=== PATIENT | male | born 1955 | race Caucasian/White ===

== ENCOUNTER → 2018-02-13 | Outpatient (CLI) | payer SELFPAY ==
[~2018-02-13] VITALS: Ht 172.7 cm; Wt 83.9 kg
[~2018-02-13] MED LIST: AMLO10TA6 PO; ASPI-630 PO; CEPH500C PO; ERGO500027 PO; FURO40TA4 PO; IBUP1TAB12 PO; IBUP200C9 PO; LISI-334 PO; OXYC-323 PO; POTA20TA82 PO; PROP80CA3 PO; SPIR25TA5 PO; SPIR50TA PO; VERA240C2 PO
[2018-02-13 08:30] VITALS: BP 109/70
[2018-02-13 08:35] LABS: BASO # 0.1 x10^3/uL (0.0-0.2); BASO % 1 % (0-3); EOS # 0.2 x10^3/uL (0.0-0.7); EOS % 2 % (0-3); HEMATOCRIT 39.5 % (39.0-53.0); HEMOGLOBIN 13.8 g/dL (13.0-17.5); LYMPH # 2.1 x10^3/uL (1.0-4.8); LYMPH % 21 % (24-48); MEAN CORPUSCULAR HEMOGLOBIN 37 pg (25-35); MEAN CORPUSCULAR HGB CONC 35 g/dL (31-37); MEAN CORPUSCULAR VOLUME 106 fL (79-100); MONO # 1.6 x10^3/uL (0.0-1.1); MONO % 16 % (0-9); NEUT # 6.4 x10^3uL (1.8-7.7); NEUT % 62 % (31-73); PLATELET COUNT 120 x10^3/uL (140-400); RED BLOOD COUNT 3.74 x10^6/uL (4.30-5.70); RED CELL DISTRIBUTION WIDTH 15.1 % (11.5-14.5); WHITE BLOOD COUNT 10.3 x10^3/uL (4.0-11.0)
[2018-02-13 08:54] LABS: PROTHROMBIN TIME PATIENT 15.1 SEC (11.7-14.0)
--- NOTE | 2018-02-22 08:35 | RAD ---
Limited abdominal ultrasound 02/13/2018 Discussion: Limited 4 quadrant ultrasound evaluation of the abdomen was performed in preparation for possible paracentesis. Only scant ascites is identified without early axis pocket. Paracentesis was therefore not performed. Impression: Only scant non-accessible site is identified.
== END | disposition home or self-care (01) ==
LOC: INTRAD 08:01
PROVIDERS: ATTEND Family Medicine
DX: K70.31 Alcoholic cirrhosis of liver with ascites (principal); K70.11 Alcoholic hepatitis with ascites; B19.20 Unspecified viral hepatitis C without hepatic coma; F41.9 Anxiety disorder, unspecified; J44.9 Chronic obstructive pulmonary disease, unspecified; I10 Essential (primary) hypertension; M19.90 Unspecified osteoarthritis, unspecified site; Z98.890 Other specified postprocedural states; F17.210 Nicotine dependence, cigarettes, uncomplicated; F32.9 Major depressive disorder, single episode, unspecified; F12.90 Cannabis use, unspecified, uncomplicated; E66.3 Overweight; Z68.28 Body mass index [BMI] 28.0-28.9, adult; Z96.651 Presence of right artificial knee joint; Z79.82 Long term (current) use of aspirin; Z79.1 Long term (current) use of non-steroidal anti-inflammatories (NSAID); Z79.899 Other long term (current) drug therapy
CPT/HCPCS: 36415; 76705; 85025; 85610; 85730

== ENCOUNTER 2019-05-27 05:14 | Inpatient (IN) | payer OTHER ==
[~2019-05-27] VITALS: Ht 172.7 cm; Wt 80.7 kg
[2019-05-27] VITALS (18 sets, daily range): BP systolic 77–106; BP diastolic 48–72
[~2019-05-27 05:14] MED LIST changes: -AMLO10TA6 PO; +AMLO10TA8 PO; -OXYC-323 PO; +OXYC1TAB15 PO; +POTA20TA4 PO; -POTA20TA82 PO
[2019-05-27] MEDS ORDERED: IV NORMAL SALINE 1000ML BAG 1,000 ML IV ONE ×2 (05:30→07:15)
[2019-05-27] MEDS ORDERED: ONDANSETRON PF 4 MG/2 ML VIAL. IV ONE (05:30)
[2019-05-27] MEDS: PANTOPRAZOLE SODIUM IV DRIP 80 MG in IV NORMAL SALINE 100ML 100 ML IV SCH ×3 (05:57→22:59)
[2019-05-27] MEDS ORDERED: fentaNYL PF VIAL 100 MCG/2 ML VIAL IV ONE ×3 (06:00→17:10)
--- NOTE | 2019-05-27 06:02 | PHYS DOC ---
Past Medical History Past Medical History: Hypertension, Hepatitis, Other Additional Past Medical Histor: CIRRHOSIS (ROB HOLLIS DO) Past Surgical History: Other Additional Past Surgical Histo: KNEE REPAIR, SHOULDER REPAIR, HERNIA REPAIR (ROB HOLLIS DO) Alcohol Use: Heavy Drug Use: None (ROB HOLLIS DO) Adult General Chief Complaint Chief Complaint: HEMATEMESIS/VOMITING BLOOD HPI HPI Patient is a 63 year old male with past medical history of liver cirrhosis and hepatitis C who presents with approximately 25 episodes of hematemesis over the last 24 hours. He reports profuse blood with occasional clots being vomited. He is complaining of epigastric abdominal pain and is sharp and constant. He has not been able to eat anything since yesterday afternoon. He denies any fever, cough, or shortness of breath. He also denies any chest pain. He states this is the first time this sort of episode has happened to him. He denies any diarrhea or dysuria. He denies any recent medication changes. (ROB HOLLIS DO) Review of Systems Review of Systems Constitutional: Denies fever or chills Eyes: Denies redness or eye pain HENT: Denies nasal congestion or sore throat Respiratory: Denies cough or shortness of breath Cardiovascular: Denies chest pain or palpitations GI: Reports abdominal pain, nausea, and hematemesis; denies melena : Denies dysuria or hematuria Musculoskeletal: Denies back pain or joint pain Integument: Denies rash or skin lesions Neurologic: Denies headache, focal weakness or sensory changes Complete systems were reviewed and found to be within normal limits, except as documented in this note. (ROB HOLLIS DO) Current Medications Current Medications Current Medications Medications (Trade) Dose Ordered Sig/Komal Start Time Stop Time Status Last Admin Dose Admin Fentanyl Citrate (Fentanyl 2ml Vial) 50 mcg 1X ONCE 05/27/19 06:00 05/27/19 06:01 DC 05/27/19 06:00 50 MCG Ondansetron HCl (Zofran) 4 mg 1X ONCE 05/27/19 05:30 05/27/19 05:31 DC 05/27/19 05:57 4 MG Pantoprazole Sodium 80 mg/ Sodium Chloride 100 ml @ 10 mls/hr Q10H 05/27/19 05:45 05/27/19 05:57 10 MLS/HR Sodium Chloride 1,000 ml @ 1,000 mls/hr 1X ONCE 05/27/19 05:30 05/27/19 06:29 DC 05/27/19 05:56 1,000 MLS/HR (BEATRIS CASTILLO MD) Allergies Allergies Allergies Coded Allergies Type Severity Reaction Last Updated Verified No Known Drug Allergies 07/16/15 No (BEATRIS CASTILLO MD) Physical Exam Physical Exam Constitutional: Jaundiced, frail appearing 63yo male HENT: Normocephalic, atraumatic, oropharynx dry Eyes: mild scleral icterus, no discharge Neck: Normal range of motion, no tenderness, supple Cardiovascular: Heart rate normal, regular rhythm Lungs & Thorax: Mild wheezing present diffusely. Abdomen: Soft, distended. TTP in RUQ, RLQ, Epigastrium. No guarding. Skin: Warm, dry, no erythema, no rash. Jaundiced throughout. Extremities: No tenderness, ROM intact, no edema Neurologic: Alert and oriented X 3, normal motor function, normal sensory function, no focal deficits noted Psychologic: Affect normal, judgement normal (ROB HOLLIS DO) Current Patient Data Vital Signs Vital Signs Date Time Temp Pulse Resp B/P (MAP) Pulse Ox O2 Delivery O2 Flow Rate FiO2 05/27/19 06:30 97 24 103/62 (76) 100 Room Air 05/27/19 05:20 97.4 97.4 (BEATRIS CASTILLO MD) Lab Values Laboratory Tests Test 05/27/19 05:50 White Blood Count 19.9 x10^3/uL (4.0-11.0) H Red Blood Count 3.17 x10^6/uL (4.30-5.70) L Hemoglobin 10.9 g/dL (13.0-17.5) L Hematocrit 33.0 % (39.0-53.0) L Mean Corpuscular Volume 104 fL (79-100) H Mean Corpuscular Hemoglobin 34 pg (25-35) Mean Corpuscular Hemoglobin Concent 33 g/dL (31-37) Red Cell Distribution Width 13.7 % (11.5-14.5) Platelet Count 272 x10^3/uL (140-400) Neutrophils (%) (Auto) 83 % (31-73) H Lymphocytes (%) (Auto) 5 % (24-48) L Monocytes (%) (Auto) 11 % (0-9) H Eosinophils (%) (Auto) 0 % (0-3) Basophils (%) (Auto) 0 % (0-3) Neutrophils # (Auto) 16.6 x10^3/uL (1.8-7.7) H Lymphocytes # (Auto) 1.1 x10^3/uL (1.0-4.8) Monocytes # (Auto) 2.2 x10^3/uL (0.0-1.1) H Eosinophils # (Auto) 0.0 x10^3/uL (0.0-0.7) Basophils # (Auto) 0.1 x10^3/uL (0.0-0.2) Platelet Estimate Pending Prothrombin Time 18.2 SEC (11.7-14.0) H Prothrombin Time INR 1.5 (0.8-1.1) H Activated Partial Thromboplast Time 32 SEC (24-38) Sodium Level 127 mmol/L (136-145) L Potassium Level 5.7 mmol/L (3.5-5.1) H Chloride Level 90 mmol/L (98-107) L Carbon Dioxide Level 15 mmol/L (21-32) L Anion Gap 22 (6-14) H Blood Urea Nitrogen 32 mg/dL (8-26) H Creatinine 1.3 mg/dL (0.7-1.3) Estimated GFR (Cockcroft-Gault) 55.8 BUN/Creatinine Ratio 25 (6-20) H Glucose Level 609 mg/dL (70-99) *H Calcium Level 9.3 mg/dL (8.5-10.1) Magnesium Level 2.0 mg/dL (1.8-2.4) Total Bilirubin 4.4 mg/dL (0.2-1.0) H Aspartate Amino Transferase (AST) 64 U/L (15-37) H Alanine Aminotransferase (ALT) 45 U/L (16-63) Alkaline Phosphatase 190 U/L (46-116) H Ammonia 46 mcmol/L (11-34) H Creatine Kinase 76 U/L (39-308) Creatine Kinase MB (Mass) 1.2 ng/mL (0.0-3.6) Creatine Kinase MB Relative Index 1.6 % (0-4) Troponin I Quantitative 0.030 ng/mL (0.000-0.055) Total Protein 7.1 g/dL (6.4-8.2) Albumin 2.4 g/dL (3.4-5.0) L Albumin/Globulin Ratio 0.5 (1.0-1.7) L Lipase 322 U/L (73-393) Ethyl Alcohol Level < 10 mg/dL (0-10) Laboratory Tests 05/27/19 05:50 Laboratory Tests 05/27/19 05:50 (BEATRIS CASTILLO MD) EKG EKG [] (ROB HOLLIS DO) Radiology/Procedures Radiology/Procedures [] (ROB HOLLIS DO) Course & Med Decision Making Course & Med Decision Making Pertinent Labs and Imaging studies reviewed. (See chart for details) Patient is a 63-year-old male with past medical history of cirrhosis and hepatitis C who presents with hematemesis, epigastric abdominal pain, and abdominal distention. Patient was tachypneic and tachycardic upon arrival. He was complaining of significant pain and was given fentanyl 50 mg. CBC, CMP, lipase, troponin, EKG, coags, type and screen, and lactate were all ordered and pending at this time. In addition, due to abdominal pain and past medical history, CT with contrast of the abdomen was ordered and pending. IV fluids, pantoprazole, and zofran, were administered to treat patient's symptoms. Patient not actively vomiting at this moment. Sign out given to Dr. Castillo for further evaluation and final disposition. Discussed current findings and plan with patient and family, who acknowledge understanding and agreement. (ROB HOLLIS DO) Course & Med Decision Making @0715: Patient care transferred to ca at 0600 concentration of upper GI bleeding and cirrhosis and ascites. Patient had stable vital signs without tachycardia. Hemoglobin was 10.9. Patient had blood sugar of 609 without history of diabetes mellitus. CO2 was 15 and ABG was requested. IV fluid and insulin deep and bolus was ordered.Patient requiring admission for further evaluation and treatment. Discussed with Dr. Espana who is in agreement with admission. Discussed findings and plan with patient and family, who acknowledge understanding and agreement. (BEATRIS CASTILLO MD) Dragon Disclaimer Dragon Disclaimer This electronic medical record was generated, in whole or in part, using a voice recognition dictation system. (ROB HOLLIS DO) Departure Departure Impression: Primary Impression: Hematemesis Additional Impressions: GI bleeding Hyperglycemia Hyperkalemia End stage liver disease Cirrhosis of liver with ascites DKA (diabetic ketoacidoses) Disposition: ADMITTED INPATIENT (at 0715) Admitting Physician: SHAMEKA (Dr. Espana accepted admission at 0714) (BEATRIS CASTILLO MD) Condition: GUARDED Referrals: KELIN DOWNEY MD (PCP) Problem Qualifiers Primary Impression: Hematemesis Nausea presence: with nausea Qualified Codes: K92.0 - Hematemesis Additional Impressions: GI bleeding GI bleed type/associated pathology: unspecified gastrointestinal hemorrhage type Qualified Codes: K92.2 - Gastrointestinal hemorrhage, unspecified Cirrhosis of liver with ascites Hepatic cirrhosis type: unspecified hepatic cirrhosis Qualified Codes: K74.60 - Unspecified cirrhosis of liver; R18.8 - Other ascites DKA (diabetic ketoacidoses) Diabetes mellitus type: other specified (including JAN) Diabetes mellitus complication detail: without coma Qualified Codes: E13.10 - Other specified diabetes mellitus with ketoacidosis without coma ROB HOLLIS DO May 27, 2019 06:02 BEATRIS CASTILLO MD May 27, 2019 07:07
[2019-05-27 06:29] LABS: BASO # 0.1 x10^3/uL (0.0-0.2); BASO % 0 % (0-3); EOS % 0 % (0-3); HEMOGLOBIN 10.9 g/dL (13.0-17.5); LYMPH # 1.1 x10^3/uL (1.0-4.8); LYMPH % 5 % (24-48); MEAN CORPUSCULAR HEMOGLOBIN 34 pg (25-35); MEAN CORPUSCULAR HGB CONC 33 g/dL (31-37); MEAN CORPUSCULAR VOLUME 104 fL (79-100); MONO # 2.2 x10^3/uL (0.0-1.1); MONO % 11 % (0-9); NEUT # 16.6 x10^3/uL (1.8-7.7); NEUT % 83 % (31-73); PLATELET COUNT 272 x10^3/uL (140-400); RED BLOOD COUNT 3.17 x10^6/uL (4.30-5.70); RED CELL DISTRIBUTION WIDTH 13.7 % (11.5-14.5); WHITE BLOOD COUNT 19.9 x10^3/uL (4.0-11.0)
[2019-05-27 06:33] LABS: PROTHROMBIN TIME PATIENT 18.2 SEC (11.7-14.0)
[2019-05-27 07:00] LABS: ALBUMIN 2.4 g/dL (3.4-5.0); ALBUMIN/GLOBULIN RATIO 0.5 (1.0-1.7); CALCIUM 9.3 mg/dL (8.5-10.1); CREATININE 1.3 mg/dL (0.7-1.3); GFR 55.8; POTASSIUM 5.7 mmol/L (3.5-5.1); TOTAL BILIRUBIN 4.4 mg/dL (0.2-1.0); TOTAL PROTEIN 7.1 g/dL (6.4-8.2)
[2019-05-27] MEDS ORDERED: IOHEXOL 300 MG/ML 100ML VIAL. IV ONE (07:15)
[2019-05-27] MEDS ORDERED: INSULIN,REGULAR 150 UNIT DRIP 150 ML IV ONE ×2 (07:15)
[2019-05-27] MEDS ORDERED: CONTRAST GIVEN. MC PRN (07:15)
[2019-05-27] MEDS ORDERED: INSULIN REGULAR 100 UNIT/ML 3ML VIAL. IV ONE (07:15)
[2019-05-27] MEDS ORDERED: INSULIN REGULAR VIAL 150 UNIT in 0.9 % SODIUM CHLORIDE 150ML 150 ML IV PRN (07:30)
[2019-05-27] MEDS ORDERED: ONDANSETRON PF 4 MG/2 ML VIAL. IV PRN ×2 (07:30→10:30)
[2019-05-27] MEDS ORDERED: PANTOPRAZOLE SODIUM IV DRIP 80 MG in IV NORMAL SALINE 100ML 100 ML IV SCH (07:30)
[2019-05-27] MEDS ORDERED: POTASSIUM CHLORIDE 10MEQ 100 ML IV PRN ×2 (07:30)
--- NOTE | 2019-05-27 07:35 | EKG ---
[facility] [address] [place] [address] Test Date: 2019-05-27 Test Time: 06:08:04 Pat Name: JESI DE SOUZA Department: Room: Gender: M C D Still Operator: : 1955 Requested By: ROB HOLLIS Order Number: [id number] Reading MD: Measurements Intervals [place] Rate: 97 P: -145 MI: 158 QRS: -23 QRSD: 92 T: 67 QT: 358 QTc: 459 Interpretive Statements SINUS RHYTHM LEFTWARD AXIS T ABNORMALITY IN HIGH LATERAL LEADS ABNORMAL ECG RI6.01 No previous ECG available for comparison
[2019-05-27 07:38] LABS: BASE EXCESS ABG -11 mmol/L (-3-3); HCO3 ABG 13 mmol/L (21-28); PCO2 ABG 26 mmHg (35-46); PO2 ABG 86 mmHg (65-108); SAT O2 ABG 94 % (92-99)
[2019-05-27 07:39] LABS: FIO2 ABG 21
--- NOTE | 2019-05-27 07:56 | PDOC1 ---
History and Physical Date of Admission Date of Admission DATE: 05/27/19 TIME: 07:54 Identification/Chief Complaint Chief Complaint seen in er , admitted to ICU, 63 year old male with past medical history of liver cirrhosis and hepatitis C who presents with approximately 25 episodes of hematemesis over the last 24 hours. He reports profuse blood with occasional clots in emesis complaining of epigastric abdominal pain and is sharp and constant. has not been able to eat since yesterday afternoon.///denies any fever, cough, or shortness of breath. He also denies any chest pain HGB = 10.9 denies hx kidney stones Past Medical History Past Medical History Past Medical History Past Medical History: Hepatitis, Other Additional Past Medical Histor: CIRRHOSIS Past Surgical History: Other Additional Past Surgical Histo: KNEE REPAIR, SHOULDER REPAIR, HERNIA REPAIR Additional Information: 1 PPD Alcohol Use: Heavy Additional Information: PT STATES HE STOPPED DRINKING 1 WEEK AGO Drug Use: None FAMILY HX DEPRESSION Pulmonary: COPD Hepatobiliary: Hep A/B/C, Other (ASCITES) ENT: No pertinent hx Family History Family History: Alcohol Abuse Family History: Parent Social History Smoke: 1 pack per day ALCOHOL: (4 beers daily Drugs: Marijuana Pulmonary: COPD Hepatobiliary: Hep A/B/C, Other Psych: Addictions Musculoskeletal: Osteoarthritis Infectious disease: Other (HEPATITIS C ) Endocrine: Diabetes Family History Family History: Alcohol Abuse, High Cholestrol Family History: Parent Social History Smoke: <1 pack per day ALCOHOL: other Drugs: Marijuana Current Problem List Problem List Problems Medical Problems: (1) Cirrhosis of liver with ascites Status: Acute (2) DKA (diabetic ketoacidoses) Status: Acute (3) End stage liver disease Status: Acute (4) GI bleeding Status: Acute (5) Hematemesis Status: Acute (6) Hyperglycemia Status: Acute (7) Hyperkalemia Status: Acute Current Medications Current Medications Current Medications Ondansetron HCl (Zofran) 4 mg 1X ONCE IV Last administered on 05/27/19at 05:57; Start 05/27/19 at 05:30; Stop 05/27/19 at 05:31; Status DC Sodium Chloride 1,000 ml @ 1,000 mls/hr 1X ONCE IV Last administered on 05/27/19at 05:56; Start 05/27/19 at 05:30; Stop 05/27/19 at 06:29; Status DC Pantoprazole Sodium 80 mg/ Sodium Chloride 100 ml @ 10 mls/hr Q10H IV Last administered on 05/27/19at 05:57; Start 05/27/19 at 05:45 Fentanyl Citrate (Fentanyl 2ml Vial) 50 mcg 1X ONCE IV Last administered on 05/27/19at 06:00; Start 05/27/19 at 06:00; Stop 05/27/19 at 06:01; Status DC Iohexol (Omnipaque 300 Mg/ml) 60 ml 1X ONCE IV Last administered on 05/27/19at 07:27; Start 05/27/19 at 07:15; Stop 05/27/19 at 07:16; Status DC Info (CONTRAST GIVEN -- Rx MONITORING) 1 each PRN DAILY PRN MC SEE COMMENTS; Start 05/27/19 at 07:15; Stop 05/29/19 at 07:14 Insulin Human Regular (HumuLIN R VIAL) 10 unit 1X ONCE IV Last administered on 05/27/19at 07:40; Start 05/27/19 at 07:15; Stop 05/27/19 at 07:16; Status DC Insulin Human Regular 150 ml @ 0 mls/hr 1X ONCE IV ; Start 05/27/19 at 07:15; Stop 05/27/19 at 07:16; Status UNV Insulin Human Regular 150 ml @ 8.1 mls/hr 1X ONCE IV ; Start 05/27/19 at 07:15; Stop 05/27/19 at 07:16; Status DC Sodium Chloride 1,000 ml @ 1,000 mls/hr 1X ONCE IV Last administered on at 07:38; Start 05/27/19 at 07:15; Stop 05/27/19 at 08:14 Ondansetron HCl (Zofran) 4 mg PRN Q8HRS PRN IV NAUSEA/VOMITING; Start 05/27/19 at 07:30; Stop 05/27/19 at 14:00 Pantoprazole Sodium 80 mg/ Sodium Chloride 100 ml @ 10 mls/hr Q10H IV ; Start 05/27/19 at 07:30; Status UNV Insulin Human Regular 150 unit/ Sodium Chloride 151.5 ml @ 0 mls/hr CONT PRN PRN IV SEE I/O RECORD; Start 05/27/19 at 07:30 Potassium Chloride/Water 100 ml @ 100 mls/hr PRN Q1HR PRN IV PER PROTOCOL; Start 05/27/19 at 07:30 Potassium Chloride/Water 100 ml @ 100 mls/hr PRN Q1HR PRN IV PER PROTOCOL; Start 05/27/19 at 07:30 Active Scripts Active Aldactone (Spironolactone) 50 Mg Tablet 1 Tab PO BID Reported Potassium Chloride 20 Meq Tablet.er 20 Meq PO DAILY Advil (Ibuprofen) 200 Mg Capsule 200 Mg PO PRN Q4HRS PRN Advil Pm Caplet (Ibuprofen/Diphenhydramine Cit) 1 Each Tablet 1 Each PO PRN PRN Furosemide 40 Mg Tablet 1 Tab PO DAILY Amlodipine Besylate 10 Mg Tablet 10 Mg PO DAILY Vitamin D2 (Ergocalciferol (Vitamin D2)) 50,000 Unit Capsule 50,000 Unit PO WEEKLY Aspirin 81 Mg Tab.chew 81 Mg PO DAILY Allergies Allergies: Coded Allergies: No Known Drug Allergies (Unverified , 07/16/15) ROS Review of System Review of Systems Review of Systems Constitutional: Denies fever or chills Eyes: Denies redness or eye pain HENT: Denies nasal congestion or sore throat Respiratory: Denies cough or shortness of breath Cardiovascular: Denies chest pain or palpitations GI: Reports abdominal pain, nausea, and hematemesis; denies melena : Denies dysuria or hematuria Musculoskeletal: Denies back pain or joint pain Integument: Denies rash or skin lesions Neurologic: Denies headache, focal weakness or sensory changes 14 PT systems were reviewed and found to be within normal limits, except as documented General: YES: Fatigue PSYCHOLOGICAL ROS: YES: Anxiety ALLERGY AND IMMUNOLOGY: No: Hives, Insect Bite Sensitivity, Itchy/Watery Eyes, Nasal Congestion, Post Nasal Drip, Seasonal Allergies, Other Respiratory: YES: SOB with excertion Gastrointestinal: Yes Nausea, Yes Vomiting, Yes Abdominal Pain Musculoskeletal: Yes Joint Stiffness Physical Exam Physical Exam Physical Exam Physical Exam Constitutional: Jaundiced, frail appearing 63yo male HENT: Normocephalic, atraumatic, oropharynx dry Eyes: mild scleral icterus, no discharge Neck: Normal range of motion, no tenderness, supple Cardiovascular: Heart rate normal, regular rhythm Lungs & Thorax: Mild wheezing present diffusely. Abdomen: Soft, distended. TTP in RUQ, RLQ, Epigastrium. No guarding. Skin: Warm, dry, no erythema, no rash. Jaundiced throughout. Extremities: No tenderness, ROM intact, no edema Neurologic: Alert and oriented X 3, normal motor function, normal sensory function, no focal deficits noted General: Alert, Oriented X3, Cooperative, mild distress HEENT: Atraumatic, EOMI Lungs: Clear to auscultation Breasts: Not examined Abdomen: Soft, No tenderness Rectal Exam: not examined PELVIC: Examination not indicated Extremities: No cyanosis Neuro: Normal speech, Cranial nerves 3-12 NL Vitals Vitals Vital Signs Date Time Temp Pulse Resp B/P (MAP) Pulse Ox O2 Delivery O2 Flow Rate FiO2 05/27/19 07:45 103 17 101/58 (72) 98 Room Air 05/27/19 05:20 97.4 97.4 Labs Labs Laboratory Tests Test 05/27/19 05:50 05/27/19 07:25 White Blood Count 19.9 x10^3/uL (4.0-11.0) Red Blood Count 3.17 x10^6/uL (4.30-5.70) Hemoglobin 10.9 g/dL (13.0-17.5) Hematocrit 33.0 % (39.0-53.0) Mean Corpuscular Volume 104 fL (79-100) Mean Corpuscular Hemoglobin 34 pg (25-35) Mean Corpuscular Hemoglobin Concent 33 g/dL (31-37) Red Cell Distribution Width 13.7 % (11.5-14.5) Platelet Count 272 x10^3/uL (140-400) Neutrophils (%) (Auto) 83 % (31-73) Lymphocytes (%) (Auto) 5 % (24-48) Monocytes (%) (Auto) 11 % (0-9) Eosinophils (%) (Auto) 0 % (0-3) Basophils (%) (Auto) 0 % (0-3) Neutrophils # (Auto) 16.6 x10^3/uL (1.8-7.7) Lymphocytes # (Auto) 1.1 x10^3/uL (1.0-4.8) Monocytes # (Auto) 2.2 x10^3/uL (0.0-1.1) Eosinophils # (Auto) 0.0 x10^3/uL (0.0-0.7) Basophils # (Auto) 0.1 x10^3/uL (0.0-0.2) Prothrombin Time 18.2 SEC (11.7-14.0) Prothromb Time International Ratio 1.5 (0.8-1.1) Activated Partial Thromboplast Time 32 SEC (24-38) Sodium Level 127 mmol/L (136-145) Potassium Level 5.7 mmol/L (3.5-5.1) Chloride Level 90 mmol/L (98-107) Carbon Dioxide Level 15 mmol/L (21-32) Anion Gap 22 (6-14) Blood Urea Nitrogen 32 mg/dL (8-26) Creatinine 1.3 mg/dL (0.7-1.3) Estimated GFR (Cockcroft-Gault) 55.8 BUN/Creatinine Ratio 25 (6-20) Glucose Level 609 mg/dL (70-99) Calcium Level 9.3 mg/dL (8.5-10.1) Magnesium Level 2.0 mg/dL (1.8-2.4) Total Bilirubin 4.4 mg/dL (0.2-1.0) Aspartate Amino Transf (AST/SGOT) 64 U/L (15-37) Alanine Aminotransferase (ALT/SGPT) 45 U/L (16-63) Alkaline Phosphatase 190 U/L (46-116) Ammonia 46 mcmol/L (11-34) Creatine Kinase 76 U/L (39-308) Creatine Kinase MB (Mass) 1.2 ng/mL (0.0-3.6) Creatine Kinase MB Relative Index 1.6 % (0-4) Troponin I Quantitative 0.030 ng/mL (0.000-0.055) Total Protein 7.1 g/dL (6.4-8.2) Albumin 2.4 g/dL (3.4-5.0) Albumin/Globulin Ratio 0.5 (1.0-1.7) Lipase 322 U/L (73-393) Ethyl Alcohol Level < 10 mg/dL (0-10) O2 Saturation 94 % (92-99) Arterial Blood pH 7.32 (7.35-7.45) Arterial Blood pCO2 at Patient Temp 26 mmHg (35-46) Arterial Blood pO2 at Patient Temp 86 mmHg (65-108) Arterial Blood HCO3 13 mmol/L (21-28) Arterial Blood Base Excess -11 mmol/L (-3-3) FiO2 21 Laboratory Tests Test 05/27/19 05:50 05/27/19 07:25 White Blood Count 19.9 x10^3/uL (4.0-11.0) Red Blood Count 3.17 x10^6/uL (4.30-5.70) Hemoglobin 10.9 g/dL (13.0-17.5) Hematocrit 33.0 % (39.0-53.0) Mean Corpuscular Volume 104 fL (79-100) Mean Corpuscular Hemoglobin 34 pg (25-35) Mean Corpuscular Hemoglobin Concent 33 g/dL (31-37) Red Cell Distribution Width 13.7 % (11.5-14.5) Platelet Count 272 x10^3/uL (140-400) Neutrophils (%) (Auto) 83 % (31-73) Lymphocytes (%) (Auto) 5 % (24-48) Monocytes (%) (Auto) 11 % (0-9) Eosinophils (%) (Auto) 0 % (0-3) Basophils (%) (Auto) 0 % (0-3) Neutrophils # (Auto) 16.6 x10^3/uL (1.8-7.7) Lymphocytes # (Auto) 1.1 x10^3/uL (1.0-4.8) Monocytes # (Auto) 2.2 x10^3/uL (0.0-1.1) Eosinophils # (Auto) 0.0 x10^3/uL (0.0-0.7) Basophils # (Auto) 0.1 x10^3/uL (0.0-0.2) Prothrombin Time 18.2 SEC (11.7-14.0) Prothromb Time International Ratio 1.5 (0.8-1.1) Activated Partial Thromboplast Time 32 SEC (24-38) Sodium Level 127 mmol/L (136-145) Potassium Level 5.7 mmol/L (3.5-5.1) Chloride Level 90 mmol/L (98-107) Carbon Dioxide Level 15 mmol/L (21-32) Anion Gap 22 (6-14) Blood Urea Nitrogen 32 mg/dL (8-26) Creatinine 1.3 mg/dL (0.7-1.3) Estimated GFR (Cockcroft-Gault) 55.8 BUN/Creatinine Ratio 25 (6-20) Glucose Level 609 mg/dL (70-99) Calcium Level 9.3 mg/dL (8.5-10.1) Magnesium Level 2.0 mg/dL (1.8-2.4) Total Bilirubin 4.4 mg/dL (0.2-1.0) Aspartate Amino Transf (AST/SGOT) 64 U/L (15-37) Alanine Aminotransferase (ALT/SGPT) 45 U/L (16-63) Alkaline Phosphatase 190 U/L (46-116) Ammonia 46 mcmol/L (11-34) Creatine Kinase 76 U/L (39-308) Creatine Kinase MB (Mass) 1.2 ng/mL (0.0-3.6) Creatine Kinase MB Relative Index 1.6 % (0-4) Troponin I Quantitative 0.030 ng/mL (0.000-0.055) Total Protein 7.1 g/dL (6.4-8.2) Albumin 2.4 g/dL (3.4-5.0) Albumin/Globulin Ratio 0.5 (1.0-1.7) Lipase 322 U/L (73-393) Ethyl Alcohol Level < 10 mg/dL (0-10) O2 Saturation 94 % (92-99) Arterial Blood pH 7.32 (7.35-7.45) Arterial Blood pCO2 at Patient Temp 26 mmHg (35-46) Arterial Blood pO2 at Patient Temp 86 mmHg (65-108) Arterial Blood HCO3 13 mmol/L (21-28) Arterial Blood Base Excess -11 mmol/L (-3-3) FiO2 [address] study of the abdomen and pelvis with contrast Clinical indications: Abdominal pain. Low back pain. Symptoms for 2 days. TECHNIQUE: After IV infusion of 60 cc Omnipaque 300, helical CT scanning of the abdomen and pelvis was performed. No GI contrast was administered. This may decrease the sensitivity to detect GI tract pathology. PQRS compliance Statement One or more of the following individualized dose reduction techniques were utilized for this study: 1. Automated exposure control 2. Adjustment of the mA and/or kV according to patient size 3. Use of iterative reconstruction technique COMPARISON: July 15, 2015 FINDINGS: The liver contour is corrugated. This may be seen with cirrhosis. No focal hepatic mass is seen. The spleen and is not enlarged. The pancreas is homogeneous in appearance without focal enlargement. The gallbladder is distended measuring 11 cm in length. No extra hepatic biliary ductal dilatation is seen. There is diffuse wall thickening of the colon most prominently involving the ascending colon and hepatic flexure and transverse colon. This is consistent with colitis. The appendix is normal. Terminal ileum is unremarkable. There is moderate distention of the stomach. There is wall thickening of small bowel. No obstructive bowel pattern is evident. There is a small amount of free fluid around the liver. No free air is evident. There is edema within the root of the mesentery but also involving the pericolonic fat of the ascending colon and hepatic flexure. 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 Multiple varices are seen within the gastrohepatic ligament. There is a small amount of fluid present within the umbilical hernia. There is an anterior midline abdominal wall hernia just superior to the umbilicus which is diffusely edematous. Urinary bladder wall is smooth. No focal aneurysmal dilatation of the abdominal aorta is seen. No enlarged abdominal or pelvic lymphadenopathy is evident. Nonobstructing stones of the right kidney are seen. No hydronephrosis is seen on either side. There is a left-sided hydroureter however. This is due to a distal left ureteral stone measuring 7 mm in size. It is located 2.5 cm proximal to the UVJ. No renal mass is seen. Calcified granuloma of the posterior right lung base is seen. Old healed right rib cage fractures are evident. No lytic process is seen. IMPRESSION: Mild left-sided hydroureter due to a distal left ureteral stone measuring 7 mm in size. Wall thickening of the colon and small bowel and moderate distention of the stomach. Findings may be seen with gastroenterocolitis. This most prominently involves the ascending colon and hepatic flexure and transverse colon. Pericolonic soft tissue edema is seen here and also involving the root of the mesentery. The pancreas appears normal but given the edema within the root of the mesentery, correlation with pancreatic enzymes is recommended. Gallbladder is distended. Cirrhosis and varices. Small amount of ascites. Spleen is normal in size. Small umbilical hernia which now contains ascites. Just superior to the umbilicus is an anterior abdominal wall midline hernia which is completely edematous. It measures 2.4 cm in greatest dimension. 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 This is concerning for colitis Hyperglycemia Hyperkalemia End stage liver disease with transaminitis Cirrhosis of liver with ascites DKA (diabetic ketoacidoses) SEVERE PROTEIN-CALORIC MALNUTRITION HX COPD, TOBACCO ABUSE DISORDER KRYSTA HX HEP C failed rx at [facility] reported Mild left-sided hydroureter due to a distal left ureteral stone measuring 7 mm in size.distal left ureteral stone measuring located 2.5 cm proximal to the UVJ LEUKOCYTOSIS ELEVATED NH4 NONCOMPLIANCE ANEMIA WITH ACUTE BLOOD LOSS ANEMIA thc abuse ADMITTED ICU BED npo GI CONSULT SERIAL H/H NEPHROLOGY CONSULT VIT K IV FLUID SUPPORT D/W DR BRAGG IN ICU, MAY NEED UROLOGY, WILL HYDRATE WITH IV FLUIDS and observe ID CONSULT ALCOHOL WITHDRAWAL PROTOCOL DKA PROTOCOL SCD'S LACTULOSE 20cc bid RECORDS [facility] PLEASE abd sono am nh4 no nsaids protonix drip 43 MIN CC TIME DAMIEN LYNCH MD May 27, 2019 07:56
[2019-05-27 08:00] LABS: BILIRUBIN,URINE NEGATIVE (NEG); CLARITY,URINE CLEAR; COLOR,URINE YELLOW; NITRITE,URINE NEGATIVE (NEG); PH,URINE 5.5; PROTEIN,URINE NEGATIVE (NEG-TRACE)
[2019-05-27 08:08] LABS: BACTERIA,URINE 0 /HPF (0-FEW); RBC,URINE 0 /HPF (0-2)
[2019-05-27 08:10] LABS: SQUAMOUS EPITHELIAL CELL,UR FEW /LPF
[2019-05-27] MEDS ORDERED: PHYTONADIONE 10 MG/ML AMPUL. SQ ONE (08:15)
--- NOTE | 2019-05-27 08:30 | NUR ---
Rec'd from ER per cart. Pt A&O,GUADALUPE, skin narcisa and abd distended, soft, tebder epigastric and on Rt LQ. Scabs on Rt knee fro Hx recent fall. at bedside. Denuies N/v at thias time. Protonix gtt infusing. Will start Insulin gtt. IV patent Rt AC. Will start 2nd IV. Pt states hx almost daily ETOH Beer. Will monitor for withdrawal. Consults called for Renal and GI. MANAGER [facility] GI at bedside. NPO for prob EGD today. Pt and agreeable.
--- NOTE | 2019-05-27 08:31 | RAD ---
CT study of the abdomen and pelvis with contrast Clinical indications: Abdominal pain. Low back pain. Symptoms for 2 days. TECHNIQUE: After IV infusion of 60 cc Omnipaque 300, helical CT scanning of the abdomen and pelvis was performed. No GI contrast was administered. This may decrease the sensitivity to detect GI tract pathology. PQRS compliance Statement One or more of the following individualized dose reduction techniques were utilized for this study: 1. Automated exposure control 2. Adjustment of the mA and/or kV according to patient size 3. Use of iterative reconstruction technique COMPARISON: July 15, 2015 FINDINGS: The liver contour is corrugated. This may be seen with cirrhosis. No focal hepatic mass is seen. The spleen and is not enlarged. The pancreas is homogeneous in appearance without focal enlargement. The gallbladder is distended measuring 11 cm in length. No extra hepatic biliary ductal dilatation is seen. There is diffuse wall thickening of the colon most prominently involving the ascending colon and hepatic flexure and transverse colon. This is consistent with colitis. The appendix is normal. Terminal ileum is unremarkable. There is moderate distention of the stomach. There is wall thickening of small bowel. No obstructive bowel pattern is evident. There is a small amount of free fluid around the liver. No free air is evident. There is edema within the root of the mesentery but also involving the pericolonic fat of the ascending colon and hepatic flexure. 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 Multiple varices are seen within the gastrohepatic ligament. There is a small amount of fluid present within the umbilical hernia. There is an anterior midline abdominal wall hernia just superior to the umbilicus which is diffusely edematous. Urinary bladder wall is smooth. No focal aneurysmal dilatation of the abdominal aorta is seen. No enlarged abdominal or pelvic lymphadenopathy is evident. Nonobstructing stones of the right kidney are seen. No hydronephrosis is seen on either side. There is a left-sided hydroureter however. This is due to a distal left ureteral stone measuring 7 mm in size. It is located 2.5 cm proximal to the UVJ. No renal mass is seen. Calcified granuloma of the posterior right lung base is seen. Old healed right rib cage fractures are evident. No lytic process is seen. IMPRESSION: Mild left-sided hydroureter due to a distal left ureteral stone measuring 7 mm in size. Wall thickening of the colon and small bowel and moderate distention of the stomach. Findings may be seen with gastroenterocolitis. This most prominently involves the ascending colon and hepatic flexure and transverse colon. Pericolonic soft tissue edema is seen here and also involving the root of the mesentery. The pancreas appears normal but given the edema within the root of the mesentery, correlation with pancreatic enzymes is recommended. Gallbladder is distended. Cirrhosis and varices. Small amount of ascites. Spleen is normal in size. Small umbilical hernia which now contains ascites. Just superior to the umbilicus is an anterior abdominal wall midline hernia which is completely edematous. It measures 2.4 cm in greatest dimension. Electronically signed by: Marbin Mcqueen MD (05/27/2019 8:28 AM) [facility]
[2019-05-27 08:32] LABS: % BANDS 16 % (0-9); % LYMPHS 6 % (24-48); % METAS 2 % (0-0); % MONOS 7 % (0-10); % SEGS 69 % (35-66)
--- NOTE | 2019-05-27 09:11 | PDOC2 ---
GI CONSULT Reason For Consult: UGI bleed, h/o cirrhosis and Hep C HPI: HPI: 63 y/o male who reports "a couple days" of vomiting red blood. Denies precipitating events. Last occurred yesterday. Sometimes feels tired and dizzy. Stools sometimes look dark. Abdomen might have hurt yesterday. Takes ASA, also meds for blood pressure but not sure what those are. Uses ibuprofen PRN. We saw him in 02/2018 for ascites - underwent paracentesis at that time and was on spironolactone and furosemide. H/o liver disease attributed to alcohol (still drinking two beers daily, last drink 3 days ago) and Hep C. AFP WNL in 2018, and US in 2018 w/ hepatomegaly, hepatic steatosis, and cirrhosis. Denies reflux/heartburn, dysphagia, diarrhea, constipation, hematochezia, weight loss, bloating, early satiety, abd distention, and LE swelling. No previous EGD or colonoscopy. No GB, pancreas, or PUD history Labs and CT as below. Says he didn't know he was diabetic. PMH: PMH: HTN, COPD, liver disease w/ Hep C (failed treatment at ), h/o ascites, nephrol ithiasis right knee replacement, left rotator cuff repair, incarcerated ventral hernia repair w/ mesh, sinus surgery, paracentesis FH: Family History: No pertinent hx ("I don't know") Social History: Smoke: 1 pack per day (h/o heavy use - nos reports two beers daily) ALCOHOL: other Drugs: Marijuana ("been awhile") ROS: GEN: +fatigue HEENT: Denies blurred vision, sore throat CV: Denies chest pain RESP: Denies shortness of air, cough GI: Per HPI : Denies hematuria, dysuria ENDO: Denies weight changes NEURO: +dizziness MSK: Denies weakness, joint pain/swelling SKIN: Denies jaundice, pruritus Vitals: Vitals: Vital Signs Date Time Temp Pulse Resp B/P (MAP) Pulse Ox O2 Delivery O2 Flow Rate FiO2 05/27/19 07:45 103 17 101/58 (72) 98 Room Air 05/27/19 05:20 97.4 97.4 Labs: Labs: Laboratory Tests Test 05/27/19 05:50 05/27/19 07:25 05/27/19 07:30 White Blood Count 19.9 x10^3/uL (4.0-11.0) Red Blood Count 3.17 x10^6/uL (4.30-5.70) Hemoglobin 10.9 g/dL (13.0-17.5) Hematocrit 33.0 % (39.0-53.0) Mean Corpuscular Volume 104 fL (79-100) Mean Corpuscular Hemoglobin 34 pg (25-35) Mean Corpuscular Hemoglobin Concent 33 g/dL (31-37) Red Cell Distribution Width 13.7 % (11.5-14.5) Platelet Count 272 x10^3/uL (140-400) Neutrophils (%) (Auto) 83 % (31-73) Lymphocytes (%) (Auto) 5 % (24-48) Monocytes (%) (Auto) 11 % (0-9) Eosinophils (%) (Auto) 0 % (0-3) Basophils (%) (Auto) 0 % (0-3) Neutrophils # (Auto) 16.6 x10^3/uL (1.8-7.7) Lymphocytes # (Auto) 1.1 x10^3/uL (1.0-4.8) Monocytes # (Auto) 2.2 x10^3/uL (0.0-1.1) Eosinophils # (Auto) 0.0 x10^3/uL (0.0-0.7) Basophils # (Auto) 0.1 x10^3/uL (0.0-0.2) Prothrombin Time 18.2 SEC (11.7-14.0) Prothromb Time International Ratio 1.5 (0.8-1.1) Activated Partial Thromboplast Time 32 SEC (24-38) Sodium Level 127 mmol/L (136-145) Potassium Level 5.7 mmol/L (3.5-5.1) Chloride Level 90 mmol/L (98-107) Carbon Dioxide Level 15 mmol/L (21-32) Anion Gap 22 (6-14) Blood Urea Nitrogen 32 mg/dL (8-26) Creatinine 1.3 mg/dL (0.7-1.3) Estimated GFR (Cockcroft-Gault) 55.8 BUN/Creatinine Ratio 25 (6-20) Glucose Level 609 mg/dL (70-99) Calcium Level 9.3 mg/dL (8.5-10.1) Phosphorus Level 4.9 mg/dL (2.6-4.7) Magnesium Level 2.0 mg/dL (1.8-2.4) Total Bilirubin 4.4 mg/dL (0.2-1.0) Aspartate Amino Transf (AST/SGOT) 64 U/L (15-37) Alanine Aminotransferase (ALT/SGPT) 45 U/L (16-63) Alkaline Phosphatase 190 U/L (46-116) Ammonia 46 mcmol/L (11-34) Creatine Kinase 76 U/L (39-308) Creatine Kinase MB (Mass) 1.2 ng/mL (0.0-3.6) Creatine Kinase MB Relative Index 1.6 % (0-4) Troponin I Quantitative 0.030 ng/mL (0.000-0.055) Total Protein 7.1 g/dL (6.4-8.2) Albumin 2.4 g/dL (3.4-5.0) Albumin/Globulin Ratio 0.5 (1.0-1.7) Lipase 322 U/L (73-393) Ethyl Alcohol Level < 10 mg/dL (0-10) Acetone Level Neg (NEG) O2 Saturation 94 % (92-99) Arterial Blood pH 7.32 (7.35-7.45) Arterial Blood pCO2 at Patient Temp 26 mmHg (35-46) Arterial Blood pO2 at Patient Temp 86 mmHg (65-108) Arterial Blood HCO3 13 mmol/L (21-28) Arterial Blood Base Excess -11 mmol/L (-3-3) FiO2 21 Urine Collection Type Unknown Urine Color Yellow Urine Clarity Clear Urine pH 5.5 Urine Specific [place] >=1.030 Urine Protein Negative mg/dL (NEG-TRACE) Urine Glucose (UA) >=1000 mg/dL (NEG) Urine Ketones (Stick) Trace mg/dL (NEG) Urine Blood Negative (NEG) Urine Nitrite Negative (NEG) Urine Bilirubin Negative (NEG) Urine Urobilinogen Dipstick 1.0 mg/dL (0.2 mg/dL) Urine Leukocyte Esterase Negative (NEG) Urine RBC 0 /HPF (0-2) Urine WBC 1-4 /HPF (0-4) Urine Squamous Epithelial Cells Few /LPF Urine Bacteria 0 /HPF (0-FEW) Allergies: Coded Allergies: No Known Drug Allergies (Unverified , 07/16/15) Medications: Current Medications Medications (Trade) Dose Ordered Sig/Komal Route PRN Reason Start Time Stop Time Status Last Admin Dose Admin Ondansetron HCl (Zofran) 4 mg 1X ONCE IV 05/27/19 05:30 05/27/19 05:31 DC 05/27/19 05:57 Sodium Chloride 1,000 ml @ 1,000 mls/hr 1X ONCE IV 05/27/19 05:30 05/27/19 06:29 DC 05/27/19 05:56 Pantoprazole Sodium 80 mg/ Sodium Chloride 100 ml @ 10 mls/hr Q10H IV 05/27/19 05:45 05/27/19 05:57 Fentanyl Citrate (Fentanyl 2ml Vial) 50 mcg 1X ONCE IV 05/27/19 06:00 05/27/19 06:01 DC 05/27/19 06:00 Iohexol (Omnipaque 300 Mg/ml) 60 ml 1X ONCE IV 05/27/19 07:15 05/27/19 07:16 DC 05/27/19 07:27 Insulin Human Regular (HumuLIN R VIAL) 10 unit 1X ONCE IV 05/27/19 07:15 05/27/19 07:16 DC 05/27/19 07:40 Sodium Chloride 1,000 ml @ 1,000 mls/hr 1X ONCE IV 05/27/19 07:15 05/27/19 08:14 DC 05/27/19 07:38 Imaging: Imaging: CT A/P FINDINGS: The liver contour is corrugated. This may be seen with cirrhosis. No focal hepatic mass is seen. The spleen and is not enlarged. The pancreas is homogeneous in appearance without focal enlargement. The gallbladder is distended measuring 11 cm in length. No extra hepatic biliary ductal dilatation is seen. There is diffuse wall thickening of the colon most prominently involving the ascending colon and hepatic flexure and transverse colon. This is consistent with colitis. The appendix is normal. Terminal ileum is unremarkable. There is moderate distention of the stomach. There is wall thickening of small bowel. No obstructive bowel pattern is evident. There is a small amount of free fluid around the liver. No free air is evident. There is edema within the root of the mesentery but also involving the pericolonic fat of the ascending colon and hepatic flexure. 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 Multiple varices are seen within the gastrohepatic ligament. There is a small amount of fluid present within the umbilical hernia. There is an anterior midline abdominal wall hernia just superior to the umbilicus which is diffusely edematous. Urinary bladder wall is smooth. No focal aneurysmal dilatation of the abdominal aorta is seen. No enlarged abdominal or pelvic lymphadenopathy is evident. Nonobstructing stones of the right kidney are seen. No hydronephrosis is seen on either side. There is a left-sided hydroureter however. This is due to a distal left ureteral stone measuring 7 mm in size. It is located 2.5 cm proximal to the UVJ. No renal mass is seen. Calcified granuloma of the posterior right lung base is seen. Old healed right rib cage fractures are evident. No lytic process is seen. IMPRESSION: Mild left-sided hydroureter due to a distal left ureteral stone measuring 7 mm in size. Wall thickening of the colon and small bowel and moderate distention of the stomach. Findings may be seen with gastroenterocolitis. This most prominently involves the ascending colon and hepatic flexure and transverse colon. Pericolonic soft tissue edema is seen here and also involving the root of the mesentery. The pancreas appears normal but given the edema within the root of the mesentery, correlation with pancreatic enzymes is recommended. Gallbladder is distended. Cirrhosis and varices. Small amount of ascites. Spleen is normal in size. Small umbilical hernia which now contains ascites. Just superior to the umbilicus is an anterior abdominal wall midline hernia which is completely edematous. It measures 2.4 cm in greatest dimension. PE: GEN: NAD, nurse present HEENT: Atraumatic, PERRL LUNGS: room air HEART: borderline tachycardic ABD: NABS, soft, perhaps some mild distention, non-tender EXTREMITY: No edema SKIN:telangiectasia cheeks NEURO/PSYCH: A & O 3 A/P: A/P: Hematemesis Macrocytic anemia, coagulopathy, abnormal LFTs, mild hyperammonemia Leukocytosis, hyperglycemia/new DM, hyponatremia - per primary H/o liver disease - Hep C (failed treatment @ [facility]), alcohol H/o ascites and paracentesis - small amount of ascites on imaging this time Abnormal CT - cirrhosis and varices, left hydroureter and ureteral stone, wall thickening of colon and small bowel w. moderately distended stomach, distended GB, umbilical and abd wall hernia CRC screen - none -- D/w Dr. Covarrubias - tentatively plan for EGD this evening - glucose needs to be lower for this. NPO. Agree w/ PPI. Has been typed/screened. Unclear significance of colon/SB findings on CT - denies diarrhea, currently denies pain. DANNA PRIETO May 27, 2019 09:11
[2019-05-27 09:20] LABS: ANISOCYTOSIS SLIGHT; BURR CELLS OCC; PLT ESTIMATE ADEQUATE (ADEQUATE)
--- NOTE | 2019-05-27 10:07 | PDOC2 ---
CONSULT Date of Consult Date of Consult DATE: 05/27/19 TIME: 09:57 Reason for Consult Reason for Consult: KRYSTA Identification/Chief Complaint Chief Complaint None currently Source Source: Chart review, Patient History of Present Illness Reason for Visit: Patient is a 63-year-old CM with past medical history of cirrhosis and hepati tis C who presents with hematemesis ("Vomited only blood") , epigastric abdominal pain, and abdominal distention. Patient was tachypneic and tachycardic upon arrival to the ER. He was complaining of significant pain and was given fentanyl 50 mg Pt reports he was not aware that he has a Dx of Cirrhosis. He had paracentesis in 2018 in 2018 at [facility] and he does remember that. He states he doesn't follow with GI and has PCP- last visit < 1 year He takes Ibuprofen 2/day prn - mosly qod . Denies any OTC supplements. He states he is only on BP meds. Never Dx with DM. Denies LE edema. No Urinary complaints . Still drinking 2-3 beers daily and Occ Marijuana PMHx- HTN, ?COPD, Hep C, OA, right knee replacement, left rotator cuff repair, incarcerated ventral hernia repair w/ mesh, sinus surgery CT with contrast of the abdomen with contrast done at presentation Past Medical History Pulmonary: COPD Hepatobiliary: Hep A/B/C, Other Family History Family History Family History: Alcohol Abuse, High Cholestrol Family History: Alcohol Abuse Social History Social History Smoke: <1 pack per day ALCOHOL: Beer Drugs: Marijuana occ Social History: Parent ALCOHOL: other Drugs: Marijuana Current Problem List Problem List Problems Medical Problems: (1) Cirrhosis of liver with ascites Status: Acute (2) DKA (diabetic ketoacidoses) Status: Acute (3) End stage liver disease Status: Acute (4) GI bleeding Status: Acute (5) Hematemesis Status: Acute (6) Hyperglycemia Status: Acute (7) Hyperkalemia Status: Acute Current Medications Current Medications Current Medications Ondansetron HCl (Zofran) 4 mg 1X ONCE IV Last administered on 05/27/19at 05:57; Start 05/27/19 at 05:30; Stop 05/27/19 at 05:31; Status DC Sodium Chloride 1,000 ml @ 1,000 mls/hr 1X ONCE IV Last administered on 05/27/19at 05:56; Start 05/27/19 at 05:30; Stop 05/27/19 at 06:29; Status DC Pantoprazole Sodium 80 mg/ Sodium Chloride 100 ml @ 10 mls/hr Q10H IV Last administered on 05/27/19at 05:57; Start 05/27/19 at 05:45 Fentanyl Citrate (Fentanyl 2ml Vial) 50 mcg 1X ONCE IV Last administered on 05/27/19at 06:00; Start 05/27/19 at 06:00; Stop 05/27/19 at 06:01; Status DC Iohexol (Omnipaque 300 Mg/ml) 60 ml 1X ONCE IV Last administered on 05/27/19at 07:27; Start 05/27/19 at 07:15; Stop 05/27/19 at 07:16; Status DC Info (CONTRAST GIVEN -- Rx MONITORING) 1 each PRN DAILY PRN MC SEE COMMENTS; Start 05/27/19 at 07:15; Stop 05/29/19 at 07:14 Insulin Human Regular (HumuLIN R VIAL) 10 unit 1X ONCE IV Last administered on 05/27/19at 07:40; Start 05/27/19 at 07:15; Stop 05/27/19 at 07:16; Status DC Insulin Human Regular 150 ml @ 0 mls/hr 1X ONCE IV ; Start 05/27/19 at 07:15; Stop 05/27/19 at 07:16; Status UNV Insulin Human Regular 150 ml @ 8.1 mls/hr 1X ONCE IV ; Start 05/27/19 at 07:15; Stop 05/27/19 at 07:16; Status DC Sodium Chloride 1,000 ml @ 1,000 mls/hr 1X ONCE IV Last administered on 05/27/19at 07:38; Start 05/27/19 at 07:15; Stop 05/27/19 at 08:14; Status DC Ondansetron HCl (Zofran) 4 mg PRN Q8HRS PRN IV NAUSEA/VOMITING; Start 05/27/19 at 07:30; Stop 05/27/19 at 14:00 Pantoprazole Sodium 80 mg/ Sodium Chloride 100 ml @ 10 mls/hr Q10H IV ; Start 05/27/19 at 07:30; Status UNV Insulin Human Regular 150 unit/ Sodium Chloride 151.5 ml @ 0 mls/hr CONT PRN PRN IV SEE I/O RECORD Last administered on 05/27/19at 09:15; Start 05/27/19 at 07:30 Potassium Chloride/Water 100 ml @ 100 mls/hr PRN Q1HR PRN IV PER PROTOCOL; Start 05/27/19 at 07:30 Potassium Chloride/Water 100 ml @ 100 mls/hr PRN Q1HR PRN IV PER PROTOCOL; Start 05/27/19 at 07:30 Phytonadione (Vitamin K Ampule) 10 mg 1X ONCE SQ Last administered on 05/27/19 at 09:24; Start 05/27/19 at 08:15; Stop 05/27/19 at 08:16; Status DC Active Scripts Active Aldactone (Spironolactone) 50 Mg Tablet 1 Tab PO BID Reported Potassium Chloride 20 Meq Tablet.er 20 Meq PO DAILY Advil (Ibuprofen) 200 Mg Capsule 200 Mg PO PRN Q4HRS PRN Advil Pm Caplet (Ibuprofen/Diphenhydramine Cit) 1 Each Tablet 1 Each PO PRN PRN Furosemide 40 Mg Tablet 1 Tab PO DAILY Amlodipine Besylate 10 Mg Tablet 10 Mg PO DAILY Vitamin D2 (Ergocalciferol (Vitamin D2)) 50,000 Unit Capsule 50,000 Unit PO WEEKLY Aspirin 81 Mg Tab.chew 81 Mg PO DAILY Allergies Allergies: Coded Allergies: No Known Drug Allergies (Unverified , 07/16/15) ROS Review of System Per HPI Physical Exam Physical Exam General: NAD HEEN- OM dry Neck supple Lungs: Clear to auscultation CV RRR Abdomen: Soft, No tenderness Extremities: No cyanosis, No edema Neuro: grossly normal, AxOx 3 - No agee, No CVA or SP tenderness Skin No rash Vital Signs Vital Signs Date Time Temp Pulse Resp B/P (MAP) Pulse Ox O2 Delivery O2 Flow Rate FiO2 05/27/19 09:45 106 16 96/62 (73) 98 Room Air 05/27/19 08:15 98.7 98.7 Assessment & Plan KRYSTA- Hypotensive, appears to be pre-renal , Monitor for Hepato-renal UA- No micr hematuria, No Overt proteinuria Supportive care, IVF , Avoid Nephrotoxins . strict I/O , Daily BMP Cirrhosis- CT reported Cirrhosis and varices. Small amount of ascites Per GI Hematemesis - EGD today per GI Metabolic acidosis- This am, 2/2 Hyperglycemia, Monitor HypoNa - Corrected for Glucose Normal HyperGlycemia/? New Dx o DM- per primary HyperKalemia - Mild Ureteral stone- Mild left-sided hydroureter due to a distal left ureteral stone measuring 7 mm in size reported on CT Consult Urology - defer management to Primary , [place] Discussed with Pt and RN Labs Labs Laboratory Tests Test 05/27/19 05:50 05/27/19 07:25 05/27/19 07:30 05/27/19 09:02 White Blood Count 19.9 x10^3/uL (4.0-11.0) Red Blood Count 3.17 x10^6/uL (4.30-5.70) Hemoglobin 10.9 g/dL (13.0-17.5) Hematocrit 33.0 % (39.0-53.0) Mean Corpuscular Volume 104 fL (79-100) Mean Corpuscular Hemoglobin 34 pg (25-35) Mean Corpuscular Hemoglobin Concent 33 g/dL (31-37) Red Cell Distribution Width 13.7 % (11.5-14.5) Platelet Count 272 x10^3/uL (140-400) Neutrophils (%) (Auto) 83 % (31-73) Lymphocytes (%) (Auto) 5 % (24-48) Monocytes (%) (Auto) 11 % (0-9) Eosinophils (%) (Auto) 0 % (0-3) Basophils (%) (Auto) 0 % (0-3) Neutrophils # (Auto) 16.6 x10^3/uL (1.8-7.7) Lymphocytes # (Auto) 1.1 x10^3/uL (1.0-4.8) Monocytes # (Auto) 2.2 x10^3/uL (0.0-1.1) Eosinophils # (Auto) 0.0 x10^3/uL (0.0-0.7) Basophils # (Auto) 0.1 x10^3/uL (0.0-0.2) Segmented Neutrophils % 69 % (35-66) Band Neutrophils % 16 % (0-9) Lymphocytes % 6 % (24-48) Monocytes % 7 % (0-10) Metamyelocytes % 2 % (0-0) Platelet Estimate Adequate (ADEQUATE) Anisocytosis Slight June Cells Occ Prothrombin Time 18.2 SEC (11.7-14.0) Prothromb Time International Ratio 1.5 (0.8-1.1) Activated Partial Thromboplast Time 32 SEC (24-38) Sodium Level 127 mmol/L (136-145) Potassium Level 5.7 mmol/L (3.5-5.1) Chloride Level 90 mmol/L (98-107) Carbon Dioxide Level 15 mmol/L (21-32) Anion Gap 22 (6-14) Blood Urea Nitrogen 32 mg/dL (8-26) Creatinine 1.3 mg/dL (0.7-1.3) Estimated GFR (Cockcroft-Gault) 55.8 BUN/Creatinine Ratio 25 (6-20) Glucose Level 609 mg/dL (70-99) Calcium Level 9.3 mg/dL (8.5-10.1) Phosphorus Level 4.9 mg/dL (2.6-4.7) Magnesium Level 2.0 mg/dL (1.8-2.4) Total Bilirubin 4.4 mg/dL (0.2-1.0) Aspartate Amino Transf (AST/SGOT) 64 U/L (15-37) Alanine Aminotransferase (ALT/SGPT) 45 U/L (16-63) Alkaline Phosphatase 190 U/L (46-116) Ammonia 46 mcmol/L (11-34) Creatine Kinase 76 U/L (39-308) Creatine Kinase MB (Mass) 1.2 ng/mL (0.0-3.6) Creatine Kinase MB Relative Index 1.6 % (0-4) Troponin I Quantitative 0.030 ng/mL (0.000-0.055) Total Protein 7.1 g/dL (6.4-8.2) Albumin 2.4 g/dL (3.4-5.0) Albumin/Globulin Ratio 0.5 (1.0-1.7) Lipase 322 U/L (73-393) Ethyl Alcohol Level < 10 mg/dL (0-10) Acetone Level Neg (NEG) O2 Saturation 94 % (92-99) Arterial Blood pH 7.32 (7.35-7.45) Arterial Blood pCO2 at Patient Temp 26 mmHg (35-46) Arterial Blood pO2 at Patient Temp 86 mmHg (65-108) Arterial Blood HCO3 13 mmol/L (21-28) Arterial Blood Base Excess -11 mmol/L (-3-3) FiO2 21 Urine Collection Type Unknown Urine Color Yellow Urine Clarity Clear Urine pH 5.5 Urine Specific [place] >=1.030 Urine Protein Negative mg/dL (NEG-TRACE) Urine Glucose (UA) >=1000 mg/dL (NEG) Urine Ketones (Stick) Trace mg/dL (NEG) Urine Blood Negative (NEG) Urine Nitrite Negative (NEG) Urine Bilirubin Negative (NEG) Urine Urobilinogen Dipstick 1.0 mg/dL (0.2 mg/dL) Urine Leukocyte Esterase Negative (NEG) Urine RBC 0 /HPF (0-2) Urine WBC 1-4 /HPF (0-4) Urine Squamous Epithelial Cells Few /LPF Urine Bacteria 0 /HPF (0-FEW) Glucose (Fingerstick) 438 mg/dL (70-99) Laboratory Tests Test 05/27/19 05:50 05/27/19 07:25 05/27/19 07:30 05/27/19 09:02 White Blood Count 19.9 x10^3/uL (4.0-11.0) Red Blood Count 3.17 x10^6/uL (4.30-5.70) Hemoglobin 10.9 g/dL (13.0-17.5) Hematocrit 33.0 % (39.0-53.0) Mean Corpuscular Volume 104 fL (79-100) Mean Corpuscular Hemoglobin 34 pg (25-35) Mean Corpuscular Hemoglobin Concent 33 g/dL (31-37) Red Cell Distribution Width 13.7 % (11.5-14.5) Platelet Count 272 x10^3/uL (140-400) Neutrophils (%) (Auto) 83 % (31-73) Lymphocytes (%) (Auto) 5 % (24-48) Monocytes (%) (Auto) 11 % (0-9) Eosinophils (%) (Auto) 0 % (0-3) Basophils (%) (Auto) 0 % (0-3) Neutrophils # (Auto) 16.6 x10^3/uL (1.8-7.7) Lymphocytes # (Auto) 1.1 x10^3/uL (1.0-4.8) Monocytes # (Auto) 2.2 x10^3/uL (0.0-1.1) Eosinophils # (Auto) 0.0 x10^3/uL (0.0-0.7) Basophils # (Auto) 0.1 x10^3/uL (0.0-0.2) Segmented Neutrophils % 69 % (35-66) Band Neutrophils % 16 % (0-9) Lymphocytes % 6 % (24-48) Monocytes % 7 % (0-10) Metamyelocytes % 2 % (0-0) Platelet Estimate Adequate (ADEQUATE) Anisocytosis Slight June Cells Occ Prothrombin Time 18.2 SEC (11.7-14.0) Prothromb Time International Ratio 1.5 (0.8-1.1) Activated Partial Thromboplast Time 32 SEC (24-38) Sodium Level 127 mmol/L (136-145) Potassium Level 5.7 mmol/L (3.5-5.1) Chloride Level 90 mmol/L (98-107) Carbon Dioxide Level 15 mmol/L (21-32) Anion Gap 22 (6-14) Blood Urea Nitrogen 32 mg/dL (8-26) Creatinine 1.3 mg/dL (0.7-1.3) Estimated GFR (Cockcroft-Gault) 55.8 BUN/Creatinine Ratio 25 (6-20) Glucose Level 609 mg/dL (70-99) Calcium Level 9.3 mg/dL (8.5-10.1) Phosphorus Level 4.9 mg/dL (2.6-4.7) Magnesium Level 2.0 mg/dL (1.8-2.4) Total Bilirubin 4.4 mg/dL (0.2-1.0) Aspartate Amino Transf (AST/SGOT) 64 U/L (15-37) Alanine Aminotransferase (ALT/SGPT) 45 U/L (16-63) Alkaline Phosphatase 190 U/L (46-116) Ammonia 46 mcmol/L (11-34) Creatine Kinase 76 U/L (39-308) Creatine Kinase MB (Mass) 1.2 ng/mL (0.0-3.6) Creatine Kinase MB Relative Index 1.6 % (0-4) Troponin I Quantitative 0.030 ng/mL (0.000-0.055) Total Protein 7.1 g/dL (6.4-8.2) Albumin 2.4 g/dL (3.4-5.0) Albumin/Globulin Ratio 0.5 (1.0-1.7) Lipase 322 U/L (73-393) Ethyl Alcohol Level < 10 mg/dL (0-10) Acetone Level Neg (NEG) O2 Saturation 94 % (92-99) Arterial Blood pH 7.32 (7.35-7.45) Arterial Blood pCO2 at Patient Temp 26 mmHg (35-46) Arterial Blood pO2 at Patient Temp 86 mmHg (65-108) Arterial Blood HCO3 13 mmol/L (21-28) Arterial Blood Base Excess -11 mmol/L (-3-3) FiO2 21 Urine Collection Type Unknown Urine Color Yellow Urine Clarity Clear Urine pH 5.5 Urine Specific [place] >=1.030 Urine Protein Negative mg/dL (NEG-TRACE) Urine Glucose (UA) >=1000 mg/dL (NEG) Urine Ketones (Stick) Trace mg/dL (NEG) Urine Blood Negative (NEG) Urine Nitrite Negative (NEG) Urine Bilirubin Negative (NEG) Urine Urobilinogen Dipstick 1.0 mg/dL (0.2 mg/dL) Urine Leukocyte Esterase Negative (NEG) Urine RBC 0 /HPF (0-2) Urine WBC 1-4 /HPF (0-4) Urine Squamous Epithelial Cells Few /LPF Urine Bacteria 0 /HPF (0-FEW) Glucose (Fingerstick) 438 mg/dL (70-99) Review All relevant outside records, renal labs, imaging studies, telemetry/EKG's were reviewed. Images Images CT scan with Contrast Mild left-sided hydroureter due to a distal left ureteral stone measuring 7 mm in size. Wall thickening of the colon and small bowel and moderate distention of the stomach. Findings may be seen with gastroenterocolitis. This most prominently involves the ascending colon and hepatic flexure and transverse colon. Pericolonic soft tissue edema is seen here and also involving the root of the mesentery. The pancreas appears normal but given the edema within the root of the mesentery, correlation with pancreatic enzymes is recommended. Gallbladder is distended. Cirrhosis and varices. Small amount of ascites. Spleen is normal in size. Small umbilical hernia which now contains ascites. Just superior to the umbilicus is an anterior abdominal wall midline hernia which is completely edematous. It measures 2.4 cm in greatest dimension. BART BRAGG MD May 27, 2019 10:07
--- NOTE | 2019-05-27 10:27 | NUR ---
SS following for discharge planning. SS reviewed pt chart. Pt is from home with spouse and is currently on room air. Pt has a history of ETOH. SS will contact PAT team when medically stable for assessment. Pt's RN stated not ready today. SS will continue to follow for discharge planning.
[2019-05-27] MEDS ORDERED: PROCHLORPERAZINE 10 MG/2 ML VIAL. IV PRN (10:30)
[2019-05-27] MEDS: IV NORMAL SALINE 1000ML BAG 1,000 ML IV SCH (10:30)
[2019-05-27] MEDS ORDERED: BISACODYL 10 MG SUPP.RECT. PR PRN (10:30)
[2019-05-27] MEDS ORDERED: 0.9 % SODIUM CHLORIDE 10 ML DISP.SYRIN. IV PRN (10:30)
[2019-05-27] MEDS: MULTIVIT INFUSN,ADULT 4,VIT K 10 ML, THIAMINE INJ 100 MG, FOLIC ACID INJ 1 MG in IV NOR... IV SCH (11:22)
[2019-05-27] MEDS ORDERED: IV RINGERS,LACTATED 1000ML 1,000 ML IV SCH (11:24)
[2019-05-27 11:47] LABS: BASO % 0 % (0-3); EOS % 0 % (0-3); HEMATOCRIT 29.1 % (39.0-53.0); HEMOGLOBIN 9.8 g/dL (13.0-17.5); LYMPH # 1.6 x10^3/uL (1.0-4.8); LYMPH % 8 % (24-48); MEAN CORPUSCULAR HEMOGLOBIN 34 pg (25-35); MEAN CORPUSCULAR HGB CONC 34 g/dL (31-37); MEAN CORPUSCULAR VOLUME 103 fL (79-100); MONO # 2.2 x10^3/uL (0.0-1.1); MONO % 11 % (0-9); NEUT # 15.9 x10^3/uL (1.8-7.7); NEUT % 81 % (31-73); PLATELET COUNT 201 x10^3/uL (140-400); RED BLOOD COUNT 2.84 x10^6/uL (4.30-5.70); RED CELL DISTRIBUTION WIDTH 13.5 % (11.5-14.5); WHITE BLOOD COUNT 19.7 x10^3/uL (4.0-11.0)
[2019-05-27] MEDS: PIPERACILLIN/TAZOBACTAM 3.375 GM in IV NORMAL SALINE 50ML 50 ML IV SCH ×2 (12:17→19:02)
--- NOTE | 2019-05-27 12:36 | RAD ---
Abdominal ultrasound 05/27/2019 INDICATION: The liver disease. Hydronephrosis. COMPARISON STUDY: CT of the abdomen and pelvis, earlier same day Discussion: Ultrasound evaluation of the abdomen was performed. Static images are submitted to PACS. Pancreas is nonvisualized. The aorta and IVC are nonvisualized. The liver measures 16.5 cm longitudinally. No focal hepatic lesions are identified. The common bile duct is nondilated distally measuring 0.5 cm. The gallbladder is poorly visualized, the appearance would suggest a wall echo shadow sign. Mild thickening of the gallbladder wall appears to be present. No focal hepatic lesions are seen. No definitive intrahepatic biliary dilatation is seen. Kidney measures approximately 1.4 cm in length. Spleen is normal in size measuring 10.7 cm in length. Left kidney measures 12.1 cm in length. Portal venous flows poorly visualized. IMPRESSION: 1. Probable wall echo shadow sign. Apparent associated gallbladder gallbladder wall thickening. Correlate with clinical evidence of acute cholecystitis. 2. The portal vein is poorly visualized, that appears be patent on CT performed earlier this morning. Electronically signed by: Wes Morton MD (05/27/2019 12:33 PM) [id number]
--- NOTE | 2019-05-27 12:37 | RAD ---
Single view of the chest. 05/27/2019 11:41 AM Indication: Sepsis Comparison: None Findings: There is no focal consolidation. There is no pleural effusion or pneumothorax. The cardiomediastinal silhouette and pulmonary vasculature are within normal limits. Severe degenerative changes of the shoulders noted. No acute osseous abnormalities are seen. Impression: No evidence of acute cardiopulmonary process. Electronically signed by: Wes Morton MD (05/27/2019 12:34 PM) [id number]
[2019-05-27] MEDS: fentaNYL PF VIAL 100 MCG/2 ML VIAL IV PRN (12:46)
--- NOTE | 2019-05-27 13:35 | PDOC ---
Infectious Disease Note Vital Sign Vital Signs Vital Signs Date Time Temp Pulse Resp B/P (MAP) Pulse Ox O2 Delivery O2 Flow Rate FiO2 05/27/19 12:46 16 Room Air 05/27/19 10:30 104 96/63 (74) 98 05/27/19 08:15 98.7 98.7 Labs Lab Laboratory Tests Test 05/27/19 05:50 05/27/19 07:25 05/27/19 07:30 05/27/19 09:02 White Blood Count 19.9 x10^3/uL (4.0-11.0) Red Blood Count 3.17 x10^6/uL (4.30-5.70) Hemoglobin 10.9 g/dL (13.0-17.5) Hematocrit 33.0 % (39.0-53.0) Mean Corpuscular Volume 104 fL (79-100) Mean Corpuscular Hemoglobin 34 pg (25-35) Mean Corpuscular Hemoglobin Concent 33 g/dL (31-37) Red Cell Distribution Width 13.7 % (11.5-14.5) Platelet Count 272 x10^3/uL (140-400) Neutrophils (%) (Auto) 83 % (31-73) Lymphocytes (%) (Auto) 5 % (24-48) Monocytes (%) (Auto) 11 % (0-9) Eosinophils (%) (Auto) 0 % (0-3) Basophils (%) (Auto) 0 % (0-3) Neutrophils # (Auto) 16.6 x10^3/uL (1.8-7.7) Lymphocytes # (Auto) 1.1 x10^3/uL (1.0-4.8) Monocytes # (Auto) 2.2 x10^3/uL (0.0-1.1) Eosinophils # (Auto) 0.0 x10^3/uL (0.0-0.7) Basophils # (Auto) 0.1 x10^3/uL (0.0-0.2) Segmented Neutrophils % 69 % (35-66) Band Neutrophils % 16 % (0-9) Lymphocytes % 6 % (24-48) Monocytes % 7 % (0-10) Metamyelocytes % 2 % (0-0) Platelet Estimate Adequate (ADEQUATE) Anisocytosis Slight June Cells Occ Prothrombin Time 18.2 SEC (11.7-14.0) Prothromb Time International Ratio 1.5 (0.8-1.1) Activated Partial Thromboplast Time 32 SEC (24-38) Sodium Level 127 mmol/L (136-145) Potassium Level 5.7 mmol/L (3.5-5.1) Chloride Level 90 mmol/L (98-107) Carbon Dioxide Level 15 mmol/L (21-32) Anion Gap 22 (6-14) Blood Urea Nitrogen 32 mg/dL (8-26) Creatinine 1.3 mg/dL (0.7-1.3) Estimated GFR (Cockcroft-Gault) 55.8 BUN/Creatinine Ratio 25 (6-20) Glucose Level 609 mg/dL (70-99) Calcium Level 9.3 mg/dL (8.5-10.1) Phosphorus Level 4.9 mg/dL (2.6-4.7) Magnesium Level 2.0 mg/dL (1.8-2.4) Total Bilirubin 4.4 mg/dL (0.2-1.0) Aspartate Amino Transf (AST/SGOT) 64 U/L (15-37) Alanine Aminotransferase (ALT/SGPT) 45 U/L (16-63) Alkaline Phosphatase 190 U/L (46-116) Ammonia 46 mcmol/L (11-34) Creatine Kinase 76 U/L (39-308) Creatine Kinase MB (Mass) 1.2 ng/mL (0.0-3.6) Creatine Kinase MB Relative Index 1.6 % (0-4) Troponin I Quantitative 0.030 ng/mL (0.000-0.055) Total Protein 7.1 g/dL (6.4-8.2) Albumin 2.4 g/dL (3.4-5.0) Albumin/Globulin Ratio 0.5 (1.0-1.7) Lipase 322 U/L (73-393) Ethyl Alcohol Level < 10 mg/dL (0-10) Acetone Level Neg (NEG) O2 Saturation 94 % (92-99) Arterial Blood pH 7.32 (7.35-7.45) Arterial Blood pCO2 at Patient Temp 26 mmHg (35-46) Arterial Blood pO2 at Patient Temp 86 mmHg (65-108) Arterial Blood HCO3 13 mmol/L (21-28) Arterial Blood Base Excess -11 mmol/L (-3-3) FiO2 21 Urine Collection Type Unknown Urine Color Yellow Urine Clarity Clear Urine pH 5.5 Urine Specific Willet >=1.030 Urine Protein Negative mg/dL (NEG-TRACE) Urine Glucose (UA) >=1000 mg/dL (NEG) Urine Ketones (Stick) Trace mg/dL (NEG) Urine Blood Negative (NEG) Urine Nitrite Negative (NEG) Urine Bilirubin Negative (NEG) Urine Urobilinogen Dipstick 1.0 mg/dL (0.2 mg/dL) Urine Leukocyte Esterase Negative (NEG) Urine RBC 0 /HPF (0-2) Urine WBC 1-4 /HPF (0-4) Urine Squamous Epithelial Cells Few /LPF Urine Bacteria 0 /HPF (0-FEW) Glucose (Fingerstick) 438 mg/dL (70-99) Test 05/27/19 10:08 05/27/19 11:16 05/27/19 11:25 05/27/19 12:20 Glucose (Fingerstick) 455 mg/dL (70-99) 392 mg/dL (70-99) 402 mg/dL (70-99) White Blood Count 19.7 x10^3/uL (4.0-11.0) Red Blood Count 2.84 x10^6/uL (4.30-5.70) Hemoglobin 9.8 g/dL (13.0-17.5) Hematocrit 29.1 % (39.0-53.0) Mean Corpuscular Volume 103 fL (79-100) Mean Corpuscular Hemoglobin 34 pg (25-35) Mean Corpuscular Hemoglobin Concent 34 g/dL (31-37) Red Cell Distribution Width 13.5 % (11.5-14.5) Platelet Count 201 x10^3/uL (140-400) Neutrophils (%) (Auto) 81 % (31-73) Lymphocytes (%) (Auto) 8 % (24-48) Monocytes (%) (Auto) 11 % (0-9) Eosinophils (%) (Auto) 0 % (0-3) Basophils (%) (Auto) 0 % (0-3) Neutrophils # (Auto) 15.9 x10^3/uL (1.8-7.7) Lymphocytes # (Auto) 1.6 x10^3/uL (1.0-4.8) Monocytes # (Auto) 2.2 x10^3/uL (0.0-1.1) Eosinophils # (Auto) 0.0 x10^3/uL (0.0-0.7) Basophils # (Auto) 0.0 x10^3/uL (0.0-0.2) Lactic Acid Level 6.8 mmol/L (0.4-2.0) Troponin I Quantitative 0.051 ng/mL (0.000-0.055) Procalcitonin 0.74 ng/mL (0.00-0.10) Objective Assessment Lactic acidosis Leukocytosis GI bleed Colitis, likely ischemic ETOH dependence Cirrhosis Plan Plan of Care hydration aspiration precautions Rocephine supportive care MADELIN ST MD May 27, 2019 13:35
[2019-05-27] MEDS ORDERED: SPIR100T4 PO (13:39)
[2019-05-27 14:55] LABS: BASO # 0.1 x10^3/uL (0.0-0.2); BASO % 0 % (0-3); EOS % 0 % (0-3); HEMOGLOBIN 9.7 g/dL (13.0-17.5); LYMPH # 2.6 x10^3/uL (1.0-4.8); LYMPH % 11 % (24-48); MEAN CORPUSCULAR HEMOGLOBIN 34 pg (25-35); MEAN CORPUSCULAR HGB CONC 34 g/dL (31-37); MEAN CORPUSCULAR VOLUME 102 fL (79-100); MONO # 3.2 x10^3/uL (0.0-1.1); MONO % 14 % (0-9); NEUT # 16.8 x10^3/uL (1.8-7.7); NEUT % 74 % (31-73); PLATELET COUNT 209 x10^3/uL (140-400); RED BLOOD COUNT 2.84 x10^6/uL (4.30-5.70); RED CELL DISTRIBUTION WIDTH 13.5 % (11.5-14.5); WHITE BLOOD COUNT 22.8 x10^3/uL (4.0-11.0)
[2019-05-27] MEDS ORDERED: MIDAZOLAM HCL/PF 5 MG/5 ML VIAL. ONE (16:59)
[2019-05-27] MEDS ORDERED: fentaNYL PF VIAL 100 MCG/2 ML VIAL ONE (17:00)
[2019-05-27] MEDS ORDERED: diphenhydrAMINE 50 MG/ML VIAL ONE (17:00)
[2019-05-27] MEDS ORDERED: diphenhydrAMINE 50 MG/ML VIAL IV ONE (17:01)
[2019-05-27] MEDS ORDERED: MIDAZOLAM HCL/PF 5 MG/5 ML VIAL. IV ONE ×3 (17:04→17:14)
--- NOTE | 2019-05-27 17:28 | PDOC4 ---
Operative Note Operative Note EGD with band ligation Pre-op dx Varices/Hematemesis post-op dx varices grade 3 with red wheal sign s/p band ligation x 5 portal hypertensive gastropathy Plan serial cbcs advance diet in am if hg stable repeat band ligatoin in 2 weeks- if unable to control bleeding with banding, then TIPS would be pursued with interventional radiology IRISH VILLALOBOS MD May 27, 2019 17:28
[2019-05-27 18:18] LABS: BASO # 0.2 x10^3/uL (0.0-0.2); BASO % 1 % (0-3); EOS % 0 % (0-3); HEMATOCRIT 26.6 % (39.0-53.0); LYMPH # 3.4 x10^3/uL (1.0-4.8); LYMPH % 15 % (24-48); MEAN CORPUSCULAR HEMOGLOBIN 34 pg (25-35); MEAN CORPUSCULAR HGB CONC 34 g/dL (31-37); MEAN CORPUSCULAR VOLUME 101 fL (79-100); MONO # 3.3 x10^3/uL (0.0-1.1); MONO % 14 % (0-9); NEUT # 16.4 x10^3/uL (1.8-7.7); NEUT % 70 % (31-73); PLATELET COUNT 211 x10^3/uL (140-400); RED BLOOD COUNT 2.63 x10^6/uL (4.30-5.70); RED CELL DISTRIBUTION WIDTH 13.5 % (11.5-14.5); WHITE BLOOD COUNT 23.4 x10^3/uL (4.0-11.0)
[2019-05-27 18:28] LABS: CALCIUM 8.6 mg/dL (8.5-10.1); CREATININE 0.8 mg/dL (0.7-1.3); GFR 97.6; POTASSIUM 4.4 mmol/L (3.5-5.1)
[2019-05-27] MEDS: LACTULOSE 20 GM/30 ML SOLUTION. PO SCH (19:01)
[2019-05-27] MEDS ORDERED: IV DEXTROSE 5% 250 ML BAG. IV PRN (19:15)
[2019-05-27] MEDS ORDERED: DEXTROSE 50% 25 GM / 50ML DISP.SYRIN. IV PRN (19:15)
[2019-05-27] MEDS ORDERED: INSULIN LISPRO 300 UNITS/3 ML VIAL. SQ SCH (19:30)
[2019-05-27] MEDS ORDERED: INSULIN GLARGINE SYRINGE. SQ SCH (21:00)
--- NOTE | 2019-05-27 22:53 | CONS ---
DATE OF CONSULTATION: 05/27/2019 REQUESTING PHYSICIAN: Flakito Espana MD REASON FOR CONSULTATION: Leukocytosis. HISTORY OF PRESENT ILLNESS: This is a 63-year-old gentleman who has hepatitis C and cirrhosis of liver, who presented with multiple bloody emesis. The patient is complaining of some abdominal pain. The patient was noted to have a lactic acidosis, leukocytosis, blood sugar of 609, volume depletion, total bilirubin 4.4, ischemic bowel, left-sided hydroureter and the stone. The patient has been seen by GI and EGD has been planned this later afternoon. The patient currently denies any headache, visual symptoms or any other complaints. PAST MEDICAL HISTORY: Positive for cirrhosis of liver, hepatitis C, hypertension, has had knee replacement done, shoulder replacement done and hernia repair done in the past. The patient does have a history of ascites, nephrolithiasis, knee replacement done. SOCIAL HISTORY: Positive for smoking, uses marijuana and drinks a couple of beers daily. ALLERGIES: No known drug allergies. CURRENT MEDICATIONS: The patient is on Zosyn. REVIEW OF SYSTEMS: As per HPI, all other systems reviewed are negative. PHYSICAL EXAMINATION: GENERAL: Alert, oriented gentleman, not in distress. VITAL SIGNS: Stable, afebrile. HEENT: NAD. NECK: Supple, no JVP, no lymphadenopathy. LUNGS: Clear. HEART: S1, S2 regular. ABDOMEN: Soft, mild diffuse tenderness, no rebound or guarding. EXTREMITIES: No edema, cyanosis. SKIN: Unremarkable. NEUROLOGIC: The patient is neurologically alert, awake and appropriate. No focal neurologic deficit. LABORATORY DATA: White count is 19.7, hemoglobin 9.8, platelets are normal. BUN and creatinine is 32 and 1.3, which has improved after hydration. Blood sugar has improved. Lactic acid 6.8. Urinalysis unremarkable. Cultures are pending. Chest x-ray is unremarkable. Abdominal CT showed colitis. IMPRESSION: 1. Lactic acidosis. 2. Gastrointestinal bleed. 3. Colitis, likely ischemic colitis. 4. Leukocytosis, most likely to be reactive. 5. Cirrhosis of liver with hepatitis C. RECOMMENDATIONS: Continue hydration, aspiration precaution, Zosyn, supportive care and we will continue to follow. Thank you very much, Dr. Espana, for giving me the opportunity to participate in this patient's care. MADELIN ST MD DR: JAYLEN/rosenda JOB#: [id number] / [id number]
[2019-05-28] VITALS (16 sets, daily range): BP systolic 84–118; BP diastolic 47–71
[2019-05-28] MEDS: PIPERACILLIN/TAZOBACTAM 3.375 GM in IV NORMAL SALINE 50ML 50 ML IV SCH ×4 (00:29→17:12)
[2019-05-28] MEDS: INSULIN LISPRO 300 UNITS/3 ML VIAL. SQ SCH ×4 (00:30→17:58)
[2019-05-28 04:29] LABS: BASO # 0.1 x10^3/uL (0.0-0.2); BASO % 1 % (0-3); EOS # 0.1 x10^3/uL (0.0-0.7); EOS % 1 % (0-3); HEMATOCRIT 24.6 % (39.0-53.0); HEMOGLOBIN 8.2 g/dL (13.0-17.5); LYMPH # 3.6 x10^3/uL (1.0-4.8); LYMPH % 16 % (24-48); MEAN CORPUSCULAR HEMOGLOBIN 34 pg (25-35); MEAN CORPUSCULAR HGB CONC 34 g/dL (31-37); MEAN CORPUSCULAR VOLUME 102 fL (79-100); MONO # 2.6 x10^3/uL (0.0-1.1); MONO % 12 % (0-9); NEUT # 16.6 x10^3/uL (1.8-7.7); NEUT % 72 % (31-73); PLATELET COUNT 189 x10^3/uL (140-400); RED BLOOD COUNT 2.41 x10^6/uL (4.30-5.70); RED CELL DISTRIBUTION WIDTH 13.4 % (11.5-14.5)
[2019-05-28 04:52] LABS: ALBUMIN/GLOBULIN RATIO 0.5 (1.0-1.7); CALCIUM 8.3 mg/dL (8.5-10.1); CREATININE 0.9 mg/dL (0.7-1.3); GFR 85.2; POTASSIUM 4.7 mmol/L (3.5-5.1); TOTAL BILIRUBIN 2.7 mg/dL (0.2-1.0); TOTAL PROTEIN 5.9 g/dL (6.4-8.2)
[2019-05-28] MEDS: IV NORMAL SALINE 1000ML BAG 1,000 ML IV SCH ×3 (05:12→17:12)
[2019-05-28] MEDS ORDERED: INSULIN LISPRO 300 UNITS/3 ML VIAL. SQ SCH (08:00)
--- NOTE | 2019-05-28 08:00 | PDOC ---
Infectious Disease Note Subjective Subjective awake, says feeling better ROS ROS no n/v/d/sob Vital Sign Vital Signs Vital Signs Date Time Temp Pulse Resp B/P (MAP) Pulse Ox O2 Delivery O2 Flow Rate FiO2 05/28/19 06:00 92 16 86/56 (66) 93 Room Air 05/28/19 04:00 98.4 98.4 05/27/19 17:30 2 Physical Exam PHYSICAL EXAM GENERAL: Alert, oriented gentleman, not in distress. VITAL SIGNS: Stable, afebrile. HEENT: NAD. NECK: Supple, no JVP, no lymphadenopathy. LUNGS: Clear. HEART: S1, S2 regular. ABDOMEN: Soft, mild diffuse tenderness, no rebound or guarding. EXTREMITIES: No edema, cyanosis. SKIN: Unremarkable. NEUROLOGIC: The patient is neurologically alert, awake and appropriate. No focal neurologic deficit. Labs Lab Laboratory Tests Test 05/27/19 09:02 05/27/19 10:08 05/27/19 11:16 05/27/19 11:25 Glucose (Fingerstick) 438 mg/dL (70-99) 455 mg/dL (70-99) 392 mg/dL (70-99) White Blood Count 19.7 x10^3/uL (4.0-11.0) Red Blood Count 2.84 x10^6/uL (4.30-5.70) Hemoglobin 9.8 g/dL (13.0-17.5) Hematocrit 29.1 % (39.0-53.0) Mean Corpuscular Volume 103 fL (79-100) Mean Corpuscular Hemoglobin 34 pg (25-35) Mean Corpuscular Hemoglobin Concent 34 g/dL (31-37) Red Cell Distribution Width 13.5 % (11.5-14.5) Platelet Count 201 x10^3/uL (140-400) Neutrophils (%) (Auto) 81 % (31-73) Lymphocytes (%) (Auto) 8 % (24-48) Monocytes (%) (Auto) 11 % (0-9) Eosinophils (%) (Auto) 0 % (0-3) Basophils (%) (Auto) 0 % (0-3) Neutrophils # (Auto) 15.9 x10^3/uL (1.8-7.7) Lymphocytes # (Auto) 1.6 x10^3/uL (1.0-4.8) Monocytes # (Auto) 2.2 x10^3/uL (0.0-1.1) Eosinophils # (Auto) 0.0 x10^3/uL (0.0-0.7) Basophils # (Auto) 0.0 x10^3/uL (0.0-0.2) Lactic Acid Level 6.8 mmol/L (0.4-2.0) Troponin I Quantitative 0.051 ng/mL (0.000-0.055) Procalcitonin 0.74 ng/mL (0.00-0.10) Test 05/27/19 12:20 05/27/19 13:41 05/27/19 14:45 05/27/19 14:50 Glucose (Fingerstick) 402 mg/dL (70-99) 302 mg/dL (70-99) 257 mg/dL (70-99) White Blood Count 22.8 x10^3/uL (4.0-11.0) Red Blood Count 2.84 x10^6/uL (4.30-5.70) Hemoglobin 9.7 g/dL (13.0-17.5) Hematocrit 29.0 % (39.0-53.0) Mean Corpuscular Volume 102 fL (79-100) Mean Corpuscular Hemoglobin 34 pg (25-35) Mean Corpuscular Hemoglobin Concent 34 g/dL (31-37) Red Cell Distribution Width 13.5 % (11.5-14.5) Platelet Count 209 x10^3/uL (140-400) Neutrophils (%) (Auto) 74 % (31-73) Lymphocytes (%) (Auto) 11 % (24-48) Monocytes (%) (Auto) 14 % (0-9) Eosinophils (%) (Auto) 0 % (0-3) Basophils (%) (Auto) 0 % (0-3) Neutrophils # (Auto) 16.8 x10^3/uL (1.8-7.7) Lymphocytes # (Auto) 2.6 x10^3/uL (1.0-4.8) Monocytes # (Auto) 3.2 x10^3/uL (0.0-1.1) Eosinophils # (Auto) 0.0 x10^3/uL (0.0-0.7) Basophils # (Auto) 0.1 x10^3/uL (0.0-0.2) Lactic Acid Level 3.7 mmol/L (0.4-2.0) Test 05/27/19 15:53 05/27/19 16:57 05/27/19 17:54 05/27/19 18:05 Glucose (Fingerstick) 182 mg/dL (70-99) 153 mg/dL (70-99) 121 mg/dL (70-99) White Blood Count 23.4 x10^3/uL (4.0-11.0) Red Blood Count 2.63 x10^6/uL (4.30-5.70) Hemoglobin 9.0 g/dL (13.0-17.5) Hematocrit 26.6 % (39.0-53.0) Mean Corpuscular Volume 101 fL (79-100) Mean Corpuscular Hemoglobin 34 pg (25-35) Mean Corpuscular Hemoglobin Concent 34 g/dL (31-37) Red Cell Distribution Width 13.5 % (11.5-14.5) Platelet Count 211 x10^3/uL (140-400) Neutrophils (%) (Auto) 70 % (31-73) Lymphocytes (%) (Auto) 15 % (24-48) Monocytes (%) (Auto) 14 % (0-9) Eosinophils (%) (Auto) 0 % (0-3) Basophils (%) (Auto) 1 % (0-3) Neutrophils # (Auto) 16.4 x10^3/uL (1.8-7.7) Lymphocytes # (Auto) 3.4 x10^3/uL (1.0-4.8) Monocytes # (Auto) 3.3 x10^3/uL (0.0-1.1) Eosinophils # (Auto) 0.0 x10^3/uL (0.0-0.7) Basophils # (Auto) 0.2 x10^3/uL (0.0-0.2) Sodium Level 136 mmol/L (136-145) Potassium Level 4.4 mmol/L (3.5-5.1) Chloride Level 103 mmol/L (98-107) Carbon Dioxide Level 27 mmol/L (21-32) Anion Gap 6 (6-14) Blood Urea Nitrogen 34 mg/dL (8-26) Creatinine 0.8 mg/dL (0.7-1.3) Estimated GFR (Cockcroft-Gault) 97.6 Glucose Level 133 mg/dL (70-99) Calcium Level 8.6 mg/dL (8.5-10.1) Test 05/27/19 19:03 05/27/19 20:11 05/28/19 00:26 05/28/19 03:35 Glucose (Fingerstick) 107 mg/dL (70-99) 138 mg/dL (70-99) 217 mg/dL (70-99) White Blood Count 23.0 x10^3/uL (4.0-11.0) Red Blood Count 2.41 x10^6/uL (4.30-5.70) Hemoglobin 8.2 g/dL (13.0-17.5) Hematocrit 24.6 % (39.0-53.0) Mean Corpuscular Volume 102 fL (79-100) Mean Corpuscular Hemoglobin 34 pg (25-35) Mean Corpuscular Hemoglobin Concent 34 g/dL (31-37) Red Cell Distribution Width 13.4 % (11.5-14.5) Platelet Count 189 x10^3/uL (140-400) Neutrophils (%) (Auto) 72 % (31-73) Lymphocytes (%) (Auto) 16 % (24-48) Monocytes (%) (Auto) 12 % (0-9) Eosinophils (%) (Auto) 1 % (0-3) Basophils (%) (Auto) 1 % (0-3) Neutrophils # (Auto) 16.6 x10^3/uL (1.8-7.7) Lymphocytes # (Auto) 3.6 x10^3/uL (1.0-4.8) Monocytes # (Auto) 2.6 x10^3/uL (0.0-1.1) Eosinophils # (Auto) 0.1 x10^3/uL (0.0-0.7) Basophils # (Auto) 0.1 x10^3/uL (0.0-0.2) Sodium Level 129 mmol/L (136-145) Potassium Level 4.7 mmol/L (3.5-5.1) Chloride Level 98 mmol/L (98-107) Carbon Dioxide Level 24 mmol/L (21-32) Anion Gap 7 (6-14) Blood Urea Nitrogen 33 mg/dL (8-26) Creatinine 0.9 mg/dL (0.7-1.3) Estimated GFR (Cockcroft-Gault) 85.2 BUN/Creatinine Ratio 37 (6-20) Glucose Level 229 mg/dL (70-99) Calcium Level 8.3 mg/dL (8.5-10.1) Total Bilirubin 2.7 mg/dL (0.2-1.0) Aspartate Amino Transf (AST/SGOT) 160 U/L (15-37) Alanine Aminotransferase (ALT/SGPT) 77 U/L (16-63) Alkaline Phosphatase 138 U/L (46-116) Ammonia 37 mcmol/L (11-34) Total Protein 5.9 g/dL (6.4-8.2) Albumin 2.0 g/dL (3.4-5.0) Albumin/Globulin Ratio 0.5 (1.0-1.7) Test 05/28/19 05:37 Glucose (Fingerstick) 239 mg/dL (70-99) Objective Assessment 1. Lactic acidosis. 2. Gastrointestinal bleed. , Esophageal varices 3. Colitis, likely ischemic colitis. 4. Leukocytosis, most likely to be reactive. 5. Cirrhosis of liver with hepatitis C. Plan Plan of Care hydration aspiration precautions zosyn supportive care MADELIN ST MD May 28, 2019 08:00
[2019-05-28] MEDS: MULTIVIT INFUSN,ADULT 4,VIT K 10 ML, THIAMINE INJ 100 MG, FOLIC ACID INJ 1 MG in IV NOR... IV SCH (08:15)
[2019-05-28] MEDS: LACTULOSE 20 GM/30 ML SOLUTION. PO SCH (08:16)
[2019-05-28] MEDS ORDERED: THIAMINE INJ 100 MG in IV DEXTROSE 5% 50 ML IV SCH (09:00)
[2019-05-28] MEDS ORDERED: FLU VAX QS 2019-20 (36MOS+)/PF 0.5 ML SYRINGE. VAX IM ONE (09:00)
--- NOTE | 2019-05-28 09:44 | NUR ---
SW following. Adama from PAT team coming to see pt today. RN notified. Addendum: 05/28/19 at 1310 by FREDIS SHAFFER SW Adama met with pt, pt declined services for ETOH abuse. Pt being started on Prozac for depression and advised to follow up with Lilian Roger. No further SW needs at this time.
--- NOTE | 2019-05-28 09:46 | PDOC ---
SUBJECTIVE ROS States feeling better s/p EGD OBJECTIVE Vital Signs Vital Signs Date Time Temp Pulse Resp B/P (MAP) Pulse Ox O2 Delivery O2 Flow Rate FiO2 05/28/19 06:00 92 16 86/56 (66) 93 Room Air 05/28/19 04:00 98.4 98.4 05/27/19 17:30 2 I & 0 Intake and Output 05/28/19 07:00 Intake Total 3259.5 ml Output Total 1725 ml Balance 1534.5 ml Intake IV Total 3259.5 ml Output Urine Total 1725 ml # Voids 2 PHYSICAL EXAM Physical Exam General: NAD HEEN- OM dry Neck supple Lungs: Clear to auscultation CV RRR Abdomen: Soft, No tenderness Extremities: No cyanosis, No edema Neuro: grossly normal, AxOx 3 - No agee, No CVA or SP tenderness Skin No rash DIAGNOSIS/ASSESSMENT Assessment & Plan KRYSTA- Hypotensive pre-renal UA- No micr hematuria, No Overt proteinuria Renal function improved Supportive care , Avoid Nephrotoxins . strict I/O Cirrhosis- CT reported Cirrhosis and varices. Small amount of ascites Per GI HypoNa -mildly low suspect 2/2 cirrhosis Hematemesis - varices grade 3 ,portal hypertensive gastropathy s/p band ligation x 5 on 05/27 Metabolic acidosis- resolved HyperGlycemia/? New Dx o DM- per primary HyperKalemia - resolved Ureteral stone- Mild left-sided hydroureter due to a distal left ureteral stone measuring 7 mm in size reported on CT Renal function improved COMMENT/RELEVANT DATA Meds Current Medications Medications (Trade) Dose Ordered Sig/Komal Start Time Stop Time Status Last Admin Dose Admin Bisacodyl (Dulcolax Supp) 10 mg PRN DAILY PRN 05/27/19 10:30 Dextrose (Dextrose 50%-Water Syringe) 12.5 gm PRN Q15MIN PRN 05/27/19 19:15 Dextrose (Iv Dextrose 5%) 250 ml PRN Q15MIN PRN 05/27/19 19:15 Diphenhydramine HCl (Benadryl) 50 mg STK-MED ONCE 05/27/19 17:01 05/27/19 17:13 DC 05/27/19 17:01 25 MG Ergocalciferol (Vitamin D2) 50,000 unit WEEKLY 06/03/19 09:00 Fentanyl Citrate (Fentanyl 2ml Vial) 100 mcg STK-MED ONCE 05/27/19 17:10 05/27/19 17:13 DC 05/27/19 17:10 25 MCG Influenza Virus Vaccine Quadrival (Afluria Quad 2019-20 (3yr Up) Syringe) 0.5 ml ONCE ONCE 05/28/19 09:00 05/28/19 09:01 DC Info (CONTRAST GIVEN -- Rx MONITORING) 1 each PRN DAILY PRN 05/27/19 07:15 05/29/19 07:14 Insulin Glargine (Lantus Syringe) 20 unit QHS 05/28/19 21:00 Insulin Human Lispro (HumaLOG) 0-9 UNITS Q6HRS 05/28/19 00:00 05/28/19 05:38 3 UNITS Insulin Human Regular 150 ml @ 8.1 mls/hr 1X ONCE 05/27/19 07:15 05/28/19 03:33 DC Insulin Human Regular (HumuLIN R VIAL) 10 unit 1X ONCE 05/27/19 07:15 05/27/19 21:00 DC 05/27/19 07:40 10 UNIT Insulin Human Regular 150 unit/ Sodium Chloride 151.5 ml @ 0 mls/hr CONT PRN PRN 05/27/19 07:30 05/27/19 19:04 DC 05/27/19 09:15 7.6 MLS/HR Iohexol (Omnipaque 300 Mg/ml) 60 ml 1X ONCE 05/27/19 07:15 05/27/19 07:16 DC 05/27/19 07:27 60 ML Lactulose (Lactulose) 20 gm DAILY08 05/27/19 10:45 05/28/19 08:16 20 GM Lorazepam (Ativan Inj) 0.5 mg PRN Q6HRS PRN 05/27/19 10:30 05/27/19 12:26 0.5 MG Midazolam HCl (Versed) 5 mg STK-MED ONCE 05/27/19 17:14 05/27/19 17:15 DC 05/27/19 17:14 1 MG Multivitamins 10 ml/Thiamine HCl 100 mg/Folic Acid 1 mg/Sodium Chloride 1,011.2 ml @ 100 mls/ hr DAILY 05/27/19 11:00 05/28/19 08:15 100 MLS/HR Nicotine (Nicoderm Cq 14mg) 1 patch PRN DAILY PRN 05/28/19 09:00 Ondansetron HCl (Zofran) 4 mg PRN Q6HRS PRN 05/27/19 10:30 Pantoprazole Sodium (Protonix) 40 mg DAILYAC 05/29/19 07:30 Pantoprazole Sodium 80 mg/ Sodium Chloride 100 ml @ 10 mls/hr Q10H 05/27/19 07:30 UNV Phytonadione (Vitamin K Ampule) 10 mg 1X ONCE 05/27/19 08:15 05/27/19 08:16 DC 05/27/19 09:24 10 MG Piperacillin Sod/ Tazobactam Sod 3.375 gm/Sodium Chloride 50 ml @ 100 mls/hr Q6HRS 05/27/19 12:00 05/28/19 05:40 100 MLS/HR Potassium Chloride/Water 100 ml @ 100 mls/hr PRN Q1HR PRN 05/27/19 07:30 Prochlorperazine Edisylate (Compazine) 5 mg PRN Q6HRS PRN 05/27/19 10:30 Ringer's Solution 1,000 ml @ 50 mls/hr Q20H 05/27/19 11:24 05/27/19 23:23 DC 05/27/19 16:35 50 MLS/HR Sodium Chloride 1,000 ml @ 100 mls/hr Q10H 05/27/19 10:30 05/28/19 05:12 100 MLS/HR Sodium Chloride (Normal Saline Flush) 3 ml QSHIFT PRN 05/27/19 10:30 Thiamine HCl 100 mg/Dextrose 51 ml @ 102 mls/hr DAILY 05/28/19 09:00 UNV Lab Laboratory Tests Test 05/27/19 10:08 05/27/19 11:16 05/27/19 11:25 05/27/19 12:20 Glucose (Fingerstick) 455 mg/dL (70-99) 392 mg/dL (70-99) 402 mg/dL (70-99) White Blood Count 19.7 x10^3/uL (4.0-11.0) Red Blood Count 2.84 x10^6/uL (4.30-5.70) Hemoglobin 9.8 g/dL (13.0-17.5) Hematocrit 29.1 % (39.0-53.0) Mean Corpuscular Volume 103 fL (79-100) Mean Corpuscular Hemoglobin 34 pg (25-35) Mean Corpuscular Hemoglobin Concent 34 g/dL (31-37) Red Cell Distribution Width 13.5 % (11.5-14.5) Platelet Count 201 x10^3/uL (140-400) Neutrophils (%) (Auto) 81 % (31-73) Lymphocytes (%) (Auto) 8 % (24-48) Monocytes (%) (Auto) 11 % (0-9) Eosinophils (%) (Auto) 0 % (0-3) Basophils (%) (Auto) 0 % (0-3) Neutrophils # (Auto) 15.9 x10^3/uL (1.8-7.7) Lymphocytes # (Auto) 1.6 x10^3/uL (1.0-4.8) Monocytes # (Auto) 2.2 x10^3/uL (0.0-1.1) Eosinophils # (Auto) 0.0 x10^3/uL (0.0-0.7) Basophils # (Auto) 0.0 x10^3/uL (0.0-0.2) Lactic Acid Level 6.8 mmol/L (0.4-2.0) Troponin I Quantitative 0.051 ng/mL (0.000-0.055) Procalcitonin 0.74 ng/mL (0.00-0.10) Test 05/27/19 13:41 05/27/19 14:45 05/27/19 14:50 05/27/19 15:53 Glucose (Fingerstick) 302 mg/dL (70-99) 257 mg/dL (70-99) 182 mg/dL (70-99) White Blood Count 22.8 x10^3/uL (4.0-11.0) Red Blood Count 2.84 x10^6/uL (4.30-5.70) Hemoglobin 9.7 g/dL (13.0-17.5) Hematocrit 29.0 % (39.0-53.0) Mean Corpuscular Volume 102 fL (79-100) Mean Corpuscular Hemoglobin 34 pg (25-35) Mean Corpuscular Hemoglobin Concent 34 g/dL (31-37) Red Cell Distribution Width 13.5 % (11.5-14.5) Platelet Count 209 x10^3/uL (140-400) Neutrophils (%) (Auto) 74 % (31-73) Lymphocytes (%) (Auto) 11 % (24-48) Monocytes (%) (Auto) 14 % (0-9) Eosinophils (%) (Auto) 0 % (0-3) Basophils (%) (Auto) 0 % (0-3) Neutrophils # (Auto) 16.8 x10^3/uL (1.8-7.7) Lymphocytes # (Auto) 2.6 x10^3/uL (1.0-4.8) Monocytes # (Auto) 3.2 x10^3/uL (0.0-1.1) Eosinophils # (Auto) 0.0 x10^3/uL (0.0-0.7) Basophils # (Auto) 0.1 x10^3/uL (0.0-0.2) Lactic Acid Level 3.7 mmol/L (0.4-2.0) Test 05/27/19 16:57 05/27/19 17:54 05/27/19 18:05 05/27/19 19:03 Glucose (Fingerstick) 153 mg/dL (70-99) 121 mg/dL (70-99) 107 mg/dL (70-99) White Blood Count 23.4 x10^3/uL (4.0-11.0) Red Blood Count 2.63 x10^6/uL (4.30-5.70) Hemoglobin 9.0 g/dL (13.0-17.5) Hematocrit 26.6 % (39.0-53.0) Mean Corpuscular Volume 101 fL (79-100) Mean Corpuscular Hemoglobin 34 pg (25-35) Mean Corpuscular Hemoglobin Concent 34 g/dL (31-37) Red Cell Distribution Width 13.5 % (11.5-14.5) Platelet Count 211 x10^3/uL (140-400) Neutrophils (%) (Auto) 70 % (31-73) Lymphocytes (%) (Auto) 15 % (24-48) Monocytes (%) (Auto) 14 % (0-9) Eosinophils (%) (Auto) 0 % (0-3) Basophils (%) (Auto) 1 % (0-3) Neutrophils # (Auto) 16.4 x10^3/uL (1.8-7.7) Lymphocytes # (Auto) 3.4 x10^3/uL (1.0-4.8) Monocytes # (Auto) 3.3 x10^3/uL (0.0-1.1) Eosinophils # (Auto) 0.0 x10^3/uL (0.0-0.7) Basophils # (Auto) 0.2 x10^3/uL (0.0-0.2) Sodium Level 136 mmol/L (136-145) Potassium Level 4.4 mmol/L (3.5-5.1) Chloride Level 103 mmol/L (98-107) Carbon Dioxide Level 27 mmol/L (21-32) Anion Gap 6 (6-14) Blood Urea Nitrogen 34 mg/dL (8-26) Creatinine 0.8 mg/dL (0.7-1.3) Estimated GFR (Cockcroft-Gault) 97.6 Glucose Level 133 mg/dL (70-99) Calcium Level 8.6 mg/dL (8.5-10.1) Test 05/27/19 20:11 05/28/19 00:26 05/28/19 03:35 05/28/19 05:37 Glucose (Fingerstick) 138 mg/dL (70-99) 217 mg/dL (70-99) 239 mg/dL (70-99) White Blood Count 23.0 x10^3/uL (4.0-11.0) Red Blood Count 2.41 x10^6/uL (4.30-5.70) Hemoglobin 8.2 g/dL (13.0-17.5) Hematocrit 24.6 % (39.0-53.0) Mean Corpuscular Volume 102 fL (79-100) Mean Corpuscular Hemoglobin 34 pg (25-35) Mean Corpuscular Hemoglobin Concent 34 g/dL (31-37) Red Cell Distribution Width 13.4 % (11.5-14.5) Platelet Count 189 x10^3/uL (140-400) Neutrophils (%) (Auto) 72 % (31-73) Lymphocytes (%) (Auto) 16 % (24-48) Monocytes (%) (Auto) 12 % (0-9) Eosinophils (%) (Auto) 1 % (0-3) Basophils (%) (Auto) 1 % (0-3) Neutrophils # (Auto) 16.6 x10^3/uL (1.8-7.7) Lymphocytes # (Auto) 3.6 x10^3/uL (1.0-4.8) Monocytes # (Auto) 2.6 x10^3/uL (0.0-1.1) Eosinophils # (Auto) 0.1 x10^3/uL (0.0-0.7) Basophils # (Auto) 0.1 x10^3/uL (0.0-0.2) Sodium Level 129 mmol/L (136-145) Potassium Level 4.7 mmol/L (3.5-5.1) Chloride Level 98 mmol/L (98-107) Carbon Dioxide Level 24 mmol/L (21-32) Anion Gap 7 (6-14) Blood Urea Nitrogen 33 mg/dL (8-26) Creatinine 0.9 mg/dL (0.7-1.3) Estimated GFR (Cockcroft-Gault) 85.2 BUN/Creatinine Ratio 37 (6-20) Glucose Level 229 mg/dL (70-99) Calcium Level 8.3 mg/dL (8.5-10.1) Total Bilirubin 2.7 mg/dL (0.2-1.0) Aspartate Amino Transf (AST/SGOT) 160 U/L (15-37) Alanine Aminotransferase (ALT/SGPT) 77 U/L (16-63) Alkaline Phosphatase 138 U/L (46-116) Ammonia 37 mcmol/L (11-34) Total Protein 5.9 g/dL (6.4-8.2) Albumin 2.0 g/dL (3.4-5.0) Albumin/Globulin Ratio 0.5 (1.0-1.7) Test 05/28/19 08:22 Glucose (Fingerstick) 163 mg/dL (70-99) Results All relevant outside records, renal labs, imaging studies, telemetry/EKG's were reviewed. BART BRAGG MD May 28, 2019 09:46
--- NOTE | 2019-05-28 09:46 | PDOC ---
Subjective: Subjective: Feels fine, denies bleeding, tolerating clears w/o vomiting, hasn't stooled, denies abd pain. Objective: Objective: D/w nurse - tolerating liquids. Vital Signs: Vital Signs Date Time Temp Pulse Resp B/P (MAP) Pulse Ox O2 Delivery O2 Flow Rate FiO2 05/28/19 06:00 92 16 86/56 (66) 93 Room Air 05/28/19 04:00 98.4 98.4 05/27/19 17:30 2 Labs: Laboratory Tests Test 05/27/19 10:08 05/27/19 11:16 05/27/19 11:25 05/27/19 12:20 Glucose (Fingerstick) 455 mg/dL 392 mg/dL 402 mg/dL White Blood Count 19.7 x10^3/uL Red Blood Count 2.84 x10^6/uL Hemoglobin 9.8 g/dL Hematocrit 29.1 % Mean Corpuscular Volume 103 fL Mean Corpuscular Hemoglobin 34 pg Mean Corpuscular Hemoglobin Concent 34 g/dL Red Cell Distribution Width 13.5 % Platelet Count 201 x10^3/uL Neutrophils (%) (Auto) 81 % Lymphocytes (%) (Auto) 8 % Monocytes (%) (Auto) 11 % Eosinophils (%) (Auto) 0 % Basophils (%) (Auto) 0 % Neutrophils # (Auto) 15.9 x10^3/uL Lymphocytes # (Auto) 1.6 x10^3/uL Monocytes # (Auto) 2.2 x10^3/uL Eosinophils # (Auto) 0.0 x10^3/uL Basophils # (Auto) 0.0 x10^3/uL Lactic Acid Level 6.8 mmol/L Troponin I Quantitative 0.051 ng/mL Procalcitonin 0.74 ng/mL Test 05/27/19 13:41 05/27/19 14:45 05/27/19 14:50 05/27/19 15:53 Glucose (Fingerstick) 302 mg/dL 257 mg/dL 182 mg/dL White Blood Count 22.8 x10^3/uL Red Blood Count 2.84 x10^6/uL Hemoglobin 9.7 g/dL Hematocrit 29.0 % Mean Corpuscular Volume 102 fL Mean Corpuscular Hemoglobin 34 pg Mean Corpuscular Hemoglobin Concent 34 g/dL Red Cell Distribution Width 13.5 % Platelet Count 209 x10^3/uL Neutrophils (%) (Auto) 74 % Lymphocytes (%) (Auto) 11 % Monocytes (%) (Auto) 14 % Eosinophils (%) (Auto) 0 % Basophils (%) (Auto) 0 % Neutrophils # (Auto) 16.8 x10^3/uL Lymphocytes # (Auto) 2.6 x10^3/uL Monocytes # (Auto) 3.2 x10^3/uL Eosinophils # (Auto) 0.0 x10^3/uL Basophils # (Auto) 0.1 x10^3/uL Lactic Acid Level 3.7 mmol/L Test 05/27/19 16:57 05/27/19 17:54 05/27/19 18:05 05/27/19 19:03 Glucose (Fingerstick) 153 mg/dL 121 mg/dL 107 mg/dL White Blood Count 23.4 x10^3/uL Red Blood Count 2.63 x10^6/uL Hemoglobin 9.0 g/dL Hematocrit 26.6 % Mean Corpuscular Volume 101 fL Mean Corpuscular Hemoglobin 34 pg Mean Corpuscular Hemoglobin Concent 34 g/dL Red Cell Distribution Width 13.5 % Platelet Count 211 x10^3/uL Neutrophils (%) (Auto) 70 % Lymphocytes (%) (Auto) 15 % Monocytes (%) (Auto) 14 % Eosinophils (%) (Auto) 0 % Basophils (%) (Auto) 1 % Neutrophils # (Auto) 16.4 x10^3/uL Lymphocytes # (Auto) 3.4 x10^3/uL Monocytes # (Auto) 3.3 x10^3/uL Eosinophils # (Auto) 0.0 x10^3/uL Basophils # (Auto) 0.2 x10^3/uL Sodium Level 136 mmol/L Potassium Level 4.4 mmol/L Chloride Level 103 mmol/L Carbon Dioxide Level 27 mmol/L Anion Gap 6 Blood Urea Nitrogen 34 mg/dL Creatinine 0.8 mg/dL Estimated GFR (Cockcroft-Gault) 97.6 Glucose Level 133 mg/dL Calcium Level 8.6 mg/dL Test 05/27/19 20:11 05/28/19 00:26 05/28/19 03:35 05/28/19 05:37 Glucose (Fingerstick) 138 mg/dL 217 mg/dL 239 mg/dL White Blood Count 23.0 x10^3/uL Red Blood Count 2.41 x10^6/uL Hemoglobin 8.2 g/dL Hematocrit 24.6 % Mean Corpuscular Volume 102 fL Mean Corpuscular Hemoglobin 34 pg Mean Corpuscular Hemoglobin Concent 34 g/dL Red Cell Distribution Width 13.4 % Platelet Count 189 x10^3/uL Neutrophils (%) (Auto) 72 % Lymphocytes (%) (Auto) 16 % Monocytes (%) (Auto) 12 % Eosinophils (%) (Auto) 1 % Basophils (%) (Auto) 1 % Neutrophils # (Auto) 16.6 x10^3/uL Lymphocytes # (Auto) 3.6 x10^3/uL Monocytes # (Auto) 2.6 x10^3/uL Eosinophils # (Auto) 0.1 x10^3/uL Basophils # (Auto) 0.1 x10^3/uL Sodium Level 129 mmol/L Potassium Level 4.7 mmol/L Chloride Level 98 mmol/L Carbon Dioxide Level 24 mmol/L Anion Gap 7 Blood Urea Nitrogen 33 mg/dL Creatinine 0.9 mg/dL Estimated GFR (Cockcroft-Gault) 85.2 BUN/Creatinine Ratio 37 Glucose Level 229 mg/dL Calcium Level 8.3 mg/dL Total Bilirubin 2.7 mg/dL Aspartate Amino Transf (AST/SGOT) 160 U/L Alanine Aminotransferase (ALT/SGPT) 77 U/L Alkaline Phosphatase 138 U/L Ammonia 37 mcmol/L Total Protein 5.9 g/dL Albumin 2.0 g/dL Albumin/Globulin Ratio 0.5 Test 05/28/19 08:22 Glucose (Fingerstick) 163 mg/dL BLOOD CULTURE Preliminary NO GROWTH AFTER 1 DAY Imaging: Abd US 05/27 IMPRESSION: 1. Probable wall echo shadow sign. Apparent associated gallbladder gallbladder wall thickening. Correlate with clinical evidence of acute cholecystitis. 2. The portal vein is poorly visualized, that appears be patent on CT performed earlier this morning. CXR 05/27 Impression: No evidence of acute cardiopulmonary process. EGD 05/27 varices grade 3 with red wheal sign s/p band ligation x 5 portal hypertensive gastropathy Plan serial cbcs advance diet in am if hg stable repeat band ligatoin in 2 weeks- if unable to control bleeding with banding, then TIPS would be pursued with interventional radiology PE: GEN: NAD LUNGS: CTAB HEART: RRR ABD: S/ND/NT NEURO/PSYCH: A & O 3 A/P: Hematemesis - no recurrence Cirrhosis w/ esophageal varices s/p banding, portal hypertensive gastropathy - Hep C, alcohol Leukocytosis, macrocytic anemia, elevated LFTs, new DM, mild hyperammonemia H/o ascites, paracentesis Left hydroureter and ureteral stone - per primary -- Reviewed w/ Dr. Covarrubias - okay to ADAT and transfer out of ICU. Change to PO PPI. Okay to continue lactulose. Repeat banding in ~2 weeks. DANNA PRIETO May 28, 2019 09:46
[2019-05-28] MEDS: NICOTINE 14MG PATCH. TD PRN (11:03)
[2019-05-28] MEDS: fentaNYL PF VIAL 100 MCG/2 ML VIAL IV PRN (11:03)
[2019-05-28] MEDS: FLUoxetine HCL 20 MG CAPSULE PO SCH (13:11)
[2019-05-28 13:46] LABS: BASO # 0.1 x10^3/uL (0.0-0.2); BASO % 1 % (0-3); EOS # 0.2 x10^3/uL (0.0-0.7); EOS % 1 % (0-3); HEMATOCRIT 26.8 % (39.0-53.0); LYMPH # 3.2 x10^3/uL (1.0-4.8); LYMPH % 16 % (24-48); MEAN CORPUSCULAR HEMOGLOBIN 35 pg (25-35); MEAN CORPUSCULAR HGB CONC 34 g/dL (31-37); MEAN CORPUSCULAR VOLUME 103 fL (79-100); MONO # 1.7 x10^3/uL (0.0-1.1); MONO % 9 % (0-9); NEUT # 14.7 x10^3/uL (1.8-7.7); NEUT % 73 % (31-73); PLATELET COUNT 200 x10^3/uL (140-400); RED BLOOD COUNT 2.61 x10^6/uL (4.30-5.70); RED CELL DISTRIBUTION WIDTH 13.5 % (11.5-14.5)
--- NOTE | 2019-05-28 13:56 | PDOC ---
[employer] PROGRESS NOTE Chief Complaint Chief Complaint Impression: Hematemesis, UGI BLEED ACUTE paraesophageal varices on ct seen HX SEVERE ALCOHOL ABUSE GI bleeding diffuse wall thickening of the colon most prominently involving the ascending colon and hepatic flexure and transverse colon. This is concerning for colitis Hyperglycemia Hyperkalemia End stage liver disease with transaminitis Cirrhosis of liver with ascites DKA (diabetic ketoacidoses) SEVERE PROTEIN-CALORIC MALNUTRITION HX COPD, TOBACCO ABUSE DISORDER KRYSTA HX HEP C failed rx at [facility] reported Mild left-sided hydroureter due to a distal left ureteral stone measuring 7 mm in size.distal left ureteral stone measuring located 2.5 cm proximal to the UVJ LEUKOCYTOSIS ELEVATED NH4 NONCOMPLIANCE ANEMIA WITH ACUTE BLOOD LOSS ANEMIA thc abuse History of Present Illness History of Present Illness Patient seen and examined in ICU Chart reviewed Discussed with RN Vitals/I&O Vitals/I&O: Vital Signs Date Time Temp Pulse Resp B/P (MAP) Pulse Ox O2 Delivery O2 Flow Rate FiO2 05/28/19 12:00 98.5 87 16 103/64 (77) 94 Room Air 98.5 05/28/19 11:33 2.0 I & O 05/27/19 05/27/19 05/28/19 15:00 23:00 07:00 Intake Total 2027.5 ml 1232 ml Output Total 1125 ml 250 ml 350 ml Balance -1125 ml 1777.5 ml 882 ml Physical Exam Physical Exam: GENERAL: Alert, oriented gentleman, not in distress. VITAL SIGNS: Stable, afebrile. HEENT: NAD. NECK: Supple, no JVP, no lymphadenopathy. LUNGS: Clear. HEART: S1, S2 regular. ABDOMEN: Soft, mild diffuse tenderness, no rebound or guarding. EXTREMITIES: No edema, cyanosis. SKIN: Unremarkable. NEUROLOGIC: The patient is neurologically alert, awake and appropriate. No focal neurologic deficit. General: Alert, Oriented X3, Cooperative, mild distress Abdomen: Soft, No tenderness Extremities: No cyanosis Labs Labs: Laboratory Tests Test 05/27/19 14:45 05/27/19 14:50 05/27/19 15:53 05/27/19 16:57 White Blood Count 22.8 x10^3/uL (4.0-11.0) Red Blood Count 2.84 x10^6/uL (4.30-5.70) Hemoglobin 9.7 g/dL (13.0-17.5) Hematocrit 29.0 % (39.0-53.0) Mean Corpuscular Volume 102 fL (79-100) Mean Corpuscular Hemoglobin 34 pg (25-35) Mean Corpuscular Hemoglobin Concent 34 g/dL (31-37) Red Cell Distribution Width 13.5 % (11.5-14.5) Platelet Count 209 x10^3/uL (140-400) Neutrophils (%) (Auto) 74 % (31-73) Lymphocytes (%) (Auto) 11 % (24-48) Monocytes (%) (Auto) 14 % (0-9) Eosinophils (%) (Auto) 0 % (0-3) Basophils (%) (Auto) 0 % (0-3) Neutrophils # (Auto) 16.8 x10^3/uL (1.8-7.7) Lymphocytes # (Auto) 2.6 x10^3/uL (1.0-4.8) Monocytes # (Auto) 3.2 x10^3/uL (0.0-1.1) Eosinophils # (Auto) 0.0 x10^3/uL (0.0-0.7) Basophils # (Auto) 0.1 x10^3/uL (0.0-0.2) Lactic Acid Level 3.7 mmol/L (0.4-2.0) Glucose (Fingerstick) 257 mg/dL (70-99) 182 mg/dL (70-99) 153 mg/dL (70-99) Test 05/27/19 17:54 05/27/19 18:05 05/27/19 19:03 05/27/19 20:11 Glucose (Fingerstick) 121 mg/dL (70-99) 107 mg/dL (70-99) 138 mg/dL (70-99) White Blood Count 23.4 x10^3/uL (4.0-11.0) Red Blood Count 2.63 x10^6/uL (4.30-5.70) Hemoglobin 9.0 g/dL (13.0-17.5) Hematocrit 26.6 % (39.0-53.0) Mean Corpuscular Volume 101 fL (79-100) Mean Corpuscular Hemoglobin 34 pg (25-35) Mean Corpuscular Hemoglobin Concent 34 g/dL (31-37) Red Cell Distribution Width 13.5 % (11.5-14.5) Platelet Count 211 x10^3/uL (140-400) Neutrophils (%) (Auto) 70 % (31-73) Lymphocytes (%) (Auto) 15 % (24-48) Monocytes (%) (Auto) 14 % (0-9) Eosinophils (%) (Auto) 0 % (0-3) Basophils (%) (Auto) 1 % (0-3) Neutrophils # (Auto) 16.4 x10^3/uL (1.8-7.7) Lymphocytes # (Auto) 3.4 x10^3/uL (1.0-4.8) Monocytes # (Auto) 3.3 x10^3/uL (0.0-1.1) Eosinophils # (Auto) 0.0 x10^3/uL (0.0-0.7) Basophils # (Auto) 0.2 x10^3/uL (0.0-0.2) Sodium Level 136 mmol/L (136-145) Potassium Level 4.4 mmol/L (3.5-5.1) Chloride Level 103 mmol/L (98-107) Carbon Dioxide Level 27 mmol/L (21-32) Anion Gap 6 (6-14) Blood Urea Nitrogen 34 mg/dL (8-26) Creatinine 0.8 mg/dL (0.7-1.3) Estimated GFR (Cockcroft-Gault) 97.6 Glucose Level 133 mg/dL (70-99) Calcium Level 8.6 mg/dL (8.5-10.1) Test 05/28/19 00:26 05/28/19 03:35 05/28/19 05:37 05/28/19 08:22 Glucose (Fingerstick) 217 mg/dL (70-99) 239 mg/dL (70-99) 163 mg/dL (70-99) White Blood Count 23.0 x10^3/uL (4.0-11.0) Red Blood Count 2.41 x10^6/uL (4.30-5.70) Hemoglobin 8.2 g/dL (13.0-17.5) Hematocrit 24.6 % (39.0-53.0) Mean Corpuscular Volume 102 fL (79-100) Mean Corpuscular Hemoglobin 34 pg (25-35) Mean Corpuscular Hemoglobin Concent 34 g/dL (31-37) Red Cell Distribution Width 13.4 % (11.5-14.5) Platelet Count 189 x10^3/uL (140-400) Neutrophils (%) (Auto) 72 % (31-73) Lymphocytes (%) (Auto) 16 % (24-48) Monocytes (%) (Auto) 12 % (0-9) Eosinophils (%) (Auto) 1 % (0-3) Basophils (%) (Auto) 1 % (0-3) Neutrophils # (Auto) 16.6 x10^3/uL (1.8-7.7) Lymphocytes # (Auto) 3.6 x10^3/uL (1.0-4.8) Monocytes # (Auto) 2.6 x10^3/uL (0.0-1.1) Eosinophils # (Auto) 0.1 x10^3/uL (0.0-0.7) Basophils # (Auto) 0.1 x10^3/uL (0.0-0.2) Sodium Level 129 mmol/L (136-145) Potassium Level 4.7 mmol/L (3.5-5.1) Chloride Level 98 mmol/L (98-107) Carbon Dioxide Level 24 mmol/L (21-32) Anion Gap 7 (6-14) Blood Urea Nitrogen 33 mg/dL (8-26) Creatinine 0.9 mg/dL (0.7-1.3) Estimated GFR (Cockcroft-Gault) 85.2 BUN/Creatinine Ratio 37 (6-20) Glucose Level 229 mg/dL (70-99) Calcium Level 8.3 mg/dL (8.5-10.1) Iron Level 68 ug/dL (65-175) Total Iron Binding Capacity 229 ug/dL (250-450) Iron Saturation 30 % (15-34) Total Bilirubin 2.7 mg/dL (0.2-1.0) Aspartate Amino Transf (AST/SGOT) 160 U/L (15-37) Alanine Aminotransferase (ALT/SGPT) 77 U/L (16-63) Alkaline Phosphatase 138 U/L (46-116) Ammonia 37 mcmol/L (11-34) Total Protein 5.9 g/dL (6.4-8.2) Albumin 2.0 g/dL (3.4-5.0) Albumin/Globulin Ratio 0.5 (1.0-1.7) Vitamin B12 Level 1877 pg/mL (247-911) Test 05/28/19 12:26 05/28/19 13:43 Glucose (Fingerstick) 265 mg/dL (70-99) White Blood Count 20.0 x10^3/uL (4.0-11.0) Red Blood Count 2.61 x10^6/uL (4.30-5.70) Hemoglobin 9.0 g/dL (13.0-17.5) Hematocrit 26.8 % (39.0-53.0) Mean Corpuscular Volume 103 fL (79-100) Mean Corpuscular Hemoglobin 35 pg (25-35) Mean Corpuscular Hemoglobin Concent 34 g/dL (31-37) Red Cell Distribution Width 13.5 % (11.5-14.5) Platelet Count 200 x10^3/uL (140-400) Neutrophils (%) (Auto) 73 % (31-73) Lymphocytes (%) (Auto) 16 % (24-48) Monocytes (%) (Auto) 9 % (0-9) Eosinophils (%) (Auto) 1 % (0-3) Basophils (%) (Auto) 1 % (0-3) Neutrophils # (Auto) 14.7 x10^3/uL (1.8-7.7) Lymphocytes # (Auto) 3.2 x10^3/uL (1.0-4.8) Monocytes # (Auto) 1.7 x10^3/uL (0.0-1.1) Eosinophils # (Auto) 0.2 x10^3/uL (0.0-0.7) Basophils # (Auto) 0.1 x10^3/uL (0.0-0.2) Review of Systems Review of Systems: Complains of weakness Complains of shortness of breath Assessment and Plan Assessmemt and Plan Problems Medical Problems: (1) Cirrhosis of liver with ascites Status: Acute (2) DKA (diabetic ketoacidoses) Status: Acute (3) End stage liver disease Status: Acute (4) GI bleeding Status: Acute (5) Hematemesis Status: Acute (6) Hyperglycemia Status: Acute (7) Hyperkalemia Status: Acute Impression: Hematemesis, UGI BLEED ACUTE paraesophageal varices on ct seen HX SEVERE ALCOHOL ABUSE GI bleeding diffuse wall thickening of the colon most prominently involving the ascending colon and hepatic flexure and transverse colon. This is concerning for coli tis Hyperglycemia Hyperkalemia End stage liver disease with transaminitis Cirrhosis of liver with ascites DKA (diabetic ketoacidoses) SEVERE PROTEIN-CALORIC MALNUTRITION HX COPD, TOBACCO ABUSE DISORDER KRYSTA HX HEP C failed rx at [facility] reported Mild left-sided hydroureter due to a distal left ureteral stone measuring 7 mm in size.distal left ureteral stone measuring located 2.5 cm proximal to the UVJ LEUKOCYTOSIS ELEVATED NH4 NONCOMPLIANCE ANEMIA WITH ACUTE BLOOD LOSS ANEMIA thc abuse ADMITTED ICU BED npo GI CONSULT SERIAL H/H NEPHROLOGY CONSULT VIT K IV FLUID SUPPORT WILL HYDRATE WITH IV FLUIDS and observe ID CONSULT ALCOHOL WITHDRAWAL PROTOCOL DKA PROTOCOL SCD'S LACTULOSE 20cc bid RECORDS [facility] PLEASE abd sono am nh4 no nsaids protonix drip Total time 32 minutes Comment Review of Relevant I have reviewed the following items gordon (where applicable) has been applied. Medications: Current Medications Medications (Trade) Dose Ordered Sig/Komal Route PRN Reason Start Time Stop Time Status Last Admin Dose Admin Influenza Virus Vaccine Quadrival (Afluria Quad 2019-20 (3yr Up) Syringe) 0.5 ml ONCE ONCE VAX IM 05/28/19 09:00 05/28/19 09:01 CO 05/28/19 13:20 Diphenhydramine HCl (Benadryl) 50 mg STK-MED ONCE IV 05/27/19 17:01 05/27/19 17:13 CO 05/27/19 17:01 Midazolam HCl (Versed) 5 mg STK-MED ONCE IV 05/27/19 17:04 05/27/19 17:13 DC 05/27/19 17:04 Fentanyl Citrate (Fentanyl 2ml Vial) 100 mcg STK-MED ONCE IV 05/27/19 17:06 05/27/19 17:13 CO 05/27/19 17:06 Midazolam HCl (Versed) 5 mg STK-MED ONCE IV 05/27/19 17:08 05/27/19 17:13 CO 05/27/19 17:08 Fentanyl Citrate (Fentanyl 2ml Vial) 100 mcg STK-MED ONCE IV 05/27/19 17:10 05/27/19 17:13 DC 05/27/19 17:10 Midazolam HCl (Versed) 5 mg STK-MED ONCE IV 05/27/19 17:14 05/27/19 17:15 DC 05/27/19 17:14 Insulin Human Lispro (HumaLOG) 0-9 UNITS Q6HRS SQ 05/28/19 00:00 05/28/19 12:33 Nicotine (Nicoderm Cq 14mg) 1 patch PRN DAILY PRN TD SMOKING CESSATION 05/28/19 09:00 05/28/19 11:03 Fluoxetine HCl (PROzac) 20 mg DAILY PO 05/28/19 13:00 05/28/19 13:11 ALISTAIR TSANG III DO May 28, 2019 13:56
[2019-05-28] MEDS: INSULIN GLARGINE SYRINGE. SQ SCH (21:07)
[2019-05-28 22:05] LABS: BASO # 0.1 x10^3/uL (0.0-0.2); BASO % 1 % (0-3); EOS # 0.2 x10^3/uL (0.0-0.7); EOS % 1 % (0-3); HEMATOCRIT 24.5 % (39.0-53.0); HEMOGLOBIN 8.4 g/dL (13.0-17.5); LYMPH # 2.9 x10^3/uL (1.0-4.8); LYMPH % 16 % (24-48); MEAN CORPUSCULAR HEMOGLOBIN 35 pg (25-35); MEAN CORPUSCULAR HGB CONC 34 g/dL (31-37); MEAN CORPUSCULAR VOLUME 102 fL (79-100); MONO # 2.1 x10^3/uL (0.0-1.1); MONO % 12 % (0-9); NEUT # 12.9 x10^3/uL (1.8-7.7); NEUT % 71 % (31-73); PLATELET COUNT 189 x10^3/uL (140-400); RED BLOOD COUNT 2.41 x10^6/uL (4.30-5.70); RED CELL DISTRIBUTION WIDTH 13.6 % (11.5-14.5); WHITE BLOOD COUNT 18.2 x10^3/uL (4.0-11.0)
[2019-05-29] MEDS: PIPERACILLIN/TAZOBACTAM 3.375 GM in IV NORMAL SALINE 50ML 50 ML IV SCH ×2 (00:15→05:16)
[2019-05-29] MEDS: INSULIN LISPRO 300 UNITS/3 ML VIAL. SQ SCH ×4 (00:36→17:56)
[2019-05-29] MEDS: fentaNYL PF VIAL 100 MCG/2 ML VIAL IV PRN ×6 (00:42→19:59)
[2019-05-29 03:00] VITALS: BP 92/49
[2019-05-29 04:19] LABS: BASO # 0.1 x10^3/uL (0.0-0.2); BASO % 0 % (0-3); EOS # 0.2 x10^3/uL (0.0-0.7); EOS % 1 % (0-3); HEMATOCRIT 23.3 % (39.0-53.0); HEMOGLOBIN 8.1 g/dL (13.0-17.5); LYMPH # 2.7 x10^3/uL (1.0-4.8); LYMPH % 16 % (24-48); MEAN CORPUSCULAR HEMOGLOBIN 35 pg (25-35); MEAN CORPUSCULAR HGB CONC 35 g/dL (31-37); MEAN CORPUSCULAR VOLUME 100 fL (79-100); MONO % 13 % (0-9); NEUT # 11.4 x10^3/uL (1.8-7.7); NEUT % 70 % (31-73); PLATELET COUNT 174 x10^3/uL (140-400); RED BLOOD COUNT 2.32 x10^6/uL (4.30-5.70); RED CELL DISTRIBUTION WIDTH 13.4 % (11.5-14.5); WHITE BLOOD COUNT 16.3 x10^3/uL (4.0-11.0)
[2019-05-29] MEDS: IV NORMAL SALINE 1000ML BAG 1,000 ML IV SCH (05:17)
[2019-05-29 07:00] VITALS: BP 95/55
[2019-05-29] MEDS ORDERED: PANT40TA77 PO (08:06)
[2019-05-29] MEDS ORDERED: FLUO20CA19 PO (08:06)
[2019-05-29] MEDS ORDERED: INSU100V8 SQ (08:06)
[2019-05-29] MEDS: LACTULOSE 20 GM/30 ML SOLUTION. PO SCH (08:22)
[2019-05-29] MEDS: FLUoxetine HCL 20 MG CAPSULE PO SCH (08:22)
[2019-05-29] MEDS: PANTOPRAZOLE 40 MG TABLET.DR. PO SCH (08:22)
--- NOTE | 2019-05-29 09:52 | PDOC ---
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 This is concerning for col itis Hyperglycemia Hyperkalemia End stage liver disease with transaminitis Cirrhosis of liver with ascites DKA (diabetic ketoacidoses) SEVERE PROTEIN-CALORIC MALNUTRITION HX COPD, TOBACCO ABUSE DISORDER KRYSTA HX HEP C failed rx at [facility] reported Mild left-sided hydroureter due to a distal left ureteral stone measuring 7 mm in size.distal left ureteral stone measuring located 2.5 cm proximal to the UVJ LEUKOCYTOSIS ELEVATED NH4 NONCOMPLIANCE ANEMIA WITH ACUTE BLOOD LOSS ANEMIA thc abuse History of Present Illness History of Present Illness transferred out of ICU Alcoholic HEp C hx s./p EGD with banding, t/o out of ICU care I was about to dc today, I COUNSELLED HEAVY pt re ETOH and the dc instructions to ff up 2 weeks GI for OP RE BANDING - HE understands BUT PT recs SNU - Sw aware PLAn: HOkld dc till SW finds SNU Full code PPI PO Dc iVF Ambulate with PT Re banding 2 weeks OP by GI Etoh cessation Vitals Vitals Vital Signs Date Time Temp Pulse Resp B/P (MAP) Pulse Ox O2 Delivery O2 Flow Rate FiO2 05/29/19 09:04 16 94 Room Air 2.0 05/29/19 07:00 97.5 95 95/55 (68) 97.5 Physical Exam Physical Exam GENERAL: Alert, oriented gentleman, not in distress. VITAL SIGNS: Stable, afebrile. HEENT: NAD. NECK: Supple, no JVP, no lymphadenopathy. LUNGS: Clear. HEART: S1, S2 regular. ABDOMEN: Soft, mild diffuse tenderness, no rebound or guarding. EXTREMITIES: No edema, cyanosis. SKIN: Unremarkable. NEUROLOGIC: The patient is neurologically alert, awake and appropriate. No focal neurologic deficit. General: Alert, Oriented X3, Cooperative, mild distress Heart: Regular rate, Normal S1 Lungs: Clear Abdomen: Normal bowel sounds, Soft, No tenderness Extremities: No cyanosis Skin: No rashes, No breakdown Labs LABS Laboratory Tests Test 05/28/19 12:26 05/28/19 13:43 05/28/19 17:11 05/28/19 20:59 Glucose (Fingerstick) 265 mg/dL (70-99) 278 mg/dL (70-99) 218 mg/dL (70-99) White Blood Count 20.0 x10^3/uL (4.0-11.0) Red Blood Count 2.61 x10^6/uL (4.30-5.70) Hemoglobin 9.0 g/dL (13.0-17.5) Hematocrit 26.8 % (39.0-53.0) Mean Corpuscular Volume 103 fL (79-100) Mean Corpuscular Hemoglobin 35 pg (25-35) Mean Corpuscular Hemoglobin Concent 34 g/dL (31-37) Red Cell Distribution Width 13.5 % (11.5-14.5) Platelet Count 200 x10^3/uL (140-400) Neutrophils (%) (Auto) 73 % (31-73) Lymphocytes (%) (Auto) 16 % (24-48) Monocytes (%) (Auto) 9 % (0-9) Eosinophils (%) (Auto) 1 % (0-3) Basophils (%) (Auto) 1 % (0-3) Neutrophils # (Auto) 14.7 x10^3/uL (1.8-7.7) Lymphocytes # (Auto) 3.2 x10^3/uL (1.0-4.8) Monocytes # (Auto) 1.7 x10^3/uL (0.0-1.1) Eosinophils # (Auto) 0.2 x10^3/uL (0.0-0.7) Basophils # (Auto) 0.1 x10^3/uL (0.0-0.2) Test 05/28/19 21:50 05/29/19 00:21 05/29/19 03:25 05/29/19 05:41 White Blood Count 18.2 x10^3/uL (4.0-11.0) 16.3 x10^3/uL (4.0-11.0) Red Blood Count 2.41 x10^6/uL (4.30-5.70) 2.32 x10^6/uL (4.30-5.70) Hemoglobin 8.4 g/dL (13.0-17.5) 8.1 g/dL (13.0-17.5) Hematocrit 24.5 % (39.0-53.0) 23.3 % (39.0-53.0) Mean Corpuscular Volume 102 fL (79-100) 100 fL (79-100) Mean Corpuscular Hemoglobin 35 pg (25-35) 35 pg (25-35) Mean Corpuscular Hemoglobin Concent 34 g/dL (31-37) 35 g/dL (31-37) Red Cell Distribution Width 13.6 % (11.5-14.5) 13.4 % (11.5-14.5) Platelet Count 189 x10^3/uL (140-400) 174 x10^3/uL (140-400) Neutrophils (%) (Auto) 71 % (31-73) 70 % (31-73) Lymphocytes (%) (Auto) 16 % (24-48) 16 % (24-48) Monocytes (%) (Auto) 12 % (0-9) 13 % (0-9) Eosinophils (%) (Auto) 1 % (0-3) 1 % (0-3) Basophils (%) (Auto) 1 % (0-3) 0 % (0-3) Neutrophils # (Auto) 12.9 x10^3/uL (1.8-7.7) 11.4 x10^3/uL (1.8-7.7) Lymphocytes # (Auto) 2.9 x10^3/uL (1.0-4.8) 2.7 x10^3/uL (1.0-4.8) Monocytes # (Auto) 2.1 x10^3/uL (0.0-1.1) 2.0 x10^3/uL (0.0-1.1) Eosinophils # (Auto) 0.2 x10^3/uL (0.0-0.7) 0.2 x10^3/uL (0.0-0.7) Basophils # (Auto) 0.1 x10^3/uL (0.0-0.2) 0.1 x10^3/uL (0.0-0.2) Glucose (Fingerstick) 210 mg/dL (70-99) 135 mg/dL (70-99) Review of Systems Review of Systems weak, no more hematemesis, all else is neg Assessment and Plan Assessmemt and Plan Problems Medical Problems: (1) Cirrhosis of liver with ascites Status: Acute (2) DKA (diabetic ketoacidoses) Status: Acute (3) End stage liver disease Status: Acute (4) GI bleeding Status: Acute (5) Hematemesis Status: Acute (6) Hyperglycemia Status: Acute (7) Hyperkalemia Status: Acute Comment Review of Relevant I have reviewed the following items gordon (where applicable) has been applied. Labs Laboratory Tests Test 05/27/19 10:08 05/27/19 11:16 05/27/19 11:25 05/27/19 12:20 Glucose (Fingerstick) 455 mg/dL (70-99) 392 mg/dL (70-99) 402 mg/dL (70-99) White Blood Count 19.7 x10^3/uL (4.0-11.0) Red Blood Count 2.84 x10^6/uL (4.30-5.70) Hemoglobin 9.8 g/dL (13.0-17.5) Hematocrit 29.1 % (39.0-53.0) Mean Corpuscular Volume 103 fL (79-100) Mean Corpuscular Hemoglobin 34 pg (25-35) Mean Corpuscular Hemoglobin Concent 34 g/dL (31-37) Red Cell Distribution Width 13.5 % (11.5-14.5) Platelet Count 201 x10^3/uL (140-400) Neutrophils (%) (Auto) 81 % (31-73) Lymphocytes (%) (Auto) 8 % (24-48) Monocytes (%) (Auto) 11 % (0-9) Eosinophils (%) (Auto) 0 % (0-3) Basophils (%) (Auto) 0 % (0-3) Neutrophils # (Auto) 15.9 x10^3/uL (1.8-7.7) Lymphocytes # (Auto) 1.6 x10^3/uL (1.0-4.8) Monocytes # (Auto) 2.2 x10^3/uL (0.0-1.1) Eosinophils # (Auto) 0.0 x10^3/uL (0.0-0.7) Basophils # (Auto) 0.0 x10^3/uL (0.0-0.2) Lactic Acid Level 6.8 mmol/L (0.4-2.0) Troponin I Quantitative 0.051 ng/mL (0.000-0.055) Procalcitonin 0.74 ng/mL (0.00-0.10) Test 05/27/19 13:41 05/27/19 14:45 05/27/19 14:50 05/27/19 15:53 Glucose (Fingerstick) 302 mg/dL (70-99) 257 mg/dL (70-99) 182 mg/dL (70-99) White Blood Count 22.8 x10^3/uL (4.0-11.0) Red Blood Count 2.84 x10^6/uL (4.30-5.70) Hemoglobin 9.7 g/dL (13.0-17.5) Hematocrit 29.0 % (39.0-53.0) Mean Corpuscular Volume 102 fL (79-100) Mean Corpuscular Hemoglobin 34 pg (25-35) Mean Corpuscular Hemoglobin Concent 34 g/dL (31-37) Red Cell Distribution Width 13.5 % (11.5-14.5) Platelet Count 209 x10^3/uL (140-400) Neutrophils (%) (Auto) 74 % (31-73) Lymphocytes (%) (Auto) 11 % (24-48) Monocytes (%) (Auto) 14 % (0-9) Eosinophils (%) (Auto) 0 % (0-3) Basophils (%) (Auto) 0 % (0-3) Neutrophils # (Auto) 16.8 x10^3/uL (1.8-7.7) Lymphocytes # (Auto) 2.6 x10^3/uL (1.0-4.8) Monocytes # (Auto) 3.2 x10^3/uL (0.0-1.1) Eosinophils # (Auto) 0.0 x10^3/uL (0.0-0.7) Basophils # (Auto) 0.1 x10^3/uL (0.0-0.2) Lactic Acid Level 3.7 mmol/L (0.4-2.0) Test 05/27/19 16:57 05/27/19 17:54 05/27/19 18:05 05/27/19 19:03 Glucose (Fingerstick) 153 mg/dL (70-99) 121 mg/dL (70-99) 107 mg/dL (70-99) White Blood Count 23.4 x10^3/uL (4.0-11.0) Red Blood Count 2.63 x10^6/uL (4.30-5.70) Hemoglobin 9.0 g/dL (13.0-17.5) Hematocrit 26.6 % (39.0-53.0) Mean Corpuscular Volume 101 fL (79-100) Mean Corpuscular Hemoglobin 34 pg (25-35) Mean Corpuscular Hemoglobin Concent 34 g/dL (31-37) Red Cell Distribution Width 13.5 % (11.5-14.5) Platelet Count 211 x10^3/uL (140-400) Neutrophils (%) (Auto) 70 % (31-73) Lymphocytes (%) (Auto) 15 % (24-48) Monocytes (%) (Auto) 14 % (0-9) Eosinophils (%) (Auto) 0 % (0-3) Basophils (%) (Auto) 1 % (0-3) Neutrophils # (Auto) 16.4 x10^3/uL (1.8-7.7) Lymphocytes # (Auto) 3.4 x10^3/uL (1.0-4.8) Monocytes # (Auto) 3.3 x10^3/uL (0.0-1.1) Eosinophils # (Auto) 0.0 x10^3/uL (0.0-0.7) Basophils # (Auto) 0.2 x10^3/uL (0.0-0.2) Sodium Level 136 mmol/L (136-145) Potassium Level 4.4 mmol/L (3.5-5.1) Chloride Level 103 mmol/L (98-107) Carbon Dioxide Level 27 mmol/L (21-32) Anion Gap 6 (6-14) Blood Urea Nitrogen 34 mg/dL (8-26) Creatinine 0.8 mg/dL (0.7-1.3) Estimated GFR (Cockcroft-Gault) 97.6 Glucose Level 133 mg/dL (70-99) Calcium Level 8.6 mg/dL (8.5-10.1) Test 05/27/19 20:11 05/28/19 00:26 05/28/19 03:35 05/28/19 05:37 Glucose (Fingerstick) 138 mg/dL (70-99) 217 mg/dL (70-99) 239 mg/dL (70-99) White Blood Count 23.0 x10^3/uL (4.0-11.0) Red Blood Count 2.41 x10^6/uL (4.30-5.70) Hemoglobin 8.2 g/dL (13.0-17.5) Hematocrit 24.6 % (39.0-53.0) Mean Corpuscular Volume 102 fL (79-100) Mean Corpuscular Hemoglobin 34 pg (25-35) Mean Corpuscular Hemoglobin Concent 34 g/dL (31-37) Red Cell Distribution Width 13.4 % (11.5-14.5) Platelet Count 189 x10^3/uL (140-400) Neutrophils (%) (Auto) 72 % (31-73) Lymphocytes (%) (Auto) 16 % (24-48) Monocytes (%) (Auto) 12 % (0-9) Eosinophils (%) (Auto) 1 % (0-3) Basophils (%) (Auto) 1 % (0-3) Neutrophils # (Auto) 16.6 x10^3/uL (1.8-7.7) Lymphocytes # (Auto) 3.6 x10^3/uL (1.0-4.8) Monocytes # (Auto) 2.6 x10^3/uL (0.0-1.1) Eosinophils # (Auto) 0.1 x10^3/uL (0.0-0.7) Basophils # (Auto) 0.1 x10^3/uL (0.0-0.2) Sodium Level 129 mmol/L (136-145) Potassium Level 4.7 mmol/L (3.5-5.1) Chloride Level 98 mmol/L (98-107) Carbon Dioxide Level 24 mmol/L (21-32) Anion Gap 7 (6-14) Blood Urea Nitrogen 33 mg/dL (8-26) Creatinine 0.9 mg/dL (0.7-1.3) Estimated GFR (Cockcroft-Gault) 85.2 BUN/Creatinine Ratio 37 (6-20) Glucose Level 229 mg/dL (70-99) Calcium Level 8.3 mg/dL (8.5-10.1) Iron Level 68 ug/dL (65-175) Total Iron Binding Capacity 229 ug/dL (250-450) Iron Saturation 30 % (15-34) Total Bilirubin 2.7 mg/dL (0.2-1.0) Aspartate Amino Transf (AST/SGOT) 160 U/L (15-37) Alanine Aminotransferase (ALT/SGPT) 77 U/L (16-63) Alkaline Phosphatase 138 U/L (46-116) Ammonia 37 mcmol/L (11-34) Total Protein 5.9 g/dL (6.4-8.2) Albumin 2.0 g/dL (3.4-5.0) Albumin/Globulin Ratio 0.5 (1.0-1.7) Vitamin B12 Level 1877 pg/mL (247-911) Test 05/28/19 08:22 05/28/19 12:26 05/28/19 13:43 05/28/19 17:11 Glucose (Fingerstick) 163 mg/dL (70-99) 265 mg/dL (70-99) 278 mg/dL (70-99) White Blood Count 20.0 x10^3/uL (4.0-11.0) Red Blood Count 2.61 x10^6/uL (4.30-5.70) Hemoglobin 9.0 g/dL (13.0-17.5) Hematocrit 26.8 % (39.0-53.0) Mean Corpuscular Volume 103 fL (79-100) Mean Corpuscular Hemoglobin 35 pg (25-35) Mean Corpuscular Hemoglobin Concent 34 g/dL (31-37) Red Cell Distribution Width 13.5 % (11.5-14.5) Platelet Count 200 x10^3/uL (140-400) Neutrophils (%) (Auto) 73 % (31-73) Lymphocytes (%) (Auto) 16 % (24-48) Monocytes (%) (Auto) 9 % (0-9) Eosinophils (%) (Auto) 1 % (0-3) Basophils (%) (Auto) 1 % (0-3) Neutrophils # (Auto) 14.7 x10^3/uL (1.8-7.7) Lymphocytes # (Auto) 3.2 x10^3/uL (1.0-4.8) Monocytes # (Auto) 1.7 x10^3/uL (0.0-1.1) Eosinophils # (Auto) 0.2 x10^3/uL (0.0-0.7) Basophils # (Auto) 0.1 x10^3/uL (0.0-0.2) Test 05/28/19 20:59 05/28/19 21:50 05/29/19 00:21 05/29/19 03:25 Glucose (Fingerstick) 218 mg/dL (70-99) 210 mg/dL (70-99) White Blood Count 18.2 x10^3/uL (4.0-11.0) 16.3 x10^3/uL (4.0-11.0) Red Blood Count 2.41 x10^6/uL (4.30-5.70) 2.32 x10^6/uL (4.30-5.70) Hemoglobin 8.4 g/dL (13.0-17.5) 8.1 g/dL (13.0-17.5) Hematocrit 24.5 % (39.0-53.0) 23.3 % (39.0-53.0) Mean Corpuscular Volume 102 fL (79-100) 100 fL (79-100) Mean Corpuscular Hemoglobin 35 pg (25-35) 35 pg (25-35) Mean Corpuscular Hemoglobin Concent 34 g/dL (31-37) 35 g/dL (31-37) Red Cell Distribution Width 13.6 % (11.5-14.5) 13.4 % (11.5-14.5) Platelet Count 189 x10^3/uL (140-400) 174 x10^3/uL (140-400) Neutrophils (%) (Auto) 71 % (31-73) 70 % (31-73) Lymphocytes (%) (Auto) 16 % (24-48) 16 % (24-48) Monocytes (%) (Auto) 12 % (0-9) 13 % (0-9) Eosinophils (%) (Auto) 1 % (0-3) 1 % (0-3) Basophils (%) (Auto) 1 % (0-3) 0 % (0-3) Neutrophils # (Auto) 12.9 x10^3/uL (1.8-7.7) 11.4 x10^3/uL (1.8-7.7) Lymphocytes # (Auto) 2.9 x10^3/uL (1.0-4.8) 2.7 x10^3/uL (1.0-4.8) Monocytes # (Auto) 2.1 x10^3/uL (0.0-1.1) 2.0 x10^3/uL (0.0-1.1) Eosinophils # (Auto) 0.2 x10^3/uL (0.0-0.7) 0.2 x10^3/uL (0.0-0.7) Basophils # (Auto) 0.1 x10^3/uL (0.0-0.2) 0.1 x10^3/uL (0.0-0.2) Test 05/29/19 05:41 Glucose (Fingerstick) 135 mg/dL (70-99) Laboratory Tests Test 05/28/19 12:26 05/28/19 13:43 05/28/19 17:11 05/28/19 20:59 Glucose (Fingerstick) 265 mg/dL (70-99) 278 mg/dL (70-99) 218 mg/dL (70-99) White Blood Count 20.0 x10^3/uL (4.0-11.0) Red Blood Count 2.61 x10^6/uL (4.30-5.70) Hemoglobin 9.0 g/dL (13.0-17.5) Hematocrit 26.8 % (39.0-53.0) Mean Corpuscular Volume 103 fL (79-100) Mean Corpuscular Hemoglobin 35 pg (25-35) Mean Corpuscular Hemoglobin Concent 34 g/dL (31-37) Red Cell Distribution Width 13.5 % (11.5-14.5) Platelet Count 200 x10^3/uL (140-400) Neutrophils (%) (Auto) 73 % (31-73) Lymphocytes (%) (Auto) 16 % (24-48) Monocytes (%) (Auto) 9 % (0-9) Eosinophils (%) (Auto) 1 % (0-3) Basophils (%) (Auto) 1 % (0-3) Neutrophils # (Auto) 14.7 x10^3/uL (1.8-7.7) Lymphocytes # (Auto) 3.2 x10^3/uL (1.0-4.8) Monocytes # (Auto) 1.7 x10^3/uL (0.0-1.1) Eosinophils # (Auto) 0.2 x10^3/uL (0.0-0.7) Basophils # (Auto) 0.1 x10^3/uL (0.0-0.2) Test 05/28/19 21:50 05/29/19 00:21 05/29/19 03:25 05/29/19 05:41 White Blood Count 18.2 x10^3/uL (4.0-11.0) 16.3 x10^3/uL (4.0-11.0) Red Blood Count 2.41 x10^6/uL (4.30-5.70) 2.32 x10^6/uL (4.30-5.70) Hemoglobin 8.4 g/dL (13.0-17.5) 8.1 g/dL (13.0-17.5) Hematocrit 24.5 % (39.0-53.0) 23.3 % (39.0-53.0) Mean Corpuscular Volume 102 fL (79-100) 100 fL (79-100) Mean Corpuscular Hemoglobin 35 pg (25-35) 35 pg (25-35) Mean Corpuscular Hemoglobin Concent 34 g/dL (31-37) 35 g/dL (31-37) Red Cell Distribution Width 13.6 % (11.5-14.5) 13.4 % (11.5-14.5) Platelet Count 189 x10^3/uL (140-400) 174 x10^3/uL (140-400) Neutrophils (%) (Auto) 71 % (31-73) 70 % (31-73) Lymphocytes (%) (Auto) 16 % (24-48) 16 % (24-48) Monocytes (%) (Auto) 12 % (0-9) 13 % (0-9) Eosinophils (%) (Auto) 1 % (0-3) 1 % (0-3) Basophils (%) (Auto) 1 % (0-3) 0 % (0-3) Neutrophils # (Auto) 12.9 x10^3/uL (1.8-7.7) 11.4 x10^3/uL (1.8-7.7) Lymphocytes # (Auto) 2.9 x10^3/uL (1.0-4.8) 2.7 x10^3/uL (1.0-4.8) Monocytes # (Auto) 2.1 x10^3/uL (0.0-1.1) 2.0 x10^3/uL (0.0-1.1) Eosinophils # (Auto) 0.2 x10^3/uL (0.0-0.7) 0.2 x10^3/uL (0.0-0.7) Basophils # (Auto) 0.1 x10^3/uL (0.0-0.2) 0.1 x10^3/uL (0.0-0.2) Glucose (Fingerstick) 210 mg/dL (70-99) 135 mg/dL (70-99) Microbiology 05/27/19 Blood Culture - Preliminary, Resulted NO GROWTH AFTER 1 DAY Medications Current Medications Ondansetron HCl (Zofran) 4 mg 1X ONCE IV Last administered on 05/27/19at 05:57; Start 05/27/19 at 05:30; Stop 05/27/19 at 05:31; Status DC Sodium Chloride 1,000 ml @ 1,000 mls/hr 1X ONCE IV Last administered on 05/27/19at 05:56; Start 05/27/19 at 05:30; Stop 05/27/19 at 06:29; Status DC Pantoprazole Sodium 80 mg/ Sodium Chloride 100 ml @ 10 mls/hr Q10H IV Last administered on 05/27/19at 22:59; Start 05/27/19 at 05:45; Stop 05/28/19 at 09:19; Status DC Fentanyl Citrate (Fentanyl 2ml Vial) 50 mcg 1X ONCE IV Last administered on 05/27/19at 06:00; Start 05/27/19 at 06:00; Stop 05/27/19 at 06:01; Status DC Iohexol (Omnipaque 300 Mg/ml) 60 ml 1X ONCE IV Last administered on 05/27/19at 07:27; Start 05/27/19 at 07:15; Stop 05/27/19 at 07:16; Status DC Info (CONTRAST GIVEN -- Rx MONITORING) 1 each PRN DAILY PRN MC SEE COMMENTS; Start 05/27/19 at 07:15; Stop 05/29/19 at 07:14; Status DC Insulin Human Regular (HumuLIN R VIAL) 10 unit 1X ONCE IV Last administered on 05/27/19at 07:40; Start 05/27/19 at 07:15; Stop 05/27/19 at 21:00; Status DC Insulin Human Regular 150 ml @ 0 mls/hr 1X ONCE IV ; Start 05/27/19 at 07:15; Stop 05/27/19 at 07:16; Status UNV Insulin Human Regular 150 ml @ 8.1 mls/hr 1X ONCE IV ; Start 05/27/19 at 07:15; Stop 05/28/19 at 03:33; Status DC Sodium Chloride 1,000 ml @ 1,000 mls/hr 1X ONCE IV Last administered on 05/27/19at 07:38; Start 05/27/19 at 07:15; Stop 05/27/19 at 08:14; Status DC Ondansetron HCl (Zofran) 4 mg PRN Q8HRS PRN IV NAUSEA/VOMITING; Start 05/27/19 at 07:30; Stop 05/27/19 at 10:34; Status DC Pantoprazole Sodium 80 mg/ Sodium Chloride 100 ml @ 10 mls/hr Q10H IV ; Start 05/27/19 at 07:30; Status UNV Insulin Human Regular 150 unit/ Sodium Chloride 151.5 ml @ 0 mls/hr CONT PRN PRN IV SEE I/O RECORD Last administered on 05/27/19at 09:15; Start 05/27/19 at 07:30; Stop 05/27/19 at 19:04; Status DC Potassium Chloride/Water 100 ml @ 100 mls/hr PRN Q1HR PRN IV PER PROTOCOL; Start 05/27/19 at 07:30; Stop 05/29/19 at 08:05; Status DC Potassium Chloride/Water 100 ml @ 100 mls/hr PRN Q1HR PRN IV PER PROTOCOL; Start 05/27/19 at 07:30; Stop 05/29/19 at 08:05; Status DC Phytonadione (Vitamin K Ampule) 10 mg 1X ONCE SQ Last administered on 05/27/19at 09:24; Start 05/27/19 at 08:15; Stop 05/27/19 at 08:16; Status DC Lorazepam (Ativan Inj) 0.5 mg PRN Q6HRS PRN IV ANXIETY / AGITATION Last administered on 05/28/19at 21:54; Start 05/27/19 at 10:30 Ondansetron HCl (Zofran) 4 mg PRN Q6HRS PRN IV NAUSEA/VOMITING, 1ST CHOICE Last administered on 05/28/19at 15:18; Start 05/27/19 at 10:30 Prochlorperazine Edisylate (Compazine) 5 mg PRN Q6HRS PRN IV NAUSEA/VOMITING, 2ND CHOICE; Start 05/27/19 at 10:30 Sodium Chloride (Normal Saline Flush) 3 ml QSHIFT PRN IV AFTER MEDS AND BLOOD DRAWS; Start 05/27/19 at 10:30 Fentanyl Citrate (Fentanyl 2ml Vial) 25 mcg PRN Q1HR PRN IV SEVERE PAIN 7-10 Last administered on 05/29/19at 08:34; Start 05/27/19 at 10:30 Bisacodyl (Dulcolax Supp) 10 mg PRN DAILY PRN NV CONSTIPATION; Start 05/27/19 at 10:30 Sodium Chloride 1,000 ml @ 100 mls/hr Q10H IV Last administered on 05/29/19at 05:17; Start 05/27/19 at 10:30; Stop 05/29/19 at 08:05; Status DC Multivitamins 10 ml/Thiamine HCl 100 mg/Folic Acid 1 mg/Sodium Chloride 1,011.2 ml @ 100 mls/ hr DAILY IV Last administered on 05/28/19at 08:15; Start 05/27/19 at 11:00; Stop 05/29/19 at 08:05; Status DC Ergocalciferol (Vitamin D2) 50,000 unit WEEKLY PO ; Start 06/03/19 at 09:00 Thiamine HCl 100 mg/Dextrose 51 ml @ 102 mls/hr DAILY IV ; Start 05/28/19 at 09:00; Status UNV Lactulose (Lactulose) 20 gm DAILY08 PO Last administered on 05/29/19at 08:22; Start 05/27/19 at 10:45 Ringer's Solution 1,000 ml @ 50 mls/hr Q20H IV Last administered on 05/27/19at 16:35; Start 05/27/19 at 11:24; Stop 05/27/19 at 23:23; Status DC Piperacillin Sod/ Tazobactam Sod 3.375 gm/Sodium Chloride 50 ml @ 100 mls/hr Q6HRS IV Last administered on 05/29/19at 05:16; Start 05/27/19 at 12:00; Stop 05/29/19 at 08:05; Status DC Influenza Virus Vaccine Quadrival (Afluria Quad 2019-20 (3yr Up) Syringe) 0.5 ml ONCE ONCE VAX IM Last administered on 05/28/19at 13:20; Start 05/28/19 at 09:00; Stop 05/28/19 at 09:01; Status DC Midazolam HCl (Versed) 5 mg STK-MED ONCE .ROUTE ; Start 05/27/19 at 16:59; Stop 05/27/19 at 16:59; Status DC Fentanyl Citrate (Fentanyl 2ml Vial) 100 mcg STK-MED ONCE .ROUTE ; Start 05/27/19 at 17:00; Stop 05/27/19 at 17:00; Status DC Diphenhydramine HCl (Benadryl) 50 mg STK-MED ONCE .ROUTE ; Start 05/27/19 at 17:00; Stop 05/27/19 at 17:00; Status DC Diphenhydramine HCl (Benadryl) 50 mg STK-MED ONCE IV Last administered on 05/27/19at 17:01; Start 05/27/19 at 17:01; Stop 05/27/19 at 17:13; Status DC Midazolam HCl (Versed) 5 mg STK-MED ONCE IV Last administered on 05/27/19at 1 7:04; Start 05/27/19 at 17:04; Stop 05/27/19 at 17:13; Status DC Fentanyl Citrate (Fentanyl 2ml Vial) 100 mcg STK-MED ONCE IV Last administered on 05/27/19at 17:06; Start 05/27/19 at 17:06; Stop 05/27/19 at 17:13; Status DC Midazolam HCl (Versed) 5 mg STK-MED ONCE IV Last administered on 05/27/19at 17:08; Start 05/27/19 at 17:08; Stop 05/27/19 at 17:13; Status DC Fentanyl Citrate (Fentanyl 2ml Vial) 100 mcg STK-MED ONCE IV Last administered on 05/27/19at 17:10; Start 05/27/19 at 17:10; Stop 05/27/19 at 17:13; Status DC Midazolam HCl (Versed) 5 mg STK-MED ONCE IV Last administered on 05/27/19at 17:14; Start 05/27/19 at 17:14; Stop 05/27/19 at 17:15; Status DC Insulin Glargine (Lantus Syringe) 20 unit QHS SQ ; Start 05/27/19 at 21:00; Stop 05/27/19 at 21:00; Status DC Insulin Human Lispro (HumaLOG) 10 units TIDWMEALS SQ ; Start 05/27/19 at 19:30; Stop 05/27/19 at 21:37; Status DC Insulin Human Lispro (HumaLOG) 0-9 UNITS TIDWMEALS SQ ; Start 05/28/19 at 08:00; Stop 05/27/19 at 21:00; Status DC Dextrose (Dextrose 50%-Water Syringe) 12.5 gm PRN Q15MIN PRN IV SEE COMMENTS; Start 05/27/19 at 19:15 Dextrose (Iv Dextrose 5%) 250 ml PRN Q15MIN PRN IV SEE COMMENTS; Start 05/27/19 at 19:15 Insulin Glargine (Lantus Syringe) 20 unit QHS SQ Last administered on 05/28/19at 21:07; Start 05/28/19 at 21:00 Insulin Human Lispro (HumaLOG) 0-9 UNITS Q6HRS SQ Last administered on 05/29/19at 00:36; Start 05/28/19 at 00:00 Nicotine (Nicoderm Cq 14mg) 1 patch PRN DAILY PRN TD SMOKING CESSATION Last a dministered on 05/28/19at 11:03; Start 05/28/19 at 09:00 Pantoprazole Sodium (Protonix) 40 mg DAILYAC PO Last administered on 05/29/19at 08:22; Start 05/29/19 at 07:30 Fluoxetine HCl (PROzac) 20 mg DAILY PO Last administered on 05/29/19at 08:22; Start 05/28/19 at 13:00 Active Scripts Active Lantus (Insulin Glargine,Hum.rec.anlog) 100 Unit/1 Ml Vial 20 Unit SQ QHS 30 Days Pantoprazole Sodium (Pantoprazole Sodium) 40 Mg Tablet.dr 40 Mg PO DAILYAC 30 Days Fluoxetine Hcl 20 Mg Capsule 20 Mg PO DAILY Reported Amlodipine Besylate 10 Mg Tablet 5 Mg PO DAILY Vitals/I & O Vital Sign - Last 24 Hours 05/28/19 05/28/19 05/28/19 05/28/19 10:00 11:00 11:03 11:33 Pulse 92 81 Resp 16 16 B/P (MAP) 100/58 (72) 95/69 (78) Pulse Ox 93 93 93 94 O2 Delivery Room Air Room Air Room Air Room Air O2 Flow Rate 2.0 2.0 05/28/19 05/28/19 05/28/19 05/28/19 12:00 16:00 19:00 20:00 Temp 98.5 97.8 98.4 98.5 97.8 98.4 Pulse 87 90 97 Resp 16 16 16 B/P (MAP) 103/64 (77) 111/67 (82) 100/47 (64) Pulse Ox 94 95 94 O2 Delivery Room Air Room Air Room Air Room Air 05/28/19 05/29/19 05/29/19 05/29/19 23:00 00:42 01:12 03:00 Temp 98.4 98.0 98.4 98.0 Pulse 92 92 Resp 17 18 18 17 B/P (MAP) 118/61 (80) 92/49 (63) Pulse Ox 93 93 93 93 O2 Delivery Room Air Room Air Room Air Room Air O2 Flow Rate 2.0 05/29/19 05/29/19 05/29/19 05/29/19 05:16 05:46 07:00 08:34 Temp 97.5 97.5 Pulse 95 Resp 18 18 18 18 B/P (MAP) 95/55 (68) Pulse Ox 93 93 94 94 O2 Delivery Room Air Room Air Room Air Room Air O2 Flow Rate 2.0 2.0 05/29/19 09:04 Resp 16 Pulse Ox 94 O2 Delivery Room Air O2 Flow Rate 2.0 Intake and Output 05/28/19 05/28/19 05/29/19 15:00 23:00 07:00 Intake Total 240 ml 0 ml 600 ml Balance 240 ml 0 ml 600 ml PATTI PUCKETT MD May 29, 2019 09:52
--- NOTE | 2019-05-29 10:22 | PDOC ---
SUBJECTIVE ROS stable OBJECTIVE Vital Signs Vital Signs Date Time Temp Pulse Resp B/P (MAP) Pulse Ox O2 Delivery O2 Flow Rate FiO2 05/29/19 09:04 16 94 Room Air 2.0 05/29/19 07:00 97.5 95 95/55 (68) 97.5 I & 0 Intake and Output 05/29/19 07:00 Intake Total 840 ml Balance 840 ml Intake Oral 840 ml # Voids 3 # Bowel Movements 2 PHYSICAL EXAM Physical Exam General: NAD HEEN- OM dry Neck supple Lungs: Clear to auscultation CV RRR Abdomen: Soft, No tenderness Extremities: No cyanosis, No edema Neuro: grossly normal, AxOx 3 - No agee, No CVA or SP tenderness Skin No rash DIAGNOSIS/ASSESSMENT Assessment & Plan KRYSTA- Hypotensive pre-renal UA- No micr hematuria, No Overt proteinuria Renal function improved , No labs this am Supportive care , Avoid Nephrotoxins . strict I/O Cirrhosis- CT reported Cirrhosis and varices. Small amount of ascites Per GI HypoNa -mildly low - 05/28 suspect 2/2 cirrhosis Hematemesis - varices grade 3 ,portal hypertensive gastropathy s/p band ligation x 5 on 05/27 Metabolic acidosis- resolved HyperGlycemia/? New Dx o DM- per primary HyperKalemia - resolved Ureteral stone- Mild left-sided hydroureter due to a distal left ureteral stone measuring 7 mm in size reported on CT Renal function improved Will sign off COMMENT/RELEVANT DATA Meds Current Medications Medications (Trade) Dose Ordered Sig/Komal Start Time Stop Time Status Last Admin Dose Admin Bisacodyl (Dulcolax Supp) 10 mg PRN DAILY PRN 05/27/19 10:30 Dextrose (Dextrose 50%-Water Syringe) 12.5 gm PRN Q15MIN PRN 05/27/19 19:15 Dextrose (Iv Dextrose 5%) 250 ml PRN Q15MIN PRN 05/27/19 19:15 Diphenhydramine HCl (Benadryl) 50 mg STK-MED ONCE 05/27/19 17:01 05/27/19 17:13 DC 05/27/19 17:01 25 MG Ergocalciferol (Vitamin D2) 50,000 unit WEEKLY 06/03/19 09:00 Fentanyl Citrate (Fentanyl 2ml Vial) 100 mcg STK-MED ONCE 05/27/19 17:10 05/27/19 17:13 DC 05/27/19 17:10 25 MCG Fluoxetine HCl (PROzac) 20 mg DAILY 05/28/19 13:00 05/29/19 08:22 20 MG Influenza Virus Vaccine Quadrival (Afluria Quad 2019-20 (3yr Up) Syringe) 0.5 ml ONCE ONCE 05/28/19 09:00 05/28/19 09:01 DC 05/28/19 13:20 0.5 ML Info (CONTRAST GIVEN -- Rx MONITORING) 1 each PRN DAILY PRN 05/27/19 07:15 05/29/19 07:14 DC Insulin Glargine (Lantus Syringe) 20 unit QHS 05/28/19 21:00 05/28/19 21:07 20 UNIT Insulin Human Lispro (HumaLOG) 0-9 UNITS Q6HRS 05/28/19 00:00 05/29/19 00:36 3 UNITS Insulin Human Regular 150 ml @ 8.1 mls/hr 1X ONCE 05/27/19 07:15 05/28/19 03:33 DC Insulin Human Regular (HumuLIN R VIAL) 10 unit 1X ONCE 05/27/19 07:15 05/27/19 21:00 DC 05/27/19 07:40 10 UNIT Insulin Human Regular 150 unit/ Sodium Chloride 151.5 ml @ 0 mls/hr CONT PRN PRN 05/27/19 07:30 05/27/19 19:04 DC 05/27/19 09:15 7.6 MLS/HR Iohexol (Omnipaque 300 Mg/ml) 60 ml 1X ONCE 05/27/19 07:15 05/27/19 07:16 DC 05/27/19 07:27 60 ML Lactulose (Lactulose) 20 gm DAILY08 05/27/19 10:45 05/29/19 08:22 20 GM Lorazepam (Ativan Inj) 0.5 mg PRN Q6HRS PRN 05/27/19 10:30 05/28/19 21:54 0.5 MG Midazolam HCl (Versed) 5 mg STK-MED ONCE 05/27/19 17:14 05/27/19 17:15 DC 05/27/19 17:14 1 MG Multivitamins 10 ml/Thiamine HCl 100 mg/Folic Acid 1 mg/Sodium Chloride 1,011.2 ml @ 100 mls/ hr DAILY 05/27/19 11:00 05/29/19 08:05 DC 05/28/19 08:15 100 MLS/HR Nicotine (Nicoderm Cq 14mg) 1 patch PRN DAILY PRN 05/28/19 09:00 05/28/19 11:03 1 PATCH Ondansetron HCl (Zofran) 4 mg PRN Q6HRS PRN 05/27/19 10:30 05/28/19 15:18 4 MG Pantoprazole Sodium (Protonix) 40 mg DAILYAC 05/29/19 07:30 05/29/19 08:22 40 MG Pantoprazole Sodium 80 mg/ Sodium Chloride 100 ml @ 10 mls/hr Q10H 05/27/19 07:30 UNV Phytonadione (Vitamin K Ampule) 10 mg 1X ONCE 05/27/19 08:15 05/27/19 08:16 DC 05/27/19 09:24 10 MG Piperacillin Sod/ Tazobactam Sod 3.375 gm/Sodium Chloride 50 ml @ 100 mls/hr Q6HRS 05/27/19 12:00 05/29/19 08:05 DC 05/29/19 05:16 100 MLS/HR Potassium Chloride/Water 100 ml @ 100 mls/hr PRN Q1HR PRN 05/27/19 07:30 05/29/19 08:05 DC Prochlorperazine Edisylate (Compazine) 5 mg PRN Q6HRS PRN 05/27/19 10:30 Ringer's Solution 1,000 ml @ 50 mls/hr Q20H 05/27/19 11:24 05/27/19 23:23 DC 05/27/19 16:35 50 MLS/HR Sodium Chloride 1,000 ml @ 100 mls/hr Q10H 05/27/19 10:30 05/29/19 08:05 DC 05/29/19 05:17 100 MLS/HR Sodium Chloride (Normal Saline Flush) 3 ml QSHIFT PRN 05/27/19 10:30 Thiamine HCl 100 mg/Dextrose 51 ml @ 102 mls/hr DAILY 05/28/19 09:00 UNV Lab Laboratory Tests Test 05/28/19 12:26 05/28/19 13:43 05/28/19 17:11 05/28/19 20:59 Glucose (Fingerstick) 265 mg/dL (70-99) 278 mg/dL (70-99) 218 mg/dL (70-99) White Blood Count 20.0 x10^3/uL (4.0-11.0) Red Blood Count 2.61 x10^6/uL (4.30-5.70) Hemoglobin 9.0 g/dL (13.0-17.5) Hematocrit 26.8 % (39.0-53.0) Mean Corpuscular Volume 103 fL (79-100) Mean Corpuscular Hemoglobin 35 pg (25-35) Mean Corpuscular Hemoglobin Concent 34 g/dL (31-37) Red Cell Distribution Width 13.5 % (11.5-14.5) Platelet Count 200 x10^3/uL (140-400) Neutrophils (%) (Auto) 73 % (31-73) Lymphocytes (%) (Auto) 16 % (24-48) Monocytes (%) (Auto) 9 % (0-9) Eosinophils (%) (Auto) 1 % (0-3) Basophils (%) (Auto) 1 % (0-3) Neutrophils # (Auto) 14.7 x10^3/uL (1.8-7.7) Lymphocytes # (Auto) 3.2 x10^3/uL (1.0-4.8) Monocytes # (Auto) 1.7 x10^3/uL (0.0-1.1) Eosinophils # (Auto) 0.2 x10^3/uL (0.0-0.7) Basophils # (Auto) 0.1 x10^3/uL (0.0-0.2) Test 05/28/19 21:50 05/29/19 00:21 05/29/19 03:25 05/29/19 05:41 White Blood Count 18.2 x10^3/uL (4.0-11.0) 16.3 x10^3/uL (4.0-11.0) Red Blood Count 2.41 x10^6/uL (4.30-5.70) 2.32 x10^6/uL (4.30-5.70) Hemoglobin 8.4 g/dL (13.0-17.5) 8.1 g/dL (13.0-17.5) Hematocrit 24.5 % (39.0-53.0) 23.3 % (39.0-53.0) Mean Corpuscular Volume 102 fL (79-100) 100 fL (79-100) Mean Corpuscular Hemoglobin 35 pg (25-35) 35 pg (25-35) Mean Corpuscular Hemoglobin Concent 34 g/dL (31-37) 35 g/dL (31-37) Red Cell Distribution Width 13.6 % (11.5-14.5) 13.4 % (11.5-14.5) Platelet Count 189 x10^3/uL (140-400) 174 x10^3/uL (140-400) Neutrophils (%) (Auto) 71 % (31-73) 70 % (31-73) Lymphocytes (%) (Auto) 16 % (24-48) 16 % (24-48) Monocytes (%) (Auto) 12 % (0-9) 13 % (0-9) Eosinophils (%) (Auto) 1 % (0-3) 1 % (0-3) Basophils (%) (Auto) 1 % (0-3) 0 % (0-3) Neutrophils # (Auto) 12.9 x10^3/uL (1.8-7.7) 11.4 x10^3/uL (1.8-7.7) Lymphocytes # (Auto) 2.9 x10^3/uL (1.0-4.8) 2.7 x10^3/uL (1.0-4.8) Monocytes # (Auto) 2.1 x10^3/uL (0.0-1.1) 2.0 x10^3/uL (0.0-1.1) Eosinophils # (Auto) 0.2 x10^3/uL (0.0-0.7) 0.2 x10^3/uL (0.0-0.7) Basophils # (Auto) 0.1 x10^3/uL (0.0-0.2) 0.1 x10^3/uL (0.0-0.2) Glucose (Fingerstick) 210 mg/dL (70-99) 135 mg/dL (70-99) Results All relevant outside records, renal labs, imaging studies, telemetry/EKG's were reviewed. BART BRAGG MD May 29, 2019 10:22
--- NOTE | 2019-05-29 10:33 | PDOC ---
Infectious Disease Note Subjective Subjective awake, says feeling better ROS ROS no n/v/d/ Vital Sign Vital Signs Vital Signs Date Time Temp Pulse Resp B/P (MAP) Pulse Ox O2 Delivery O2 Flow Rate FiO2 05/29/19 09:04 16 94 Room Air 2.0 05/29/19 07:00 97.5 95 95/55 (68) 97.5 Physical Exam PHYSICAL EXAM GENERAL: Alert, oriented gentleman, not in distress. VITAL SIGNS: Stable, afebrile. HEENT: NAD. NECK: Supple, no JVP, no lymphadenopathy. LUNGS: Clear. HEART: S1, S2 regular. ABDOMEN: Soft, mild diffuse tenderness, no rebound or guarding. EXTREMITIES: No edema, cyanosis. SKIN: Unremarkable. NEUROLOGIC: The patient is neurologically alert, awake and appropriate. No focal neurologic deficit. Labs Lab Laboratory Tests Test 05/28/19 12:26 05/28/19 13:43 05/28/19 17:11 05/28/19 20:59 Glucose (Fingerstick) 265 mg/dL (70-99) 278 mg/dL (70-99) 218 mg/dL (70-99) White Blood Count 20.0 x10^3/uL (4.0-11.0) Red Blood Count 2.61 x10^6/uL (4.30-5.70) Hemoglobin 9.0 g/dL (13.0-17.5) Hematocrit 26.8 % (39.0-53.0) Mean Corpuscular Volume 103 fL (79-100) Mean Corpuscular Hemoglobin 35 pg (25-35) Mean Corpuscular Hemoglobin Concent 34 g/dL (31-37) Red Cell Distribution Width 13.5 % (11.5-14.5) Platelet Count 200 x10^3/uL (140-400) Neutrophils (%) (Auto) 73 % (31-73) Lymphocytes (%) (Auto) 16 % (24-48) Monocytes (%) (Auto) 9 % (0-9) Eosinophils (%) (Auto) 1 % (0-3) Basophils (%) (Auto) 1 % (0-3) Neutrophils # (Auto) 14.7 x10^3/uL (1.8-7.7) Lymphocytes # (Auto) 3.2 x10^3/uL (1.0-4.8) Monocytes # (Auto) 1.7 x10^3/uL (0.0-1.1) Eosinophils # (Auto) 0.2 x10^3/uL (0.0-0.7) Basophils # (Auto) 0.1 x10^3/uL (0.0-0.2) Test 05/28/19 21:50 05/29/19 00:21 05/29/19 03:25 05/29/19 05:41 White Blood Count 18.2 x10^3/uL (4.0-11.0) 16.3 x10^3/uL (4.0-11.0) Red Blood Count 2.41 x10^6/uL (4.30-5.70) 2.32 x10^6/uL (4.30-5.70) Hemoglobin 8.4 g/dL (13.0-17.5) 8.1 g/dL (13.0-17.5) Hematocrit 24.5 % (39.0-53.0) 23.3 % (39.0-53.0) Mean Corpuscular Volume 102 fL (79-100) 100 fL (79-100) Mean Corpuscular Hemoglobin 35 pg (25-35) 35 pg (25-35) Mean Corpuscular Hemoglobin Concent 34 g/dL (31-37) 35 g/dL (31-37) Red Cell Distribution Width 13.6 % (11.5-14.5) 13.4 % (11.5-14.5) Platelet Count 189 x10^3/uL (140-400) 174 x10^3/uL (140-400) Neutrophils (%) (Auto) 71 % (31-73) 70 % (31-73) Lymphocytes (%) (Auto) 16 % (24-48) 16 % (24-48) Monocytes (%) (Auto) 12 % (0-9) 13 % (0-9) Eosinophils (%) (Auto) 1 % (0-3) 1 % (0-3) Basophils (%) (Auto) 1 % (0-3) 0 % (0-3) Neutrophils # (Auto) 12.9 x10^3/uL (1.8-7.7) 11.4 x10^3/uL (1.8-7.7) Lymphocytes # (Auto) 2.9 x10^3/uL (1.0-4.8) 2.7 x10^3/uL (1.0-4.8) Monocytes # (Auto) 2.1 x10^3/uL (0.0-1.1) 2.0 x10^3/uL (0.0-1.1) Eosinophils # (Auto) 0.2 x10^3/uL (0.0-0.7) 0.2 x10^3/uL (0.0-0.7) Basophils # (Auto) 0.1 x10^3/uL (0.0-0.2) 0.1 x10^3/uL (0.0-0.2) Glucose (Fingerstick) 210 mg/dL (70-99) 135 mg/dL (70-99) Micro Microbiology 05/27/19 Blood Culture - Preliminary, Resulted NO GROWTH AFTER 1 DAY Objective Assessment 1. Lactic acidosis. 2. Gastrointestinal bleed. , Esophageal varices 3. Colitis, likely ischemic colitis. 4. Leukocytosis, most likely to be reactive. 5. Cirrhosis of liver with hepatitis C. Plan Plan of Care hydration aspiration precautions d/c zosyn supportive care MADELIN ST MD May 29, 2019 10:33
[2019-05-29 11:11] VITALS: BP 92/61
--- NOTE | 2019-05-29 12:18 | PDOC ---
Subjective: Subjective: Thinks he spilled his urinal. Eating ok. Abdomen is sore but not sure if more distended. No bleeding/vomiting. Objective: Objective: D/w nurse - discharge held per therapy recs. 2 stools charted. Vital Signs: Vital Signs Date Time Temp Pulse Resp B/P (MAP) Pulse Ox O2 Delivery O2 Flow Rate FiO2 05/29/19 11:11 97.7 98 18 92/61 (71) 98 Room Air 97.7 05/29/19 09:04 2.0 Labs: Laboratory Tests Test 05/28/19 12:26 05/28/19 13:43 05/28/19 17:11 05/28/19 20:59 Glucose (Fingerstick) 265 mg/dL 278 mg/dL 218 mg/dL White Blood Count 20.0 x10^3/uL Red Blood Count 2.61 x10^6/uL Hemoglobin 9.0 g/dL Hematocrit 26.8 % Mean Corpuscular Volume 103 fL Mean Corpuscular Hemoglobin 35 pg Mean Corpuscular Hemoglobin Concent 34 g/dL Red Cell Distribution Width 13.5 % Platelet Count 200 x10^3/uL Neutrophils (%) (Auto) 73 % Lymphocytes (%) (Auto) 16 % Monocytes (%) (Auto) 9 % Eosinophils (%) (Auto) 1 % Basophils (%) (Auto) 1 % Neutrophils # (Auto) 14.7 x10^3/uL Lymphocytes # (Auto) 3.2 x10^3/uL Monocytes # (Auto) 1.7 x10^3/uL Eosinophils # (Auto) 0.2 x10^3/uL Basophils # (Auto) 0.1 x10^3/uL Test 05/28/19 21:50 05/29/19 00:21 05/29/19 03:25 05/29/19 05:41 White Blood Count 18.2 x10^3/uL 16.3 x10^3/uL Red Blood Count 2.41 x10^6/uL 2.32 x10^6/uL Hemoglobin 8.4 g/dL 8.1 g/dL Hematocrit 24.5 % 23.3 % Mean Corpuscular Volume 102 fL 100 fL Mean Corpuscular Hemoglobin 35 pg 35 pg Mean Corpuscular Hemoglobin Concent 34 g/dL 35 g/dL Red Cell Distribution Width 13.6 % 13.4 % Platelet Count 189 x10^3/uL 174 x10^3/uL Neutrophils (%) (Auto) 71 % 70 % Lymphocytes (%) (Auto) 16 % 16 % Monocytes (%) (Auto) 12 % 13 % Eosinophils (%) (Auto) 1 % 1 % Basophils (%) (Auto) 1 % 0 % Neutrophils # (Auto) 12.9 x10^3/uL 11.4 x10^3/uL Lymphocytes # (Auto) 2.9 x10^3/uL 2.7 x10^3/uL Monocytes # (Auto) 2.1 x10^3/uL 2.0 x10^3/uL Eosinophils # (Auto) 0.2 x10^3/uL 0.2 x10^3/uL Basophils # (Auto) 0.1 x10^3/uL 0.1 x10^3/uL Glucose (Fingerstick) 210 mg/dL 135 mg/dL Test 05/29/19 10:38 Glucose (Fingerstick) 236 mg/dL BLOOD CULTURE Preliminary NO GROWTH AFTER 2 DAYS PE: GEN: NAD, resting LUNGS: room air HEART: RRR ABD: distended NEURO/PSYCH: A & O 3, drowsy A/P: Hematemesis - no recurrence Anemia - stable Cirrhosis w/ esophageal varices s/p banding - Hep C, alcohol -- ?more distended today - also c/o abd soreness - will recheck US re: ascites, consider paracentesis if increased amount. Repeat banding in ~2 weeks. DANNA PRIETO May 29, 2019 12:18
[2019-05-29 14:13] LABS: BASO % 0 % (0-3); EOS # 0.1 x10^3/uL (0.0-0.7); EOS % 1 % (0-3); HEMOGLOBIN 8.1 g/dL (13.0-17.5); LYMPH # 1.4 x10^3/uL (1.0-4.8); LYMPH % 11 % (24-48); MEAN CORPUSCULAR HEMOGLOBIN 35 pg (25-35); MEAN CORPUSCULAR HGB CONC 34 g/dL (31-37); MEAN CORPUSCULAR VOLUME 102 fL (79-100); MONO # 1.6 x10^3/uL (0.0-1.1); MONO % 13 % (0-9); NEUT # 9.5 x10^3/uL (1.8-7.7); NEUT % 75 % (31-73); PLATELET COUNT 173 x10^3/uL (140-400); RED BLOOD COUNT 2.35 x10^6/uL (4.30-5.70); RED CELL DISTRIBUTION WIDTH 14.1 % (11.5-14.5); WHITE BLOOD COUNT 12.7 x10^3/uL (4.0-11.0)
[2019-05-29 15:21] VITALS: BP 87/57
--- NOTE | 2019-05-29 15:54 | NUR ---
SW following. Discussed with RN. PT/OT recommending Acute rehab. SW met with pt, pt agreeable, and would like [facility]. Pt would like to be present when [facility] comes to see him. SW faxed referral, awaiting acceptance decision and insurance auth. RN notified.
--- NOTE | 2019-05-29 16:56 | RAD ---
EXAM: Abdomen sonogram. HISTORY: Ascites assessment. TECHNIQUE: Sonographic imaging of the abdomen was performed. COMPARISON: 05/27/2019. FINDINGS: There is a moderate amount of abdominal ascites. The largest ascites pocket is seen within the right lower quadrant measuring 12.9 cm in depth. The abdominal visceral and vascular structures not formally assessed. IMPRESSION: Moderate abdominal ascites. Electronically signed by: Sammie Ferraro MD (05/29/2019 4:54 PM) [id number]
[2019-05-29 19:00] VITALS: BP 89/61
[2019-05-29] MEDS: INSULIN GLARGINE SYRINGE. SQ SCH (21:22)
[2019-05-29 22:23] LABS: BASO # 0.1 x10^3/uL (0.0-0.2); BASO % 0 % (0-3); EOS # 0.1 x10^3/uL (0.0-0.7); EOS % 1 % (0-3); HEMATOCRIT 25.6 % (39.0-53.0); HEMOGLOBIN 8.6 g/dL (13.0-17.5); LYMPH # 1.7 x10^3/uL (1.0-4.8); LYMPH % 13 % (24-48); MEAN CORPUSCULAR HEMOGLOBIN 34 pg (25-35); MEAN CORPUSCULAR HGB CONC 33 g/dL (31-37); MEAN CORPUSCULAR VOLUME 103 fL (79-100); MONO # 1.9 x10^3/uL (0.0-1.1); MONO % 14 % (0-9); NEUT # 9.4 x10^3/uL (1.8-7.7); NEUT % 71 % (31-73); PLATELET COUNT 195 x10^3/uL (140-400); RED BLOOD COUNT 2.49 x10^6/uL (4.30-5.70); RED CELL DISTRIBUTION WIDTH 13.8 % (11.5-14.5); WHITE BLOOD COUNT 13.2 x10^3/uL (4.0-11.0)
[2019-05-29 22:54] LABS: % BANDS 1 % (0-9); % LYMPHS 9 % (24-48); % MONOS 8 % (0-10); % SEGS 82 % (35-66); ANISOCYTOSIS SLIGHT; PLT ESTIMATE ADEQUATE (ADEQUATE); POLYCHROMASIA SLIGHT; TOXIC GRANULATION SLIGHT
[2019-05-29 23:00] VITALS: BP 98/63
[2019-05-30] VITALS (9 sets, daily range): BP systolic 86–109; BP diastolic 52–74
[2019-05-30] MEDS: fentaNYL PF VIAL 100 MCG/2 ML VIAL IV PRN ×9 (00:13→22:39)
[2019-05-30] MEDS: INSULIN LISPRO 300 UNITS/3 ML VIAL. SQ SCH ×6 (05:43→21:24)
[2019-05-30] MEDS: LACTULOSE 20 GM/30 ML SOLUTION. PO SCH (08:12)
[2019-05-30] MEDS: PANTOPRAZOLE 40 MG TABLET.DR. PO SCH (08:12)
[2019-05-30] MEDS: FLUoxetine HCL 20 MG CAPSULE PO SCH (08:13)
--- NOTE | 2019-05-30 09:47 | PDOC ---
Subjective: Subjective: Abdomen is more sore. Objective: Objective: 2 stools yesterday. Vital Signs: Vital Signs Date Time Temp Pulse Resp B/P (MAP) Pulse Ox O2 Delivery O2 Flow Rate FiO2 05/30/19 09:41 Room Air 05/30/19 07:00 97.9 88 18 92/59 (70) 94 97.9 05/29/19 19:00 98.0 Labs: Laboratory Tests Test 05/29/19 10:38 05/29/19 14:03 05/29/19 16:48 05/29/19 20:51 Glucose (Fingerstick) 236 mg/dL 237 mg/dL 241 mg/dL White Blood Count 12.7 x10^3/uL Red Blood Count 2.35 x10^6/uL Hemoglobin 8.1 g/dL Hematocrit 24.0 % Mean Corpuscular Volume 102 fL Mean Corpuscular Hemoglobin 35 pg Mean Corpuscular Hemoglobin Concent 34 g/dL Red Cell Distribution Width 14.1 % Platelet Count 173 x10^3/uL Neutrophils (%) (Auto) 75 % Lymphocytes (%) (Auto) 11 % Monocytes (%) (Auto) 13 % Eosinophils (%) (Auto) 1 % Basophils (%) (Auto) 0 % Neutrophils # (Auto) 9.5 x10^3/uL Lymphocytes # (Auto) 1.4 x10^3/uL Monocytes # (Auto) 1.6 x10^3/uL Eosinophils # (Auto) 0.1 x10^3/uL Basophils # (Auto) 0.0 x10^3/uL Test 05/29/19 22:10 05/30/19 07:49 White Blood Count 13.2 x10^3/uL Red Blood Count 2.49 x10^6/uL Hemoglobin 8.6 g/dL Hematocrit 25.6 % Mean Corpuscular Volume 103 fL Mean Corpuscular Hemoglobin 34 pg Mean Corpuscular Hemoglobin Concent 33 g/dL Red Cell Distribution Width 13.8 % Platelet Count 195 x10^3/uL Neutrophils (%) (Auto) 71 % Lymphocytes (%) (Auto) 13 % Monocytes (%) (Auto) 14 % Eosinophils (%) (Auto) 1 % Basophils (%) (Auto) 0 % Neutrophils # (Auto) 9.4 x10^3/uL Lymphocytes # (Auto) 1.7 x10^3/uL Monocytes # (Auto) 1.9 x10^3/uL Eosinophils # (Auto) 0.1 x10^3/uL Basophils # (Auto) 0.1 x10^3/uL Segmented Neutrophils % 82 % Band Neutrophils % 1 % Lymphocytes % 9 % Monocytes % 8 % Toxic Granulation Slight Platelet Estimate Adequate Polychromasia Slight Anisocytosis Slight Macrocytosis Slight Glucose (Fingerstick) 268 mg/dL BLOOD CULTURE Preliminary NO GROWTH AFTER 3 DAYS Imaging: Abd US IMPRESSION: Moderate abdominal ascites. PE: GEN: NAD LUNGS: CTAB HEART: RRR ABD: distended, tighter, uncomfortable NEURO/PSYCH: A & O 3 A/P: Hematemesis - no recurrence Anemia - stable Cirrhosis w/ esophageal varices s/p banding and ascites - Hep C, alcohol Leukocytosis -- Moderate ascites on ultrasound w/ increased abd discomfort. Will ask for paracentesis. EGD ~2 weeks. Recheck labs. DANNA PRIETO May 30, 2019 09:47
[2019-05-30 10:45] LABS: HEMATOCRIT 24.8 % (39.0-53.0); HEMOGLOBIN 8.2 g/dL (13.0-17.5); RED BLOOD COUNT 2.4 x10^6/uL (4.30-5.70); RED CELL DISTRIBUTION WIDTH 13.8 % (11.5-14.5); WHITE BLOOD COUNT 12.1 x10^3/uL (4.0-11.0)
--- NOTE | 2019-05-30 10:47 | PDOC ---
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 This is concerning for col itis Hyperglycemia Hyperkalemia End stage liver disease with transaminitis Cirrhosis of liver with ascites DKA (diabetic ketoacidoses) SEVERE PROTEIN-CALORIC MALNUTRITION HX COPD, TOBACCO ABUSE DISORDER KRYSTA HX HEP C failed rx at [facility] reported Mild left-sided hydroureter due to a distal left ureteral stone measuring 7 mm in size.distal left ureteral stone measuring located 2.5 cm proximal to the UVJ LEUKOCYTOSIS ELEVATED NH4 NONCOMPLIANCE ANEMIA WITH ACUTE BLOOD LOSS ANEMIA thc abuse Moderate abdominal ascites. us 05/29 37 min pt exam, chart review, > 50% of time spent with exam, chart review, pt care coordination History of Present Illness History of Present Illness Alcoholic HEp C hx s./p EGD with banding, I was about to dc today, I COUNSELLED HEAVY pt re ETOH and the dc instructions to ff up 2 weeks GI for OP RE BANDING - HE understands BUT PT recs SNU - Sw aware PLAn: HOkld dc till SW finds SNU Full code PPI PO Dc iVF Ambulate with PT Re banding 2 weeks OP by GI Etoh cessation paracentesis. Vitals Vitals Vital Signs Date Time Temp Pulse Resp B/P (MAP) Pulse Ox O2 Delivery O2 Flow Rate FiO2 05/30/19 10:35 Room Air 05/30/19 07:00 97.9 88 18 92/59 (70) 94 97.9 05/29/19 19:00 98.0 Physical Exam Physical Exam GENERAL: Alert, oriented gentleman, not in distress. VITAL SIGNS: Stable, afebrile. HEENT: NAD. NECK: Supple, no JVP, no lymphadenopathy. LUNGS: Clear. HEART: S1, S2 regular. ABDOMEN: Soft, mild diffuse tenderness, no rebound or guarding. EXTREMITIES: No edema, cyanosis. SKIN: Unremarkable. NEUROLOGIC: The patient is neurologically alert, awake and appropriate. No focal neurologic deficit. General: Alert, Oriented X3, Cooperative, mild distress Heart: Regular rate, Normal S1 Lungs: Clear Abdomen: Normal bowel sounds, Soft, No tenderness Extremities: No cyanosis Skin: No rashes, No breakdown Labs LABS EXAM: Abdomen sonogram. HISTORY: Ascites assessment. TECHNIQUE: Sonographic imaging of the abdomen was performed. COMPARISON: 05/27/2019. FINDINGS: There is a moderate amount of abdominal ascites. The largest ascites pocket is seen within the right lower quadrant measuring 12.9 cm in depth. The abdominal visceral and vascular structures not formally assessed. IMPRESSION: Moderate abdominal ascites. Electronically signed by: Sammie Ferraro MD (05/29/2019 4:54 PM) [place] [id number] DICTATED and SIGNED BY: SAMMIE FERRARO MD DATE: 05/29/191653 Laboratory Tests Test 05/29/19 14:03 05/29/19 16:48 05/29/19 20:51 05/29/19 22:10 White Blood Count 12.7 x10^3/uL (4.0-11.0) 13.2 x10^3/uL (4.0-11.0) Red Blood Count 2.35 x10^6/uL (4.30-5.70) 2.49 x10^6/uL (4.30-5.70) Hemoglobin 8.1 g/dL (13.0-17.5) 8.6 g/dL (13.0-17.5) Hematocrit 24.0 % (39.0-53.0) 25.6 % (39.0-53.0) Mean Corpuscular Volume 102 fL (79-100) 103 fL (79-100) Mean Corpuscular Hemoglobin 35 pg (25-35) 34 pg (25-35) Mean Corpuscular Hemoglobin Concent 34 g/dL (31-37) 33 g/dL (31-37) Red Cell Distribution Width 14.1 % (11.5-14.5) 13.8 % (11.5-14.5) Platelet Count 173 x10^3/uL (140-400) 195 x10^3/uL (140-400) Neutrophils (%) (Auto) 75 % (31-73) 71 % (31-73) Lymphocytes (%) (Auto) 11 % (24-48) 13 % (24-48) Monocytes (%) (Auto) 13 % (0-9) 14 % (0-9) Eosinophils (%) (Auto) 1 % (0-3) 1 % (0-3) Basophils (%) (Auto) 0 % (0-3) 0 % (0-3) Neutrophils # (Auto) 9.5 x10^3/uL (1.8-7.7) 9.4 x10^3/uL (1.8-7.7) Lymphocytes # (Auto) 1.4 x10^3/uL (1.0-4.8) 1.7 x10^3/uL (1.0-4.8) Monocytes # (Auto) 1.6 x10^3/uL (0.0-1.1) 1.9 x10^3/uL (0.0-1.1) Eosinophils # (Auto) 0.1 x10^3/uL (0.0-0.7) 0.1 x10^3/uL (0.0-0.7) Basophils # (Auto) 0.0 x10^3/uL (0.0-0.2) 0.1 x10^3/uL (0.0-0.2) Glucose (Fingerstick) 237 mg/dL (70-99) 241 mg/dL (70-99) Segmented Neutrophils % 82 % (35-66) Band Neutrophils % 1 % (0-9) Lymphocytes % 9 % (24-48) Monocytes % 8 % (0-10) Toxic Granulation Slight Platelet Estimate Adequate (ADEQUATE) Polychromasia Slight Anisocytosis Slight Macrocytosis Slight Test 05/30/19 07:49 Glucose (Fingerstick) 268 mg/dL (70-99) Assessment and Plan Assessmemt and Plan Problems Medical Problems: (1) Cirrhosis of liver with ascites Status: Acute (2) DKA (diabetic ketoacidoses) Status: Acute (3) End stage liver disease Status: Acute (4) GI bleeding Status: Acute (5) Hematemesis Status: Acute (6) Hyperglycemia Status: Acute (7) Hyperkalemia Status: Acute Comment Review of Relevant I have reviewed the following items gordon (where applicable) has been applied. Labs Laboratory Tests Test 05/28/19 12:26 05/28/19 13:43 05/28/19 17:11 05/28/19 20:59 Glucose (Fingerstick) 265 mg/dL (70-99) 278 mg/dL (70-99) 218 mg/dL (70-99) White Blood Count 20.0 x10^3/uL (4.0-11.0) Red Blood Count 2.61 x10^6/uL (4.30-5.70) Hemoglobin 9.0 g/dL (13.0-17.5) Hematocrit 26.8 % (39.0-53.0) Mean Corpuscular Volume 103 fL (79-100) Mean Corpuscular Hemoglobin 35 pg (25-35) Mean Corpuscular Hemoglobin Concent 34 g/dL (31-37) Red Cell Distribution Width 13.5 % (11.5-14.5) Platelet Count 200 x10^3/uL (140-400) Neutrophils (%) (Auto) 73 % (31-73) Lymphocytes (%) (Auto) 16 % (24-48) Monocytes (%) (Auto) 9 % (0-9) Eosinophils (%) (Auto) 1 % (0-3) Basophils (%) (Auto) 1 % (0-3) Neutrophils # (Auto) 14.7 x10^3/uL (1.8-7.7) Lymphocytes # (Auto) 3.2 x10^3/uL (1.0-4.8) Monocytes # (Auto) 1.7 x10^3/uL (0.0-1.1) Eosinophils # (Auto) 0.2 x10^3/uL (0.0-0.7) Basophils # (Auto) 0.1 x10^3/uL (0.0-0.2) Test 05/28/19 21:50 05/29/19 00:21 05/29/19 03:25 05/29/19 05:41 White Blood Count 18.2 x10^3/uL (4.0-11.0) 16.3 x10^3/uL (4.0-11.0) Red Blood Count 2.41 x10^6/uL (4.30-5.70) 2.32 x10^6/uL (4.30-5.70) Hemoglobin 8.4 g/dL (13.0-17.5) 8.1 g/dL (13.0-17.5) Hematocrit 24.5 % (39.0-53.0) 23.3 % (39.0-53.0) Mean Corpuscular Volume 102 fL (79-100) 100 fL (79-100) Mean Corpuscular Hemoglobin 35 pg (25-35) 35 pg (25-35) Mean Corpuscular Hemoglobin Concent 34 g/dL (31-37) 35 g/dL (31-37) Red Cell Distribution Width 13.6 % (11.5-14.5) 13.4 % (11.5-14.5) Platelet Count 189 x10^3/uL (140-400) 174 x10^3/uL (140-400) Neutrophils (%) (Auto) 71 % (31-73) 70 % (31-73) Lymphocytes (%) (Auto) 16 % (24-48) 16 % (24-48) Monocytes (%) (Auto) 12 % (0-9) 13 % (0-9) Eosinophils (%) (Auto) 1 % (0-3) 1 % (0-3) Basophils (%) (Auto) 1 % (0-3) 0 % (0-3) Neutrophils # (Auto) 12.9 x10^3/uL (1.8-7.7) 11.4 x10^3/uL (1.8-7.7) Lymphocytes # (Auto) 2.9 x10^3/uL (1.0-4.8) 2.7 x10^3/uL (1.0-4.8) Monocytes # (Auto) 2.1 x10^3/uL (0.0-1.1) 2.0 x10^3/uL (0.0-1.1) Eosinophils # (Auto) 0.2 x10^3/uL (0.0-0.7) 0.2 x10^3/uL (0.0-0.7) Basophils # (Auto) 0.1 x10^3/uL (0.0-0.2) 0.1 x10^3/uL (0.0-0.2) Glucose (Fingerstick) 210 mg/dL (70-99) 135 mg/dL (70-99) Test 05/29/19 10:38 05/29/19 14:03 05/29/19 16:48 05/29/19 20:51 Glucose (Fingerstick) 236 mg/dL (70-99) 237 mg/dL (70-99) 241 mg/dL (70-99) White Blood Count 12.7 x10^3/uL (4.0-11.0) Red Blood Count 2.35 x10^6/uL (4.30-5.70) Hemoglobin 8.1 g/dL (13.0-17.5) Hematocrit 24.0 % (39.0-53.0) Mean Corpuscular Volume 102 fL (79-100) Mean Corpuscular Hemoglobin 35 pg (25-35) Mean Corpuscular Hemoglobin Concent 34 g/dL (31-37) Red Cell Distribution Width 14.1 % (11.5-14.5) Platelet Count 173 x10^3/uL (140-400) Neutrophils (%) (Auto) 75 % (31-73) Lymphocytes (%) (Auto) 11 % (24-48) Monocytes (%) (Auto) 13 % (0-9) Eosinophils (%) (Auto) 1 % (0-3) Basophils (%) (Auto) 0 % (0-3) Neutrophils # (Auto) 9.5 x10^3/uL (1.8-7.7) Lymphocytes # (Auto) 1.4 x10^3/uL (1.0-4.8) Monocytes # (Auto) 1.6 x10^3/uL (0.0-1.1) Eosinophils # (Auto) 0.1 x10^3/uL (0.0-0.7) Basophils # (Auto) 0.0 x10^3/uL (0.0-0.2) Test 05/29/19 22:10 05/30/19 07:49 White Blood Count 13.2 x10^3/uL (4.0-11.0) Red Blood Count 2.49 x10^6/uL (4.30-5.70) Hemoglobin 8.6 g/dL (13.0-17.5) Hematocrit 25.6 % (39.0-53.0) Mean Corpuscular Volume 103 fL (79-100) Mean Corpuscular Hemoglobin 34 pg (25-35) Mean Corpuscular Hemoglobin Concent 33 g/dL (31-37) Red Cell Distribution Width 13.8 % (11.5-14.5) Platelet Count 195 x10^3/uL (140-400) Neutrophils (%) (Auto) 71 % (31-73) Lymphocytes (%) (Auto) 13 % (24-48) Monocytes (%) (Auto) 14 % (0-9) Eosinophils (%) (Auto) 1 % (0-3) Basophils (%) (Auto) 0 % (0-3) Neutrophils # (Auto) 9.4 x10^3/uL (1.8-7.7) Lymphocytes # (Auto) 1.7 x10^3/uL (1.0-4.8) Monocytes # (Auto) 1.9 x10^3/uL (0.0-1.1) Eosinophils # (Auto) 0.1 x10^3/uL (0.0-0.7) Basophils # (Auto) 0.1 x10^3/uL (0.0-0.2) Segmented Neutrophils % 82 % (35-66) Band Neutrophils % 1 % (0-9) Lymphocytes % 9 % (24-48) Monocytes % 8 % (0-10) Toxic Granulation Slight Platelet Estimate Adequate (ADEQUATE) Polychromasia Slight Anisocytosis Slight Macrocytosis Slight Glucose (Fingerstick) 268 mg/dL (70-99) Laboratory Tests Test 05/29/19 14:03 05/29/19 16:48 05/29/19 20:51 05/29/19 22:10 White Blood Count 12.7 x10^3/uL (4.0-11.0) 13.2 x10^3/uL (4.0-11.0) Red Blood Count 2.35 x10^6/uL (4.30-5.70) 2.49 x10^6/uL (4.30-5.70) Hemoglobin 8.1 g/dL (13.0-17.5) 8.6 g/dL (13.0-17.5) Hematocrit 24.0 % (39.0-53.0) 25.6 % (39.0-53.0) Mean Corpuscular Volume 102 fL (79-100) 103 fL (79-100) Mean Corpuscular Hemoglobin 35 pg (25-35) 34 pg (25-35) Mean Corpuscular Hemoglobin Concent 34 g/dL (31-37) 33 g/dL (31-37) Red Cell Distribution Width 14.1 % (11.5-14.5) 13.8 % (11.5-14.5) Platelet Count 173 x10^3/uL (140-400) 195 x10^3/uL (140-400) Neutrophils (%) (Auto) 75 % (31-73) 71 % (31-73) Lymphocytes (%) (Auto) 11 % (24-48) 13 % (24-48) Monocytes (%) (Auto) 13 % (0-9) 14 % (0-9) Eosinophils (%) (Auto) 1 % (0-3) 1 % (0-3) Basophils (%) (Auto) 0 % (0-3) 0 % (0-3) Neutrophils # (Auto) 9.5 x10^3/uL (1.8-7.7) 9.4 x10^3/uL (1.8-7.7) Lymphocytes # (Auto) 1.4 x10^3/uL (1.0-4.8) 1.7 x10^3/uL (1.0-4.8) Monocytes # (Auto) 1.6 x10^3/uL (0.0-1.1) 1.9 x10^3/uL (0.0-1.1) Eosinophils # (Auto) 0.1 x10^3/uL (0.0-0.7) 0.1 x10^3/uL (0.0-0.7) Basophils # (Auto) 0.0 x10^3/uL (0.0-0.2) 0.1 x10^3/uL (0.0-0.2) Glucose (Fingerstick) 237 mg/dL (70-99) 241 mg/dL (70-99) Segmented Neutrophils % 82 % (35-66) Band Neutrophils % 1 % (0-9) Lymphocytes % 9 % (24-48) Monocytes % 8 % (0-10) Toxic Granulation Slight Platelet Estimate Adequate (ADEQUATE) Polychromasia Slight Anisocytosis Slight Macrocytosis Slight Test 05/30/19 07:49 Glucose (Fingerstick) 268 mg/dL (70-99) Microbiology 05/27/19 Blood Culture - Preliminary, Resulted NO GROWTH AFTER 2 DAYS Medications Current Medications Ondansetron HCl (Zofran) 4 mg 1X ONCE IV Last administered on 05/27/19at 05:57; Start 05/27/19 at 05:30; Stop 05/27/19 at 05:31; Status DC Sodium Chloride 1,000 ml @ 1,000 mls/hr 1X ONCE IV Last administered on 05/27/19at 05:56; Start 05/27/19 at 05:30; Stop 05/27/19 at 06:29; Status DC Pantoprazole Sodium 80 mg/ Sodium Chloride 100 ml @ 10 mls/hr Q10H IV Last administered on 05/27/19at 22:59; Start 05/27/19 at 05:45; Stop 05/28/19 at 09:19; Status DC Fentanyl Citrate (Fentanyl 2ml Vial) 50 mcg 1X ONCE IV Last administered on 05/27/19at 06:00; Start 05/27/19 at 06:00; Stop 05/27/19 at 06:01; Status DC Iohexol (Omnipaque 300 Mg/ml) 60 ml 1X ONCE IV Last administered on 05/27/19at 07:27; Start 05/27/19 at 07:15; Stop 05/27/19 at 07:16; Status DC Info (CONTRAST GIVEN -- Rx MONITORING) 1 each PRN DAILY PRN MC SEE COMMENTS; Start 05/27/19 at 07:15; Stop 05/29/19 at 07:14; Status DC Insulin Human Regular (HumuLIN R VIAL) 10 unit 1X ONCE IV Last administered on 05/27/19at 07:40; Start 05/27/19 at 07:15; Stop 05/27/19 at 21:00; Status DC Insulin Human Regular 150 ml @ 0 mls/hr 1X ONCE IV ; Start 05/27/19 at 07:15; Stop 05/27/19 at 07:16; Status UNV Insulin Human Regular 150 ml @ 8.1 mls/hr 1X ONCE IV ; Start 05/27/19 at 07:15; Stop 05/28/19 at 03:33; Status DC Sodium Chloride 1,000 ml @ 1,000 mls/hr 1X ONCE IV Last administered on 05/27/19at 07:38; Start 05/27/19 at 07:15; Stop 05/27/19 at 08:14; Status DC Ondansetron HCl (Zofran) 4 mg PRN Q8HRS PRN IV NAUSEA/VOMITING; Start 05/27/19 at 07:30; Stop 05/27/19 at 10:34; Status DC Pantoprazole Sodium 80 mg/ Sodium Chloride 100 ml @ 10 mls/hr Q10H IV ; Start 05/27/19 at 07:30; Status UNV Insulin Human Regular 150 unit/ Sodium Chloride 151.5 ml @ 0 mls/hr CONT PRN PRN IV SEE I/O RECORD Last administered on 05/27/19at 09:15; Start 05/27/19 at 07:30; Stop 05/27/19 at 19:04; Status DC Potassium Chloride/Water 100 ml @ 100 mls/hr PRN Q1HR PRN IV PER PROTOCOL; Start 05/27/19 at 07:30; Stop 05/29/19 at 08:05; Status DC Potassium Chloride/Water 100 ml @ 100 mls/hr PRN Q1HR PRN IV PER PROTOCOL; Start 05/27/19 at 07:30; Stop 05/29/19 at 08:05; Status DC Phytonadione (Vitamin K Ampule) 10 mg 1X ONCE SQ Last administered on 05/27/19at 09:24; Start 05/27/19 at 08:15; Stop 05/27/19 at 08:16; Status DC Lorazepam (Ativan Inj) 0.5 mg PRN Q6HRS PRN IV ANXIETY / AGITATION Last administered on 05/28/19at 21:54; Start 05/27/19 at 10:30 Ondansetron HCl (Zofran) 4 mg PRN Q6HRS PRN IV NAUSEA/VOMITING, 1ST CHOICE Last administered on 05/28/19at 15:18; Start 05/27/19 at 10:30 Prochlorperazine Edisylate (Compazine) 5 mg PRN Q6HRS PRN IV NAUSEA/VOMITING, 2ND CHOICE; Start 05/27/19 at 10:30 Sodium Chloride (Normal Saline Flush) 3 ml QSHIFT PRN IV AFTER MEDS AND BLOOD DRAWS; Start 05/27/19 at 10:30 Fentanyl Citrate (Fentanyl 2ml Vial) 25 mcg PRN Q1HR PRN IV SEVERE PAIN 7-10 Last administered on 05/30/19at 10:35; Start 05/27/19 at 10:30 Bisacodyl (Dulcolax Supp) 10 mg PRN DAILY PRN SC CONSTIPATION; Start 05/27/19 at 10:30 Sodium Chloride 1,000 ml @ 100 mls/hr Q10H IV Last administered on 05/29/19at 05:17; Start 05/27/19 at 10:30; Stop 05/29/19 at 08:05; Status DC Multivitamins 10 ml/Thiamine HCl 100 mg/Folic Acid 1 mg/Sodium Chloride 1,011.2 ml @ 100 mls/ hr DAILY IV Last administered on 05/28/19at 08:15; Start 05/27/19 at 11:00; Stop 05/29/19 at 08:05; Status DC Ergocalciferol (Vitamin D2) 50,000 unit WEEKLY PO ; Start 06/03/19 at 09:00 Thiamine HCl 100 mg/Dextrose 51 ml @ 102 mls/hr DAILY IV ; Start 05/28/19 at 09:00; Status UNV Lactulose (Lactulose) 20 gm DAILY08 PO Last administered on 05/30/19at 08:12; Start 05/27/19 at 10:45 Ringer's Solution 1,000 ml @ 50 mls/hr Q20H IV Last administered on 05/27/19at 16:35; Start 05/27/19 at 11:24; Stop 05/27/19 at 23:23; Status DC Piperacillin Sod/ Tazobactam Sod 3.375 gm/Sodium Chloride 50 ml @ 100 mls/hr Q6HRS IV Last administered on 05/29/19at 05:16; Start 05/27/19 at 12:00; Stop 05/29/19 at 08:05; Status DC Influenza Virus Vaccine Quadrival (Afluria Quad 2019-20 (3yr Up) Syringe) 0.5 ml ONCE ONCE VAX IM Last administered on 05/28/19at 13:20; Start 05/28/19 at 09:00; Stop 05/28/19 at 09:01; Status DC Midazolam HCl (Versed) 5 mg STK-MED ONCE .ROUTE ; Start 05/27/19 at 16:59; Stop 05/27/19 at 16:59; Status DC Fentanyl Citrate (Fentanyl 2ml Vial) 100 mcg STK-MED ONCE .ROUTE ; Start 05/27/19 at 17:00; Stop 05/27/19 at 17:00; Status DC Diphenhydramine HCl (Benadryl) 50 mg STK-MED ONCE .ROUTE ; Start 05/27/19 at 17:00; Stop 05/27/19 at 17:00; Status DC Diphenhydramine HCl (Benadryl) 50 mg STK-MED ONCE IV Last administered on 05/27/19at 17:01; Start 05/27/19 at 17:01; Stop 05/27/19 at 17:13; Status DC Midazolam HCl (Versed) 5 mg STK-MED ONCE IV Last administered on 05/27/19at 17:04; Start 05/27/19 at 17:04; Stop 05/27/19 at 17:13; Status DC Fentanyl Citrate (Fentanyl 2ml Vial) 100 mcg STK-MED ONCE IV Last administered on 05/27/19at 17:06; Start 05/27/19 at 17:06; Stop 05/27/19 at 17:13; Status DC Midazolam HCl (Versed) 5 mg STK-MED ONCE IV Last administered on 05/27/19at 17:08; Start 05/27/19 at 17:08; Stop 05/27/19 at 17:13; Status DC Fentanyl Citrate (Fentanyl 2ml Vial) 100 mcg STK-MED ONCE IV Last administered on 05/27/19at 17:10; Start 05/27/19 at 17:10; Stop 05/27/19 at 17:13; Status DC Midazolam HCl (Versed) 5 mg STK-MED ONCE IV Last administered on 05/27/19at 17:14; Start 05/27/19 at 17:14; Stop 05/27/19 at 17:15; Status DC Insulin Glargine (Lantus Syringe) 20 unit QHS SQ ; Start 05/27/19 at 21:00; Stop 05/27/19 at 21:00; Status DC Insulin Human Lispro (HumaLOG) 10 units TIDWMEALS SQ ; Start 05/27/19 at 19:30; Stop 05/27/19 at 21:37; Status DC Insulin Human Lispro (HumaLOG) 0-9 UNITS TIDWMEALS SQ ; Start 05/28/19 at 08:00; Stop 05/27/19 at 21:00; Status DC Dextrose (Dextrose 50%-Water Syringe) 12.5 gm PRN Q15MIN PRN IV SEE COMMENTS; Start 05/27/19 at 19:15 Dextrose (Iv Dextrose 5%) 250 ml PRN Q15MIN PRN IV SEE COMMENTS; Start 05/27/19 at 19:15 Insulin Glargine (Lantus Syringe) 20 unit QHS SQ Last administered on 05/29/19at 21:22; Start 05/28/19 at 21:00 Insulin Human Lispro (HumaLOG) 0-9 UNITS Q6HRS SQ Last administered on 05/30/19at 08:23; Start 05/28/19 at 00:00 Nicotine (Nicoderm Cq 14mg) 1 patch PRN DAILY PRN TD SMOKING CESSATION Last administered on 05/28/19at 11:03; Start 05/28/19 at 09:00 Pantoprazole Sodium (Protonix) 40 mg DAILYAC PO Last administered on 05/30/19at 08:12; Start 05/29/19 at 07:30 Fluoxetine HCl (PROzac) 20 mg DAILY PO Last administered on 05/30/19at 08:13; Start 05/28/19 at 13:00 Active Scripts Active Lantus (Insulin Glargine,Hum.rec.anlog) 100 Unit/1 Ml Vial 20 Unit SQ QHS 30 Days Pantoprazole Sodium (Pantoprazole Sodium) 40 Mg Tablet.dr 40 Mg PO DAILYAC 30 Days Fluoxetine Hcl 20 Mg Capsule 20 Mg PO DAILY Reported Amlodipine Besylate 10 Mg Tablet 5 Mg PO DAILY Vitals/I & O Vital Sign - Last 24 Hours 05/29/19 05/29/19 05/29/19 05/29/19 11:11 12:49 13:19 15:21 Temp 97.7 97.7 97.7 97.7 Pulse 98 65 Resp 18 18 16 18 B/P (MAP) 92/61 (71) 87/57 (67) Pulse Ox 98 98 98 96 O2 Delivery Room Air Room Air Room Air Room Air 05/29/19 05/29/19 05/29/19 05/29/19 16:43 17:13 19:00 19:59 Temp 97.8 97.8 Pulse 94 Resp 16 22 B/P (MAP) 89/61 (70) Pulse Ox 96 96 O2 Delivery Room Air Room Air Room Air Room Air O2 Flow Rate 8.0 98.0 05/29/19 05/29/19 05/29/19 05/30/19 20:00 20:34 23:00 00:13 Temp 97.9 97.9 Pulse 90 Resp 20 B/P (MAP) 98/63 (75) Pulse Ox 96 O2 Delivery Room Air Room Air Room Air Room Air 05/30/19 05/30/19 05/30/19 05/30/19 00:43 03:00 06:02 06:35 Temp 97.6 97.6 Pulse 92 Resp 20 B/P (MAP) 99/64 (76) Pulse Ox 96 O2 Delivery Room Air Room Air Room Air Room Air 05/30/19 05/30/19 05/30/19 05/30/19 07:00 08:13 08:30 09:41 Temp 97.9 97.9 Pulse 88 Resp 18 B/P (MAP) 92/59 (70) Pulse Ox 94 O2 Delivery Room Air Room Air Room Air Room Air 05/30/19 10:35 O2 Delivery Room Air Intake and Output 05/29/19 05/29/19 05/30/19 15:00 23:00 07:00 Intake Total 600 ml 300 ml 100 ml Output Total 700 ml 450 ml 250 ml Balance -100 ml -150 ml -150 ml DAMIEN LYNCH MD May 30, 2019 10:47
[2019-05-30 10:48] LABS: ALBUMIN 1.9 g/dL (3.4-5.0); ALBUMIN/GLOBULIN RATIO 0.5 (1.0-1.7); CALCIUM 7.9 mg/dL (8.5-10.1); CREATININE 0.8 mg/dL (0.7-1.3); GFR 97.6; TOTAL BILIRUBIN 1.9 mg/dL (0.2-1.0)
[2019-05-30 11:32] LABS: PROTHROMBIN TIME PATIENT 15.8 SEC (11.7-14.0)
[2019-05-30 15:31] LABS: BF SOURCE ASCITES
[2019-05-30 15:32] LABS: BF CLARITY HAZY; BF COLOR STRAW; BF MON % 13 %; BF OTHER % 20 %; BF PMN % 67 %; BF RBC COUNT 36 /cmm (Not Established); BF WBC COUNT 152 /cmm (Not Established)
--- NOTE | 2019-05-30 15:41 | NUR ---
SW following. Discussed with RN, pt accepted at [facility], pending insurance auth. RN notified. SW will continue to follow.
[2019-05-30] MEDS: INSULIN GLARGINE SYRINGE. SQ SCH (21:25)
[2019-05-31] MEDS: fentaNYL PF VIAL 100 MCG/2 ML VIAL IV PRN (01:03)
[2019-05-31 03:00] VITALS: BP 83/57
[2019-05-31 04:57] LABS: BASO # 0.1 x10^3/uL (0.0-0.2); BASO % 0 % (0-3); EOS # 0.2 x10^3/uL (0.0-0.7); EOS % 2 % (0-3); HEMATOCRIT 24.5 % (39.0-53.0); HEMOGLOBIN 8.2 g/dL (13.0-17.5); LYMPH # 2.3 x10^3/uL (1.0-4.8); LYMPH % 18 % (24-48); MEAN CORPUSCULAR HEMOGLOBIN 34 pg (25-35); MEAN CORPUSCULAR HGB CONC 34 g/dL (31-37); MEAN CORPUSCULAR VOLUME 102 fL (79-100); MONO % 15 % (0-9); NEUT # 8.5 x10^3/uL (1.8-7.7); NEUT % 65 % (31-73); PLATELET COUNT 167 x10^3/uL (140-400); RED CELL DISTRIBUTION WIDTH 14.3 % (11.5-14.5); WHITE BLOOD COUNT 13.1 x10^3/uL (4.0-11.0)
[2019-05-31 05:10] LABS: CALCIUM 8.1 mg/dL (8.5-10.1); CREATININE 0.7 mg/dL (0.7-1.3); GFR 113.9; POTASSIUM 4.1 mmol/L (3.5-5.1)
[2019-05-31 07:00] VITALS: BP 92/56
--- NOTE | 2019-05-31 09:23 | PDOC ---
Subjective: Subjective: Feels better today. Tolerating diet. Wants something for back pain. Objective: Objective: No GI concerns per nurse. Still has Fentanyl ordered every hour (though not taking that frequently). Vital Signs: Vital Signs Date Time Temp Pulse Resp B/P (MAP) Pulse Ox O2 Delivery O2 Flow Rate FiO2 05/31/19 07:00 98.0 79 16 92/56 (68) 95 Room Air 98.0 05/30/19 20:18 98.0 Labs: Laboratory Tests Test 05/30/19 10:15 05/30/19 11:22 05/30/19 12:50 05/30/19 17:08 White Blood Count 12.1 x10^3/uL Red Blood Count 2.40 x10^6/uL Hemoglobin 8.2 g/dL Hematocrit 24.8 % Mean Corpuscular Volume 103 fL Mean Corpuscular Hemoglobin 34 pg Mean Corpuscular Hemoglobin Concent 33 g/dL Red Cell Distribution Width 13.8 % Platelet Count 182 x10^3/uL Prothrombin Time 15.8 SEC Prothromb Time International Ratio 1.3 Sodium Level 131 mmol/L Potassium Level 4.0 mmol/L Chloride Level 98 mmol/L Carbon Dioxide Level 24 mmol/L Anion Gap 9 Blood Urea Nitrogen 20 mg/dL Creatinine 0.8 mg/dL Estimated GFR (Cockcroft-Gault) 97.6 BUN/Creatinine Ratio 25 Glucose Level 198 mg/dL Calcium Level 7.9 mg/dL Total Bilirubin 1.9 mg/dL Aspartate Amino Transf (AST/SGOT) 82 U/L Alanine Aminotransferase (ALT/SGPT) 68 U/L Alkaline Phosphatase 143 U/L Total Protein 6.0 g/dL Albumin 1.9 g/dL Albumin/Globulin Ratio 0.5 Glucose (Fingerstick) 167 mg/dL 160 mg/dL Body Fluid Source Ascites Body Fluid Color Straw Body Fluid Clarity Hazy Body Fluid Nucleated Cells 152 /cmm Body Fluid Mononuclear WBCs (%) 13 % Body Fluid Polymorphonuclear Cells 67 % Body Fluid Total RBCs Counted 36 /cmm Body Fluid Other Cells (%) 20 % Test 05/30/19 21:17 05/31/19 04:09 05/31/19 08:05 Glucose (Fingerstick) 247 mg/dL 157 mg/dL White Blood Count 13.1 x10^3/uL Red Blood Count 2.40 x10^6/uL Hemoglobin 8.2 g/dL Hematocrit 24.5 % Mean Corpuscular Volume 102 fL Mean Corpuscular Hemoglobin 34 pg Mean Corpuscular Hemoglobin Concent 34 g/dL Red Cell Distribution Width 14.3 % Platelet Count 167 x10^3/uL Neutrophils (%) (Auto) 65 % Lymphocytes (%) (Auto) 18 % Monocytes (%) (Auto) 15 % Eosinophils (%) (Auto) 2 % Basophils (%) (Auto) 0 % Neutrophils # (Auto) 8.5 x10^3/uL Lymphocytes # (Auto) 2.3 x10^3/uL Monocytes # (Auto) 2.0 x10^3/uL Eosinophils # (Auto) 0.2 x10^3/uL Basophils # (Auto) 0.1 x10^3/uL Sodium Level 129 mmol/L Potassium Level 4.1 mmol/L Chloride Level 98 mmol/L Carbon Dioxide Level 24 mmol/L Anion Gap 7 Blood Urea Nitrogen 19 mg/dL Creatinine 0.7 mg/dL Estimated GFR (Cockcroft-Gault) 113.9 Glucose Level 153 mg/dL Calcium Level 8.1 mg/dL BLOOD CULTURE Preliminary NO GROWTH AFTER 4 DAYS Imaging: Paracentesis 05/30 pending PE: GEN: NAD - up in chair eating breakfast ABD: less tight/distended EXTREM: 1+ pitting edema NEURO/PSYCH: A & O 3 A/P: Hematemesis - no recurrence Anemia (stable), hyponatremia Cirrhosis w/ esophageal varices s/p banding and ascites s/p paracentesis - Hep C, alcohol -- ?diuretics - he does not recall, but past encounter indicates has taken in the past TESSY-DANNA MUSA May 31, 2019 09:23
--- NOTE | 2019-05-31 09:35 | RAD ---
Ultrasound-guided paracentesis 05/31/2019 7:32 AM Procedure: The risks and benefits of the procedure were discussed the patient. Informed consent was obtained. A timeout procedure was performed. Sonographic evaluation of the abdomen was performed demonstrating ascites . The right lower quadrant was prepped and draped using maximum sterile barrier technique. 1% lidocaine without epinephrine was administered for local anesthesia. Real-time ultrasonographic guidance was used in passing a 5 Japanese Yueh catheter into the fluid collection. 2.2 L of serous ascites was removed. The catheter was removed and pressure held to achieve hemostasis. A sterile dressing was applied. Impression: Successful ultrasound-guided paracentesis
[2019-05-31] MEDS ORDERED: traMADol 50 MG TABLET PO PRN (09:45)
[2019-05-31] MEDS: LACTULOSE 20 GM/30 ML SOLUTION. PO SCH (09:47)
[2019-05-31] MEDS: FLUoxetine HCL 20 MG CAPSULE PO SCH (09:47)
[2019-05-31] MEDS: PANTOPRAZOLE 40 MG TABLET.DR. PO SCH (09:47)
[2019-05-31] MEDS: INSULIN LISPRO 300 UNITS/3 ML VIAL. SQ SCH ×2 (09:50→12:34)
--- NOTE | 2019-05-31 10:29 | PDOC ---
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 This is concerning for col itis Hyperglycemia Hyperkalemia End stage liver disease with transaminitis Cirrhosis of liver with ascites DKA (diabetic ketoacidoses) SEVERE PROTEIN-CALORIC MALNUTRITION HX COPD, TOBACCO ABUSE DISORDER KRYSTA HX HEP C failed rx at [facility] reported Mild left-sided hydroureter due to a distal left ureteral stone measuring 7 mm in size.distal left ureteral stone measuring located 2.5 cm proximal to the UVJ LEUKOCYTOSIS ELEVATED NH4 NONCOMPLIANCE ANEMIA WITH ACUTE BLOOD LOSS ANEMIA thc abuse Moderate abdominal ascites. us 05/29 Repeat band ligation as o/p in 2 weeks for varices recommended. MARH PENDING 37 min pt exam, chart review, > 50% of time spent with exam, chart review, pt care coordination History of Present Illness History of Present Illness Alcoholic HEp C hx s./p EGD with banding, I was about to dc today, I COUNSELLED HEAVY pt re ETOH and the dc instructions to ff up 2 weeks GI for OP RE BANDING - HE understands BUT PT recs SNU - Sw aware PLAn: HOkld dc till SW finds SNU Full code PPI PO Dc iVF Ambulate with PT Re banding 2 weeks OP by GI Etoh cessation paracentesis. Vitals Vitals Vital Signs Date Time Temp Pulse Resp B/P (MAP) Pulse Ox O2 Delivery O2 Flow Rate FiO2 05/31/19 07:00 98.0 79 16 92/56 (68) 95 Room Air 98.0 05/30/19 20:18 98.0 Physical Exam Physical Exam GENERAL: Alert, oriented gentleman, not in distress. VITAL SIGNS: Stable, afebrile. HEENT: NAD. NECK: Supple, no JVP, no lymphadenopathy. LUNGS: Clear. HEART: S1, S2 regular. ABDOMEN: Soft, mild diffuse tenderness, no rebound or guarding. EXTREMITIES: No edema, cyanosis. SKIN: Unremarkable. NEUROLOGIC: The patient is neurologically alert, awake and appropriate. No focal neurologic deficit. General: Alert, Oriented X3, Cooperative, mild distress Heart: Regular rate, Normal S1 Lungs: Clear Abdomen: Normal bowel sounds, Soft, No tenderness Extremities: No cyanosis Skin: No rashes, No breakdown Labs LABS Laboratory Tests Test 12/19/19 11:22 05/30/19 12:50 05/30/19 17:08 05/30/19 21:17 Glucose (Fingerstick) 167 mg/dL (70-99) 160 mg/dL (70-99) 247 mg/dL (70-99) Body Fluid Source Ascites Body Fluid Color Straw Body Fluid Clarity Hazy Body Fluid Nucleated Cells 152 /cmm (Not Established) Body Fluid Mononuclear WBCs (%) 13 % Body Fluid Polymorphonuclear Cells 67 % Body Fluid Total RBCs Counted 36 /cmm (Not Established) Body Fluid Other Cells (%) 20 % Test 05/31/19 04:09 05/31/19 08:05 White Blood Count 13.1 x10^3/uL (4.0-11.0) Red Blood Count 2.40 x10^6/uL (4.30-5.70) Hemoglobin 8.2 g/dL (13.0-17.5) Hematocrit 24.5 % (39.0-53.0) Mean Corpuscular Volume 102 fL (79-100) Mean Corpuscular Hemoglobin 34 pg (25-35) Mean Corpuscular Hemoglobin Concent 34 g/dL (31-37) Red Cell Distribution Width 14.3 % (11.5-14.5) Platelet Count 167 x10^3/uL (140-400) Neutrophils (%) (Auto) 65 % (31-73) Lymphocytes (%) (Auto) 18 % (24-48) Monocytes (%) (Auto) 15 % (0-9) Eosinophils (%) (Auto) 2 % (0-3) Basophils (%) (Auto) 0 % (0-3) Neutrophils # (Auto) 8.5 x10^3/uL (1.8-7.7) Lymphocytes # (Auto) 2.3 x10^3/uL (1.0-4.8) Monocytes # (Auto) 2.0 x10^3/uL (0.0-1.1) Eosinophils # (Auto) 0.2 x10^3/uL (0.0-0.7) Basophils # (Auto) 0.1 x10^3/uL (0.0-0.2) Sodium Level 129 mmol/L (136-145) Potassium Level 4.1 mmol/L (3.5-5.1) Chloride Level 98 mmol/L (98-107) Carbon Dioxide Level 24 mmol/L (21-32) Anion Gap 7 (6-14) Blood Urea Nitrogen 19 mg/dL (8-26) Creatinine 0.7 mg/dL (0.7-1.3) Estimated GFR (Cockcroft-Gault) 113.9 Glucose Level 153 mg/dL (70-99) Calcium Level 8.1 mg/dL (8.5-10.1) Glucose (Fingerstick) 157 mg/dL (70-99) Assessment and Plan Assessmemt and Plan Problems Medical Problems: (1) Cirrhosis of liver with ascites Status: Acute (2) DKA (diabetic ketoacidoses) Status: Acute (3) End stage liver disease Status: Acute (4) GI bleeding Status: Acute (5) Hematemesis Status: Acute (6) Hyperglycemia Status: Acute (7) Hyperkalemia Status: Acute Comment Review of Relevant I have reviewed the following items gordon (where applicable) has been applied. Labs Laboratory Tests Test 05/29/19 10:38 05/29/19 14:03 05/29/19 16:48 05/29/19 20:51 Glucose (Fingerstick) 236 mg/dL (70-99) 237 mg/dL (70-99) 241 mg/dL (70-99) White Blood Count 12.7 x10^3/uL (4.0-11.0) Red Blood Count 2.35 x10^6/uL (4.30-5.70) Hemoglobin 8.1 g/dL (13.0-17.5) Hematocrit 24.0 % (39.0-53.0) Mean Corpuscular Volume 102 fL (79-100) Mean Corpuscular Hemoglobin 35 pg (25-35) Mean Corpuscular Hemoglobin Concent 34 g/dL (31-37) Red Cell Distribution Width 14.1 % (11.5-14.5) Platelet Count 173 x10^3/uL (140-400) Neutrophils (%) (Auto) 75 % (31-73) Lymphocytes (%) (Auto) 11 % (24-48) Monocytes (%) (Auto) 13 % (0-9) Eosinophils (%) (Auto) 1 % (0-3) Basophils (%) (Auto) 0 % (0-3) Neutrophils # (Auto) 9.5 x10^3/uL (1.8-7.7) Lymphocytes # (Auto) 1.4 x10^3/uL (1.0-4.8) Monocytes # (Auto) 1.6 x10^3/uL (0.0-1.1) Eosinophils # (Auto) 0.1 x10^3/uL (0.0-0.7) Basophils # (Auto) 0.0 x10^3/uL (0.0-0.2) Test 05/29/19 22:10 05/30/19 07:49 05/30/19 10:15 05/30/19 11:22 White Blood Count 13.2 x10^3/uL (4.0-11.0) 12.1 x10^3/uL (4.0-11.0) Red Blood Count 2.49 x10^6/uL (4.30-5.70) 2.40 x10^6/uL (4.30-5.70) Hemoglobin 8.6 g/dL (13.0-17.5) 8.2 g/dL (13.0-17.5) Hematocrit 25.6 % (39.0-53.0) 24.8 % (39.0-53.0) Mean Corpuscular Volume 103 fL (79-100) 103 fL (79-100) Mean Corpuscular Hemoglobin 34 pg (25-35) 34 pg (25-35) Mean Corpuscular Hemoglobin Concent 33 g/dL (31-37) 33 g/dL (31-37) Red Cell Distribution Width 13.8 % (11.5-14.5) 13.8 % (11.5-14.5) Platelet Count 195 x10^3/uL (140-400) 182 x10^3/uL (140-400) Neutrophils (%) (Auto) 71 % (31-73) Lymphocytes (%) (Auto) 13 % (24-48) Monocytes (%) (Auto) 14 % (0-9) Eosinophils (%) (Auto) 1 % (0-3) Basophils (%) (Auto) 0 % (0-3) Neutrophils # (Auto) 9.4 x10^3/uL (1.8-7.7) Lymphocytes # (Auto) 1.7 x10^3/uL (1.0-4.8) Monocytes # (Auto) 1.9 x10^3/uL (0.0-1.1) Eosinophils # (Auto) 0.1 x10^3/uL (0.0-0.7) Basophils # (Auto) 0.1 x10^3/uL (0.0-0.2) Segmented Neutrophils % 82 % (35-66) Band Neutrophils % 1 % (0-9) Lymphocytes % 9 % (24-48) Monocytes % 8 % (0-10) Toxic Granulation Slight Platelet Estimate Adequate (ADEQUATE) Polychromasia Slight Anisocytosis Slight Macrocytosis Slight Glucose (Fingerstick) 268 mg/dL (70-99) 167 mg/dL (70-99) Prothrombin Time 15.8 SEC (11.7-14.0) Prothromb Time International Ratio 1.3 (0.8-1.1) Sodium Level 131 mmol/L (136-145) Potassium Level 4.0 mmol/L (3.5-5.1) Chloride Level 98 mmol/L (98-107) Carbon Dioxide Level 24 mmol/L (21-32) Anion Gap 9 (6-14) Blood Urea Nitrogen 20 mg/dL (8-26) Creatinine 0.8 mg/dL (0.7-1.3) Estimated GFR (Cockcroft-Gault) 97.6 BUN/Creatinine Ratio 25 (6-20) Glucose Level 198 mg/dL (70-99) Calcium Level 7.9 mg/dL (8.5-10.1) Total Bilirubin 1.9 mg/dL (0.2-1.0) Aspartate Amino Transf (AST/SGOT) 82 U/L (15-37) Alanine Aminotransferase (ALT/SGPT) 68 U/L (16-63) Alkaline Phosphatase 143 U/L (46-116) Total Protein 6.0 g/dL (6.4-8.2) Albumin 1.9 g/dL (3.4-5.0) Albumin/Globulin Ratio 0.5 (1.0-1.7) Test 05/30/19 12:50 05/30/19 17:08 05/30/19 21:17 12/20/19 04:09 Body Fluid Source Ascites Body Fluid Color Straw Body Fluid Clarity Hazy Body Fluid Nucleated Cells 152 /cmm (Not Established) Body Fluid Mononuclear WBCs (%) 13 % Body Fluid Polymorphonuclear Cells 67 % Body Fluid Total RBCs Counted 36 /cmm (Not Established) Body Fluid Other Cells (%) 20 % Glucose (Fingerstick) 160 mg/dL (70-99) 247 mg/dL (70-99) White Blood Count 13.1 x10^3/uL (4.0-11.0) Red Blood Count 2.40 x10^6/uL (4.30-5.70) Hemoglobin 8.2 g/dL (13.0-17.5) Hematocrit 24.5 % (39.0-53.0) Mean Corpuscular Volume 102 fL (79-100) Mean Corpuscular Hemoglobin 34 pg (25-35) Mean Corpuscular Hemoglobin Concent 34 g/dL (31-37) Red Cell Distribution Width 14.3 % (11.5-14.5) Platelet Count 167 x10^3/uL (140-400) Neutrophils (%) (Auto) 65 % (31-73) Lymphocytes (%) (Auto) 18 % (24-48) Monocytes (%) (Auto) 15 % (0-9) Eosinophils (%) (Auto) 2 % (0-3) Basophils (%) (Auto) 0 % (0-3) Neutrophils # (Auto) 8.5 x10^3/uL (1.8-7.7) Lymphocytes # (Auto) 2.3 x10^3/uL (1.0-4.8) Monocytes # (Auto) 2.0 x10^3/uL (0.0-1.1) Eosinophils # (Auto) 0.2 x10^3/uL (0.0-0.7) Basophils # (Auto) 0.1 x10^3/uL (0.0-0.2) Sodium Level 129 mmol/L (136-145) Potassium Level 4.1 mmol/L (3.5-5.1) Chloride Level 98 mmol/L (98-107) Carbon Dioxide Level 24 mmol/L (21-32) Anion Gap 7 (6-14) Blood Urea Nitrogen 19 mg/dL (8-26) Creatinine 0.7 mg/dL (0.7-1.3) Estimated GFR (Cockcroft-Gault) 113.9 Glucose Level 153 mg/dL (70-99) Calcium Level 8.1 mg/dL (8.5-10.1) Test 05/31/19 08:05 Glucose (Fingerstick) 157 mg/dL (70-99) Laboratory Tests Test 05/30/19 11:22 05/30/19 12:50 05/30/19 17:08 05/30/19 21:17 Glucose (Fingerstick) 167 mg/dL (70-99) 160 mg/dL (70-99) 247 mg/dL (70-99) Body Fluid Source Ascites Body Fluid Color Straw Body Fluid Clarity Hazy Body Fluid Nucleated Cells 152 /cmm (Not Established) Body Fluid Mononuclear WBCs (%) 13 % Body Fluid Polymorphonuclear Cells 67 % Body Fluid Total RBCs Counted 36 /cmm (Not Established) Body Fluid Other Cells (%) 20 % Test 05/31/19 04:09 05/31/19 08:05 White Blood Count 13.1 x10^3/uL (4.0-11.0) Red Blood Count 2.40 x10^6/uL (4.30-5.70) Hemoglobin 8.2 g/dL (13.0-17.5) Hematocrit 24.5 % (39.0-53.0) Mean Corpuscular Volume 102 fL (79-100) Mean Corpuscular Hemoglobin 34 pg (25-35) Mean Corpuscular Hemoglobin Concent 34 g/dL (31-37) Red Cell Distribution Width 14.3 % (11.5-14.5) Platelet Count 167 x10^3/uL (140-400) Neutrophils (%) (Auto) 65 % (31-73) Lymphocytes (%) (Auto) 18 % (24-48) Monocytes (%) (Auto) 15 % (0-9) Eosinophils (%) (Auto) 2 % (0-3) Basophils (%) (Auto) 0 % (0-3) Neutrophils # (Auto) 8.5 x10^3/uL (1.8-7.7) Lymphocytes # (Auto) 2.3 x10^3/uL (1.0-4.8) Monocytes # (Auto) 2.0 x10^3/uL (0.0-1.1) Eosinophils # (Auto) 0.2 x10^3/uL (0.0-0.7) Basophils # (Auto) 0.1 x10^3/uL (0.0-0.2) Sodium Level 129 mmol/L (136-145) Potassium Level 4.1 mmol/L (3.5-5.1) Chloride Level 98 mmol/L (98-107) Carbon Dioxide Level 24 mmol/L (21-32) Anion Gap 7 (6-14) Blood Urea Nitrogen 19 mg/dL (8-26) Creatinine 0.7 mg/dL (0.7-1.3) Estimated GFR (Cockcroft-Gault) 113.9 Glucose Level 153 mg/dL (70-99) Calcium Level 8.1 mg/dL (8.5-10.1) Glucose (Fingerstick) 157 mg/dL (70-99) Microbiology 05/27/19 Blood Culture - Preliminary, Resulted NO GROWTH AFTER 3 DAYS Medications Current Medications Ondansetron HCl (Zofran) 4 mg 1X ONCE IV Last administered on 05/27/19at 05:57; Start 05/27/19 at 05:30; Stop 05/27/19 at 05:31; Status DC Sodium Chloride 1,000 ml @ 1,000 mls/hr 1X ONCE IV Last administered on 05/27/19at 05:56; Start 05/27/19 at 05:30; Stop 05/27/19 at 06:29; Status DC Pantoprazole Sodium 80 mg/ Sodium Chloride 100 ml @ 10 mls/hr Q10H IV Last administered on 05/27/19at 22:59; Start 05/27/19 at 05:45; Stop 05/28/19 at 09:19; Status DC Fentanyl Citrate (Fentanyl 2ml Vial) 50 mcg 1X ONCE IV Last administered on 05/27/19at 06:00; Start 05/27/19 at 06:00; Stop 05/27/19 at 06:01; Status DC Iohexol (Omnipaque 300 Mg/ml) 60 ml 1X ONCE IV Last administered on 05/27/19at 07:27; Start 05/27/19 at 07:15; Stop 05/27/19 at 07:16; Status DC Info (CONTRAST GIVEN -- Rx MONITORING) 1 each PRN DAILY PRN MC SEE COMMENTS; Start 05/27/19 at 07:15; Stop 05/29/19 at 07:14; Status DC Insulin Human Regular (HumuLIN R VIAL) 10 unit 1X ONCE IV Last administered on 05/27/19at 07:40; Start 05/27/19 at 07:15; Stop 05/27/19 at 21:00; Status DC Insulin Human Regular 150 ml @ 0 mls/hr 1X ONCE IV ; Start 05/27/19 at 07:15; Stop 05/27/19 at 07:16; Status UNV Insulin Human Regular 150 ml @ 8.1 mls/hr 1X ONCE IV ; Start 05/27/19 at 07:15; Stop 05/28/19 at 03:33; Status DC Sodium Chloride 1,000 ml @ 1,000 mls/hr 1X ONCE IV Last administered on 05/27/19at 07:38; Start 05/27/19 at 07:15; Stop 05/27/19 at 08:14; Status DC Ondansetron HCl (Zofran) 4 mg PRN Q8HRS PRN IV NAUSEA/VOMITING; Start 05/27/19 at 07:30; Stop 05/27/19 at 10:34; Status DC Pantoprazole Sodium 80 mg/ Sodium Chloride 100 ml @ 10 mls/hr Q10H IV ; Start 05/27/19 at 07:30; Status UNV Insulin Human Regular 150 unit/ Sodium Chloride 151.5 ml @ 0 mls/hr CONT PRN PRN IV SEE I/O RECORD Last administered on 05/27/19at 09:15; Start 05/27/19 at 07:30; Stop 05/27/19 at 19:04; Status DC Potassium Chloride/Water 100 ml @ 100 mls/hr PRN Q1HR PRN IV PER PROTOCOL; Start 05/27/19 at 07:30; Stop 05/29/19 at 08:05; Status DC Potassium Chloride/Water 100 ml @ 100 mls/hr PRN Q1HR PRN IV PER PROTOCOL; Start 05/27/19 at 07:30; Stop 05/29/19 at 08:05; Status DC Phytonadione (Vitamin K Ampule) 10 mg 1X ONCE SQ Last administered on 05/27/19at 09:24; Start 05/27/19 at 08:15; Stop 05/27/19 at 08:16; Status DC Lorazepam (Ativan Inj) 0.5 mg PRN Q6HRS PRN IV ANXIETY / AGITATION Last administered on 05/28/19at 21:54; Start 05/27/19 at 10:30 Ondansetron HCl (Zofran) 4 mg PRN Q6HRS PRN IV NAUSEA/VOMITING, 1ST CHOICE Last administered on 05/28/19at 15:18; Start 05/27/19 at 10:30 Prochlorperazine Edisylate (Compazine) 5 mg PRN Q6HRS PRN IV NAUSEA/VOMITING, 2ND CHOICE; Start 05/27/19 at 10:30 Sodium Chloride (Normal Saline Flush) 3 ml QSHIFT PRN IV AFTER MEDS AND BLOOD DRAWS; Start 05/27/19 at 10:30 Fentanyl Citrate (Fentanyl 2ml Vial) 25 mcg PRN Q1HR PRN IV SEVERE PAIN 7-10 Last administered on 05/31/19at 01:03; Start 05/27/19 at 10:30 Bisacodyl (Dulcolax Supp) 10 mg PRN DAILY PRN [place] CONSTIPATION; Start 05/27/19 at 10:30 Sodium Chloride 1,000 ml @ 100 mls/hr Q10H IV Last administered on 05/29/19at 05:17; Start 05/27/19 at 10:30; Stop 05/29/19 at 08:05; Status DC Multivitamins 10 ml/Thiamine HCl 100 mg/Folic Acid 1 mg/Sodium Chloride 1,011.2 ml @ 100 mls/ hr DAILY IV Last administered on 05/28/19at 08:15; Start 05/27/19 at 11:00; Stop 05/29/19 at 08:05; Status DC Ergocalciferol (Vitamin D2) 50,000 unit WEEKLY PO ; Start 06/03/19 at 09:00 Thiamine HCl 100 mg/Dextrose 51 ml @ 102 mls/hr DAILY IV ; Start 05/28/19 at 09:00; Status UNV Lactulose (Lactulose) 20 gm DAILY08 PO Last administered on 05/31/19at 09:47; Start 05/27/19 at 10:45 Ringer's Solution 1,000 ml @ 50 mls/hr Q20H IV Last administered on 05/27/19at 16:35; Start 05/27/19 at 11:24; Stop 05/27/19 at 23:23; Status DC Piperacillin Sod/ Tazobactam Sod 3.375 gm/Sodium Chloride 50 ml @ 100 mls/hr Q6HRS IV Last administered on 05/29/19at 05:16; Start 05/27/19 at 12:00; Stop 05/29/19 at 08:05; Status DC Influenza Virus Vaccine Quadrival (Afluria Quad 2019-20 (3yr Up) Syringe) 0.5 ml ONCE ONCE VAX IM Last administered on 05/28/19at 13:20; Start 05/28/19 at 09:00; Stop 05/28/19 at 09:01; Status DC Midazolam HCl (Versed) 5 mg STK-MED ONCE .ROUTE ; Start 05/27/19 at 16:59; Stop 05/27/19 at 16:59; Status DC Fentanyl Citrate (Fentanyl 2ml Vial) 100 mcg STK-MED ONCE .ROUTE ; Start 05/27/19 at 17:00; Stop 05/27/19 at 17:00; Status DC Diphenhydramine HCl (Benadryl) 50 mg STK-MED ONCE .ROUTE ; Start 05/27/19 at 17:00; Stop 05/27/19 at 17:00; Status DC Diphenhydramine HCl (Benadryl) 50 mg STK-MED ONCE IV Last administered on 05/27/19at 17:01; Start 05/27/19 at 17:01; Stop 05/27/19 at 17:13; Status DC Midazolam HCl (Versed) 5 mg STK-MED ONCE IV Last administered on 05/27/19at 17:04; Start 05/27/19 at 17:04; Stop 05/27/19 at 17:13; Status DC Fentanyl Citrate (Fentanyl 2ml Vial) 100 mcg STK-MED ONCE IV Last administered on 05/27/19at 17:06; Start 05/27/19 at 17:06; Stop 05/27/19 at 17:13; Status DC Midazolam HCl (Versed) 5 mg STK-MED ONCE IV Last administered on 05/27/19at 17:08; Start 05/27/19 at 17:08; Stop 05/27/19 at 17:13; Status DC Fentanyl Citrate (Fentanyl 2ml Vial) 100 mcg STK-MED ONCE IV Last administered on 05/27/19at 17:10; Start 05/27/19 at 17:10; Stop 05/27/19 at 17:13; Status DC Midazolam HCl (Versed) 5 mg STK-MED ONCE IV Last administered on 05/27/19at 17:14; Start 05/27/19 at 17:14; Stop 05/27/19 at 17:15; Status DC Insulin Glargine (Lantus Syringe) 20 unit QHS SQ ; Start 05/27/19 at 21:00; Stop 05/27/19 at 21:00; Status DC Insulin Human Lispro (HumaLOG) 10 units TIDWMEALS SQ ; Start 05/27/19 at 19:30; Stop 05/27/19 at 21:37; Status DC Insulin Human Lispro (HumaLOG) 0-9 UNITS TIDWMEALS SQ ; Start 05/28/19 at 08:00; Stop 05/27/19 at 21:00; Status DC Dextrose (Dextrose 50%-Water Syringe) 12.5 gm PRN Q15MIN PRN IV SEE COMMENTS; Start 05/27/19 at 19:15 Dextrose (Iv Dextrose 5%) 250 ml PRN Q15MIN PRN IV SEE COMMENTS; Start 05/27/19 at 19:15 Insulin Glargine (Lantus Syringe) 20 unit QHS SQ Last administered on 05/30/19at 21:25; Start 05/28/19 at 21:00 Insulin Human Lispro (HumaLOG) 0-9 UNITS Q6HRS SQ Last administered on 05/30/19at 12:14; Start 05/28/19 at 00:00; Stop 05/30/19 at 16:52; Status DC Nicotine (Nicoderm Cq 14mg) 1 patch PRN DAILY PRN TD SMOKING CESSATION Last administered on 05/28/19at 11:03; Start 05/28/19 at 09:00 Pantoprazole Sodium (Protonix) 40 mg DAILYAC PO Last administered on 05/31/19at 09:47; Start 05/29/19 at 07:30 Fluoxetine HCl (PROzac) 20 mg DAILY PO Last administered on 05/31/19at 09:47; Start 05/28/19 at 13:00 Insulin Human Lispro (HumaLOG) 0-9 UNITS QIDACHS SQ Last administered on 05/31/19at 09:50; Start 05/30/19 at 17:00 Tramadol HCl (Ultram) 50 mg PRN Q6HRS PRN PO PAIN Last administered on 05/31/19at 09:48; Start 05/31/19 at 09:45 Active Scripts Active Lantus (Insulin Glargine,Hum.rec.anlog) 100 Unit/1 Ml Vial 20 Unit SQ QHS 30 Days Pantoprazole Sodium (Pantoprazole Sodium) 40 Mg Tablet.dr 40 Mg PO DAILYAC 30 Days Fluoxetine Hcl 20 Mg Capsule 20 Mg PO DAILY Reported Amlodipine Besylate 10 Mg Tablet 5 Mg PO DAILY Vitals/I & O Vital Sign - Last 24 Hours 05/30/19 05/30/19 05/30/19 05/30/19 10:35 11:00 11:28 12:11 Temp 98.0 98.0 Pulse 73 Resp 16 B/P (MAP) 88/52 (64) Pulse Ox 90 O2 Delivery Room Air Room Air Room Air Room Air 05/30/19 05/30/19 05/30/19 05/30/19 12:46 12:56 13:09 13:23 Pulse 106 81 83 Resp 15 15 15 B/P (MAP) 109/74 (86) 108/67 (81) 105/66 (79) Pulse Ox 94 93 97 O2 Delivery Room Air Room Air Room Air Room Air 05/30/19 05/30/19 05/30/19 05/30/19 15:00 15:24 15:55 17:16 Temp 98.0 98.0 Pulse 90 Resp 16 B/P (MAP) 100/64 (76) Pulse Ox 91 O2 Delivery Room Air Room Air Room Air Room Air 05/30/19 05/30/19 05/30/19 05/30/19 17:57 19:00 20:00 20:18 Temp 98.1 98.1 Pulse 88 Resp 18 16 B/P (MAP) 90/53 (65) Pulse Ox 96 91 O2 Delivery Room Air Room Air Room Air Room Air O2 Flow Rate 98.0 05/30/19 05/30/19 05/30/19 05/30/19 21:25 22:39 23:00 23:10 Temp 98.6 98.6 Pulse 92 Resp 16 16 18 16 B/P (MAP) 86/59 (68) Pulse Ox 91 91 96 O2 Delivery Room Air Room Air Room Air Room Air 05/31/19 05/31/19 05/31/19 05/31/19 01:03 01:49 03:00 07:00 Temp 97.9 98.0 97.9 98.0 Pulse 80 79 Resp 16 16 18 16 B/P (MAP) 83/57 (66) 92/56 (68) Pulse Ox 96 94 95 O2 Delivery Room Air Room Air Room Air Room Air Intake and Output 05/30/19 05/30/19 05/31/19 15:00 23:00 07:00 Intake Total 250 ml 550 ml Output Total 2200 ml 100 ml 600 ml Balance -2200 ml 150 ml -50 ml DAMIEN LYNCH MD May 31, 2019 10:29
[2019-05-31 11:00] VITALS: BP 90/54
--- NOTE | 2019-05-31 11:27 | NUR ---
[facility] following. Discussed with RN. Pt accepted at [facility], pending insurance auth. [facility]ONST[facility] will continue to follow. Addendum: 05/31/19 at 1448 by FREDIS PRYOR Insurance has given auth for pt to transfer to [facility] for acute rehab. RN notified. Awaiting discharge paperwork. [facility] wants to collect pt around 1800. Terry PRYOR to fax discharge paperwork.
[2019-05-31 15:00] VITALS: BP 95/63
--- NOTE | 2019-05-31 15:03 | PDOC3 ---
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 This is concerning for colitis Hyperglycemia Hyperkalemia End stage liver disease with transaminitis Cirrhosis of liver with ascites DKA (diabetic ketoacidoses) SEVERE PROTEIN-CALORIC MALNUTRITION HX COPD, TOBACCO ABUSE DISORDER KRYSTA HX HEP C failed rx at [facility] reported Mild left-sided hydroureter due to a distal left ureteral stone measuring 7 mm in size.distal left ureteral stone measuring located 2.5 cm proximal to the UVJ LEUKOCYTOSIS ELEVATED NH4 NONCOMPLIANCE ANEMIA WITH ACUTE BLOOD LOSS ANEMIA thc abuse Moderate abdominal ascites. us 05/29 Repeat band ligation as o/p in 2 weeks for varices recommended. 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 Vitals Vitals Vital Signs Date Time Temp Pulse Resp B/P (MAP) Pulse Ox O2 Delivery O2 Flow Rate FiO2 05/31/19 07:00 98.0 79 16 92/56 (68) 95 Room Air 98.0 05/30/19 20:18 98.0 Physical Exam Physical Exam GENERAL: Alert, oriented gentleman, not in distress. VITAL SIGNS: Stable, afebrile. HEENT: NAD. NECK: Supple, no JVP, no lymphadenopathy. LUNGS: Clear. HEART: S1, S2 regular. ABDOMEN: Soft, mild diffuse tenderness, no rebound or guarding. EXTREMITIES: No edema, cyanosis. SKIN: Unremarkable. NEUROLOGIC: The patient is neurologically alert, awake and appropriate. No focal neurologic deficit. General: Alert, Oriented X3, Cooperative, mild distress Heart: Regular rate, Normal S1 Lungs: Clear Abdomen: Normal bowel sounds, Soft, No tenderness Extremities: No cyanosis FINAL DIAGNOSIS Problems Medical Problems: (1) Cirrhosis of liver with ascites Status: Acute (2) DKA (diabetic ketoacidoses) Status: Acute (3) End stage liver disease Status: Acute (4) GI bleeding Status: Acute (5) Hematemesis Status: Acute (6) Hyperglycemia Status: Acute (7) Hyperkalemia Status: Acute Brief Hospital Course Mr. Ruiz is a 63 old [sex] who presented with [ GI BLEED, WEAKNESS, ] CONDITION AT DISCHARGE: Improved Discharge Medications Current Medications Ondansetron HCl (Zofran) 4 mg 1X ONCE IV Last administered on 05/27/19at 05:57; Start 05/27/19 at 05:30; Stop 05/27/19 at 05:31; Status DC Sodium Chloride 1,000 ml @ 1,000 mls/hr 1X ONCE IV Last administered on at 05:56; Start 05/27/19 at 05:30; Stop 05/27/19 at 06:29; Status DC Pantoprazole Sodium 80 mg/ Sodium Chloride 100 ml @ 10 mls/hr Q10H IV Last administered on 05/27/19at 22:59; Start 05/27/19 at 05:45; Stop 05/28/19 at 09:19; Status DC Fentanyl Citrate (Fentanyl 2ml Vial) 50 mcg 1X ONCE IV Last administered on 05/27/19at 06:00; Start 05/27/19 at 06:00; Stop 05/27/19 at 06:01; Status DC Iohexol (Omnipaque 300 Mg/ml) 60 ml 1X ONCE IV Last administered on 05/27/19at 07:27; Start 05/27/19 at 07:15; Stop 05/27/19 at 07:16; Status DC Info (CONTRAST GIVEN -- Rx MONITORING) 1 each PRN DAILY PRN MC SEE COMMENTS; Start 05/27/19 at 07:15; Stop 05/29/19 at 07:14; Status DC Insulin Human Regular (HumuLIN R VIAL) 10 unit 1X ONCE IV Last administered on 05/27/19at 07:40; Start 05/27/19 at 07:15; Stop 05/27/19 at 21:00; Status DC Insulin Human Regular 150 ml @ 0 mls/hr 1X ONCE IV ; Start 05/27/19 at 07:15; Stop 05/27/19 at 07:16; Status UNV Insulin Human Regular 150 ml @ 8.1 mls/hr 1X ONCE IV ; Start 05/27/19 at 07:15; Stop 05/28/19 at 03:33; Status DC Sodium Chloride 1,000 ml @ 1,000 mls/hr 1X ONCE IV Last administered on 05/27/19at 07:38; Start 05/27/19 at 07:15; Stop 05/27/19 at 08:14; Status DC Ondansetron HCl (Zofran) 4 mg PRN Q8HRS PRN IV NAUSEA/VOMITING; Start 05/27/19 at 07:30; Stop 05/27/19 at 10:34; Status DC Pantoprazole Sodium 80 mg/ Sodium Chloride 100 ml @ 10 mls/hr Q10H IV ; Start 05/27/19 at 07:30; Status UNV Insulin Human Regular 150 unit/ Sodium Chloride 151.5 ml @ 0 mls/hr CONT PRN PRN IV SEE I/O RECORD Last administered on 05/27/19at 09:15; Start 05/27/19 at 07:30; Stop 05/27/19 at 19:04; Status DC Potassium Chloride/Water 100 ml @ 100 mls/hr PRN Q1HR PRN IV PER PROTOCOL; Start 05/27/19 at 07:30; Stop 05/29/19 at 08:05; Status DC Potassium Chloride/Water 100 ml @ 100 mls/hr PRN Q1HR PRN IV PER PROTOCOL; Start 05/27/19 at 07:30; Stop 05/29/19 at 08:05; Status DC Phytonadione (Vitamin K Ampule) 10 mg 1X ONCE SQ Last administered on 05/27/19 at 09:24; Start 05/27/19 at 08:15; Stop 05/27/19 at 08:16; Status DC Lorazepam (Ativan Inj) 0.5 mg PRN Q6HRS PRN IV ANXIETY / AGITATION Last administered on 05/28/19at 21:54; Start 05/27/19 at 10:30 Ondansetron HCl (Zofran) 4 mg PRN Q6HRS PRN IV NAUSEA/VOMITING, 1ST CHOICE Last administered on 05/28/19at 15:18; Start 05/27/19 at 10:30 Prochlorperazine Edisylate (Compazine) 5 mg PRN Q6HRS PRN IV NAUSEA/VOMITING, 2ND CHOICE; Start 05/27/19 at 10:30 Sodium Chloride (Normal Saline Flush) 3 ml QSHIFT PRN IV AFTER MEDS AND BLOOD DRAWS; Start 05/27/19 at 10:30 Fentanyl Citrate (Fentanyl 2ml Vial) 25 mcg PRN Q1HR PRN IV SEVERE PAIN 7-10 Last administered on 05/31/19at 01:03; Start 05/27/19 at 10:30 Bisacodyl (Dulcolax Supp) 10 mg PRN DAILY PRN NM CONSTIPATION; Start 05/27/19 at 10:30 Sodium Chloride 1,000 ml @ 100 mls/hr Q10H IV Last administered on 05/29/19at 05:17; Start 05/27/19 at 10:30; Stop 05/29/19 at 08:05; Status DC Multivitamins 10 ml/Thiamine HCl 100 mg/Folic Acid 1 mg/Sodium Chloride 1,011.2 ml @ 100 mls/ hr DAILY IV Last administered on 05/28/19at 08:15; Start 05/27/19 at 11:00; Stop 05/29/19 at 08:05; Status DC Ergocalciferol (Vitamin D2) 50,000 unit WEEKLY PO ; Start 06/03/19 at 09:00 Thiamine HCl 100 mg/Dextrose 51 ml @ 102 mls/hr DAILY IV ; Start 05/28/19 at 09:00; Status UNV Lactulose (Lactulose) 20 gm DAILY08 PO Last administered on 05/31/19at 09:47; Start 05/27/19 at 10:45 Ringer's Solution 1,000 ml @ 50 mls/hr Q20H IV Last administered on 05/27/19at 16:35; Start 05/27/19 at 11:24; Stop 05/27/19 at 23:23; Status DC Piperacillin Sod/ Tazobactam Sod 3.375 gm/Sodium Chloride 50 ml @ 100 mls/hr Q6HRS IV Last administered on 05/29/19at 05:16; Start 05/27/19 at 12:00; Stop 05/29/19 at 08:05; Status DC Influenza Virus Vaccine Quadrival (Afluria Quad 2019-20 (3yr Up) Syringe) 0.5 ml ONCE ONCE VAX IM Last administered on 05/28/19at 13:20; Start 05/28/19 at 09:00; Stop 05/28/19 at 09:01; Status DC Midazolam HCl (Versed) 5 mg STK-MED ONCE .ROUTE ; Start 05/27/19 at 16:59; Stop 05/27/19 at 16:59; Status DC Fentanyl Citrate (Fentanyl 2ml Vial) 100 mcg STK-MED ONCE .ROUTE ; Start 05/27/19 at 17:00; Stop 05/27/19 at 17:00; Status DC Diphenhydramine HCl (Benadryl) 50 mg STK-MED ONCE .ROUTE ; Start 05/27/19 at 17:00; Stop 05/27/19 at 17:00; Status DC Diphenhydramine HCl (Benadryl) 50 mg STK-MED ONCE IV Last administered on 05/27/19at 17:01; Start 05/27/19 at 17:01; Stop 05/27/19 at 17:13; Status DC Midazolam HCl (Versed) 5 mg STK-MED ONCE IV Last administered on 05/27/19at 17:04; Start 05/27/19 at 17:04; Stop 05/27/19 at 17:13; Status DC Fentanyl Citrate (Fentanyl 2ml Vial) 100 mcg STK-MED ONCE IV Last administered on 05/27/19at 17:06; Start 05/27/19 at 17:06; Stop 05/27/19 at 17:13; Status DC Midazolam HCl (Versed) 5 mg STK-MED ONCE IV Last administered on 05/27/19at 17:08; Start 05/27/19 at 17:08; Stop 05/27/19 at 17:13; Status DC Fentanyl Citrate (Fentanyl 2ml Vial) 100 mcg STK-MED ONCE IV Last administered on 05/27/19at 17:10; Start 05/27/19 at 17:10; Stop 05/27/19 at 17:13; Status DC Midazolam HCl (Versed) 5 mg STK-MED ONCE IV Last administered on 05/27/19at 17:14; Start 05/27/19 at 17:14; Stop 05/27/19 at 17:15; Status DC Insulin Glargine (Lantus Syringe) 20 unit QHS SQ ; Start 05/27/19 at 21:00; Stop 05/27/19 at 21:00; Status DC Insulin Human Lispro (HumaLOG) 10 units TIDWMEALS SQ ; Start 05/27/19 at 19:30; Stop 05/27/19 at 21:37; Status DC Insulin Human Lispro (HumaLOG) 0-9 UNITS TIDWMEALS SQ ; Start 05/28/19 at 08:00; Stop 05/27/19 at 21:00; Status DC Dextrose (Dextrose 50%-Water Syringe) 12.5 gm PRN Q15MIN PRN IV SEE COMMENTS; Start 05/27/19 at 19:15 Dextrose (Iv Dextrose 5%) 250 ml PRN Q15MIN PRN IV SEE COMMENTS; Start 05/27/19 at 19:15 Insulin Glargine (Lantus Syringe) 20 unit QHS SQ Last administered on 05/30/19at 21:25; Start 05/28/19 at 21:00 Insulin Human Lispro (HumaLOG) 0-9 UNITS Q6HRS SQ Last administered on 05/30/19at 12:14; Start 05/28/19 at 00:00; Stop 05/30/19 at 16:52; Status DC Nicotine (Nicoderm Cq 14mg) 1 patch PRN DAILY PRN TD SMOKING CESSATION Last administered on 05/28/19at 11:03; Start 05/28/19 at 09:00 Pantoprazole Sodium (Protonix) 40 mg DAILYAC PO Last administered on 05/31/19at 09:47; Start 05/29/19 at 07:30 Fluoxetine HCl (PROzac) 20 mg DAILY PO Last administered on 05/31/19at 09:47; Start 05/28/19 at 13:00 Insulin Human Lispro (HumaLOG) 0-9 UNITS QIDACHS SQ Last administered on 05/31/19at 12:34; Start 05/30/19 at 17:00 Tramadol HCl (Ultram) 50 mg PRN Q6HRS PRN PO PAIN Last administered on 05/31/19at 09:48; Start 05/31/19 at 09:45 Active Scripts Active Lantus (Insulin Glargine,Hum.rec.anlog) 100 Unit/1 Ml Vial 20 Unit SQ QHS 30 Days Pantoprazole Sodium (Pantoprazole Sodium) 40 Mg Tablet.dr 40 Mg PO DAILYAC 30 Days Fluoxetine Hcl 20 Mg Capsule 20 Mg PO DAILY Reported Amlodipine Besylate 10 Mg Tablet 5 Mg PO DAILY Vital Signs Vital Signs Date Time Temp Pulse Resp B/P (MAP) Pulse Ox O2 Delivery O2 Flow Rate FiO2 05/31/19 11:00 97.9 78 16 90/54 (66) 95 Room Air 97.9 05/31/19 08:00 98.0 Labs Laboratory Tests Test 05/29/19 16:48 05/29/19 20:51 05/29/19 22:10 05/30/19 07:49 Glucose (Fingerstick) 237 mg/dL (70-99) 241 mg/dL (70-99) 268 mg/dL (70-99) White Blood Count 13.2 x10^3/uL (4.0-11.0) Red Blood Count 2.49 x10^6/uL (4.30-5.70) Hemoglobin 8.6 g/dL (13.0-17.5) Hematocrit 25.6 % (39.0-53.0) Mean Corpuscular Volume 103 fL (79-100) Mean Corpuscular Hemoglobin 34 pg (25-35) Mean Corpuscular Hemoglobin Concent 33 g/dL (31-37) Red Cell Distribution Width 13.8 % (11.5-14.5) Platelet Count 195 x10^3/uL (140-400) Neutrophils (%) (Auto) 71 % (31-73) Lymphocytes (%) (Auto) 13 % (24-48) Monocytes (%) (Auto) 14 % (0-9) Eosinophils (%) (Auto) 1 % (0-3) Basophils (%) (Auto) 0 % (0-3) Neutrophils # (Auto) 9.4 x10^3/uL (1.8-7.7) Lymphocytes # (Auto) 1.7 x10^3/uL (1.0-4.8) Monocytes # (Auto) 1.9 x10^3/uL (0.0-1.1) Eosinophils # (Auto) 0.1 x10^3/uL (0.0-0.7) Basophils # (Auto) 0.1 x10^3/uL (0.0-0.2) Segmented Neutrophils % 82 % (35-66) Band Neutrophils % 1 % (0-9) Lymphocytes % 9 % (24-48) Monocytes % 8 % (0-10) Toxic Granulation Slight Platelet Estimate Adequate (ADEQUATE) Polychromasia Slight Anisocytosis Slight Macrocytosis Slight Test 05/30/19 10:15 05/30/19 11:22 05/30/19 12:50 05/30/19 17:08 White Blood Count 12.1 x10^3/uL (4.0-11.0) Red Blood Count 2.40 x10^6/uL (4.30-5.70) Hemoglobin 8.2 g/dL (13.0-17.5) Hematocrit 24.8 % (39.0-53.0) Mean Corpuscular Volume 103 fL (79-100) Mean Corpuscular Hemoglobin 34 pg (25-35) Mean Corpuscular Hemoglobin Concent 33 g/dL (31-37) Red Cell Distribution Width 13.8 % (11.5-14.5) Platelet Count 182 x10^3/uL (140-400) Prothrombin Time 15.8 SEC (11.7-14.0) Prothromb Time International Ratio 1.3 (0.8-1.1) Sodium Level 131 mmol/L (136-145) Potassium Level 4.0 mmol/L (3.5-5.1) Chloride Level 98 mmol/L (98-107) Carbon Dioxide Level 24 mmol/L (21-32) Anion Gap 9 (6-14) Blood Urea Nitrogen 20 mg/dL (8-26) Creatinine 0.8 mg/dL (0.7-1.3) Estimated GFR (Cockcroft-Gault) 97.6 BUN/Creatinine Ratio 25 (6-20) Glucose Level 198 mg/dL (70-99) Calcium Level 7.9 mg/dL (8.5-10.1) Total Bilirubin 1.9 mg/dL (0.2-1.0) Aspartate Amino Transf (AST/SGOT) 82 U/L (15-37) Alanine Aminotransferase (ALT/SGPT) 68 U/L (16-63) Alkaline Phosphatase 143 U/L (46-116) Total Protein 6.0 g/dL (6.4-8.2) Albumin 1.9 g/dL (3.4-5.0) Albumin/Globulin Ratio 0.5 (1.0-1.7) Glucose (Fingerstick) 167 mg/dL (70-99) 160 mg/dL (70-99) Body Fluid Source Ascites Body Fluid Color Straw Body Fluid Clarity Hazy Body Fluid Nucleated Cells 152 /cmm (Not Established) Body Fluid Mononuclear WBCs (%) 13 % Body Fluid Polymorphonuclear Cells 67 % Body Fluid Total RBCs Counted 36 /cmm (Not Established) Body Fluid Other Cells (%) 20 % Test 05/30/19 21:17 05/31/19 04:09 05/31/19 08:05 05/31/19 11:09 Glucose (Fingerstick) 247 mg/dL (70-99) 157 mg/dL (70-99) 278 mg/dL (70-99) White Blood Count 13.1 x10^3/uL (4.0-11.0) Red Blood Count 2.40 x10^6/uL (4.30-5.70) Hemoglobin 8.2 g/dL (13.0-17.5) Hematocrit 24.5 % (39.0-53.0) Mean Corpuscular Volume 102 fL (79-100) Mean Corpuscular Hemoglobin 34 pg (25-35) Mean Corpuscular Hemoglobin Concent 34 g/dL (31-37) Red Cell Distribution Width 14.3 % (11.5-14.5) Platelet Count 167 x10^3/uL (140-400) Neutrophils (%) (Auto) 65 % (31-73) Lymphocytes (%) (Auto) 18 % (24-48) Monocytes (%) (Auto) 15 % (0-9) Eosinophils (%) (Auto) 2 % (0-3) Basophils (%) (Auto) 0 % (0-3) Neutrophils # (Auto) 8.5 x10^3/uL (1.8-7.7) Lymphocytes # (Auto) 2.3 x10^3/uL (1.0-4.8) Monocytes # (Auto) 2.0 x10^3/uL (0.0-1.1) Eosinophils # (Auto) 0.2 x10^3/uL (0.0-0.7) Basophils # (Auto) 0.1 x10^3/uL (0.0-0.2) Sodium Level 129 mmol/L (136-145) Potassium Level 4.1 mmol/L (3.5-5.1) Chloride Level 98 mmol/L (98-107) Carbon Dioxide Level 24 mmol/L (21-32) Anion Gap 7 (6-14) Blood Urea Nitrogen 19 mg/dL (8-26) Creatinine 0.7 mg/dL (0.7-1.3) Estimated GFR (Cockcroft-Gault) 113.9 Glucose Level 153 mg/dL (70-99) Calcium Level 8.1 mg/dL (8.5-10.1) Laboratory Tests Test 05/30/19 17:08 05/30/19 21:17 05/31/19 04:09 05/31/19 08:05 Glucose (Fingerstick) 160 mg/dL (70-99) 247 mg/dL (70-99) 157 mg/dL (70-99) White Blood Count 13.1 x10^3/uL (4.0-11.0) Red Blood Count 2.40 x10^6/uL (4.30-5.70) Hemoglobin 8.2 g/dL (13.0-17.5) Hematocrit 24.5 % (39.0-53.0) Mean Corpuscular Volume 102 fL (79-100) Mean Corpuscular Hemoglobin 34 pg (25-35) Mean Corpuscular Hemoglobin Concent 34 g/dL (31-37) Red Cell Distribution Width 14.3 % (11.5-14.5) Platelet Count 167 x10^3/uL (140-400) Neutrophils (%) (Auto) 65 % (31-73) Lymphocytes (%) (Auto) 18 % (24-48) Monocytes (%) (Auto) 15 % (0-9) Eosinophils (%) (Auto) 2 % (0-3) Basophils (%) (Auto) 0 % (0-3) Neutrophils # (Auto) 8.5 x10^3/uL (1.8-7.7) Lymphocytes # (Auto) 2.3 x10^3/uL (1.0-4.8) Monocytes # (Auto) 2.0 x10^3/uL (0.0-1.1) Eosinophils # (Auto) 0.2 x10^3/uL (0.0-0.7) Basophils # (Auto) 0.1 x10^3/uL (0.0-0.2) Sodium Level 129 mmol/L (136-145) Potassium Level 4.1 mmol/L (3.5-5.1) Chloride Level 98 mmol/L (98-107) Carbon Dioxide Level 24 mmol/L (21-32) Anion Gap 7 (6-14) Blood Urea Nitrogen 19 mg/dL (8-26) Creatinine 0.7 mg/dL (0.7-1.3) Estimated GFR (Cockcroft-Gault) 113.9 Glucose Level 153 mg/dL (70-99) Calcium Level 8.1 mg/dL (8.5-10.1) Test 05/31/19 11:09 Glucose (Fingerstick) 278 mg/dL (70-99) Allergies Allergies Coded Allergies Type Severity Reaction Last Updated Verified No Known Drug Allergies 05/27/19 No Disposition/Orders: Other (d/c to [facility]) DAMIEN LYNCH MD May 31, 2019 15:03
[2019-05-31] MEDS ORDERED: ERGO500027 PO (15:10)
[2019-05-31] MEDS ORDERED: LACT20SO PO (15:10)
[2019-05-31] MEDS ORDERED: INSU100I11 SQ (15:10)
[2019-05-31] MEDS ORDERED: TRAM50TA PO (15:10)
--- NOTE | 2019-05-31 15:11 | SNU/HH DC ---
DISCHARGE ORDERS DISCHARGE INFORMATION: FINAL DIAGNOSIS Problems Medical Problems: (1) Cirrhosis of liver with ascites Status: Acute (2) DKA (diabetic ketoacidoses) Status: Acute (3) End stage liver disease Status: Acute (4) GI bleeding Status: Acute (5) Hematemesis Status: Acute (6) Hyperglycemia Status: Acute (7) Hyperkalemia Status: Acute CONDITION ON DISCHARGE: Stable CODE STATUS: Code Status: Full LONG TERM: SNF STAY <30 DAYS: No HOSPICE: HOSPICE: No HOSPICE EVAL & TREAT: No LTAC: ADMIT TO LTAC: No POST DISCHARGE ORDERS: ACTIVITY ORDERS: Avoid exertion, Progressive ambulation DIET AFTER DISCHARGE: Low Sodium 2 gm CHECKS AFTER DISCHARGE: CHECKS AFTER DISCHARGE: Check blood press - daily TREATMENT/EQUIPMENT ORDERS: Physical Therapy For: Evalulation/Treatment Occupational Therapy For: Evaluation/Treatment Speech Language Pathology For: Evaluation/Treatment DISCHARGE MEDICATIONS: Home Meds Active Scripts Ergocalciferol (Vitamin D2) (Vitamin D2) 1,250 Mcg Capsule, 77535 UNIT PO WEEKLY for SUPPLEMENT for 30 Days, #4 CAP Prov:DAMIEN LYNCH MD 05/31/19 Insulin Lispro (HUMALOG) 100 Unit/1 Ml Insuln.pen, 0 UNITS SQ QIDACHS for GLUCOSE for 14 Days, #1 EACH Prov:DAMIEN LYNCH MD 05/31/19 Lactulose (LACTULOSE) 20 Gm/30 Ml Solution, 20 GM PO DAILY08 for AMMONIA for 30 Days, #900 MISC Prov:DAMIEN LYNCH MD 05/31/19 Tramadol Hcl (TRAMADOL HCL) 50 Mg Tablet, 50 MG PO PRN Q6HRS PRN for PAIN for 28 Days, #30 TAB Prov:DAMIEN LYNCH MD 05/31/19 Insulin Glargine,Hum.rec.anlog (LANTUS) 100 Unit/1 Ml Vial, 20 UNIT SQ QHS for dm for 30 Days, EACH Prov:PATTI PUCKETT MD 05/29/19 Pantoprazole Sodium (PANTOPRAZOLE SODIUM ) 40 Mg Tablet.dr, 40 MG PO DAILYAC for gi bleed for 30 Days, #30 TAB.SR Prov:PATTI PUCKETT MD 05/29/19 Fluoxetine Hcl (FLUOXETINE HCL) 20 Mg Capsule, 20 MG PO DAILY for depression, #30 CAP Prov:PATTI PUCKETT MD 05/29/19 Reported Medications Amlodipine Besylate (AMLODIPINE BESYLATE) 10 Mg Tablet, 5 MG PO DAILY for HTN, TAB 07/15/15 Discontinued Reported Medications Spironolactone (SPIRONOLACTONE) 100 Mg Tablet, 100 MG PO BID for rx, TAB 05/27/19 Potassium Chloride (POTASSIUM CHLORIDE ) 20 Meq Tablet.er, 20 MEQ PO DAILY, TAB.SR 02/13/18 Ibuprofen (ADVIL) 200 Mg Capsule, 200 MG PO PRN Q4HRS PRN for MILD PAIN / TEMP, CAP 11/29/17 Ibuprofen/Diphenhydramine Cit (ADVIL PM CAPLET) 1 Each Tablet, 1 EACH PO PRN PRN for INSOMNIA, TAB 11/29/17 Furosemide (FUROSEMIDE) 40 Mg Tablet, 1 TAB PO DAILY, #30 TAB 5 Refills 11/29/17 Aspirin (ASPIRIN) 81 Mg Tab.chew, 81 MG PO DAILY, TAB.CHEW 07/15/15 DAMIEN LYNCH MD May 31, 2019 15:11
--- NOTE | 2019-05-31 15:30 | NUR ---
[facility] phoned and faxed orders to [facility], Placed on chart.
[2019-05-31] MEDS: NICOTINE 14MG PATCH. TD PRN (16:50)
--- NOTE | 2019-05-31 17:51 | NUR ---
have made 2 attempts to call report to [facility]. no answer. left voicemail will the NS at the facility. recording did not indicate his/her name. number is [phone]
--- NOTE | 2019-05-31 18:26 | NUR ---
[facility] returned call. report given to [facility]. facility here to pick patient up.
[2019-06-03] MEDS ORDERED: ERGOCALCIFEROL (VITAMIN D2) 50,000 UNIT CAPSULE. PO SCH (09:00)
== END 2019-05-31 18:00 | DRG 432 ==
LOC: ER 05:14 → 1 WEST ICU 07:00 → 5 SOUTH 05-28 15:43
PROVIDERS: ADMIT Family Medicine; ATTEND Family Medicine
PROC: 06L38CZ Occlusion of Esophageal Vein with Extraluminal Device, Via Natural or Artificial Opening Endoscopic (ICD-10-PCS; principal; 2019-05-27 17:00)
PROC: 0W9G3ZZ Drainage of Peritoneal Cavity, Percutaneous Approach (ICD-10-PCS; 2019-05-31)
DX: K70.31 Alcoholic cirrhosis of liver with ascites (principal); E43 Unspecified severe protein-calorie malnutrition; E11.10 Type 2 diabetes mellitus with ketoacidosis without coma; I85.11 Secondary esophageal varices with bleeding; N17.9 Acute kidney failure, unspecified; D62 Acute posthemorrhagic anemia; E87.1 Hypo-osmolality and hyponatremia; K76.6 Portal hypertension; K81.0 Acute cholecystitis; K92.0 Hematemesis; D53.9 Nutritional anemia, unspecified; E87.5 Hyperkalemia; F10.20 Alcohol dependence, uncomplicated; F12.10 Cannabis abuse, uncomplicated; F17.210 Nicotine dependence, cigarettes, uncomplicated; I10 Essential (primary) hypertension; J44.9 Chronic obstructive pulmonary disease, unspecified; F32.9 Major depressive disorder, single episode, unspecified; K42.9 Umbilical hernia without obstruction or gangrene; K72.90 Hepatic failure, unspecified without coma; M17.11 Unilateral primary osteoarthritis, right knee; Z79.82 Long term (current) use of aspirin; Z87.442 Personal history of urinary calculi; Z91.19 Patient's noncompliance with other medical treatment and regimen; Z96.619 Presence of unspecified artificial shoulder joint; Z96.653 Presence of artificial knee joint, bilateral; K52.9 Noninfective gastroenteritis and colitis, unspecified
CPT/HCPCS: 36415; 36600; 43244; 49083; 71045; 74177; 76700; 76705; 80048; 80053; 81001; 82010; 82140; 82150; 82553; 82607; 82805; 82945; 82962; 83540; 83550; 83605; 83615; 83690; 83735; 84100; 84145; 84157; 84484; 85007; 85025; 85027; 85610; 85730; 86850; 86900; 86901; 87040; 87071; 87075; 89050; 90471; 90686; 93005; 96361; 96374; 96375; 99153; 99406; C9113; G0480; J1200; J1815; J2060; J2250; J2405; J2543; J3010; J3430; J7030; J7120; Q9967; 97116; 97530; 97535; 99285-25; G0378

== ENCOUNTER → 2019-08-30 | Day surgery (SDC) | payer OTHER ==
[~2019-08-30] MED LIST changes: +AMOX1TAB11 PO; +BISA10SU55 RC; +DICL100G18 TP; +DOCU283E RC; +ERGO800010 PO; +FLUO20CA20 PO; +FURO20TA3 PO; +GLIM1TAB7 PO; +INSU100I11 SQ; +INSU100V8 SQ; +IPRA3AMP29 NEB; +IV RINGERS,LACTATED 1000ML 1,000 ML IV SCH; +LACT20SO PO; +LEVO75TA5 PO; +LIDO700A21 TP; +LIDOCAINE 2% PF 5 ML VIAL. ONE; +MAG1TAB.11 PO; +MAGN24003 PO; +METF500T16 PO; +NICO1PAT21 TD; +PANT40TA77 PO; +PROPOFOL 20 ML IV ONE; +SENN1TAB62 PO; +SPIR100T4 PO; +SPIR50TA4 PO; +TRAM50TA PO; +ZOLP5TAB PO; +sodium chloride tab PO
[2019-08-30 09:20] VITALS: BP 128/84
--- NOTE | 2019-08-31 01:17 | CONS ---
DATE OF CONSULTATION: 08/30/2019 REASON FOR CONSULTATION: History of cirrhosis, esophageal varices, and recheck. HISTORY OF PRESENT ILLNESS: A 64-year-old male with past medical history significant for hep C, COPD, hypertension, knee replacement, rotator cuff repair, incarcerated ventral hernia with mesh repair, seen for interval upper endoscopy with possible band ligation. He has had previous banding with control of bleeding, has been doing well since, and is here today. PAST MEDICAL HISTORY: Hypothyroidism, hypertension, and diabetes. ALLERGIES: None. MEDICATIONS: See MAR. FAMILY HISTORY: Noncontributory. SOCIAL HISTORY: Social drinker and smoker. REVIEW OF SYSTEMS: Per records. PHYSICAL EXAMINATION: GENERAL: Reveals a thin and disabled male. VITAL SIGNS: Temperature is 97.1, pulse 94, and respirations 18. LUNGS: Clear. CARDIOVASCULAR: Reveals an S1 and S2 without S3, S4 or appreciable murmur. ABDOMEN: Soft abdomen with normoactive bowel sounds with hepatomegaly. EXTREMITIES: Reveals no cyanosis, clubbing or edema. IMPRESSION AND PLAN: History of cirrhosis with alcohol and hepatitis C with known varices. Interval band ligation will be recommended. Risks and benefits have been discussed with the patient including risk of perforation and is willing to proceed. IRISH VILLALOBOS MD DR: STEFAN/rosenda JOB#: [id number] / [id number]
== END ==
LOC: ENDOS 07:28
PROVIDERS: ATTEND Internal Medicine Gastroenterology
DX: I85.01 Esophageal varices with bleeding (principal); K92.2 Gastrointestinal hemorrhage, unspecified; J44.9 Chronic obstructive pulmonary disease, unspecified; I10 Essential (primary) hypertension; E03.9 Hypothyroidism, unspecified; E11.9 Type 2 diabetes mellitus without complications; F17.210 Nicotine dependence, cigarettes, uncomplicated; Z72.89 Other problems related to lifestyle; Z86.19 Personal history of other infectious and parasitic diseases; Z79.84 Long term (current) use of oral hypoglycemic drugs
CPT/HCPCS: 43244; J2704; J3490

== ENCOUNTER 2019-10-11 17:05 | Inpatient (IN) | payer OTHER ==
[~2019-10-11] VITALS: Ht 165.1 cm; Wt 74.7 kg
[~2019-10-11 17:05] MED LIST changes: -DICL100G18 TP; +DICL100G54 TP; -IV RINGERS,LACTATED 1000ML 1,000 ML IV SCH; -LIDOCAINE 2% PF 5 ML VIAL. ONE; -PROPOFOL 20 ML IV ONE
[2019-10-11] MEDS ORDERED: MULTIVIT INFUSN,ADULT 4,VIT K 10 ML, THIAMINE INJ 100 MG, FOLIC ACID INJ 1 MG in IV NOR... IV ONE (17:30)
[2019-10-11 17:34] LABS: BASO # 0.1 x10^3/uL (0.0-0.2); BASO % 1 % (0-3); EOS # 0.1 x10^3/uL (0.0-0.7); EOS % 1 % (0-3); HEMATOCRIT 41.1 % (39.0-53.0); HEMOGLOBIN 13.8 g/dL (13.0-17.5); LYMPH # 1.9 x10^3/uL (1.0-4.8); LYMPH % 22 % (24-48); MEAN CORPUSCULAR HEMOGLOBIN 31 pg (25-35); MEAN CORPUSCULAR HGB CONC 34 g/dL (31-37); MEAN CORPUSCULAR VOLUME 93 fL (79-100); MONO # 1.2 x10^3/uL (0.0-1.1); MONO % 14 % (0-9); NEUT # 5.5 x10^3/uL (1.8-7.7); NEUT % 63 % (31-73); PLATELET COUNT 199 x10^3/uL (140-400); RED BLOOD COUNT 4.43 x10^6/uL (4.30-5.70); RED CELL DISTRIBUTION WIDTH 20.9 % (11.5-14.5); WHITE BLOOD COUNT 8.8 x10^3/uL (4.0-11.0)
[2019-10-11 17:42] LABS: PROTHROMBIN TIME PATIENT 13.9 SEC (11.7-14.0)
--- NOTE | 2019-10-11 17:51 | PHYS DOC ---
Past Medical History Past Medical History: COPD, Diabetes-Type II, GI Bleed, Hypertension, Hepatitis, Other Additional Past Medical Histor: CIRRHOSIS (CHARISSA JARAMILLO DO) Past Surgical History: Other Additional Past Surgical Histo: KNEE REPAIR, SHOULDER REPAIR, HERNIA REPAIR; paracentesis (CHARISSA JARAMILLO DO) Smoking Status: Former Smoker Alcohol Use: Heavy Drug Use: None (CHARISSA JARAMILLO DO) General Adult EDM: Chief Complaint: WEAKNESS/GENERALIZED HPI: HPI: Patient is a 64-year-old male with multiple medical problems including diabetes, COPD and cirrhosis. Patient states that he quit drinking heavily about 6 months ago. Today he presents stating that he is profoundly weak. He denies any pain. He denies fever chills sweats nausea vomiting. He denies any melena or hematemesis. He does not think he has been around anybody sick. [] (CHARISSA JARAMILLO DO) Review of Systems: Review of Systems: Constitutional: Denies fever or chills. [] Eyes: Denies change in visual acuity. [] HENT: Denies nasal congestion or sore throat. [] Respiratory: Denies cough or shortness of breath. [] Cardiovascular: Denies chest pain or edema. [] GI: Denies abdominal pain, nausea, vomiting, bloody stools or diarrhea. [] : Denies dysuria. [] Musculoskeletal: Denies back pain or joint pain. [] Integument: Denies rash. [] Neurologic: Denies headache, focal weakness or sensory changes. [] Endocrine: Denies polyuria or polydipsia. [] Lymphatic: Denies swollen glands. [] Psychiatric: Depression. [] (CHARISSA JARAMILLO DO) Heart Score: Risk Factors: Risk Factors: DM, Current or recent (<one month) smoker, HTN, HLP, family history of CAD, obesity. Risk Scores: Score 0 - 3: 2.5% MACE over next 6 weeks - Discharge Home Score 4 - 6: 20.3% MACE over next 6 weeks - Admit for Clinical Observation Score 7 - 10: 72.7% MACE over next 6 weeks - Early Invasive Strategies (CHARISSA JARAMILLO DO) Current Medications: Current Medications Medications (Trade) Dose Ordered Sig/Komal Start Time Stop Time Status Last Admin Dose Admin Multivitamins 10 ml/Thiamine HCl 100 mg/Folic Acid 1 mg/Sodium Chloride 1,011.2 ml @ 1,000.088 mls/hr 1X ONCE 10/11/19 17:30 10/11/19 18:30 10/11/19 17:37 1,000.088 MLS/HR (CHARISSA JARAMILLO DO) Allergies: Allergies: Allergies Coded Allergies Type Severity Reaction Last Updated Verified No Known Drug Allergies 08/30/19 No (CHARISSA JARAMILLO DO) Physical Exam: PE: Constitutional: Patient appears much older than his stated age, disheveled and acute on chronically ill [] HENT: Normocephalic, atraumatic, bilateral external ears normal, oropharynx moist, no oral exudates, nose normal. [] Eyes: PERRLA, EOMI, conjunctiva normal, no discharge. [] Neck: Normal range of motion, no tenderness, supple, no stridor. [] Cardiovascular:Heart rate regular rhythm, no murmur [] Lungs & Thorax: Mild expiratory wheezes diffusely [] Abdomen: Nontender to palp hepatomegaly to 3 fingers below the costal margin [] Skin: Warm, dry, no erythema, no rash. [] Back: No tenderness, no CVA tenderness. [] Extremities: Scattered chronic wounds across both lower extremities the most pronounced on the right knee area. [] Neurologic: Alert and oriented X 3, normal motor function, normal sensory function, no focal deficits noted. [] Psychologic: Depressed affect. [] (CHARISSA JARAMILLO DO) Current Patient Data: Labs: Laboratory Tests Test 10/11/19 17:10 White Blood Count 8.8 x10^3/uL (4.0-11.0) Red Blood Count 4.43 x10^6/uL (4.30-5.70) Hemoglobin 13.8 g/dL (13.0-17.5) Hematocrit 41.1 % (39.0-53.0) Mean Corpuscular Volume 93 fL (79-100) Mean Corpuscular Hemoglobin 31 pg (25-35) Mean Corpuscular Hemoglobin Concent 34 g/dL (31-37) Red Cell Distribution Width 20.9 % (11.5-14.5) H Platelet Count 199 x10^3/uL (140-400) Neutrophils (%) (Auto) 63 % (31-73) Lymphocytes (%) (Auto) 22 % (24-48) L Monocytes (%) (Auto) 14 % (0-9) H Eosinophils (%) (Auto) 1 % (0-3) Basophils (%) (Auto) 1 % (0-3) Neutrophils # (Auto) 5.5 x10^3/uL (1.8-7.7) Lymphocytes # (Auto) 1.9 x10^3/uL (1.0-4.8) Monocytes # (Auto) 1.2 x10^3/uL (0.0-1.1) H Eosinophils # (Auto) 0.1 x10^3/uL (0.0-0.7) Basophils # (Auto) 0.1 x10^3/uL (0.0-0.2) Platelet Estimate Pending Prothrombin Time 13.9 SEC (11.7-14.0) Prothrombin Time INR 1.1 (0.8-1.1) Laboratory Tests 10/11/19 17:10 Vital Signs: Vital Signs Date Time Temp Pulse Resp B/P (MAP) Pulse Ox O2 Delivery O2 Flow Rate FiO2 10/11/19 17:05 98.8 94 24 126/79 (95) 99 Room Air 98.8 (CHARISSA JARAMILLO DO) EKG: EKG: [EKG: Normal sinus rhythm rate of [address]-T changes] (CHARISSA JARAMILLO DO) Radiology/Procedures: Radiology/Procedures: [] (CHARISSA JARAMILLO DO) Course & Med Decision Making: Course & Med Decision Making Pertinent Labs and Imaging studies reviewed. (See chart for details) [] (CHARISSA JARAMILLO DO) Dragon Disclaimer: Dragon Disclaimer: This electronic medical record was generated, in whole or in part, using a voice recognition dictation system. (CHARISSA JARAMILLO DO) Departure Departure Impression: Primary Impression: Alcoholic cirrhosis of liver Qualified Codes: K70.30 - Alcoholic cirrhosis of liver without ascites Additional Impressions: Hepatic encephalopathy Generalized weakness Hypomagnesemia Disposition: ADMITTED INPATIENT Admitting Physician: SHAMEKA (PRASHANT SNYDER Jr., DO) Condition: IMPROVED Referrals: KELIN DOWNEY MD (PCP) CHARISSA JARAMILLO DO October 11, 2019 17:51 PRASHANT SNYDER Jr. DO October 11, 2019 19:45
[2019-10-11 17:53] LABS: CALCIUM 9.6 mg/dL (8.5-10.1); CREATININE 1.2 mg/dL (0.7-1.3); POTASSIUM 4.2 mmol/L (3.5-5.1)
[2019-10-11 17:54] LABS: BASE EXCESS ABG -1 mmol/L (-3-3); HCO3 ABG 22 mmol/L (21-28); PCO2 ABG 31 mmHg (35-46); PO2 ABG 73 mmHg (65-108); SAT O2 ABG 94 % (92-99)
[2019-10-11 17:57] LABS: FIO2 ABG 21
[2019-10-11 18:00] LABS: ALBUMIN 3.1 g/dL (3.4-5.0); ALBUMIN/GLOBULIN RATIO 0.6 (1.0-1.7); MAGNESIUM 1.6 mg/dL (1.8-2.4); TOTAL BILIRUBIN 1.6 mg/dL (0.2-1.0); TOTAL PROTEIN 8.4 g/dL (6.4-8.2)
[2019-10-11] MEDS ORDERED: IPRATRPIUM/ALBUTEROL 0.5/2.5MG 3 ML NEBU. NEB ONE (18:00)
[2019-10-11 18:09] LABS: BILIRUBIN,URINE SMALL (NEG); CLARITY,URINE CLEAR; NITRITE,URINE NEGATIVE (NEG); PH,URINE 5.5 (<5.0-8.0); PROTEIN,URINE NEGATIVE (NEG-TRACE)
[2019-10-11 18:11] LABS: ANISOCYTOSIS MOD; PLT ESTIMATE ADEQUATE (ADEQUATE); POLYCHROMASIA SLIGHT
[2019-10-11 18:13] LABS: COLOR,URINE DK YELLOW
[2019-10-11 18:15] LABS: BARBITURATES NEG (NEG); BENZODIAZEPINES NEG (NEG); CANNABINOIDS NEG (NEG); COCAINE NEG (NEG); METHADONE NEG (NEG); OPIATES NEG (NEG); PHENCYCLIDINE NEG (NEG)
[2019-10-11] MEDS ORDERED: IOHEXOL 300 MG/ML 100ML VIAL. IV ONE (18:15)
[2019-10-11] MEDS ORDERED: CONTRAST GIVEN. MC PRN (18:15)
[2019-10-11 18:17] LABS: BACTERIA,URINE FEW /HPF (0-FEW); HYALINE CASTS, URINE FEW /HPF; RBC,URINE 0 /HPF (0-2); SQUAMOUS EPITHELIAL CELL,UR MOD /LPF; YEAST,URINE PRESENT /HPF
[2019-10-11 18:18] LABS: AMPHETAMINE/METHAMPHETAMINE NEG (NEG)
[2019-10-11] MEDS ORDERED: MAGNESIUM SULFATE 1GM 100 ML IV ONE (19:00)
[2019-10-11] MEDS ORDERED: LACTULOSE 20 GM/30 ML SOLUTION. PO ONE (19:00)
--- NOTE | 2019-10-11 19:20 | RAD ---
Exam: CT of chest, abdomen and pelvis with contrast INDICATION: Hepatomegaly, cough TECHNIQUE: Sequential axial images through the chest, abdomen and pelvis obtained following the administration of 75 mL of Omni 300 IV contrast. Sagittal and coronal reformatted images were reconstructed from the axial data and reviewed. Comparisons: None FINDINGS: Visualized portions of the thyroid are unremarkable. No enlarged mediastinal lymph nodes. Heart size is normal. No pericardial effusion. Thoracic aorta has a normal course and caliber. Pulmonary artery is not enlarged. Airways are patent. No consolidation or pneumothorax. No suspicious lung nodules are identified. No pleural effusion or thickening. Liver, spleen, pancreas and adrenals are unremarkable. Gallbladder is distended. No gallstones are identified. Kidneys demonstrate symmetric enhancement. No perinephric inflammation or hydronephrosis. No renal or ureteral calculi are identified. Bladder is decompressed not well evaluated. Prostate is not enlarged. Large and small bowel are unremarkable. Appendix is normal. No free abdominal air or fluid. No obstruction. Abdominal aorta has a normal course and caliber. Abdominal vasculature is patent. No enlarged abdominal lymph nodes are identified. No suspicious osseous lesions or acute fractures. IMPRESSION: 1. No acute process identified in the chest. 2. Gallbladder is mildly distended. Correlate with symptomatology to determine the need for further evaluation with ultrasound. Exposure: One or more of the following in the visualized dose reduction techniques were utilized for this examination: 1. Automated exposure control 2. Adjustment of the MA and/or KV according to patient size 3. Use of iterative of reconstructive technique Electronically signed by: Tanisha Muir MD (10/11/2019 7:17 PM) [id number]
[2019-10-11] MEDS ORDERED: ONDANSETRON PF 4 MG/2 ML VIAL. IV PRN (20:00)
[2019-10-11 22:39] VITALS: BP 107/68
--- NOTE | 2019-10-12 01:12 | NUR ---
Patient admission Pt arrived to the unit after 209910/11/2019 via gurney from the ED. Pt was just discharged from here in September. There was a list of medication on [facility], however, pt unable to verified home medications at this time. All questions and concerns regarding pt's POC was address and answered. Pt was made comfortable in bed. Will continue to monitor pt closely.
[2019-10-12 03:00] VITALS: BP 98/66
[2019-10-12 05:07] LABS: BASO # 0.1 x10^3/uL (0.0-0.2); BASO % 1 % (0-3); EOS # 0.2 x10^3/uL (0.0-0.7); EOS % 2 % (0-3); HEMATOCRIT 36.6 % (39.0-53.0); HEMOGLOBIN 12.3 g/dL (13.0-17.5); LYMPH # 2.2 x10^3/uL (1.0-4.8); LYMPH % 25 % (24-48); MEAN CORPUSCULAR HEMOGLOBIN 31 pg (25-35); MEAN CORPUSCULAR HGB CONC 34 g/dL (31-37); MEAN CORPUSCULAR VOLUME 93 fL (79-100); MONO # 1.6 x10^3/uL (0.0-1.1); MONO % 17 % (0-9); NEUT % 55 % (31-73); PLATELET COUNT 171 x10^3/uL (140-400); RED BLOOD COUNT 3.92 x10^6/uL (4.30-5.70); RED CELL DISTRIBUTION WIDTH 20.9 % (11.5-14.5)
[2019-10-12 06:04] LABS: ALBUMIN 2.7 g/dL (3.4-5.0); ALBUMIN/GLOBULIN RATIO 0.6 (1.0-1.7); CALCIUM 8.9 mg/dL (8.5-10.1); CREATININE 0.8 mg/dL (0.7-1.3); GFR 97.3; POTASSIUM 3.5 mmol/L (3.5-5.1); TOTAL BILIRUBIN 1.3 mg/dL (0.2-1.0); TOTAL PROTEIN 7.2 g/dL (6.4-8.2)
[2019-10-12 07:00] VITALS: BP 93/57
[2019-10-12 11:00] VITALS: BP 92/63
--- NOTE | 2019-10-12 12:40 | PDOC1 ---
History and Physical Date of Admission Date of Admission DATE: 10/12/19 TIME: 12:30 Identification/Chief Complaint Chief Complaint Weakness, confusion Source Source: Chart review, Patient History of Present Illness History of Present Illness Mr Ruiz is a 64 yo M w/ history of alcoholic cirrhosis w/ Hep C (failed treatment at ), h/o ascites ,HTN, COPD, nephrolithiasis presents with weakness. Patient is alert and oriented to person only. Reports chronic shortness of breath and abdominal discomfort related to ascites. Patient states that he quit drinking heavily about 6 months ago. He denies fever chills sweats nausea vomiting. He denies any melena or hematemesis. No recent travel or sick contacts. Notes he has not had a BM in at least 4 days. Seen in 02/2018 for ascites - underwent paracentesis at that time and was on spironolactone and furosemide. Labs significant for WBC 8.8, Hb 13.8, platelets 199, NA 132, K4.2, creatinine 1.2, glucose 231, magnesium 1.6, bilirubin 1.6, AST 56, ALT 54, alkaline phosphatase 131, albumin 2.7, lactic acid 3.7, ammonia 111, INR 1.1 ABG on room air was pH 7.47 PCO2 31 PO2 73. He was tested for COVID 19 in ED. Admitted for further care. Past Medical History Cardiovascular: HTN Pulmonary: COPD GI: Other (Cirrhosis) Hepatobiliary: Hep A/B/C, Other Psych: Addictions Musculoskeletal: Osteoarthritis Infectious disease: Other Endocrine: Diabetes Past Surgical History Past Surgical History: Hernia Repair Family History Family History: Alcohol Abuse, High Cholestrol Family History: Parent Social History Smoke: <1 pack per day ALCOHOL: other Drugs: Marijuana Current Problem List Problem List Problems Medical Problems: (1) Generalized weakness Status: Acute (2) Hepatic encephalopathy Status: Acute (3) Hypomagnesemia Status: Acute Current Medications Current Medications Current Medications Multivitamins 10 ml/Thiamine HCl 100 mg/Folic Acid 1 mg/Sodium Chloride 1,011.2 ml @ 1,000.088 mls/hr 1X ONCE IV Last administered on 10/11/19at 17:37; Start 10/11/19 at 17:30; Stop 10/11/19 at 18:30; Status DC Albuterol/ Ipratropium (Duoneb) 6 ml 1X ONCE NEB Last administered on 10/11/19at 18:00; Start 10/11/19 at 18:00; Stop 10/11/19 at 18:01; Status DC Iohexol (Omnipaque 300 Mg/ml) 75 ml 1X ONCE IV Last administered on 10/11/19at 18:32; Start 10/11/19 at 18:15; Stop 10/11/19 at 18:16; Status DC Info (CONTRAST GIVEN -- Rx MONITORING) 1 each PRN DAILY PRN MC SEE COMMENTS; Start 10/11/19 at 18:15; Stop 10/13/19 at 18:14 Lactulose (Lactulose) 20 gm 1X ONCE PO Last administered on 10/11/19at 19:01; Start 10/11/19 at 19:00; Stop 10/11/19 at 19:01; Status DC Magnesium Sulfate/ Dextrose 100 ml @ 100 mls/hr 1X ONCE IV Last administered on 10/11/19at 19:01; Start 10/11/19 at 19:00; Stop 10/11/19 at 19:59; Status DC Ondansetron HCl (Zofran) 4 mg PRN Q8HRS PRN IV NAUSEA/VOMITING; Start 10/11/19 at 20:00; Stop 10/12/19 at 19:59 Active Scripts Active Humalog (Insulin Lispro) 100 Unit/1 Ml Insuln.pen 0 Units SQ QIDACHS 14 Days Tramadol Hcl 50 Mg Tablet 50 Mg PO PRN Q6HRS PRN 28 Days Lantus (Insulin Glargine,Hum.rec.anlog) 100 Unit/1 Ml Vial 20 Unit SQ QHS 30 Days Pantoprazole Sodium (Pantoprazole Sodium) 40 Mg Tablet.dr 40 Mg PO DAILYAC 30 Days Reported Furosemide 20 Mg Tablet 20 Mg PO DAILY Protonix (Pantoprazole Sodium) 40 Mg Tablet.dr 40 Mg PO DAILYAC Levothyroxine Sodium 75 Mcg Tablet 75 Mcg PO DAILYAC Glimepiride 1 Mg Tablet 1 Tab PO DAILY Metformin Hcl 500 Mg Tablet 500 Mg PO BIDWMEALS Lactulose 20 Gm/30 Ml Solution 20 Gm PO TID [sodium chloride tab] 1 Gm PO TID Duoneb 0.5-3(2.5) Mg/3 Ml (Albuterol/Ipratropium) 3 Ml Ampul.neb 3 Ml NEB QID Ambien (Zolpidem Tartrate) 5 Mg Tablet 5 Mg PO HS NICODERM CQ 21mg (Nicotine) 1 Each Patch.td24 1 Patch TD DAILY Lidocaine PATCH (Lidocaine) 1 Each Adh..patch 1 Each TP QHS REMOVE AFTER 12 HOURS Voltaren (Diclofenac Sodium) 100 Gm Gel..gram. 100 Gm TP TID Ergocalciferol (Ergocalciferol (Vitamin D2)) 8,000 Unit/1 Ml Drops 50,000 Unit PO QM Senna Plus Tablet (Sennosides/Docusate Sodium) 1 Each Tablet 2 Each PO PRN QHS PRN Enemeez (Docusate Sodium) 283 Mg/5 Ml Enema 5 Ml RC DAILY PRN 30 Days Dulcolax (Bisacodyl) 10 Mg Supp.rect 10 Mg RC PRN DAILY PRN Milk Of Magnesia (Magnesium Hydroxide) 2,400 Mg/10 Ml Oral.susp 2,400 Mg PO PRN QID PRN Mintox Plus Tablet Chewable (Mag Hydrox/Al Hydrox/Simeth) 1 Each Tab.chew 2 Each PO PRN Q3HRS PRN Amlodipine Besylate 10 Mg Tablet 5 Mg PO DAILY Allergies Allergies: Coded Allergies: No Known Drug Allergies (Unverified , 08/30/19) ROS General: YES: Fatigue, Malaise; No: Chills, Night Sweats, Appetite, Other PSYCHOLOGICAL ROS: YES: Anxiety, Disorientation, Hallucinations, Memory difficulties; No: Behavioral Disorder, Concentration difficultie, Decreased libido, Depression, Hostility, Irritablity, Mood Swings, Obsessive thoughts, Physical abuse, Sexual abuse, Sleep disturbances, Suicidal ideation, Other Eyes: No Blurry vision, No Decreased vision, No Double vision, No Dry eyes, No Excessive tearing, No Eye Pain, No Itchy Eyes, No Loss of vision, No Photophobia, No Scotomata, No Uses contacts, No Uses glasses, No Other HEENT: No: Heacaches, Visual Changes, Hearing change, Nasal congestion, Nasal discharge, Oral lesions, Sinus pain, Sore Throat, Epistaxis, Sneezing, Snoring, Tinnitus, Vertigo, Vocal changes, Other ALLERGY AND IMMUNOLOGY: No: Hives, Insect Bite Sensitivity, Itchy/Watery Eyes, Nasal Congestion, Post Nasal Drip, Seasonal Allergies, Other Hematological and Lymphatic: No: Bleeding Problems, Blood Clots, Blood Transfusions, Brusing, Night Sweats, Pallor, Swollen Lymph Nodes, Other ENDOCRINE: No: Breast Changes, Galactorrhea, Hair Pattern Changes, Hot Flashes, Malaise/lethargy, Mood Swings, Palpitations, Polydipsia/polyuria, Skin Changes, Temperature Intolerance, Unexpected Weight Changes, Other Breast: No New/Changing Breast Lumps, No Nipple changes, No Nipple discharge, No Other Respiratory: No: Cough, Hemoptysis, Orthopnea, Pleuritic Pain, Shortness of breath, SOB with excertion, Sputum Changes, Stridor, Tachypnea, Wheezing, Other Cardiovascular: No Chest Pain, No Palpitations, No Orthopnea, No Paroxysmal Noc. Dyspnea, No Edema, No Lt Headedness, No Other Gastrointestinal: No Nausea, No Vomiting, No Abdominal Pain, No Diarrhea, No Constipation, No Melena, No Hematochezia, No Other Genitourinary: No Dysuria, No Frequency, No Incontinence, No Hematuria, No Retention, No Discharge, No Urgency, No Pain, No Flank Pain, No Other, No , No , No , No , No , No , No Musculoskeletal: Yes Gait Disturbance, Yes Muscular Weakness; No Joint Pain, No Joint Stiffness, No Joint Swelling, No Muscle Pain, No Pain In:, No Swelling In:, No Other Neurological: Yes Confusion, Yes Dizziness, Yes Gait Disturbance, Yes Memory Loss; No Behavorial Changes, No Bowel/Bladder ControlChng, No Headaches, No Impaired Coord/balance, No Numbness/Tingling, No Seizures, No Speech Problems, No Tremors, No Visual Changes, No Weakness, No Other Skin: No Dry Skin, No Eczema, No Hair Changes, No Lumps, No Mole Changes, No Mottling, No Nail Changes, No Pruritus, No Rash, No Skin Lesion Changes, No Other, No Acne Physical Exam General: Alert, Cooperative, mild distress HEENT: Atraumatic, PERRLA, EOMI, Mucous membr. moist/pink Lungs: Clear to auscultation, Normal air movement Heart: S1S2, RRR, no thrills, no rubs, no gallops, no murmurs Abdomen: Normal bowel sounds, Soft, No tenderness, No hepatosplenomegaly, No masses Rectal Exam: not examined Extremities: No clubbing, No cyanosis, No edema, Normal pulses, No tenderness/swelling Skin: No rashes, No breakdown, No significant lesion Neuro: Normal speech, Strength at 5/5 X4 ext, Normal tone, Sensation intact, Cranial nerves 3-12 NL, Reflexes 2+ Psych/Mental Status: Other (Confused) Vitals Vitals Vital Signs Date Time Temp Pulse Resp B/P (MAP) Pulse Ox O2 Delivery O2 Flow Rate FiO2 10/12/19 11:00 98.3 97 20 92/63 (73) 94 Room Air 98.3 Labs Labs Laboratory Tests Test 10/11/19 17:10 10/11/19 17:18 10/11/19 17:50 10/11/19 21:10 White Blood Count 8.8 x10^3/uL (4.0-11.0) Red Blood Count 4.43 x10^6/uL (4.30-5.70) Hemoglobin 13.8 g/dL (13.0-17.5) Hematocrit 41.1 % (39.0-53.0) Mean Corpuscular Volume 93 fL (79-100) Mean Corpuscular Hemoglobin 31 pg (25-35) Mean Corpuscular Hemoglobin Concent 34 g/dL (31-37) Red Cell Distribution Width 20.9 % (11.5-14.5) Platelet Count 199 x10^3/uL (140-400) Neutrophils (%) (Auto) 63 % (31-73) Lymphocytes (%) (Auto) 22 % (24-48) Monocytes (%) (Auto) 14 % (0-9) Eosinophils (%) (Auto) 1 % (0-3) Basophils (%) (Auto) 1 % (0-3) Neutrophils # (Auto) 5.5 x10^3/uL (1.8-7.7) Lymphocytes # (Auto) 1.9 x10^3/uL (1.0-4.8) Monocytes # (Auto) 1.2 x10^3/uL (0.0-1.1) Eosinophils # (Auto) 0.1 x10^3/uL (0.0-0.7) Basophils # (Auto) 0.1 x10^3/uL (0.0-0.2) Platelet Estimate Adequate (ADEQUATE) Polychromasia Slight Anisocytosis Mod Prothrombin Time 13.9 SEC (11.7-14.0) Prothromb Time International Ratio 1.1 (0.8-1.1) Sodium Level 132 mmol/L (136-145) Potassium Level 4.2 mmol/L (3.5-5.1) Chloride Level 96 mmol/L (98-107) Carbon Dioxide Level 23 mmol/L (21-32) Anion Gap 13 (6-14) Blood Urea Nitrogen 19 mg/dL (8-26) Creatinine 1.2 mg/dL (0.7-1.3) Estimated GFR (Cockcroft-Gault) 61.0 BUN/Creatinine Ratio 16 (6-20) Glucose Level 231 mg/dL (70-99) Lactic Acid Level 3.7 mmol/L (0.4-2.0) 2.3 mmol/L (0.4-2.0) Calcium Level 9.6 mg/dL (8.5-10.1) Magnesium Level 1.6 mg/dL (1.8-2.4) Total Bilirubin 1.6 mg/dL (0.2-1.0) Aspartate Amino Transf (AST/SGOT) 56 U/L (15-37) Alanine Aminotransferase (ALT/SGPT) 54 U/L (16-63) Alkaline Phosphatase 131 U/L (46-116) Ammonia 111 mcmol/L (11-34) Troponin I Quantitative < 0.017 ng/mL (0.000-0.055) UJ-Cnn-M-Type Natriuretic Peptide 63 pg/mL (0-124) Total Protein 8.4 g/dL (6.4-8.2) Albumin 3.1 g/dL (3.4-5.0) Albumin/Globulin Ratio 0.6 (1.0-1.7) Thyroid Stimulating Hormone (TSH) 2.965 uIU/mL (0.358-3.74) Ethyl Alcohol Level < 10 mg/dL (0-10) O2 Saturation 94 % (92-99) Arterial Blood pH 7.47 (7.35-7.45) Arterial Blood pCO2 at Patient Temp 31 mmHg (35-46) Arterial Blood pO2 at Patient Temp 73 mmHg (65-108) Arterial Blood HCO3 22 mmol/L (21-28) Arterial Blood Base Excess -1 mmol/L (-3-3) FiO2 21 Urine Collection Type Void Urine Color Dk yellow Urine Clarity Clear Urine pH 5.5 (<5.0-8.0) Urine Specific [place] 1.015 (1.000-1.030) Urine Protein Negative mg/dL (NEG-TRACE) Urine Glucose (UA) Negative mg/dL (NEG) Urine Ketones (Stick) Negative mg/dL (NEG) Urine Blood Negative (NEG) Urine Nitrite Negative (NEG) Urine Bilirubin Small (NEG) Urine Urobilinogen Dipstick 2.0 mg/dL (0.2 mg/dL) Urine Leukocyte Esterase Moderate (NEG) Urine RBC 0 /HPF (0-2) Urine WBC 11-20 /HPF (0-4) Urine Squamous Epithelial Cells Mod /LPF Urine Bacteria Few /HPF (0-FEW) Urine Hyaline Casts Few /HPF Urine Mucus Marked /LPF Urine Yeast Present /HPF Urine Opiates Screen Neg (NEG) Urine Methadone Screen Neg (NEG) Urine Barbiturates Neg (NEG) Urine Phencyclidine Screen Neg (NEG) Urine Amphetamine/Methamphetamine Neg (NEG) Urine Benzodiazepines Screen Neg (NEG) Urine Cocaine Screen Neg (NEG) Urine Cannabinoids Screen Neg (NEG) Urine Ethyl Alcohol Neg (NEG) Test 10/12/19 04:00 10/12/19 08:20 10/12/19 11:55 White Blood Count 9.0 x10^3/uL (4.0-11.0) Red Blood Count 3.92 x10^6/uL (4.30-5.70) Hemoglobin 12.3 g/dL (13.0-17.5) Hematocrit 36.6 % (39.0-53.0) Mean Corpuscular Volume 93 fL (79-100) Mean Corpuscular Hemoglobin 31 pg (25-35) Mean Corpuscular Hemoglobin Concent 34 g/dL (31-37) Red Cell Distribution Width 20.9 % (11.5-14.5) Platelet Count 171 x10^3/uL (140-400) Neutrophils (%) (Auto) 55 % (31-73) Lymphocytes (%) (Auto) 25 % (24-48) Monocytes (%) (Auto) 17 % (0-9) Eosinophils (%) (Auto) 2 % (0-3) Basophils (%) (Auto) 1 % (0-3) Neutrophils # (Auto) 5.0 x10^3/uL (1.8-7.7) Lymphocytes # (Auto) 2.2 x10^3/uL (1.0-4.8) Monocytes # (Auto) 1.6 x10^3/uL (0.0-1.1) Eosinophils # (Auto) 0.2 x10^3/uL (0.0-0.7) Basophils # (Auto) 0.1 x10^3/uL (0.0-0.2) Sodium Level 134 mmol/L (136-145) Potassium Level 3.5 mmol/L (3.5-5.1) Chloride Level 101 mmol/L (98-107) Carbon Dioxide Level 23 mmol/L (21-32) Anion Gap 10 (6-14) Blood Urea Nitrogen 15 mg/dL (8-26) Creatinine 0.8 mg/dL (0.7-1.3) Estimated GFR (Cockcroft-Gault) 97.3 BUN/Creatinine Ratio 19 (6-20) Glucose Level 118 mg/dL (70-99) Calcium Level 8.9 mg/dL (8.5-10.1) Total Bilirubin 1.3 mg/dL (0.2-1.0) Aspartate Amino Transf (AST/SGOT) 50 U/L (15-37) Alanine Aminotransferase (ALT/SGPT) 47 U/L (16-63) Alkaline Phosphatase 108 U/L (46-116) Total Protein 7.2 g/dL (6.4-8.2) Albumin 2.7 g/dL (3.4-5.0) Albumin/Globulin Ratio 0.6 (1.0-1.7) Glucose (Fingerstick) 124 mg/dL (70-99) 167 mg/dL (70-99) Laboratory Tests Test 10/11/19 17:10 10/11/19 17:18 10/11/19 17:50 10/11/19 21:10 White Blood Count 8.8 x10^3/uL (4.0-11.0) Red Blood Count 4.43 x10^6/uL (4.30-5.70) Hemoglobin 13.8 g/dL (13.0-17.5) Hematocrit 41.1 % (39.0-53.0) Mean Corpuscular Volume 93 fL (79-100) Mean Corpuscular Hemoglobin 31 pg (25-35) Mean Corpuscular Hemoglobin Concent 34 g/dL (31-37) Red Cell Distribution Width 20.9 % (11.5-14.5) Platelet Count 199 x10^3/uL (140-400) Neutrophils (%) (Auto) 63 % (31-73) Lymphocytes (%) (Auto) 22 % (24-48) Monocytes (%) (Auto) 14 % (0-9) Eosinophils (%) (Auto) 1 % (0-3) Basophils (%) (Auto) 1 % (0-3) Neutrophils # (Auto) 5.5 x10^3/uL (1.8-7.7) Lymphocytes # (Auto) 1.9 x10^3/uL (1.0-4.8) Monocytes # (Auto) 1.2 x10^3/uL (0.0-1.1) Eosinophils # (Auto) 0.1 x10^3/uL (0.0-0.7) Basophils # (Auto) 0.1 x10^3/uL (0.0-0.2) Platelet Estimate Adequate (ADEQUATE) Polychromasia Slight Anisocytosis Mod Prothrombin Time 13.9 SEC (11.7-14.0) Prothromb Time International Ratio 1.1 (0.8-1.1) Sodium Level 132 mmol/L (136-145) Potassium Level 4.2 mmol/L (3.5-5.1) Chloride Level 96 mmol/L (98-107) Carbon Dioxide Level 23 mmol/L (21-32) Anion Gap 13 (6-14) Blood Urea Nitrogen 19 mg/dL (8-26) Creatinine 1.2 mg/dL (0.7-1.3) Estimated GFR (Cockcroft-Gault) 61.0 BUN/Creatinine Ratio 16 (6-20) Glucose Level 231 mg/dL (70-99) Lactic Acid Level 3.7 mmol/L (0.4-2.0) 2.3 mmol/L (0.4-2.0) Calcium Level 9.6 mg/dL (8.5-10.1) Magnesium Level 1.6 mg/dL (1.8-2.4) Total Bilirubin 1.6 mg/dL (0.2-1.0) Aspartate Amino Transf (AST/SGOT) 56 U/L (15-37) Alanine Aminotransferase (ALT/SGPT) 54 U/L (16-63) Alkaline Phosphatase 131 U/L (46-116) Ammonia 111 mcmol/L (11-34) Troponin I Quantitative < 0.017 ng/mL (0.000-0.055) ND-Zsw-S-Type Natriuretic Peptide 63 pg/mL (0-124) Total Protein 8.4 g/dL (6.4-8.2) Albumin 3.1 g/dL (3.4-5.0) Albumin/Globulin Ratio 0.6 (1.0-1.7) Thyroid Stimulating Hormone (TSH) 2.965 uIU/mL (0.358-3.74) Ethyl Alcohol Level < 10 mg/dL (0-10) O2 Saturation 94 % (92-99) Arterial Blood pH 7.47 (7.35-7.45) Arterial Blood pCO2 at Patient Temp 31 mmHg (35-46) Arterial Blood pO2 at Patient Temp 73 mmHg (65-108) Arterial Blood HCO3 22 mmol/L (21-28) Arterial Blood Base Excess -1 mmol/L (-3-3) FiO2 21 Urine Collection Type Void Urine Color Dk yellow Urine Clarity Clear Urine pH 5.5 (<5.0-8.0) Urine Specific [place] 1.015 (1.000-1.030) Urine Protein Negative mg/dL (NEG-TRACE) Urine Glucose (UA) Negative mg/dL (NEG) Urine Ketones (Stick) Negative mg/dL (NEG) Urine Blood Negative (NEG) Urine Nitrite Negative (NEG) Urine Bilirubin Small (NEG) Urine Urobilinogen Dipstick 2.0 mg/dL (0.2 mg/dL) Urine Leukocyte Esterase Moderate (NEG) Urine RBC 0 /HPF (0-2) Urine WBC 11-20 /HPF (0-4) Urine Squamous Epithelial Cells Mod /LPF Urine Bacteria Few /HPF (0-FEW) Urine Hyaline Casts Few /HPF Urine Mucus Marked /LPF Urine Yeast Present /HPF Urine Opiates Screen Neg (NEG) Urine Methadone Screen Neg (NEG) Urine Barbiturates Neg (NEG) Urine Phencyclidine Screen Neg (NEG) Urine Amphetamine/Methamphetamine Neg (NEG) Urine Benzodiazepines Screen Neg (NEG) Urine Cocaine Screen Neg (NEG) Urine Cannabinoids Screen Neg (NEG) Urine Ethyl Alcohol Neg (NEG) Test 10/12/19 04:00 10/12/19 08:20 10/12/19 11:55 White Blood Count 9.0 x10^3/uL (4.0-11.0) Red Blood Count 3.92 x10^6/uL (4.30-5.70) Hemoglobin 12.3 g/dL (13.0-17.5) Hematocrit 36.6 % (39.0-53.0) Mean Corpuscular Volume 93 fL (79-100) Mean Corpuscular Hemoglobin 31 pg (25-35) Mean Corpuscular Hemoglobin Concent 34 g/dL (31-37) Red Cell Distribution Width 20.9 % (11.5-14.5) Platelet Count 171 x10^3/uL (140-400) Neutrophils (%) (Auto) 55 % (31-73) Lymphocytes (%) (Auto) 25 % (24-48) Monocytes (%) (Auto) 17 % (0-9) Eosinophils (%) (Auto) 2 % (0-3) Basophils (%) (Auto) 1 % (0-3) Neutrophils # (Auto) 5.0 x10^3/uL (1.8-7.7) Lymphocytes # (Auto) 2.2 x10^3/uL (1.0-4.8) Monocytes # (Auto) 1.6 x10^3/uL (0.0-1.1) Eosinophils # (Auto) 0.2 x10^3/uL (0.0-0.7) Basophils # (Auto) 0.1 x10^3/uL (0.0-0.2) Sodium Level 134 mmol/L (136-145) Potassium Level 3.5 mmol/L (3.5-5.1) Chloride Level 101 mmol/L (98-107) Carbon Dioxide Level 23 mmol/L (21-32) Anion Gap 10 (6-14) Blood Urea Nitrogen 15 mg/dL (8-26) Creatinine 0.8 mg/dL (0.7-1.3) Estimated GFR (Cockcroft-Gault) 97.3 BUN/Creatinine Ratio 19 (6-20) Glucose Level 118 mg/dL (70-99) Calcium Level 8.9 mg/dL (8.5-10.1) Total Bilirubin 1.3 mg/dL (0.2-1.0) Aspartate Amino Transf (AST/SGOT) 50 U/L (15-37) Alanine Aminotransferase (ALT/SGPT) 47 U/L (16-63) Alkaline Phosphatase 108 U/L (46-116) Total Protein 7.2 g/dL (6.4-8.2) Albumin 2.7 g/dL (3.4-5.0) Albumin/Globulin Ratio 0.6 (1.0-1.7) Glucose (Fingerstick) 124 mg/dL (70-99) 167 mg/dL (70-99) Images Images CT Chest/abdomen/pelvis Visualized portions of the thyroid are unremarkable. No enlarged mediastinal lymph nodes. Heart size is normal. No pericardial effusion. Thoracic aorta has a normal course and caliber. Pulmonary artery is not enlarged. Airways are patent. No consolidation or pneumothorax. No suspicious lung nodules are identified. No pleural effusion or thickening. Liver, spleen, pancreas and adrenals are unremarkable. Gallbladder is distended. No gallstones are identified. Kidneys demonstrate symmetric enhancement. No perinephric inflammation or hydronephrosis. No renal or ureteral calculi are identified. Bladder is decompressed not well evaluated. Prostate is not enlarged. Large and small bowel are unremarkable. Appendix is normal. No free abdominal air or fluid. No obstruction. Abdominal aorta has a normal course and caliber. Abdominal vasculature is patent. No enlarged abdominal lymph nodes are identified. No suspicious osseous lesions or acute fractures. IMPRESSION: 1. No acute process identified in the chest. 2. Gallbladder is mildly distended. Correlate with symptomatology to determine the need for further evaluation with ultrasound. VTE Prophylaxis Ordered VTE Prophylaxis Devices: No VTE Pharmacological Prophylaxi: Yes Assessment/Plan Assessment/Plan A/P: Acute encephalopathy - hepatic given his confusion, lack of BM and elevated ammonia level. Will give TID lactulose. monitor. 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 confused, edema. Will restart lasix, aldactone, aggressive lactulose Hyponatremia - likely related to liver disease vs nutrition. Given fluid challenge in ED, became more edematous Lactic acidosis - likely related to fluid overload. Will diurese, may need albumin DM2 - basal bolus plus insulin Moderate-severe protein calorie malnutrition - related to his cirrhosis HTN - cont meds COPD - prn nebs Nephrolithiasis - asymptomatic Severe protein calorie malnutrition - based on nutritional status, likely nutritional deficit and liver disease. machine set up to see, supplements FEN - General diet PPX - lovenox FULL CODE Dispo - inpatient for likely 2 midnights H/o ascites and paracentesis (x3 here - last in 05/2019), previously on Aldactone and Lasix. AFP WNL in 2018 H/o UGI bleeding in 05/2019. EGD showed grade 3 esophageal varices w/ red wheal sign s/p band ligation x 5 and portal hypertensive gastropathy. Underwent another EGD a couple weeks later in 06/2019 for repeat banding as inpt, and then also an outpt EGD in 08/2019 for recheck of varices (cannot view procedure report) COVID-19 CRITERIA: The patient was evaluated during the global COVID-19 pandemic, and that diagnosis was suspected/considered upon their initial presentation. Their evaluation, treatment and testing was consistent with cur rent guidelines for patients who present with complaints or symptoms that may be related to COVID-19. HERBIE PIPER MD October 12, 2019 12:40
[2019-10-12] MEDS ORDERED: SENNOSIDES/DOCUSATE 8.6/50MG TABLET. PO PRN (12:45)
[2019-10-12] MEDS ORDERED: DOCUSATE SODIUM 283 MG/5 ML ENEMA. RC PRN (12:45)
[2019-10-12] MEDS ORDERED: DEXTROSE 50% 25 GM / 50ML DISP.SYRIN. IV PRN (12:45)
[2019-10-12] MEDS ORDERED: BISACODYL 10 MG SUPP.RECT. RC PRN (12:45)
[2019-10-12] MEDS ORDERED: ONDANSETRON PF 4 MG/2 ML VIAL. IV PRN (12:45)
[2019-10-12] MEDS ORDERED: IPRATRPIUM/ALBUTEROL 0.5/2.5MG 3 ML NEBU. NEB SCH (13:00)
[2019-10-12] MEDS ORDERED: ALBUTEROL SULFATE 2.5 MG/3 ML NEBU. NEB PRN (13:15)
[2019-10-12] MEDS ORDERED: LACTULOSE 20 GM/30 ML SOLUTION. PO SCH (14:00)
[2019-10-12] MEDS: PANTOPRAZOLE 40 MG TABLET.DR. PO SCH (14:56)
[2019-10-12] MEDS: LACTULOSE 20 GM/30 ML SOLUTION. PO SCH ×2 (14:57→21:03)
[2019-10-12] MEDS: NICOTINE 21MG PATCH. TD SCH (14:57)
[2019-10-12] MEDS: FUROSEMIDE 20 MG TABLET PO SCH (14:57)
[2019-10-12] MEDS: LEVOTHYROXINE 75 MCG TABLET PO SCH (14:57)
[2019-10-12 15:00] VITALS: BP 94/66
[2019-10-12] MEDS: DICLOFENAC SODIUM 1% TOPICAL GEL 100GM TUBE. TP SCH ×2 (15:00→21:00)
[2019-10-12] MEDS: INSULIN LISPRO 300 UNITS/3 ML VIAL. SQ SCH ×2 (18:36→21:00)
[2019-10-12 19:45] VITALS: BP 110/74
[2019-10-12] MEDS: LIDOCAINE (700MG/PATCH) PATCH. TP SCH (21:06)
[2019-10-12] MEDS: INSULIN GLARGINE SYRINGE. SQ SCH (21:06)
[2019-10-12 23:50] VITALS: BP 100/85
[2019-10-13 02:47] VITALS: BP 100/72
[2019-10-13 07:00] VITALS: BP 96/66
[2019-10-13] MEDS: INSULIN LISPRO 300 UNITS/3 ML VIAL. SQ SCH ×4 (07:30→21:00)
[2019-10-13] MEDS: PANTOPRAZOLE 40 MG TABLET.DR. PO SCH (07:31)
[2019-10-13] MEDS: LEVOTHYROXINE 75 MCG TABLET PO SCH (07:31)
[2019-10-13] MEDS: LACTULOSE 20 GM/30 ML SOLUTION. PO SCH ×4 (08:06→21:07)
[2019-10-13] MEDS: DICLOFENAC SODIUM 1% TOPICAL GEL 100GM TUBE. TP SCH ×3 (08:06→21:00)
[2019-10-13] MEDS: NICOTINE 21MG PATCH. TD SCH (08:06)
[2019-10-13] MEDS: FUROSEMIDE 20 MG TABLET PO SCH (08:06)
[2019-10-13] MEDS: PATCH REMOVAL. MC SCH (09:00)
[2019-10-13 11:02] VITALS: BP 103/71
--- NOTE | 2019-10-13 13:12 | PDOC ---
PROGRESS NOTES Chief Complaint Chief Complaint A/P: Acute encephalopathy - hepatic given his confusion, lack of BM and elevated ammonia level. Will give TID lactulose. monitor. 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 confused, edema. Will restart lasix, aldactone, aggressive lactulose Hyponatremia - likely related to liver disease vs nutrition. Given fluid challenge in ED, became more edematous Lactic acidosis - likely related to fluid overload. Will diurese, may need albumin DM2 - basal bolus plus insulin Moderate-severe protein calorie malnutrition - related to his cirrhosis HTN - cont meds COPD - prn nebs Nephrolithiasis - asymptomatic Severe protein calorie malnutrition - based on nutritional status, likely nutritional deficit and liver disease. radioisotope technologist to see, supplements FEN - General diet PPX - lovenox FULL CODE Dispo - inpatient for likely 2 midnights H/o ascites and paracentesis (x3 here - last in 05/2019), previously on Aldactone and Lasix. AFP WNL in 2018 H/o UGI bleeding in 05/2019. EGD showed grade 3 esophageal varices w/ red wheal sign s/p band ligation x 5 and portal hypertensive gastropathy. Underwent another EGD a couple weeks later in 06/2019 for repeat banding as inpt, and then also an outpt EGD in 08/2019 for recheck of varices (cannot view procedure report) COVID-19 CRITERIA: The patient was evaluated during the global COVID-19 mg demic, and that diagnosis was suspected/considered upon their initial presentation. Their evaluation, treatment and testing was consistent with current guidelines for patients who present with complaints or symptoms that may be related to COVID-19. History of Present Illness History of Present Illness Mr Ruiz is a 64 yo M w/ history of alcoholic cirrhosis w/ Hep C (failed treatment at ), h/o ascites ,HTN, COPD, nephrolithiasis presents with weakness. Patient is alert and oriented to person only. Reports chronic shortness of breath and abdominal discomfort related to ascites. Patient states that he quit drinking heavily about 6 months ago. He denies fever chills sweats nausea vomiting. He denies any melena or hematemesis. No recent travel or sick contacts. Notes he had not had a BM in at least 4 days prior to admit. Seen in 02/2018 for ascites - underwent paracentesis at that time and was on spironolactone and furosemide. Labs significant for WBC 8.8, Hb 13.8, platelets 199, NA 132, K4.2, creatinine 1.2, glucose 231, magnesium 1.6, bilirubin 1.6, AST 56, ALT 54, alkaline phosphatase 131, albumin 2.7, lactic acid 3.7, ammonia 111, INR 1.1 ABG on room air was pH 7.47 PCO2 31 PO2 73. He was tested for COVID 19 in ED. Admitted for further care. Overnight had 2 bowel movements, still thinks it is 2015, he does know he is at [facility] he thinks that it is September. He is fairly weak, glucose has been in the mid 100s. Afebrile awaiting COVID 19 test results Vitals Vitals Vital Signs Date Time Temp Pulse Resp B/P (MAP) Pulse Ox O2 Delivery O2 Flow Rate FiO2 10/13/19 11:02 98.3 79 20 103/71 (82) 97 Room Air 98.3 Physical Exam General: Alert, Cooperative, mild distress Lungs: Clear Abdomen: Normal bowel sounds, Soft, No tenderness, No hepatosplenomegaly, No masses Extremities: No clubbing, No cyanosis, No edema, Normal pulses, No tenderness/swelling Skin: No rashes, No breakdown, No significant lesion Labs LABS Laboratory Tests Test 10/12/19 18:32 10/12/19 21:01 10/13/19 07:40 10/13/19 11:33 Glucose (Fingerstick) 173 mg/dL (70-99) 137 mg/dL (70-99) 137 mg/dL (70-99) 237 mg/dL (70-99) Assessment and Plan Assessmemt and Plan Problems Medical Problems: (1) Generalized weakness Status: Acute (2) Hepatic encephalopathy Status: Acute (3) Hypomagnesemia Status: Acute Comment Review of Relevant I have reviewed the following items gordon (where applicable) has been applied. Labs Laboratory Tests Test 10/11/19 17:10 10/11/19 17:18 10/11/19 17:50 10/11/19 21:10 White Blood Count 8.8 x10^3/uL (4.0-11.0) Red Blood Count 4.43 x10^6/uL (4.30-5.70) Hemoglobin 13.8 g/dL (13.0-17.5) Hematocrit 41.1 % (39.0-53.0) Mean Corpuscular Volume 93 fL (79-100) Mean Corpuscular Hemoglobin 31 pg (25-35) Mean Corpuscular Hemoglobin Concent 34 g/dL (31-37) Red Cell Distribution Width 20.9 % (11.5-14.5) Platelet Count 199 x10^3/uL (140-400) Neutrophils (%) (Auto) 63 % (31-73) Lymphocytes (%) (Auto) 22 % (24-48) Monocytes (%) (Auto) 14 % (0-9) Eosinophils (%) (Auto) 1 % (0-3) Basophils (%) (Auto) 1 % (0-3) Neutrophils # (Auto) 5.5 x10^3/uL (1.8-7.7) Lymphocytes # (Auto) 1.9 x10^3/uL (1.0-4.8) Monocytes # (Auto) 1.2 x10^3/uL (0.0-1.1) Eosinophils # (Auto) 0.1 x10^3/uL (0.0-0.7) Basophils # (Auto) 0.1 x10^3/uL (0.0-0.2) Platelet Estimate Adequate (ADEQUATE) Polychromasia Slight Anisocytosis Mod Prothrombin Time 13.9 SEC (11.7-14.0) Prothromb Time International Ratio 1.1 (0.8-1.1) Sodium Level 132 mmol/L (136-145) Potassium Level 4.2 mmol/L (3.5-5.1) Chloride Level 96 mmol/L (98-107) Carbon Dioxide Level 23 mmol/L (21-32) Anion Gap 13 (6-14) Blood Urea Nitrogen 19 mg/dL (8-26) Creatinine 1.2 mg/dL (0.7-1.3) Estimated GFR (Cockcroft-Gault) 61.0 BUN/Creatinine Ratio 16 (6-20) Glucose Level 231 mg/dL (70-99) Lactic Acid Level 3.7 mmol/L (0.4-2.0) 2.3 mmol/L (0.4-2.0) Calcium Level 9.6 mg/dL (8.5-10.1) Magnesium Level 1.6 mg/dL (1.8-2.4) Total Bilirubin 1.6 mg/dL (0.2-1.0) Aspartate Amino Transf (AST/SGOT) 56 U/L (15-37) Alanine Aminotransferase (ALT/SGPT) 54 U/L (16-63) Alkaline Phosphatase 131 U/L (46-116) Ammonia 111 mcmol/L (11-34) Troponin I Quantitative < 0.017 ng/mL (0.000-0.055) QV-Nua-F-Type Natriuretic Peptide 63 pg/mL (0-124) Total Protein 8.4 g/dL (6.4-8.2) Albumin 3.1 g/dL (3.4-5.0) Albumin/Globulin Ratio 0.6 (1.0-1.7) Thyroid Stimulating Hormone (TSH) 2.965 uIU/mL (0.358-3.74) Ethyl Alcohol Level < 10 mg/dL (0-10) O2 Saturation 94 % (92-99) Arterial Blood pH 7.47 (7.35-7.45) Arterial Blood pCO2 at Patient Temp 31 mmHg (35-46) Arterial Blood pO2 at Patient Temp 73 mmHg (65-108) Arterial Blood HCO3 22 mmol/L (21-28) Arterial Blood Base Excess -1 mmol/L (-3-3) FiO2 21 Urine Collection Type Void Urine Color Dk yellow Urine Clarity Clear Urine pH 5.5 (<5.0-8.0) Urine Specific [place] 1.015 (1.000-1.030) Urine Protein Negative mg/dL (NEG-TRACE) Urine Glucose (UA) Negative mg/dL (NEG) Urine Ketones (Stick) Negative mg/dL (NEG) Urine Blood Negative (NEG) Urine Nitrite Negative (NEG) Urine Bilirubin Small (NEG) Urine Urobilinogen Dipstick 2.0 mg/dL (0.2 mg/dL) Urine Leukocyte Esterase Moderate (NEG) Urine RBC 0 /HPF (0-2) Urine WBC 11-20 /HPF (0-4) Urine Squamous Epithelial Cells Mod /LPF Urine Bacteria Few /HPF (0-FEW) Urine Hyaline Casts Few /HPF Urine Mucus Marked /LPF Urine Yeast Present /HPF Urine Opiates Screen Neg (NEG) Urine Methadone Screen Neg (NEG) Urine Barbiturates Neg (NEG) Urine Phencyclidine Screen Neg (NEG) Urine Amphetamine/Methamphetamine Neg (NEG) Urine Benzodiazepines Screen Neg (NEG) Urine Cocaine Screen Neg (NEG) Urine Cannabinoids Screen Neg (NEG) Urine Ethyl Alcohol Neg (NEG) Test 10/12/19 04:00 10/12/19 08:20 10/12/19 11:55 10/12/19 18:32 White Blood Count 9.0 x10^3/uL (4.0-11.0) Red Blood Count 3.92 x10^6/uL (4.30-5.70) Hemoglobin 12.3 g/dL (13.0-17.5) Hematocrit 36.6 % (39.0-53.0) Mean Corpuscular Volume 93 fL (79-100) Mean Corpuscular Hemoglobin 31 pg (25-35) Mean Corpuscular Hemoglobin Concent 34 g/dL (31-37) Red Cell Distribution Width 20.9 % (11.5-14.5) Platelet Count 171 x10^3/uL (140-400) Neutrophils (%) (Auto) 55 % (31-73) Lymphocytes (%) (Auto) 25 % (24-48) Monocytes (%) (Auto) 17 % (0-9) Eosinophils (%) (Auto) 2 % (0-3) Basophils (%) (Auto) 1 % (0-3) Neutrophils # (Auto) 5.0 x10^3/uL (1.8-7.7) Lymphocytes # (Auto) 2.2 x10^3/uL (1.0-4.8) Monocytes # (Auto) 1.6 x10^3/uL (0.0-1.1) Eosinophils # (Auto) 0.2 x10^3/uL (0.0-0.7) Basophils # (Auto) 0.1 x10^3/uL (0.0-0.2) Sodium Level 134 mmol/L (136-145) Potassium Level 3.5 mmol/L (3.5-5.1) Chloride Level 101 mmol/L (98-107) Carbon Dioxide Level 23 mmol/L (21-32) Anion Gap 10 (6-14) Blood Urea Nitrogen 15 mg/dL (8-26) Creatinine 0.8 mg/dL (0.7-1.3) Estimated GFR (Cockcroft-Gault) 97.3 BUN/Creatinine Ratio 19 (6-20) Glucose Level 118 mg/dL (70-99) Calcium Level 8.9 mg/dL (8.5-10.1) Total Bilirubin 1.3 mg/dL (0.2-1.0) Aspartate Amino Transf (AST/SGOT) 50 U/L (15-37) Alanine Aminotransferase (ALT/SGPT) 47 U/L (16-63) Alkaline Phosphatase 108 U/L (46-116) Total Protein 7.2 g/dL (6.4-8.2) Albumin 2.7 g/dL (3.4-5.0) Albumin/Globulin Ratio 0.6 (1.0-1.7) Glucose (Fingerstick) 124 mg/dL (70-99) 167 mg/dL (70-99) 173 mg/dL (70-99) Test 10/12/19 21:01 10/13/19 07:40 10/13/19 11:33 Glucose (Fingerstick) 137 mg/dL (70-99) 137 mg/dL (70-99) 237 mg/dL (70-99) Laboratory Tests Test 10/12/19 18:32 10/12/19 21:01 10/13/19 07:40 10/13/19 11:33 Glucose (Fingerstick) 173 mg/dL (70-99) 137 mg/dL (70-99) 137 mg/dL (70-99) 237 mg/dL (70-99) Microbiology 10/11/19 Blood Culture - Preliminary, Resulted NO GROWTH AFTER 1 DAY Medications Current Medications Multivitamins 10 ml/Thiamine HCl 100 mg/Folic Acid 1 mg/Sodium Chloride 1,011.2 ml @ 1,000.088 mls/hr 1X ONCE IV Last administered on 10/11/19at 17:37; Start 10/11/19 at 17:30; Stop 10/11/19 at 18:30; Status DC Albuterol/ Ipratropium (Duoneb) 6 ml 1X ONCE NEB Last administered on 10/11/19at 18:00; Start 10/11/19 at 18:00; Stop 10/11/19 at 18:01; Status DC Iohexol (Omnipaque 300 Mg/ml) 75 ml 1X ONCE IV Last administered on 10/11/19at 18:32; Start 10/11/19 at 18:15; Stop 10/11/19 at 18:16; Status DC Info (CONTRAST GIVEN -- Rx MONITORING) 1 each PRN DAILY PRN MC SEE COMMENTS; Start 10/11/19 at 18:15; Stop 10/13/19 at 18:14 Lactulose (Lactulose) 20 gm 1X ONCE PO Last administered on 10/11/19at 19:01; Start 10/11/19 at 19:00; Stop 10/11/19 at 19:01; Status DC Magnesium Sulfate/ Dextrose 100 ml @ 100 mls/hr 1X ONCE IV Last administered on 10/11/19at 19:01; Start 10/11/19 at 19:00; Stop 10/11/19 at 19:59; Status DC Ondansetron HCl (Zofran) 4 mg PRN Q8HRS PRN IV NAUSEA/VOMITING; Start 10/11/19 at 20:00; Stop 10/12/19 at 12:37; Status DC Ondansetron HCl (Zofran) 4 mg PRN Q4HRS PRN IV NAUSEA/VOMITING; Start 10/12/19 at 12:45 Bisacodyl (Dulcolax Supp) 10 mg PRN DAILY PRN RC CONSTIPATION, 1ST CHOICE; Start 10/12/19 at 12:45 Diclofenac Sodium (Voltaren) 100 chela TID TP Last administered on 10/13/19at 08:06 ; Start 10/12/19 at 14:00 Docusate Sodium (Enemeez) 283 mg PRN DAILY PRN RC CONSTIPATION, 2ND CHOICE; Start 10/12/19 at 12:45 Furosemide (Lasix) 20 mg DAILY PO Last administered on 10/13/19at 08:06; Start 10/12/19 at 13:00 Insulin Glargine (Lantus Syringe) 20 unit QHS SQ Last administered on 10/12/19at 21:06; Start 10/12/19 at 21:00 Albuterol/ Ipratropium (Duoneb) 3 ml RTQID NEB ; Start 10/12/19 at 13:00; Stop 10/12/19 at 13:02; Status DC Lactulose (Lactulose) 20 gm TID PO Last administered on 10/13/19 08:06; Start 10/12/19 at 14:00 Levothyroxine Sodium (Synthroid) 75 mcg DAILYAC PO Last administered on 10/13/19at 07:31; Start 10/12/19 at 13:00 Lidocaine (Lidoderm) 1 patch QHS TP Last administered on 10/12/19at 21:06; Start 10/12/19 at 21:00 Nicotine (Nicoderm Cq 21mg) 1 patch DAILY TD Last administered on 10/13/19at 08:06; Start 10/12/19 at 13:00 Pantoprazole Sodium (Protonix) 40 mg DAILYAC PO Last administered on 10/13/19 07:31; Start 10/12/19 at 13:00 Senna/Docusate Sodium (Senna Plus) 2 tab PRN QHS PRN PO CONSTIPATION; Start 10/12/19 at 12:45 Tramadol HCl (Ultram) 50 mg PRN Q6HRS PRN PO PAIN; Start 10/12/19 at 12:45 Lactulose (Lactulose) 20 gm TID PO ; Start 10/12/19 at 14:00; Status UNV Insulin Human Lispro (HumaLOG) 0-7 UNITS TIDACHC SQ Last administered on 10/13/19at 12:25; Start 10/12/19 at 16:30 Dextrose (Dextrose 50%-Water Syringe) 12.5 gm PRN Q15MIN PRN IV SEE COMMENTS; Start 10/12/19 at 12:45 Miscellaneous (Lidoderm Patch Removal) 1 ea DAILY MC ; Start 10/13/19 at 09:00 Albuterol Sulfate (Ventolin Neb Soln) 2.5 mg PRN Q6HRS PRN NEB WHEEZING; Start 10/12/19 at 13:15 Active Scripts Active Humalog (Insulin Lispro) 100 Unit/1 Ml Insuln.pen 0 Units SQ QIDACHS 14 Days Tramadol Hcl 50 Mg Tablet 50 Mg PO PRN Q6HRS PRN 28 Days Lantus (Insulin Glargine,Hum.rec.anlog) 100 Unit/1 Ml Vial 20 Unit SQ QHS 30 Days Pantoprazole Sodium (Pantoprazole Sodium) 40 Mg Tablet.dr 40 Mg PO DAILYAC 30 Days Reported Furosemide 20 Mg Tablet 20 Mg PO DAILY Protonix (Pantoprazole Sodium) 40 Mg Tablet.dr 40 Mg PO DAILYAC Levothyroxine Sodium 75 Mcg Tablet 75 Mcg PO DAILYAC Glimepiride 1 Mg Tablet 1 Tab PO DAILY Metformin Hcl 500 Mg Tablet 500 Mg PO BIDWMEALS Lactulose 20 Gm/30 Ml Solution 20 Gm PO TID [sodium chloride tab] 1 Gm PO TID Duoneb 0.5-3(2.5) Mg/3 Ml (Albuterol/Ipratropium) 3 Ml Ampul.neb 3 Ml NEB QID Ambien (Zolpidem Tartrate) 5 Mg Tablet 5 Mg PO HS NICODERM CQ 21mg (Nicotine) 1 Each Patch.td24 1 Patch TD DAILY Lidocaine PATCH (Lidocaine) 1 Each Adh..patch 1 Each TP QHS REMOVE AFTER 12 HOURS Voltaren (Diclofenac Sodium) 100 Gm Gel..gram. 100 Gm TP TID Ergocalciferol (Ergocalciferol (Vitamin D2)) 8,000 Unit/1 Ml Drops 50,000 Unit PO QM Senna Plus Tablet (Sennosides/Docusate Sodium) 1 Each Tablet 2 Each PO PRN QHS PRN Enemeez (Docusate Sodium) 283 Mg/5 Ml Enema 5 Ml RC DAILY PRN 30 Days Dulcolax (Bisacodyl) 10 Mg Supp.rect 10 Mg RC PRN DAILY PRN Milk Of Magnesia (Magnesium Hydroxide) 2,400 Mg/10 Ml Oral.susp 2,400 Mg PO PRN QID PRN Mintox Plus Tablet Chewable (Mag Hydrox/Al Hydrox/Simeth) 1 Each Tab.chew 2 Each PO PRN Q3HRS PRN Amlodipine Besylate 10 Mg Tablet 5 Mg PO DAILY Vitals/I & O Vital Sign - Last 24 Hours 10/12/19 10/12/19 10/12/19 10/12/19 15:00 19:45 20:00 23:50 Temp 98.3 98.1 97.0 98.3 98.1 97.0 Pulse 96 88 83 Resp 20 20 14 B/P (MAP) 94/66 (75) 110/74 (86) 100/85 (90) Pulse Ox 94 95 98 O2 Delivery Room Air Room Air Room Air Room Air 10/13/19 10/13/19 10/13/19 10/13/19 02:47 07:00 08:00 11:02 Temp 97.2 97.6 98.3 97.2 97.6 98.3 Pulse 82 75 79 Resp 16 20 20 B/P (MAP) 100/72 (81) 96/66 (76) 103/71 (82) Pulse Ox 98 97 97 O2 Delivery Room Air Room Air Room Air Room Air Intake and Output 10/12/19 10/12/19 10/13/19 15:00 23:00 07:00 Intake Total 740 ml 320 ml 520 ml Output Total 100 ml Balance 740 ml 220 ml 520 ml HERBIE PIPER MD October 13, 2019 13:12
[2019-10-13 15:16] VITALS: BP 118/82
[2019-10-13 19:00] VITALS: BP 101/65
[2019-10-13] MEDS: LIDOCAINE (700MG/PATCH) PATCH. TP SCH (21:00)
[2019-10-13] MEDS: IPRATRPIUM/ALBUTEROL 0.5/2.5MG 3 ML NEBU. NEB SCH (21:22)
[2019-10-13] MEDS: INSULIN GLARGINE SYRINGE. SQ SCH (22:36)
[2019-10-13 23:00] VITALS: BP 112/70
[2019-10-14 03:00] VITALS: BP 99/65
[2019-10-14] MEDS: PANTOPRAZOLE 40 MG TABLET.DR. PO SCH (05:42)
[2019-10-14] MEDS: LEVOTHYROXINE 75 MCG TABLET PO SCH (05:42)
[2019-10-14 07:00] VITALS: BP 104/63
[2019-10-14] MEDS: INSULIN LISPRO 300 UNITS/3 ML VIAL. SQ SCH ×4 (07:30→22:53)
[2019-10-14] MEDS: IPRATRPIUM/ALBUTEROL 0.5/2.5MG 3 ML NEBU. NEB SCH ×4 (07:41→20:19)
--- NOTE | 2019-10-14 08:15 | EKG ---
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
[2019-10-14] MEDS: PATCH REMOVAL. MC SCH (08:32)
[2019-10-14] MEDS: LACTULOSE 20 GM/30 ML SOLUTION. PO SCH ×3 (08:35→22:35)
[2019-10-14] MEDS: NICOTINE 21MG PATCH. TD SCH (08:40)
[2019-10-14] MEDS: DICLOFENAC SODIUM 1% TOPICAL GEL 100GM TUBE. TP SCH ×3 (08:47→22:49)
[2019-10-14] MEDS: FUROSEMIDE 20 MG TABLET PO SCH (09:00)
--- NOTE | 2019-10-14 10:12 | PDOC ---
PROGRESS NOTES Chief Complaint Chief Complaint Acute toxic encephalopathy - hepatic given his confusion, lack of BM and elevated ammonia level. he seems better with TID lactulose. . 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 confused, edema. on lasix, aldactone, aggressive lactulose Hyponatremia - likely related to liver disease vs nutrition. Given fluid challenge in ED, became more edematous Lactic acidosis - likely related to fluid overload. Will diurese, may need albumin DM2 - basal bolus plus insulin Moderate-severe protein calorie malnutrition - related to his cirrhosis HTN - cont meds COPD - prn nebs Nephrolithiasis - asymptomatic Severe protein calorie malnutrition - based on nutritional status, likely nutritional deficit and liver disease. 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 Patient is alert and oriented to person only. Reports chronic shortness of breath and abdominal discomfort related to ascites. Patient states that he quit drinking heavily about 6 months ago. He denies fever chills sweats nausea vomiting. He denies any melena or hematemesis. No recent travel or sick contacts. Notes he had not had a BM in at least 4 days prior to admit. Seen in 02/2018 for ascites - underwent paracentesis at that time and was on spironolactone and furosemide. Labs significant for WBC 8.8, Hb 13.8, platelets 199, NA 132, K4.2, creatinine 1.2, glucose 231, magnesium 1.6, bilirubin 1.6, AST 56, ALT 54, alkaline phosphatase 131, albumin 2.7, lactic acid 3.7, ammonia 111, INR 1.1 ABG on room air was pH 7.47 PCO2 31 PO2 73. He was tested for COVID 19 in ED. Admitted for further care. 10/13, consult GI PT and OT, he is weak and can barely feed himself, mayneed rehab cont other meds, encourage PO intake his hepatic labs look good, INR 1.1, bili 1.3, will try rocephin to clear him up, urine may have UTI, was a dirty catch 2 days ago, hopefully it might improve his status Vitals Vitals Vital Signs Date Time Temp Pulse Resp B/P (MAP) Pulse Ox O2 Delivery O2 Flow Rate FiO2 10/14/19 07:41 95 Room Air 10/14/19 07:00 98.5 78 18 104/63 (77) 98.5 Physical Exam General: Alert, Cooperative, mild distress Lungs: Clear Abdomen: Normal bowel sounds, Soft, No tenderness, No hepatosplenomegaly, No masses Extremities: No clubbing, No cyanosis, No edema, Normal pulses, No tenderness/swelling Skin: No rashes, No breakdown, No significant lesion Labs LABS Laboratory Tests Test 10/13/19 11:33 10/13/19 16:40 10/13/19 21:10 10/14/19 08:01 Glucose (Fingerstick) 237 mg/dL (70-99) 156 mg/dL (70-99) 150 mg/dL (70-99) 136 mg/dL (70-99) Assessment and Plan Assessmemt and Plan Problems Medical Problems: (1) Generalized weakness Status: Acute (2) Hepatic encephalopathy Status: Acute (3) Hypomagnesemia Status: Acute Comment Review of Relevant I have reviewed the following items gordon (where applicable) has been applied. Labs Laboratory Tests Test 10/12/19 11:55 10/12/19 18:32 10/12/19 21:01 10/13/19 07:40 Glucose (Fingerstick) 167 mg/dL (70-99) 173 mg/dL (70-99) 137 mg/dL (70-99) 137 mg/dL (70-99) Test 10/13/19 11:33 10/13/19 16:40 10/13/19 21:10 10/14/19 08:01 Glucose (Fingerstick) 237 mg/dL (70-99) 156 mg/dL (70-99) 150 mg/dL (70-99) 136 mg/dL (70-99) Laboratory Tests Test 10/13/19 11:33 10/13/19 16:40 10/13/19 21:10 10/14/19 08:01 Glucose (Fingerstick) 237 mg/dL (70-99) 156 mg/dL (70-99) 150 mg/dL (70-99) 136 mg/dL (70-99) Microbiology 10/11/19 Blood Culture - Preliminary, Resulted NO GROWTH AFTER 2 DAYS Medications Current Medications Multivitamins 10 ml/Thiamine HCl 100 mg/Folic Acid 1 mg/Sodium Chloride 1,011.2 ml @ 1,000.088 mls/hr 1X ONCE IV Last administered on 10/11/19at 17:37; Start 10/11/19 at 17:30; Stop 10/11/19 at 18:30; Status DC Albuterol/ Ipratropium (Duoneb) 6 ml 1X ONCE NEB Last administered on 10/11/19at 18:00; Start 10/11/19 at 18:00; Stop 10/11/19 at 18:01; Status DC Iohexol (Omnipaque 300 Mg/ml) 75 ml 1X ONCE IV Last administered on 10/11/19at 18:32; Start 10/11/19 at 18:15; Stop 10/11/19 at 18:16; Status DC Info (CONTRAST GIVEN -- Rx MONITORING) 1 each PRN DAILY PRN MC SEE COMMENTS; Start 10/11/19 at 18:15; Stop 10/13/19 at 18:14; Status DC Lactulose (Lactulose) 20 gm 1X ONCE PO Last administered on 10/11/19at 19:01; Start 10/11/19 at 19:00; Stop 10/11/19 at 19:01; Status DC Magnesium Sulfate/ Dextrose 100 ml @ 100 mls/hr 1X ONCE IV Last administered on 10/11/19at 19:01; Start 10/11/19 at 19:00; Stop 10/11/19 at 19:59; Status DC Ondansetron HCl (Zofran) 4 mg PRN Q8HRS PRN IV NAUSEA/VOMITING; Start 10/11/19 at 20:00; Stop 10/12/19 at 12:37; Status DC Ondansetron HCl (Zofran) 4 mg PRN Q4HRS PRN IV NAUSEA/VOMITING; Start 10/12/19 at 12:45 Bisacodyl (Dulcolax Supp) 10 mg PRN DAILY PRN RC CONSTIPATION, 1ST CHOICE; Start 10/12/19 at 12:45 Diclofenac Sodium (Voltaren) 100 chela TID TP Last administered on 10/13/19at 14:00; Start 10/12/19 at 14:00; Stop 10/13/19 at 20:40; Status DC Docusate Sodium (Enemeez) 283 mg PRN DAILY PRN RC CONSTIPATION, 2ND CHOICE; Start 10/12/19 at 12:45 Furosemide (Lasix) 20 mg DAILY PO Last administered on 10/13/19 08:06; Start 10/12/19 at 13:00 Insulin Glargine (Lantus Syringe) 20 unit QHS SQ Last administered on 10/13/19at 22:36; Start 10/12/19 at 21:00 Albuterol/ Ipratropium (Duoneb) 3 ml RTQID NEB ; Start 10/12/19 at 13:00; Stop 10/12/19 at 13:02; Status DC Lactulose (Lactulose) 20 gm TID PO Last administered on 10/14/19 08:35; Start 10/12/19 at 14:00 Levothyroxine Sodium (Synthroid) 75 mcg DAILYAC PO Last administered on 10/14/19 05:42; Start 10/12/19 at 13:00 Lidocaine (Lidoderm) 1 patch QHS TP Last administered on 10/12/19 21:06; Start 10/12/19 at 21:00 Nicotine (Nicoderm Cq 21mg) 1 patch DAILY TD Last administered on 10/14/19 08:40; Start 10/12/19 at 13:00 Pantoprazole Sodium (Protonix) 40 mg DAILYAC PO Last administered on 10/14/19 05:42; Start 10/12/19 at 13:00 Senna/Docusate Sodium (Senna Plus) 2 tab PRN QHS PRN PO CONSTIPATION; Start 10/12/19 at 12:45 Tramadol HCl (Ultram) 50 mg PRN Q6HRS PRN PO PAIN; Start 10/12/19 at 12:45 Lactulose (Lactulose) 20 gm TID PO ; Start 10/12/19 at 14:00; Status UNV Insulin Human Lispro (HumaLOG) 0-7 UNITS TIDACHC SQ Last administered on 10/13/19at 17:11; Start 10/12/19 at 16:30 Dextrose (Dextrose 50%-Water Syringe) 12.5 gm PRN Q15MIN PRN IV SEE COMMENTS; Start 10/12/19 at 12:45 Miscellaneous (Lidoderm Patch Removal) 1 ea DAILY MC Last administered on 10/13/19at 09:00; Start 10/13/19 at 09:00 Albuterol Sulfate (Ventolin Neb Soln) 2.5 mg PRN Q6HRS PRN NEB WHEEZING; Start 10/12/19 at 13:15 Albuterol/ Ipratropium (Duoneb) 3 ml RTQID NEB Last administered on 10/14/19at 07:41; Start 10/13/19 at 20:00 Diclofenac Sodium (Voltaren) 1 chela TID TP Last administered on 10/14/19at 08:47; Start 10/13/19 at 21:00 Active Scripts Active Humalog (Insulin Lispro) 100 Unit/1 Ml Insuln.pen 0 Units SQ QIDACHS 14 Days Tramadol Hcl 50 Mg Tablet 50 Mg PO PRN Q6HRS PRN 28 Days Lantus (Insulin Glargine,Hum.rec.anlog) 100 Unit/1 Ml Vial 20 Unit SQ QHS 30 Days Pantoprazole Sodium (Pantoprazole Sodium) 40 Mg Tablet. 40 Mg PO DAILYAC 30 Days Reported Furosemide 20 Mg Tablet 20 Mg PO DAILY Protonix (Pantoprazole Sodium) 40 Mg Tablet.dr 40 Mg PO DAILYAC Levothyroxine Sodium 75 Mcg Tablet 75 Mcg PO DAILYAC Glimepiride 1 Mg Tablet 1 Tab PO DAILY Metformin Hcl 500 Mg Tablet 500 Mg PO BIDWMEALS Lactulose 20 Gm/30 Ml Solution 20 Gm PO TID [sodium chloride tab] 1 Gm PO TID Duoneb 0.5-3(2.5) Mg/3 Ml (Albuterol/Ipratropium) 3 Ml Ampul.neb 3 Ml NEB QID Ambien (Zolpidem Tartrate) 5 Mg Tablet 5 Mg PO HS NICODERM CQ 21mg (Nicotine) 1 Each Patch.td24 1 Patch TD DAILY Lidocaine PATCH (Lidocaine) 1 Each Adh..patch 1 Each TP QHS REMOVE AFTER 12 HOURS Voltaren (Diclofenac Sodium) 100 Gm Gel..gram. 100 Gm TP TID Ergocalciferol (Ergocalciferol (Vitamin D2)) 8,000 Unit/1 Ml Drops 50,000 Unit PO QM Senna Plus Tablet (Sennosides/Docusate Sodium) 1 Each Tablet 2 Each PO PRN QHS PRN Enemeez (Docusate Sodium) 283 Mg/5 Ml Enema 5 Ml RC DAILY PRN 30 Days Dulcolax (Bisacodyl) 10 Mg Supp.rect 10 Mg RC PRN DAILY PRN Milk Of Magnesia (Magnesium Hydroxide) 2,400 Mg/10 Ml Oral.susp 2,400 Mg PO PRN QID PRN Mintox Plus Tablet Chewable (Mag Hydrox/Al Hydrox/Simeth) 1 Each Tab.chew 2 Each PO PRN Q3HRS PRN Amlodipine Besylate 10 Mg Tablet 5 Mg PO DAILY Vitals/I & O Vital Sign - Last 24 Hours 10/13/19 10/13/19 10/13/19 10/13/19 11:02 15:16 19:00 19:45 Temp 98.3 97.7 99.5 98.3 97.7 99.5 Pulse 79 88 77 Resp 20 20 18 B/P (MAP) 103/71 (82) 118/82 (94) 101/65 (77) Pulse Ox 97 93 95 O2 Delivery Room Air Room Air Room Air Room Air 10/13/19 10/13/19 10/14/19 10/14/19 21:28 23:00 03:00 07:00 Temp 98.7 98.4 98.5 98.7 98.4 98.5 Pulse 90 78 78 Resp 18 18 18 B/P (MAP) 112/70 (84) 99/65 (76) 104/63 (77) Pulse Ox 97 95 94 94 O2 Delivery Room Air Room Air Room Air Room Air 10/14/19 07:41 Pulse Ox 95 O2 Delivery Room Air Intake and Output 10/13/19 10/13/19 10/14/19 15:00 23:00 07:00 Intake Total 340 ml 120 ml 240 ml Balance 340 ml 120 ml 240 ml MARIEL DOMINGUEZ MD October 14, 2019 10:12
[2019-10-14 11:30] VITALS: BP 109/66
--- NOTE | 2019-10-14 11:33 | NUR ---
SW following. Discussed with RN, pt from home with . PT/OT ordered, IV rocephin for possible UTI, GI consulted. Pt has been to [facility] in the past. SW will continue to follow for discharge planning needs.
--- NOTE | 2019-10-14 11:35 | PDOC ---
Subjective: Subjective: Please see GI consult from 10/01/19 for same. Discharged to home the next day. Recent UTI - unclear if treated. To ER on 10/10 via EMS - notes suggest for weakness and SOA. Can tell me he came back to the hospital because he's sick. Cannot elaborate. Says his handles his medications. Objective: Objective: D/w nurse - to have PT/OT. Had to feed him this morning but ate well. Two stools charted yesterday. D/w Dr. Mei - started on Rocephin for ?UTI Vital Signs: Vital Signs Date Time Temp Pulse Resp B/P (MAP) Pulse Ox O2 Delivery O2 Flow Rate FiO2 10/14/19 08:10 Room Air 10/14/19 07:41 95 10/14/19 07:00 98.5 78 18 104/63 (77) 98.5 Labs: Laboratory Tests Test 10/13/19 11:33 10/13/19 16:40 10/13/19 21:10 10/14/19 08:01 Glucose (Fingerstick) 237 mg/dL 156 mg/dL 150 mg/dL 136 mg/dL URINE CULTURE Final Final report URINE CULTURE RES 1 Final Comment Coagulase negative Staphylococcus species, not Staphylococcus saprophyticus. 25,000-50,000 colony forming units per mL Based on susceptibility to oxacillin this isolate would be susceptible to: *Penicillinase-stable penicillins, such as: Cloxacillin, Dicloxacillin, Nafcillin *Beta-lactam combination agents, such as: Amoxicillin-clavulanic acid, Ampicillin-sulbactam, Piperacillin-tazobactam *Oral cephems, such as: Cefaclor, Cefdinir, Cefpodoxime, Cefprozil, Cefuroxime, Cephalexin, Loracarbef *Parenteral cephems, such as: Cefazolin, Cefepime, Cefotaxime, Cefotetan, Ceftaroline, Ceftizoxime, Ceftriaxone, Cefuroxime *Carbapenems, such as: Doripenem, Ertapenem, Imipenem, Meropenem ANTIMICROBIAL SUSCEPTIBILITY Final Comment S = Susceptible; I = Intermediate; R = Resistant P = Positive; N = Negative MICS are expressed in micrograms per mL Antibiotic RSLT#1 RSLT#2 RSLT#3 RSLT#4 Ciprofloxacin S<=0.5 Gentamicin S<=0.5 Levofloxacin S =0.25 Nitrofurantoin S<=16 Oxacillin S<=0.25 Penicillin R =0.25 Rifampin R>=32 Tetracycline S =2 Trimethoprim/Sulfa S<=10 Vancomycin S =2 Performed at: DA - [facility] BLOOD CULTURE Preliminary NO GROWTH AFTER 2 DAYS Imaging: C/A/P CT 10/10 IMPRESSION: 1. No acute process identified in the chest. 2. Gallbladder is mildly distended. Correlate with symptomatology to determine the need for further evaluation with ultrasound. Abd doppler 09/30 Impression: Normal portal and hepatic venous flow identified. No upper abdominal ascites. Cholelithiasis noted. PE: GEN: chronically ill LUNGS: diminished HEART: RRR ABD: round, soft, ?mildly distended, non-tender EXTREMITY: No edema NEURO/PSYCH: knows he's at [facility], says the year in 2009, can't recall who's president, says 100-7 is 97. A/P: Hepatic encephalopathy -h/o cirrhosis (Hep C, alcohol) -h/o ascites/paracentesis -h/o esophageal varices/banding (last 08/2019) Chronic anemia (has been better last couple admissions), mildly abnormal LFTs Cholelithiasis - on past imaging Recent UTI -- Past workup per last consult note and recent imaging (this admission and last) as above. Agree w/ lactulose - increase/adjust for goal of 3-4 stools daily. Can add Xifaxan. Compliance questioned in the past, though this time is without BLE edema - ?hemanth ing diuretics at home - on Lasix only here. Recheck labs tomorrow. MELD 13 with most recent. Antibiotics per primary. Hemodynamically unstable?: No Is patient in severe pain?: No Is NPO status required?: No DANNA PRIETO October 14, 2019 11:35 IRISH VILLALOBOS MD October 14, 2019 11:44
[2019-10-14] MEDS ORDERED: LACTULOSE 20 GM/30 ML SOLUTION. PO PRN (11:45)
[2019-10-14] MEDS: cefTRIAXone IV Push 1 GM VIAL. IVP SCH (12:31)
--- NOTE | 2019-10-14 13:24 | NUR ---
IP: Pt is COVID negative.
--- NOTE | 2019-10-14 15:15 | NUR ---
Wound Care Wound Type/Assessment: R knee abrasion with scab, crusty, draining some purulent material from under scab, wound bed dusky. Treatment Recommendations/Plan: Moist healing with Xeroform/vasoline gauze, and cover with foam dressing, change every 3-4 days.. Education provided: to pt re: frequent repositioning Offloading surface/device: N/A Recommended Referrals/Tests: N/A Discharge Recommendations for dressings: same as treatment plan
[2019-10-14 15:43] VITALS: BP 108/65
[2019-10-14 19:00] VITALS: BP 115/66
[2019-10-14] MEDS: LIDOCAINE (700MG/PATCH) PATCH. TP SCH (21:00)
[2019-10-14] MEDS: rifAXIMin 550 MG TABLET PO SCH (22:33)
[2019-10-14] MEDS: INSULIN GLARGINE SYRINGE. SQ SCH (22:40)
[2019-10-14 23:00] VITALS: BP 107/74
[2019-10-15 03:00] VITALS: BP 102/62
[2019-10-15] MEDS: LEVOTHYROXINE 75 MCG TABLET PO SCH (05:17)
[2019-10-15] MEDS: PANTOPRAZOLE 40 MG TABLET.DR. PO SCH (05:17)
[2019-10-15] MEDS: traMADol 50 MG TABLET PO PRN ×2 (05:18→20:47)
[2019-10-15 05:34] LABS: ALBUMIN 2.4 g/dL (3.4-5.0); ALBUMIN/GLOBULIN RATIO 0.5 (1.0-1.7); CALCIUM 8.5 mg/dL (8.5-10.1); CREATININE 0.9 mg/dL (0.7-1.3); POTASSIUM 3.7 mmol/L (3.5-5.1); TOTAL BILIRUBIN 1.3 mg/dL (0.2-1.0); TOTAL PROTEIN 6.9 g/dL (6.4-8.2)
[2019-10-15 07:00] VITALS: BP 112/78
[2019-10-15] MEDS: IPRATRPIUM/ALBUTEROL 0.5/2.5MG 3 ML NEBU. NEB SCH ×4 (07:59→20:51)
--- NOTE | 2019-10-15 08:50 | PDOC ---
PROGRESS NOTES Chief Complaint Chief Complaint IMPRESSION Acute toxic encephalopathy - hepatic given his confusion, lack of BM and elevated ammonia level. TID lactulose. . 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 confused, edema. on lasix, aldactone, aggressive lactulose Hyponatremia - likely related to liver disease vs nutrition. Given fluid challenge in ED, became more edematous Lactic acidosis - likely related to fluid overload. Will diurese, may need albumin DM2 - basal bolus plus insulin Moderate-severe protein calorie malnutrition - related to his cirrhosis HTN - cont meds uti on rocephin COPD - prn nebs Nephrolithiasis - asymptomatic Severe protein calorie malnutrition - based on nutritional status, likely nutritional deficit and liver disease. 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 Patient is alert and oriented to person only. Reports chronic shortness of breath and abdominal discomfort related to ascites. Patient states that he quit drinking heavily about 6 months ago. He denies fever chills sweats nausea vomiting. He denies any melena or hematemesis. No recent travel or sick contacts. Notes he had not had a BM in at least 4 days prior to admit. Seen in 02/2018 for ascites - underwent paracentesis at that time and was on spironolactone and furosemide. Labs significant for WBC 8.8, Hb 13.8, platelets 199, NA 132, K4.2, creatinine 1.2, glucose 231, magnesium 1.6, bilirubin 1.6, AST 56, ALT 54, alkaline phosphatase 131, albumin 2.7, lactic acid 3.7, ammonia 111, INR 1.1 ABG on room air was pH 7.47 PCO2 31 PO2 73. He was tested for COVID 19 in ED. Admitted for further care. 10/14, consult G PT and OT, he is weak mayneed rehab * 2 weeks Discharge Recommendations 10/14 * Acute Rehab facility cont other meds, encourage PO intake his hepatic labs look good, INR 1.1, bili 1.3, will try rocephin to clear him up, urine may have UTI, was a dirty catch 2 days ago, hopefully it might improve his status Vitals Vitals Vital Signs Date Time Temp Pulse Resp B/P (MAP) Pulse Ox O2 Delivery O2 Flow Rate FiO2 10/15/19 08:04 97 Room Air 10/15/19 07:00 97.8 73 18 112/78 (89) 97.8 Physical Exam General: Alert, Cooperative, mild distress Lungs: Clear Abdomen: Normal bowel sounds, Soft, No tenderness, No hepatosplenomegaly, No masses Extremities: No clubbing, No cyanosis, No edema, Normal pulses, No tender ness/swelling Skin: No rashes, No breakdown, No significant lesion Labs LABS Laboratory Tests Test 10/14/19 11:58 10/14/19 16:57 10/14/19 21:29 10/15/19 04:00 Glucose (Fingerstick) 257 mg/dL (70-99) 221 mg/dL (70-99) 241 mg/dL (70-99) Sodium Level 137 mmol/L (136-145) Potassium Level 3.7 mmol/L (3.5-5.1) Chloride Level 103 mmol/L (98-107) Carbon Dioxide Level 24 mmol/L (21-32) Anion Gap 10 (6-14) Blood Urea Nitrogen 16 mg/dL (8-26) Creatinine 0.9 mg/dL (0.7-1.3) Estimated GFR (Cockcroft-Gault) 85.0 BUN/Creatinine Ratio 18 (6-20) Glucose Level 161 mg/dL (70-99) Calcium Level 8.5 mg/dL (8.5-10.1) Total Bilirubin 1.3 mg/dL (0.2-1.0) Aspartate Amino Transf (AST/SGOT) 46 U/L (15-37) Alanine Aminotransferase (ALT/SGPT) 44 U/L (16-63) Alkaline Phosphatase 110 U/L (46-116) Total Protein 6.9 g/dL (6.4-8.2) Albumin 2.4 g/dL (3.4-5.0) Albumin/Globulin Ratio 0.5 (1.0-1.7) Test 10/15/19 07:24 Glucose (Fingerstick) 172 mg/dL (70-99) Assessment and Plan Assessmemt and Plan Problems Medical Problems: (1) Generalized weakness Status: Acute (2) Hepatic encephalopathy Status: Acute (3) Hypomagnesemia Status: Acute * Pt presents reclined in bed. 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 8 LEAH with hand rail. Pt reports I with most ADLs/IADLs. Pt uses cane occasionally around home. Pt denies any falls in the last year. Pt still drives but does not do grocery shopping. 10/14/2019 Pt confirms above Other Precautions * fall risk; bed/chair alarm Level of Consciousness * Alert Follows Direction * Simple Behavior * Cooperative Safety/Judgement * Tactile Cues Required * Decreased Safety * Cognition Deficit * Verbal Cues Required * Due to Medical Status * Decreased Insight * Due to Strength/ROM Defic * Problem Solving Deficits * Due to Coordination Defic Sensation * Decreased Sensation Location * Left Lower Extremity * Right Lower Extremity Coordination * Gross motor cood. decr. Activity Tolerance * Poor + Activity Tolerance/ Vitals * No signs of distress noted with activity Range of Motion * WFL BLE Strength * grossly 3-/5 BLE Sitting Balance * 2+ balances w/one UE Standing Balance * 2 balances w/ both UEs PT PAIN COMMENTS * pt denied pain Rolling Left Assistance Required * Min Assistance Rolling Right Assistance Required * Min Assistance Supine to Sit Assistance Required * Min Assistance Bed Mobility Comments * verbal cues for technique Transfer Assistance Required * Min Assistance Transfer Type * Sit to Stand Transfer Assistive Device * Roller Walker Transfer Comments * verbal/tactile cues for hand placement and safe appraoch to chair Ambulation Assistance Required * Min Assistance Ambulation Assistive Device * Roller Walker Ambulation Distance * 25' Gait Impairments * Antalgic * Flexed Posture * Slow Lauryn * Short Step Length * Shuffling Gait * Decreased Foot Clearance Ambulation Comments * Unsteady gait Other Information * Pt with limitations in strength, balance, safety, activity tolerance, coordination which limit pt indep [facility] functional mobility. Pt would benefit from acute rehab prior to return home to maximize functional indep Rehab Potential to Achieve Goals * Fair Learning Preferences * One-on-One Instruction * Demonstration * Discussion Factors Facilitating Goal Achievement * Motivation level * Supportive caregiver * Prior level of function * Cognition * Response to training Problem List (body system elements) * Impaired fnctnl mobility * Strength * Cognition * Balance * Coordination * Knowledge-safe techniques Clinical Presentation * Evolving Evaluation Complexity Level * Moderate Complexity Patient condition at conclusion of therapy * Pt in chair * Personal alarm on * Call light in reach * Phone in reach * PtIn no apparent distress * Pt denies further needs Communicated Patient Care With (Name, Title) * Gianna WORRELL Goal 1 - Bed Mobility Assistance Required * Independent Goal 1 Assessment * Appropriate - Continue Goal 2 - Transfers Assistance Required * Independent Goal 2 - Transfer Type * Sit to Stand Goal 2 Assessment * Appropriate - Continue Goal 3 - Ambulation Assistance Required * Independent Goal 3 - Ambulation Distance * 100' Goal 3 - Ambulation Device * Roller Walker Goal 4 - Stairs Assistance Required * Independent Goal 4 - Number of Stairs * 2-4 Goal 4 - Device on Stairs * Rail on Right Goal 4 Assessment * Appropriate - Continue Treatment Plan * Therapeutic Exercise * Bed Mobility Training * Transfer training * Gait Training * Dynamic Balance Training Frequency of Treatment Expected * 7 visits/week Duration of Treatment Expected * 2 weeks Discharge Recommendations * Acute Rehab facility Discharge Recommendation - DME * Rolling Walker needed * in order to complete ADLs * and ambulation safely Comment Review of Relevant I have reviewed the following items gordon (where applicable) has been applied. Labs Laboratory Tests Test 10/13/19 11:33 10/13/19 16:40 10/13/19 21:10 10/14/19 08:01 Glucose (Fingerstick) 237 mg/dL (70-99) 156 mg/dL (70-99) 150 mg/dL (70-99) 136 mg/dL (70-99) Test 10/14/19 11:58 10/14/19 16:57 10/14/19 21:29 10/15/19 04:00 Glucose (Fingerstick) 257 mg/dL (70-99) 221 mg/dL (70-99) 241 mg/dL (70-99) Sodium Level 137 mmol/L (136-145) Potassium Level 3.7 mmol/L (3.5-5.1) Chloride Level 103 mmol/L (98-107) Carbon Dioxide Level 24 mmol/L (21-32) Anion Gap 10 (6-14) Blood Urea Nitrogen 16 mg/dL (8-26) Creatinine 0.9 mg/dL (0.7-1.3) Estimated GFR (Cockcroft-Gault) 85.0 BUN/Creatinine Ratio 18 (6-20) Glucose Level 161 mg/dL (70-99) Calcium Level 8.5 mg/dL (8.5-10.1) Total Bilirubin 1.3 mg/dL (0.2-1.0) Aspartate Amino Transf (AST/SGOT) 46 U/L (15-37) Alanine Aminotransferase (ALT/SGPT) 44 U/L (16-63) Alkaline Phosphatase 110 U/L (46-116) Total Protein 6.9 g/dL (6.4-8.2) Albumin 2.4 g/dL (3.4-5.0) Albumin/Globulin Ratio 0.5 (1.0-1.7) Test 10/15/19 07:24 Glucose (Fingerstick) 172 mg/dL (70-99) Laboratory Tests Test 10/14/19 11:58 10/14/19 16:57 10/14/19 21:29 10/15/19 04:00 Glucose (Fingerstick) 257 mg/dL (70-99) 221 mg/dL (70-99) 241 mg/dL (70-99) Sodium Level 137 mmol/L (136-145) Potassium Level 3.7 mmol/L (3.5-5.1) Chloride Level 103 mmol/L (98-107) Carbon Dioxide Level 24 mmol/L (21-32) Anion Gap 10 (6-14) Blood Urea Nitrogen 16 mg/dL (8-26) Creatinine 0.9 mg/dL (0.7-1.3) Estimated GFR (Cockcroft-Gault) 85.0 BUN/Creatinine Ratio 18 (6-20) Glucose Level 161 mg/dL (70-99) Calcium Level 8.5 mg/dL (8.5-10.1) Total Bilirubin 1.3 mg/dL (0.2-1.0) Aspartate Amino Transf (AST/SGOT) 46 U/L (15-37) Alanine Aminotransferase (ALT/SGPT) 44 U/L (16-63) Alkaline Phosphatase 110 U/L (46-116) Total Protein 6.9 g/dL (6.4-8.2) Albumin 2.4 g/dL (3.4-5.0) Albumin/Globulin Ratio 0.5 (1.0-1.7) Test 10/15/19 07:24 Glucose (Fingerstick) 172 mg/dL (70-99) Microbiology 10/11/19 Blood Culture - Preliminary, Resulted NO GROWTH AFTER 3 DAYS Medications Current Medications Multivitamins 10 ml/Thiamine HCl 100 mg/Folic Acid 1 mg/Sodium Chloride 1,011.2 ml @ 1,000.088 mls/hr 1X ONCE IV Last administered on 10/11/19at 17:37; Start 10/11/19 at 17:30; Stop 10/11/19 at 18:30; Status DC Albuterol/ Ipratropium (Duoneb) 6 ml 1X ONCE NEB Last administered on 10/11/19at 18:00; Start 10/11/19 at 18:00; Stop 10/11/19 at 18:01; Status DC Iohexol (Omnipaque 300 Mg/ml) 75 ml 1X ONCE IV Last administered on 10/11/19at 18:32; Start 10/11/19 at 18:15; Stop 10/11/19 at 18:16; Status DC Info (CONTRAST GIVEN -- Rx MONITORING) 1 each PRN DAILY PRN MC SEE COMMENTS; Start 10/11/19 at 18:15; Stop 10/13/19 at 18:14; Status DC Lactulose (Lactulose) 20 gm 1X ONCE PO Last administered on 10/11/19at 19:01; Start 10/11/19 at 19:00; Stop 10/11/19 at 19:01; Status DC Magnesium Sulfate/ Dextrose 100 ml @ 100 mls/hr 1X ONCE IV Last administered on 10/11/19at 19:01; Start 10/11/19 at 19:00; Stop 10/11/19 at 19:59; Status DC Ondansetron HCl (Zofran) 4 mg PRN Q8HRS PRN IV NAUSEA/VOMITING; Start 10/11/19 at 20:00; Stop 10/12/19 at 12:37; Status DC Ondansetron HCl (Zofran) 4 mg PRN Q4HRS PRN IV NAUSEA/VOMITING; Start 10/12/19 at 12:45 Bisacodyl (Dulcolax Supp) 10 mg PRN DAILY PRN RC CONSTIPATION, 1ST CHOICE; Start 10/12/19 at 12:45 Diclofenac Sodium (Voltaren) 100 chela TID TP Last administered on 10/13/19at 14:00; Start 10/12/19 at 14:00; Stop 10/13/19 at 20:40; Status DC Docusate Sodium (Enemeez) 283 mg PRN DAILY PRN RC CONSTIPATION, 2ND CHOICE; Start 10/12/19 at 12:45 Furosemide (Lasix) 20 mg DAILY PO Last administered on 10/13/19at 08:06; Start 10/12/19 at 13:00 Insulin Glargine (Lantus Syringe) 20 unit QHS SQ Last administered on 10/14/19at 22:40; Start 10/12/19 at 21:00 Albuterol/ Ipratropium (Duoneb) 3 ml RTQID NEB ; Start 10/12/19 at 13:00; Stop 10/12/19 at 13:02; Status DC Lactulose (Lactulose) 20 gm TID PO Last administered on 10/14/19at 22:35; Start 10/12/19 at 14:00 Levothyroxine Sodium (Synthroid) 75 mcg DAILYAC PO Last administered on 10/15/19 05:17; Start 10/12/19 at 13:00 Lidocaine (Lidoderm) 1 patch QHS TP Last administered on 10/14/19at 21:00; Start 10/12/19 at 21:00 Nicotine (Nicoderm Cq 21mg) 1 patch DAILY TD Last administered on 10/14/19 08:40; Start 10/12/19 at 13:00 Pantoprazole Sodium (Protonix) 40 mg DAILYAC PO Last administered on 10/15/19 05:17; Start 10/12/19 at 13:00 Senna/Docusate Sodium (Senna Plus) 2 tab PRN QHS PRN PO CONSTIPATION; Start 10/12/19 at 12:45 Tramadol HCl (Ultram) 50 mg PRN Q6HRS PRN PO PAIN Last administered on 10/15/19at 05:18; Start 10/12/19 at 12:45 Lactulose (Lactulose) 20 gm TID PO ; Start 10/12/19 at 14:00; Status UNV Insulin Human Lispro (HumaLOG) 0-7 UNITS TIDACHC SQ Last administered on 10/14/19at 22:53; Start 10/12/19 at 16:30 Dextrose (Dextrose 50%-Water Syringe) 12.5 gm PRN Q15MIN PRN IV SEE COMMENTS; Start 10/12/19 at 12:45 Miscellaneous (Lidoderm Patch Removal) 1 ea DAILY MC Last administered on 10/13/19at 09:00; Start 10/13/19 at 09:00 Albuterol Sulfate (Ventolin Neb Soln) 2.5 mg PRN Q6HRS PRN NEB WHEEZING; Start 10/12/19 at 13:15 Albuterol/ Ipratropium (Duoneb) 3 ml RTQID NEB Last administered on 10/15/19at 07:59; Start 10/13/19 at 20:00 Diclofenac Sodium (Voltaren) 1 chela TID TP Last administered on 10/14/19at 22:49; Start 10/13/19 at 21:00 Ceftriaxone Sodium (Rocephin) 1 gm Q24H IVP Last administered on 10/14/19at 12:31; Start 10/14/19 at 11:00 Lactulose (Lactulose) 20 gm BID PRN PO hepatic encephalopathy; Start 10/14/19 at 11:45 Rifaximin (Xifaxan) 550 mg Q12HR PO Last administered on 10/14/19at 22:33; Start 10/14/19 at 21:00 Active Scripts Active Humalog (Insulin Lispro) 100 Unit/1 Ml Insuln.pen 0 Units SQ QIDACHS 14 Days Tramadol Hcl 50 Mg Tablet 50 Mg PO PRN Q6HRS PRN 28 Days Lantus (Insulin Glargine,Hum.rec.anlog) 100 Unit/1 Ml Vial 20 Unit SQ QHS 30 Days Pantoprazole Sodium (Pantoprazole Sodium) 40 Mg Tablet. 40 Mg PO DAILYAC 30 Days Reported Furosemide 20 Mg Tablet 20 Mg PO DAILY Protonix (Pantoprazole Sodium) 40 Mg Tablet.dr 40 Mg PO DAILYAC Levothyroxine Sodium 75 Mcg Tablet 75 Mcg PO DAILYAC Glimepiride 1 Mg Tablet 1 Tab PO DAILY Metformin Hcl 500 Mg Tablet 500 Mg PO BIDWMEALS Lactulose 20 Gm/30 Ml Solution 20 Gm PO TID [sodium chloride tab] 1 Gm PO TID Duoneb 0.5-3(2.5) Mg/3 Ml (Albuterol/Ipratropium) 3 Ml Ampul.neb 3 Ml NEB QID Ambien (Zolpidem Tartrate) 5 Mg Tablet 5 Mg PO HS NICODERM CQ 21mg (Nicotine) 1 Each Patch.td24 1 Patch TD DAILY Lidocaine PATCH (Lidocaine) 1 Each Adh..patch 1 Each TP QHS REMOVE AFTER 12 HOURS Voltaren (Diclofenac Sodium) 100 Gm Gel..gram. 100 Gm TP TID Ergocalciferol (Ergocalciferol (Vitamin D2)) 8,000 Unit/1 Ml Drops 50,000 Unit PO QM Senna Plus Tablet (Sennosides/Docusate Sodium) 1 Each Tablet 2 Each PO PRN QHS PRN Enemeez (Docusate Sodium) 283 Mg/5 Ml Enema 5 Ml RC DAILY PRN 30 Days Dulcolax (Bisacodyl) 10 Mg Supp.rect 10 Mg RC PRN DAILY PRN Milk Of Magnesia (Magnesium Hydroxide) 2,400 Mg/10 Ml Oral.susp 2,400 Mg PO PRN QID PRN Mintox Plus Tablet Chewable (Mag Hydrox/Al Hydrox/Simeth) 1 Each Tab.chew 2 Each PO PRN Q3HRS PRN Amlodipine Besylate 10 Mg Tablet 5 Mg PO DAILY Vitals/I & O Vital Sign - Last 24 Hours 10/14/19 10/14/19 10/14/19 10/14/19 11:23 11:30 15:43 16:02 Temp 97.9 98.3 97.9 98.3 Pulse 76 79 Resp 18 18 B/P (MAP) 109/66 (80) 108/65 (79) Pulse Ox 95 94 O2 Delivery Room Air Room Air Room Air Room Air 10/14/19 10/14/19 10/14/19 10/14/19 19:00 20:00 20:21 23:00 Temp 98.1 98.3 98.1 98.3 Pulse 85 91 Resp 20 20 B/P (MAP) 115/66 (82) 107/74 (85) Pulse Ox 97 97 98 O2 Delivery Room Air Room Air Room Air Room Air 10/15/19 10/15/19 10/15/19 10/15/19 03:00 05:18 06:18 07:00 Temp 99.0 97.8 99.0 97.8 Pulse 90 73 Resp 20 18 18 18 B/P (MAP) 102/62 (75) 112/78 (89) Pulse Ox 95 95 95 96 O2 Delivery Room Air Room Air Room Air Room Air 10/15/19 08:04 Pulse Ox 97 O2 Delivery Room Air Intake and Output 10/14/19 10/14/19 10/15/19 15:00 23:00 07:00 Intake Total 320 ml 440 ml 0 ml Balance 320 ml 440 ml 0 ml Nutrition Consultation Dietary Evaluation: Recommendations by RD: Dietary education by RD, Increase Calorie Intake, Protein supplementation Comments: ADA/Cardiac diet with Glucerna supplements Expected Outcomes/Goals: to meet >75% est nutr needs Interpretation of weight loss: >7.5% in 3 months Malnutrition Findings: Body Fat Depletion (Non Severe: Mild Depletion Weight Status: Appropriate Fluid Accumulation (Non-Severe: Mild depletion Hemodynamically unstable?: No Is patient in severe pain?: No Is NPO status required?: No DAMIEN LYNCH MD October 15, 2019 08:50
[2019-10-15] MEDS: PATCH REMOVAL. MC SCH (09:00)
[2019-10-15] MEDS: rifAXIMin 550 MG TABLET PO SCH ×2 (09:05→20:45)
[2019-10-15] MEDS: NICOTINE 21MG PATCH. TD SCH (09:05)
[2019-10-15] MEDS: LACTULOSE 20 GM/30 ML SOLUTION. PO SCH ×3 (09:05→20:45)
[2019-10-15] MEDS: FUROSEMIDE 20 MG TABLET PO SCH (09:05)
[2019-10-15] MEDS: DICLOFENAC SODIUM 1% TOPICAL GEL 100GM TUBE. TP SCH ×3 (09:07→21:48)
[2019-10-15] MEDS: INSULIN LISPRO 300 UNITS/3 ML VIAL. SQ SCH ×4 (09:11→21:00)
--- NOTE | 2019-10-15 09:43 | PDOC ---
Subjective: Subjective: Feels fine. Objective: Objective: Stool charted today. Vital Signs: Vital Signs Date Time Temp Pulse Resp B/P (MAP) Pulse Ox O2 Delivery O2 Flow Rate FiO2 10/15/19 08:04 97 Room Air 10/15/19 07:00 97.8 73 18 112/78 (89) 97.8 Labs: Laboratory Tests Test 10/14/19 11:58 10/14/19 16:57 10/14/19 21:29 10/15/19 04:00 Glucose (Fingerstick) 257 mg/dL 221 mg/dL 241 mg/dL Sodium Level 137 mmol/L Potassium Level 3.7 mmol/L Chloride Level 103 mmol/L Carbon Dioxide Level 24 mmol/L Anion Gap 10 Blood Urea Nitrogen 16 mg/dL Creatinine 0.9 mg/dL Estimated GFR (Cockcroft-Gault) 85.0 BUN/Creatinine Ratio 18 Glucose Level 161 mg/dL Calcium Level 8.5 mg/dL Total Bilirubin 1.3 mg/dL Aspartate Amino Transf (AST/SGOT) 46 U/L Alanine Aminotransferase (ALT/SGPT) 44 U/L Alkaline Phosphatase 110 U/L Total Protein 6.9 g/dL Albumin 2.4 g/dL Albumin/Globulin Ratio 0.5 Test 10/15/19 07:24 Glucose (Fingerstick) 172 mg/dL BLOOD CULTURE Preliminary NO GROWTH AFTER 3 DAYS PE: GEN: chronically ill but NAD - breakfast tray w/ pancakes consumed, nurse pres ent passing meds LUNGS: diminished HEART: RRR ABD: stable distention, non-tender NEURO/PSYCH: says the year is 2011, knows Margarita is president, says 100-7 is 27 A/P: Hepatic encephalopathy, recent UTI (10/01/19), debility -- Continue lactulose, Xifaxan. MELD 11. Hemodynamically unstable?: No Is patient in severe pain?: No Is NPO status required?: No DANNA PRIETO October 15, 2019 09:43
[2019-10-15 11:00] VITALS: BP 101/71
[2019-10-15 11:30] LABS: BASO % 0 % (0-3); EOS # 0.2 x10^3/uL (0.0-0.7); EOS % 2 % (0-3); HEMATOCRIT 37.4 % (39.0-53.0); HEMOGLOBIN 12.5 g/dL (13.0-17.5); LYMPH # 1.9 x10^3/uL (1.0-4.8); LYMPH % 20 % (24-48); MEAN CORPUSCULAR HEMOGLOBIN 32 pg (25-35); MEAN CORPUSCULAR HGB CONC 33 g/dL (31-37); MEAN CORPUSCULAR VOLUME 94 fL (79-100); MONO # 1.4 x10^3/uL (0.0-1.1); MONO % 16 % (0-9); NEUT # 5.6 x10^3/uL (1.8-7.7); NEUT % 61 % (31-73); PLATELET COUNT 159 x10^3/uL (140-400); RED BLOOD COUNT 3.98 x10^6/uL (4.30-5.70); RED CELL DISTRIBUTION WIDTH 20.1 % (11.5-14.5); WHITE BLOOD COUNT 9.1 x10^3/uL (4.0-11.0)
--- NOTE | 2019-10-15 11:38 | NUR ---
KONSTANTIN following. Discussed with RN, PT/OT recommending acute rehab. KONSTANTIN met with pt (no isolation precautions at the time). Pt stated it would be better if SW contacts his , Violeta ([phone]). KONSTANTIN contacted Violeta, she would like pt to go to [facility] where he went last time. Violeta requested pt's ammonia level be checked, as his PCP had recommended it when sending him to [facility] - KONSTANTIN passed on to Dr. Espana. KONSTANTIN phoned and faxed referral to [facility] (ph: [phone], fax: [phone]), awaiting acceptance decision and insurance auth. GM notified. Addendum: 10/15/19 at 1305 by FREDIS PRYOR [facility] declined to take pt, did not give reason. Violeta's preference earlier was [facility], stating no other facilities take his insurance. KONSTANTIN had called other facilities to determine insurance. [facility], [facility] all do not accept pt's insurance. KONSTANTIN left voicemail messages for [facility] ([phone]), [facility] ([phone]) and [facility] ([phone]). KONSTANTIN contacted Violeta back to notify of progress and determine back up plan. Violeta advised [place] is too far and plans to take pt back home with home health resumption of home health. Violeta also advised does not take pt's insurance. Pt was on services with [facility]. SW to fax clinicals and discharge paperwork when ready to discharge. Dr. Espana notified of denial from [facility]. KONSTANTIN will continue to follow. Addendum: 10/15/19 at 1617 by FREDIS PRYOR KONSTANTIN confirmed pt is on services with [facility]. Clinicals to be faxed tomorrow (10/16/2019).
[2019-10-15] MEDS: cefTRIAXone IV Push 1 GM VIAL. IVP SCH (11:51)
[2019-10-15 15:00] VITALS: BP 96/58
[2019-10-15 19:00] VITALS: BP 109/69
[2019-10-15] MEDS: LACTOBACILLUS RHAMNOSUS GG 1 CAPSULE. PO SCH (20:45)
[2019-10-15] MEDS: LIDOCAINE (700MG/PATCH) PATCH. TP SCH (20:46)
[2019-10-15] MEDS: INSULIN GLARGINE SYRINGE. SQ SCH (21:47)
[2019-10-15 23:00] VITALS: BP 116/80
[2019-10-16 03:00] VITALS: BP 93/60
--- NOTE | 2019-10-16 03:50 | NUR ---
[facility] see paper charting.
[2019-10-16 07:00] VITALS: BP 110/68
[2019-10-16] MEDS: INSULIN LISPRO 300 UNITS/3 ML VIAL. SQ SCH ×4 (07:30→21:50)
[2019-10-16] MEDS: IPRATRPIUM/ALBUTEROL 0.5/2.5MG 3 ML NEBU. NEB SCH ×4 (07:47→19:39)
[2019-10-16] MEDS: rifAXIMin 550 MG TABLET PO SCH ×2 (08:22→21:00)
[2019-10-16] MEDS: LACTULOSE 20 GM/30 ML SOLUTION. PO SCH ×3 (08:22→21:00)
[2019-10-16] MEDS: LACTOBACILLUS RHAMNOSUS GG 1 CAPSULE. PO SCH ×2 (08:22→21:39)
[2019-10-16] MEDS: LEVOTHYROXINE 75 MCG TABLET PO SCH (08:22)
[2019-10-16] MEDS: PANTOPRAZOLE 40 MG TABLET.DR. PO SCH (08:22)
[2019-10-16] MEDS: FUROSEMIDE 20 MG TABLET PO SCH (08:23)
[2019-10-16] MEDS: PATCH REMOVAL. MC SCH (08:23)
[2019-10-16] MEDS: DICLOFENAC SODIUM 1% TOPICAL GEL 100GM TUBE. TP SCH ×3 (08:24→21:00)
[2019-10-16] MEDS: NICOTINE 21MG PATCH. TD SCH (08:24)
--- NOTE | 2019-10-16 09:24 | PDOC ---
Subjective: Subjective: No complaints. Says hasn't pooped "even though I drank a gallon of that stuff." Objective: Objective: Plans for home health. Vital Signs: Vital Signs Date Time Temp Pulse Resp B/P (MAP) Pulse Ox O2 Delivery O2 Flow Rate FiO2 10/16/19 07:00 98.0 76 18 110/68 (82) 98 Room Air 98.0 Labs: Laboratory Tests Test 10/15/19 11:00 10/15/19 15:15 10/15/19 16:40 10/15/19 21:26 Glucose (Fingerstick) 220 mg/dL 246 mg/dL 132 mg/dL Ammonia 61 mcmol/L Test 10/16/19 07:20 Glucose (Fingerstick) 124 mg/dL URINE CULTURE RES 1 Preliminary Gram negative rods Greater than 100,000 colony forming units per mL URINE CULTURE RES 2 Preliminary Gram negative rods PE: GEN: NAD - up to chair, breakfast tray 100% consumed, looks better today LUNGS: CTAB HEART: RRR ABD: non-tender NEURO/PSYCH: probably still confused A/P: Hepatic encephalopathy, UTI -- Check KUB, otherwise continue same. Hemodynamically unstable?: No Is patient in severe pain?: No Is NPO status required?: No DANNA PRIETO October 16, 2019 09:24
--- NOTE | 2019-10-16 10:05 | PDOC ---
PROGRESS NOTES Chief Complaint Chief Complaint DISCHARGE DX Acute toxic encephalopathy - hepatic encephalopathy given his confusion, lack of BM and elevated ammonia level. TID lactulose. . 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 confused, edema. on lasix, aldactone, aggressive lactulose Hyponatremia - likely related to liver disease vs nutrition. Given fluid challenge in ED, became more edematous Lactic acidosis - likely related to fluid overload. Will diurese, may need albumin DM2 - basal bolus plus insulin Moderate-severe protein calorie malnutrition - related to his cirrhosis HTN - cont meds uti on rocephin COPD - prn nebs Nephrolithiasis - asymptomatic Severe protein calorie malnutrition - based on nutritional status, likely nutr itional deficit and liver disease. 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 Patient is alert and oriented to person only. Reports chronic shortness of breath and abdominal discomfort related to ascites. Patient states that he quit drinking heavily about 6 months ago. He denies fever chills sweats nausea vomiting. He denies any melena or hematemesis. No recent travel or sick contacts. Notes he had not had a BM in at least 4 days prior to admit. Seen in 02/2018 for ascites - underwent paracentesis at that time and was on spironolactone and furosemide. Labs significant for WBC 8.8, Hb 13.8, platelets 199, NA 132, K4.2, creatinine 1.2, glucose 231, magnesium 1.6, bilirubin 1.6, AST 56, ALT 54, alkaline phosphatase 131, albumin 2.7, lactic acid 3.7, ammonia 111, INR 1.1 ABG on room air was pH 7.47 PCO2 31 PO2 73. He was tested for COVID 19 in ED. Admitted for further care. 10/14, consult [facility] PT and OT, he is weak mayneed rehab * 2 weeks Discharge Recommendations 10/14 * Acute Rehab facility cont other meds, encourage PO intake his hepatic labs look good, INR 1.1, bili 1.3, will try rocephin to clear him up, urine may have UTI, was a dirty catch 2 days ago, hopefully it might improve his status Vitals Vitals Vital Signs Date Time Temp Pulse Resp B/P (MAP) Pulse Ox O2 Delivery O2 Flow Rate FiO2 10/16/19 07:00 98.0 76 18 110/68 (82) 98 Room Air 98.0 Physical Exam Physical Exam feels better, eating lunch, NAD General: Alert, Oriented X3, Cooperative, No acute distress Heart: Regular rate, Normal S1 Lungs: Clear Abdomen: Normal bowel sounds, Soft, No tenderness, No hepatosplenomegaly, No masses Extremities: No clubbing, No cyanosis, No edema, Normal pulses, No tenderness/swelling Skin: No rashes, No breakdown, No significant lesion Labs LABS URINE CULTURE Final Final report URINE CULTURE RES 1 Final Citrobacter youngae Greater than 100,000 colony forming units per mL URINE CULTURE RES 2 Final Klebsiella pneumoniae Greater than 100,000 colony forming units per mL Cefazolin <=4 ug/mL Cefazolin with an TYLER <=16 predicts susceptibility to the oral agents cefaclor, cefdinir, cefpodoxime, cefprozil, cefuroxime, cephalexin, and loracarbef when used for therapy of uncomplicated urinary tract infections due to E. coli, Klebsiella pneumoniae, and Proteus mirabilis. ANTIMICROBIAL SUSCEPTIBILITY Final Comment S = Susceptible; I = Intermediate; R = Resistant P = Positive; N = Negative MICS are expressed in micrograms per mL Antibiotic RSLT#1 RSLT#2 RSLT#3 RSLT#4 Amoxicillin/Clavulanic Acid R =R S<=2 Ampicillin R>=32 Cefazolin R>=64 Cefepime S<=0.12 Ceftriaxone S<=0.25 Cefuroxime R =R S<=1 Ciprofloxacin S<=0.25 S<=0.25 Ertapenem S<=0.12 Gentamicin S<=1 S<=1 Imipenem S<=0.25 S<=0.25 Levofloxacin S<=0.12 Meropenem S<=0.25 S<=0.25 Nitrofurantoin I =64 I =64 Piperacillin/Tazobactam S<=4 Tetracycline S =2 S<=1 Tobramycin S<=1 S<=1 Trimethoprim/Sulfa S<=20 S<=2 Laboratory Tests Test 10/15/19 11:00 10/15/19 15:15 10/15/19 16:40 10/15/19 21:26 Glucose (Fingerstick) 220 mg/dL (70-99) 246 mg/dL (70-99) 132 mg/dL (70-99) Ammonia 61 mcmol/L (11-34) Test 10/16/19 07:20 Glucose (Fingerstick) 124 mg/dL (70-99) Assessment and Plan Assessmemt and Plan Problems Medical Problems: (1) Generalized weakness Status: Acute (2) Hepatic encephalopathy Status: Acute (3) Hypomagnesemia Status: Acute * Pt denies further needs Communicated Patient Care With (Name, Title) * Olivia RN; Rani LEDEZMA Goal 1 - Bed Mobility Assistance Required * Independent Goal 1 Assessment * Appropriate - Continue Goal 2 - Transfers Assistance Required * Independent Goal 2 - Transfer Type * Sit to Stand Goal 2 Assessment * Appropriate - Continue Goal 3 - Ambulation Assistance Required * Independent Goal 3 - Ambulation Distance * 100' Goal 3 - Ambulation Device * Roller Walker Goal 4 - Stairs Assistance Required * Independent Goal 4 - Number of Stairs * 2-4 Goal 4 - Device on Stairs * Rail on Right Goal 4 Assessment * Appropriate - Continue Treatment Plan * Therapeutic Exercise * Bed Mobility Training * Transfer training * Gait Training * Dynamic Balance Training Frequency of Treatment Expected * 7 visits/week Duration of Treatment Expected * 2 weeks Discharge Recommendations * Acute Rehab facility Discharge Recommendation - DME * Raised Toilet/Commode * Rolling Walker needed * in order to complete ADLs * and ambulation safely Comment Review of Relevant I have reviewed the following items gordon (where applicable) has been applied. Labs Laboratory Tests Test 10/14/19 11:58 10/14/19 16:57 10/14/19 21:29 10/15/19 04:00 Glucose (Fingerstick) 257 mg/dL (70-99) 221 mg/dL (70-99) 241 mg/dL (70-99) White Blood Count 9.1 x10^3/uL (4.0-11.0) Red Blood Count 3.98 x10^6/uL (4.30-5.70) Hemoglobin 12.5 g/dL (13.0-17.5) Hematocrit 37.4 % (39.0-53.0) Mean Corpuscular Volume 94 fL (79-100) Mean Corpuscular Hemoglobin 32 pg (25-35) Mean Corpuscular Hemoglobin Concent 33 g/dL (31-37) Red Cell Distribution Width 20.1 % (11.5-14.5) Platelet Count 159 x10^3/uL (140-400) Neutrophils (%) (Auto) 61 % (31-73) Lymphocytes (%) (Auto) 20 % (24-48) Monocytes (%) (Auto) 16 % (0-9) Eosinophils (%) (Auto) 2 % (0-3) Basophils (%) (Auto) 0 % (0-3) Neutrophils # (Auto) 5.6 x10^3/uL (1.8-7.7) Lymphocytes # (Auto) 1.9 x10^3/uL (1.0-4.8) Monocytes # (Auto) 1.4 x10^3/uL (0.0-1.1) Eosinophils # (Auto) 0.2 x10^3/uL (0.0-0.7) Basophils # (Auto) 0.0 x10^3/uL (0.0-0.2) Sodium Level 137 mmol/L (136-145) Potassium Level 3.7 mmol/L (3.5-5.1) Chloride Level 103 mmol/L (98-107) Carbon Dioxide Level 24 mmol/L (21-32) Anion Gap 10 (6-14) Blood Urea Nitrogen 16 mg/dL (8-26) Creatinine 0.9 mg/dL (0.7-1.3) Estimated GFR (Cockcroft-Gault) 85.0 BUN/Creatinine Ratio 18 (6-20) Glucose Level 161 mg/dL (70-99) Calcium Level 8.5 mg/dL (8.5-10.1) Total Bilirubin 1.3 mg/dL (0.2-1.0) Aspartate Amino Transf (AST/SGOT) 46 U/L (15-37) Alanine Aminotransferase (ALT/SGPT) 44 U/L (16-63) Alkaline Phosphatase 110 U/L (46-116) Total Protein 6.9 g/dL (6.4-8.2) Albumin 2.4 g/dL (3.4-5.0) Albumin/Globulin Ratio 0.5 (1.0-1.7) Test 10/15/19 07:24 10/15/19 11:00 10/15/19 15:15 10/15/19 16:40 Glucose (Fingerstick) 172 mg/dL (70-99) 220 mg/dL (70-99) 246 mg/dL (70-99) Ammonia 61 mcmol/L (11-34) Test 10/15/19 21:26 10/16/19 07:20 Glucose (Fingerstick) 132 mg/dL (70-99) 124 mg/dL (70-99) Laboratory Tests Test 10/15/19 11:00 10/15/19 15:15 10/15/19 16:40 10/15/19 21:26 Glucose (Fingerstick) 220 mg/dL (70-99) 246 mg/dL (70-99) 132 mg/dL (70-99) Ammonia 61 mcmol/L (11-34) Test 10/16/19 07:20 Glucose (Fingerstick) 124 mg/dL (70-99) Microbiology 10/11/19 Urine Culture - Preliminary, Resulted 10/11/19 Urine Culture Result 1 (TYLER) - Preliminary, Resulted 10/11/19 Urine Culture Result 2 (TYLER) - Preliminary, Resulted 10/11/19 Blood Culture - Preliminary, Resulted NO GROWTH AFTER 4 DAYS Medications Current Medications Multivitamins 10 ml/Thiamine HCl 100 mg/Folic Acid 1 mg/Sodium Chloride 1,011.2 ml @ 1,000.088 mls/hr 1X ONCE IV Last administered on 10/11/19at 17:37; Start 10/11/19 at 17:30; Stop 10/11/19 at 18:30; Status DC Albuterol/ Ipratropium (Duoneb) 6 ml 1X ONCE NEB Last administered on 10/11/19at 18:00; Start 10/11/19 at 18:00; Stop 10/11/19 at 18:01; Status DC Iohexol (Omnipaque 300 Mg/ml) 75 ml 1X ONCE IV Last administered on 10/11/19at 18:32; Start 10/11/19 at 18:15; Stop 10/11/19 at 18:16; Status DC Info (CONTRAST GIVEN -- Rx MONITORING) 1 each PRN DAILY PRN MC SEE COMMENTS; Start 10/11/19 at 18:15; Stop 10/13/19 at 18:14; Status DC Lactulose (Lactulose) 20 gm 1X ONCE PO Last administered on 10/11/19at 19:01; Start 10/11/19 at 19:00; Stop 10/11/19 at 19:01; Status DC Magnesium Sulfate/ Dextrose 100 ml @ 100 mls/hr 1X ONCE IV Last administered on 10/11/19at 19:01; Start 10/11/19 at 19:00; Stop 10/11/19 at 19:59; Status DC Ondansetron HCl (Zofran) 4 mg PRN Q8HRS PRN IV NAUSEA/VOMITING; Start 10/11/19 at 20:00; Stop 10/12/19 at 12:37; Status DC Ondansetron HCl (Zofran) 4 mg PRN Q4HRS PRN IV NAUSEA/VOMITING; Start 10/12/19 at 12:45 Bisacodyl (Dulcolax Supp) 10 mg PRN DAILY PRN RC CONSTIPATION, 1ST CHOICE; Start 10/12/19 at 12:45 Diclofenac Sodium (Voltaren) 100 chela TID TP Last administered on 10/13/19at 14:00; Start 10/12/19 at 14:00; Stop 10/13/19 at 20:40; Status DC Docusate Sodium (Enemeez) 283 mg PRN DAILY PRN RC CONSTIPATION, 2ND CHOICE; Start 10/12/19 at 12:45 Furosemide (Lasix) 20 mg DAILY PO Last administered on 10/16/19at 08:23; Start 10/12/19 at 13:00 Insulin Glargine (Lantus Syringe) 20 unit QHS SQ Last administered on 10/15/19at 21:47; Start 10/12/19 at 21:00 Albuterol/ Ipratropium (Duoneb) 3 ml RTQID NEB ; Start 10/12/19 at 13:00; Stop 10/12/19 at 13:02; Status DC Lactulose (Lactulose) 20 gm TID PO Last administered on 10/16/19 08:22; Start 10/12/19 at 14:00 Levothyroxine Sodium (Synthroid) 75 mcg DAILYAC PO Last administered on 10/16/19 08:22; Start 10/12/19 at 13:00 Lidocaine (Lidoderm) 1 patch QHS TP Last administered on 10/15/19 20:46; Start 10/12/19 at 21:00 Nicotine (Nicoderm Cq 21mg) 1 patch DAILY TD Last administered on 10/16/19 08:24; Start 10/12/19 at 13:00 Pantoprazole Sodium (Protonix) 40 mg DAILYAC PO Last administered on 10/16/19 08:22; Start 10/12/19 at 13:00 Senna/Docusate Sodium (Senna Plus) 2 tab PRN QHS PRN PO CONSTIPATION; Start 10/12/19 at 12:45 Tramadol HCl (Ultram) 50 mg PRN Q6HRS PRN PO PAIN Last administered on 10/15/19 20:47; Start 10/12/19 at 12:45 Lactulose (Lactulose) 20 gm TID PO ; Start 10/12/19 at 14:00; Status UNV Insulin Human Lispro (HumaLOG) 0-7 UNITS TIDACHC SQ Last administered on 10/15/19 17:21; Start 10/12/19 at 16:30 Dextrose (Dextrose 50%-Water Syringe) 12.5 gm PRN Q15MIN PRN IV SEE COMMENTS; Start 10/12/19 at 12:45 Miscellaneous (Lidoderm Patch Removal) 1 ea DAILY MC Last administered on 10/16/19 08:23; Start 10/13/19 at 09:00 Albuterol Sulfate (Ventolin Neb Soln) 2.5 mg PRN Q6HRS PRN NEB WHEEZING; Start 10/12/19 at 13:15 Albuterol/ Ipratropium (Duoneb) 3 ml RTQID NEB Last administered on 10/15/19 20:51; Start 10/13/19 at 20:00 Diclofenac Sodium (Voltaren) 1 chela TID TP Last administered on 10/16/19 08:24; Start 10/13/19 at 21:00 Ceftriaxone Sodium (Rocephin) 1 gm Q24H IVP Last administered on 10/15/19at 11:51; Start 10/14/19 at 11:00 Lactulose (Lactulose) 20 gm BID PRN PO hepatic encephalopathy; Start 10/14/19 at 11:45 Rifaximin (Xifaxan) 550 mg Q12HR PO Last administered on 10/16/19at 08:22; Start 10/14/19 at 21:00 Lactobacillus Rhamnosus (Culturelle) 1 cap BID PO Last administered on 10/16/19at 08:22; Start 10/15/19 at 21:00 Active Scripts Active Humalog (Insulin Lispro) 100 Unit/1 Ml Insuln.pen 0 Units SQ QIDACHS 14 Days Tramadol Hcl 50 Mg Tablet 50 Mg PO PRN Q6HRS PRN 28 Days Lantus (Insulin Glargine,Hum.rec.anlog) 100 Unit/1 Ml Vial 20 Unit SQ QHS 30 Days Pantoprazole Sodium (Pantoprazole Sodium) 40 Mg Tablet. 40 Mg PO DAILYAC 30 Days Reported Furosemide 20 Mg Tablet 20 Mg PO DAILY Protonix (Pantoprazole Sodium) 40 Mg Tablet. 40 Mg PO DAILYAC Levothyroxine Sodium 75 Mcg Tablet 75 Mcg PO DAILYAC Glimepiride 1 Mg Tablet 1 Tab PO DAILY Metformin Hcl 500 Mg Tablet 500 Mg PO BIDWMEALS Lactulose 20 Gm/30 Ml Solution 20 Gm PO TID [sodium chloride tab] 1 Gm PO TID Duoneb 0.5-3(2.5) Mg/3 Ml (Albuterol/Ipratropium) 3 Ml Ampul.neb 3 Ml NEB QID Ambien (Zolpidem Tartrate) 5 Mg Tablet 5 Mg PO HS NICODERM CQ 21mg (Nicotine) 1 Each Patch.td24 1 Patch TD DAILY Lidocaine PATCH (Lidocaine) 1 Each Adh..patch 1 Each TP QHS REMOVE AFTER 12 HOURS Voltaren (Diclofenac Sodium) 100 Gm Gel..gram. 100 Gm TP TID Ergocalciferol (Ergocalciferol (Vitamin D2)) 8,000 Unit/1 Ml Drops 50,000 Unit PO QM Senna Plus Tablet (Sennosides/Docusate Sodium) 1 Each Tablet 2 Each PO PRN QHS PRN Enemeez (Docusate Sodium) 283 Mg/5 Ml Enema 5 Ml RC DAILY PRN 30 Days Dulcolax (Bisacodyl) 10 Mg Supp.rect 10 Mg RC PRN DAILY PRN Milk Of Magnesia (Magnesium Hydroxide) 2,400 Mg/10 Ml Oral.susp 2,400 Mg PO PRN QID PRN Mintox Plus Tablet Chewable (Mag Hydrox/Al Hydrox/Simeth) 1 Each Tab.chew 2 Each PO PRN Q3HRS PRN Amlodipine Besylate 10 Mg Tablet 5 Mg PO DAILY Vitals/I & O Vital Sign - Last 24 Hours 10/15/19 10/15/19 10/15/19 10/15/19 11:00 11:51 15:00 15:59 Temp 97.7 97.6 97.7 97.6 Pulse 87 88 Resp 18 18 B/P (MAP) 101/71 (81) 96/58 (71) Pulse Ox 98 96 O2 Delivery Room Air Room Air Room Air Room Air 10/15/19 10/15/19 10/15/19 10/15/19 19:00 20:47 20:51 21:50 Temp 98.3 98.3 Pulse 80 Resp 20 16 24 B/P (MAP) 109/69 (82) Pulse Ox 97 97 O2 Delivery Room Air Room Air 10/15/19 10/16/19 10/16/19 23:00 03:00 07:00 Temp 98.6 98.1 98.0 98.6 98.1 98.0 Pulse 89 76 Resp 18 18 B/P (MAP) 116/80 (92) 93/60 (71) 110/68 (82) Pulse Ox 96 98 O2 Delivery Room Air Intake and Output 10/15/19 10/15/19 10/16/19 15:00 23:00 07:00 Intake Total 240 ml Output Total 0 ml 100 ml Balance 240 ml -100 ml Nutrition Consultation Dietary Evaluation: Recommendations by RD: Dietary education by RD, Increase Calorie Intake, Protein supplementation Comments: ADA/Cardiac diet with Glucerna supplements Expected Outcomes/Goals: to meet >75% est nutr needs Interpretation of weight loss: >7.5% in 3 months Malnutrition Findings: Body Fat Depletion (Non Severe: Mild Depletion Weight Status: Appropriate Fluid Accumulation (Non-Severe: Mild depletion Hemodynamically unstable?: No Is patient in severe pain?: No Is NPO status required?: No DAMIEN LYNCH MD October 16, 2019 10:05
--- NOTE | 2019-10-16 10:40 | RAD ---
KUB INDICATION: Constipation COMPARISON: None. TECHNIQUE: Supine view of the abdomen was obtained. FINDINGS: Scattered abdominal gas throughout the large and small bowel. Moderate colonic stool burden. No free air on this limited supine image. Limited view of the lower chest demonstrates no acute abnormality. Incompletely characterized lumbar spondylosis. IMPRESSION: Scattered abdominal gas throughout the large and small bowel. Moderate colonic stool burden. . Electronically signed by: Ivan Ricardo MD (10/16/2019 10:37 AM) [id number]
--- NOTE | 2019-10-16 10:43 | NUR ---
SW following. Discussed with RN. SW received phone call at 1026 from acute rehab stating they do accept pt's insurance. SW left voicemail for pt's to advise of this and advised SW will be faxing the referral and to let SW know if she still wants pt to go to acute rehab. [facility] faxed referral, awaiting acceptance decision. [facility] will continue to follow. RN notified. Addendum: 10/16/19 at 1433 by FREDIS PRYOR acute rehab declined to take pt due to "not enough complexities". Dr. Espana put in discharge orders, however cancelled due to ammonia still being high. Pt put on low protein diet to help with ammonia level. Ammonia to be retested tomorrow morning (10/17/2019). [facility] will continue to follow.
[2019-10-16] MEDS ORDERED: BISACODYL 5 MG TABLET.DR. PO ONE (10:45)
[2019-10-16 11:00] VITALS: BP 119/70
[2019-10-16] MEDS: cefTRIAXone IV Push 1 GM VIAL. IVP SCH (11:34)
[2019-10-16 12:13] LABS: ALBUMIN 2.4 g/dL (3.4-5.0); ALBUMIN/GLOBULIN RATIO 0.5 (1.0-1.7); CALCIUM 8.5 mg/dL (8.5-10.1); CREATININE 0.9 mg/dL (0.7-1.3); TOTAL BILIRUBIN 1.4 mg/dL (0.2-1.0); TOTAL PROTEIN 6.9 g/dL (6.4-8.2)
--- NOTE | 2019-10-16 12:59 | PDOC3 ---
Discharge Summary Date of Admission: October 12, 2019 Date of Discharge: October 16, 2019 Follow-Up: 3-5 days Admitting Diagnosis comment: DISCHARGE DX Acute toxic encephalopathy - hepatic encephalopathy given his confusion, lack of BM and elevated ammonia level. TID lactulose. . 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 confused, edema. on lasix, aldactone, aggressive lactulose Hyponatremia - likely related to liver disease vs nutrition. Given fluid challenge in ED, became more edematous Lactic acidosis - likely related to fluid overload. Will diurese, may need albu min DM2 - basal bolus plus insulin Moderate-severe protein calorie malnutrition - related to his cirrhosis HTN - cont meds uti on PO AUGMENTIN COPD - prn nebs Nephrolithiasis - asymptomatic Severe protein calorie malnutrition - based on nutritional status, likely nutritional deficit and liver disease. 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 Patient is alert and oriented to person only. Reports chronic shortness of breath and abdominal discomfort related to ascites. Patient states that he quit drinking heavily about 6 months ago. He denies fever chills sweats nausea vomiting. He denies any melena or hematemesis. No recent travel or sick contacts. Notes he had not had a BM in at least 4 days prior to admit. Seen in 02/2018 for ascites - underwent paracentesis at that time and was on spironolactone and furosemide. Labs significant for WBC 8.8, Hb 13.8, platelets 199, NA 132, K4.2, creatinine 1.2, glucose 231, magnesium 1.6, bilirubin 1.6, AST 56, ALT 54, alkaline phosphatase 131, albumin 2.7, lactic acid 3.7, ammonia 111, INR 1.1 ABG on room air was pH 7.47 PCO2 31 PO2 73. He was tested for COVID 19 in ED. Admitted for further care. 10/14, consult [facility] PT and OT, he is weak mayneed rehab * 2 weeks Discharge Recommendations 10/14 * Acute Rehab facility cont other meds, encourage PO intake his hepatic labs look good, INR 1.1, bili 1.3, will try rocephin to clear him up, urine may have UTI, was a dirty catch 2 days ago, hopefully it might improve his status Vitals Vitals Vital Signs Date Time Temp Pulse Resp B/P (MAP) Pulse Ox O2 Delivery O2 Flow Rate FiO2 10/16/19 07:00 98.0 76 18 110/68 (82) 98 Room Air 98.0 Physical Exam Physical Exam feels better, eating lunch, NAD General: Alert, Oriented X3, Cooperative, No acute distress Heart: Regular rate, Normal S1 Lungs: Clear Abdomen: Normal bowel sounds, Soft, No tenderness, No hepatosplenomegaly, No masses Extremities: No clubbing, No cyanosis, No edema, Normal pulses, No tenderness/swelling Skin: No rashes, No breakdown, No significant lesion Labs LABS URINE CULTURE Final Final report URINE CULTURE RES 1 Final Citrobacter youngae Greater than 100,000 colony forming units per mL URINE CULTURE RES 2 Final Klebsiella pneumoniae Greater than 100,000 colony forming units per mL Cefazolin <=4 ug/mL Cefazolin with an TYLER <=16 predicts susceptibility to the oral agents cefaclor, cefdinir, cefpodoxime, cefprozil, cefuroxime, cephalexin, and loracarbef when used for therapy of uncomplicated urinary tract infections due to E. coli, Klebsiella pneumoniae, and Proteus mirabilis. ANTIMICROBIAL SUSCEPTIBILITY Final Comment S = Susceptible; I = Intermediate; R = Resistant P = Positive; N = Negative MICS are expressed in micrograms per mL Antibiotic RSLT#1 RSLT#2 RSLT#3 RSLT#4 Amoxicillin/Clavulanic Acid R =R S<=2 Ampicillin R>=32 Cefazolin R>=64 Cefepime S<=0.12 Ceftriaxone S<=0.25 Cefuroxime R =R S<=1 Ciprofloxacin S<=0.25 S<=0.25 Ertapenem S<=0.12 Gentamicin S<=1 S<=1 Imipenem S<=0.25 S<=0.25 Levofloxacin S<=0.12 Meropenem S<=0.25 S<=0.25 Nitrofurantoin I =64 I =64 Piperacillin/Tazobactam S<=4 Tetracycline S =2 S<=1 Tobramycin S<=1 S<=1 Trimethoprim/Sulfa S<=20 S<=2 FINAL DIAGNOSIS Problems Medical Problems: (1) Generalized weakness Status: Acute (2) Hepatic encephalopathy Status: Acute (3) Hypomagnesemia Status: Acute Brief Hospital Course Mr. Ruiz is a 64 old [sex] who presented with [ACUTE METABOLIC ENCEPHALOPATHY ] CONDITION AT DISCHARGE: Improved Discharge Medications Current Medications Multivitamins 10 ml/Thiamine HCl 100 mg/Folic Acid 1 mg/Sodium Chloride 1,011.2 ml @ 1,000.088 mls/hr 1X ONCE IV Last administered on 10/11/19at 17:37; Start 10/11/19 at 17:30; Stop 10/11/19 at 18:30; Status DC Albuterol/ Ipratropium (Duoneb) 6 ml 1X ONCE NEB Last administered on 10/11/19at 18:00; Start 10/11/19 at 18:00; Stop 10/11/19 at 18:01; Status DC Iohexol (Omnipaque 300 Mg/ml) 75 ml 1X ONCE IV Last administered on 10/11/19at 18:32; Start 10/11/19 at 18:15; Stop 10/11/19 at 18:16; Status DC Info (CONTRAST GIVEN -- Rx MONITORING) 1 each PRN DAILY PRN MC SEE COMMENTS; Start 10/11/19 at 18:15; Stop 10/13/19 at 18:14; Status DC Lactulose (Lactulose) 20 gm 1X ONCE PO Last administered on 10/11/19at 19:01; Start 10/11/19 at 19:00; Stop 10/11/19 at 19:01; Status DC Magnesium Sulfate/ Dextrose 100 ml @ 100 mls/hr 1X ONCE IV Last administered on 10/11/19at 19:01; Start 10/11/19 at 19:00; Stop 10/11/19 at 19:59; Status DC Ondansetron HCl (Zofran) 4 mg PRN Q8HRS PRN IV NAUSEA/VOMITING; Start 5/1/20 at 20:00; Stop 10/12/19 at 12:37; Status DC Ondansetron HCl (Zofran) 4 mg PRN Q4HRS PRN IV NAUSEA/VOMITING; Start 10/12/19 at 12:45 Bisacodyl (Dulcolax Supp) 10 mg PRN DAILY PRN RC CONSTIPATION, 1ST CHOICE; Start 10/12/19 at 12:45 Diclofenac Sodium (Voltaren) 100 chela TID TP Last administered on 10/13/19at 14:00; Start 10/12/19 at 14:00; Stop 10/13/19 at 20:40; Status DC Docusate Sodium (Enemeez) 283 mg PRN DAILY PRN RC CONSTIPATION, 2ND CHOICE; Start 10/12/19 at 12:45 Furosemide (Lasix) 20 mg DAILY PO Last administered on 10/16/19at 08:23; Start 10/12/19 at 13:00 Insulin Glargine (Lantus Syringe) 20 unit QHS SQ Last administered on 10/15/19at 21:47; Start 10/12/19 at 21:00 Albuterol/ Ipratropium (Duoneb) 3 ml RTQID NEB ; Start 10/12/19 at 13:00; Stop 10/12/19 at 13:02; Status DC Lactulose (Lactulose) 20 gm TID PO Last administered on 10/16/19 08:22; Start 10/12/19 at 14:00 Levothyroxine Sodium (Synthroid) 75 mcg DAILYAC PO Last administered on 10/16/19 08:22; Start 10/12/19 at 13:00 Lidocaine (Lidoderm) 1 patch QHS TP Last administered on 10/15/19at 20:46; Start 10/12/19 at 21:00 Nicotine (Nicoderm Cq 21mg) 1 patch DAILY TD Last administered on 10/16/19 08:24; Start 10/12/19 at 13:00 Pantoprazole Sodium (Protonix) 40 mg DAILYAC PO Last administered on 10/16/19 08:22; Start 10/12/19 at 13:00 Senna/Docusate Sodium (Senna Plus) 2 tab PRN QHS PRN PO CONSTIPATION; Start 10/12/19 at 12:45 Tramadol HCl (Ultram) 50 mg PRN Q6HRS PRN PO PAIN Last administered on 10/15/19 20:47; Start 10/12/19 at 12:45 Lactulose (Lactulose) 20 gm TID PO ; Start 10/12/19 at 14:00; Status UNV Insulin Human Lispro (HumaLOG) 0-7 UNITS TIDACHC SQ Last administered on 10/16/19at 11:44; Start 10/12/19 at 16:30 Dextrose (Dextrose 50%-Water Syringe) 12.5 gm PRN Q15MIN PRN IV SEE COMMENTS; Start 10/12/19 at 12:45 Miscellaneous (Lidoderm Patch Removal) 1 ea DAILY MC Last administered on 10/16/19 08:23; Start 10/13/19 at 09:00 Albuterol Sulfate (Ventolin Neb Soln) 2.5 mg PRN Q6HRS PRN NEB WHEEZING; Start 10/12/19 at 13:15 Albuterol/ Ipratropium (Duoneb) 3 ml RTQID NEB Last administered on 10/16/19 12:33; Start 10/13/19 at 20:00 Diclofenac Sodium (Voltaren) 1 chela TID TP Last administered on 10/16/19 08:24; Start 10/13/19 at 21:00 Ceftriaxone Sodium (Rocephin) 1 gm Q24H IVP Last administered on 10/16/19 11:34; Start 10/14/19 at 11:00 Lactulose (Lactulose) 20 gm BID PRN PO hepatic encephalopathy; Start 10/14/19 at 11:45 Rifaximin (Xifaxan) 550 mg Q12HR PO Last administered on 10/16/19 08:22; Start 10/14/19 at 21:00 Lactobacillus Rhamnosus (Culturelle) 1 cap BID PO Last administered on 10/16/19 08:22; Start 10/15/19 at 21:00 Bisacodyl (Dulcolax Tab) 5 mg 1X ONCE PO Last administered on 10/16/19 11:34; Start 10/16/19 at 10:45; Stop 10/16/19 at 10:47; Status DC Active Scripts Active Humalog (Insulin Lispro) 100 Unit/1 Ml Insuln.pen 0 Units SQ QIDACHS 14 Days Tramadol Hcl 50 Mg Tablet 50 Mg PO PRN Q6HRS PRN 28 Days Lantus (Insulin Glargine,Hum.rec.anlog) 100 Unit/1 Ml Vial 20 Unit SQ QHS 30 Days Pantoprazole Sodium (Pantoprazole Sodium) 40 Mg Tablet.dr 40 Mg PO DAILYAC 30 Days Reported Furosemide 20 Mg Tablet 20 Mg PO DAILY Protonix (Pantoprazole Sodium) 40 Mg Tablet.dr 40 Mg PO DAILYAC Levothyroxine Sodium 75 Mcg Tablet 75 Mcg PO DAILYAC Glimepiride 1 Mg Tablet 1 Tab PO DAILY Metformin Hcl 500 Mg Tablet 500 Mg PO BIDWMEALS Lactulose 20 Gm/30 Ml Solution 20 Gm PO TID [sodium chloride tab] 1 Gm PO TID Duoneb 0.5-3(2.5) Mg/3 Ml (Albuterol/Ipratropium) 3 Ml Ampul.neb 3 Ml NEB QID Ambien (Zolpidem Tartrate) 5 Mg Tablet 5 Mg PO HS NICODERM CQ 21mg (Nicotine) 1 Each Patch.td24 1 Patch TD DAILY Lidocaine PATCH (Lidocaine) 1 Each Adh..patch 1 Each TP QHS REMOVE AFTER 12 HOURS Voltaren (Diclofenac Sodium) 100 Gm Gel..gram. 100 Gm TP TID Ergocalciferol (Ergocalciferol (Vitamin D2)) 8,000 Unit/1 Ml Drops 50,000 Unit PO QM Senna Plus Tablet (Sennosides/Docusate Sodium) 1 Each Tablet 2 Each PO PRN QHS PRN Enemeez (Docusate Sodium) 283 Mg/5 Ml Enema 5 Ml RC DAILY PRN 30 Days Dulcolax (Bisacodyl) 10 Mg Supp.rect 10 Mg RC PRN DAILY PRN Milk Of Magnesia (Magnesium Hydroxide) 2,400 Mg/10 Ml Oral.susp 2,400 Mg PO PRN QID PRN Mintox Plus Tablet Chewable (Mag Hydrox/Al Hydrox/Simeth) 1 Each Tab.chew 2 Each PO PRN Q3HRS PRN Amlodipine Besylate 10 Mg Tablet 5 Mg PO DAILY Vital Signs Vital Signs Date Time Temp Pulse Resp B/P (MAP) Pulse Ox O2 Delivery O2 Flow Rate FiO2 10/16/19 12:33 95 Room Air 10/16/19 11:00 97.8 75 18 119/70 (86) 97.8 Labs Laboratory Tests Test 10/14/19 16:57 10/14/19 21:29 10/15/19 04:00 10/15/19 07:24 Glucose (Fingerstick) 221 mg/dL (70-99) 241 mg/dL (70-99) 172 mg/dL (70-99) White Blood Count 9.1 x10^3/uL (4.0-11.0) Red Blood Count 3.98 x10^6/uL (4.30-5.70) Hemoglobin 12.5 g/dL (13.0-17.5) Hematocrit 37.4 % (39.0-53.0) Mean Corpuscular Volume 94 fL (79-100) Mean Corpuscular Hemoglobin 32 pg (25-35) Mean Corpuscular Hemoglobin Concent 33 g/dL (31-37) Red Cell Distribution Width 20.1 % (11.5-14.5) Platelet Count 159 x10^3/uL (140-400) Neutrophils (%) (Auto) 61 % (31-73) Lymphocytes (%) (Auto) 20 % (24-48) Monocytes (%) (Auto) 16 % (0-9) Eosinophils (%) (Auto) 2 % (0-3) Basophils (%) (Auto) 0 % (0-3) Neutrophils # (Auto) 5.6 x10^3/uL (1.8-7.7) Lymphocytes # (Auto) 1.9 x10^3/uL (1.0-4.8) Monocytes # (Auto) 1.4 x10^3/uL (0.0-1.1) Eosinophils # (Auto) 0.2 x10^3/uL (0.0-0.7) Basophils # (Auto) 0.0 x10^3/uL (0.0-0.2) Sodium Level 137 mmol/L (136-145) Potassium Level 3.7 mmol/L (3.5-5.1) Chloride Level 103 mmol/L (98-107) Carbon Dioxide Level 24 mmol/L (21-32) Anion Gap 10 (6-14) Blood Urea Nitrogen 16 mg/dL (8-26) Creatinine 0.9 mg/dL (0.7-1.3) Estimated GFR (Cockcroft-Gault) 85.0 BUN/Creatinine Ratio 18 (6-20) Glucose Level 161 mg/dL (70-99) Calcium Level 8.5 mg/dL (8.5-10.1) Total Bilirubin 1.3 mg/dL (0.2-1.0) Aspartate Amino Transf (AST/SGOT) 46 U/L (15-37) Alanine Aminotransferase (ALT/SGPT) 44 U/L (16-63) Alkaline Phosphatase 110 U/L (46-116) Total Protein 6.9 g/dL (6.4-8.2) Albumin 2.4 g/dL (3.4-5.0) Albumin/Globulin Ratio 0.5 (1.0-1.7) Test 10/15/19 11:00 10/15/19 15:15 10/15/19 16:40 10/15/19 21:26 Glucose (Fingerstick) 220 mg/dL (70-99) 246 mg/dL (70-99) 132 mg/dL (70-99) Ammonia 61 mcmol/L (11-34) Test 10/16/19 07:20 10/16/19 11:20 10/16/19 11:31 Glucose (Fingerstick) 124 mg/dL (70-99) 175 mg/dL (70-99) Sodium Level 132 mmol/L (136-145) Potassium Level 5.0 mmol/L (3.5-5.1) Chloride Level 99 mmol/L (98-107) Carbon Dioxide Level 26 mmol/L (21-32) Anion Gap 7 (6-14) Blood Urea Nitrogen 16 mg/dL (8-26) Creatinine 0.9 mg/dL (0.7-1.3) Estimated GFR (Cockcroft-Gault) 85.0 BUN/Creatinine Ratio 18 (6-20) Glucose Level 195 mg/dL (70-99) Calcium Level 8.5 mg/dL (8.5-10.1) Total Bilirubin 1.4 mg/dL (0.2-1.0) Aspartate Amino Transf (AST/SGOT) 51 U/L (15-37) Alanine Aminotransferase (ALT/SGPT) 46 U/L (16-63) Alkaline Phosphatase 117 U/L (46-116) Ammonia 53 mcmol/L (11-34) Total Protein 6.9 g/dL (6.4-8.2) Albumin 2.4 g/dL (3.4-5.0) Albumin/Globulin Ratio 0.5 (1.0-1.7) Laboratory Tests Test 10/15/19 15:15 10/15/19 16:40 10/15/19 21:26 10/16/19 07:20 Ammonia 61 mcmol/L (11-34) Glucose (Fingerstick) 246 mg/dL (70-99) 132 mg/dL (70-99) 124 mg/dL (70-99) Test 10/16/19 11:20 10/16/19 11:31 Sodium Level 132 mmol/L (136-145) Potassium Level 5.0 mmol/L (3.5-5.1) Chloride Level 99 mmol/L (98-107) Carbon Dioxide Level 26 mmol/L (21-32) Anion Gap 7 (6-14) Blood Urea Nitrogen 16 mg/dL (8-26) Creatinine 0.9 mg/dL (0.7-1.3) Estimated GFR (Cockcroft-Gault) 85.0 BUN/Creatinine Ratio 18 (6-20) Glucose Level 195 mg/dL (70-99) Calcium Level 8.5 mg/dL (8.5-10.1) Total Bilirubin 1.4 mg/dL (0.2-1.0) Aspartate Amino Transf (AST/SGOT) 51 U/L (15-37) Alanine Aminotransferase (ALT/SGPT) 46 U/L (16-63) Alkaline Phosphatase 117 U/L (46-116) Ammonia 53 mcmol/L (11-34) Total Protein 6.9 g/dL (6.4-8.2) Albumin 2.4 g/dL (3.4-5.0) Albumin/Globulin Ratio 0.5 (1.0-1.7) Glucose (Fingerstick) 175 mg/dL (70-99) Allergies Allergies Coded Allergies Type Severity Reaction Last Updated Verified No Known Drug Allergies 08/30/19 No Disposition/Orders: D/C to Home Hemodynamically unstable?: No Is patient in severe pain?: No Is NPO status required?: No DAMIEN LYNCH MD October 16, 2019 12:59
[2019-10-16] MEDS ORDERED: LACT1CAP19 PO (13:02)
[2019-10-16] MEDS ORDERED: RIFA550T4 PO (13:02)
[2019-10-16] MEDS ORDERED: AMOX1TAB10 PO (13:02)
--- NOTE | 2019-10-16 13:03 | DISCH ---
DISCHARGE INSTRUCTIONS Condition on Discharge Condition on Discharge: Guarded Activity After Discharge Activity Instructions for Disc: Avoid exertion, Progressive ambulation Lifting Instructions after Dis: No heavy lifting, No pulling or pushing Driving Instructions after Dis: Do not drive Weight Bearing Status after Di: Partial weight bearing Diet after Discharge Diet after Discharge: Diabetic No Calorie Level Liquid Texture: Thin Liquid Checks after Discharge Checks after discharge: Check blood press - daily, Check blood sugar, ac/hs Contacting the DR. after DC Call your doctor for: If your condition worsens Treatment/Equipment after DC Adaptive Equipment Issued: Front wheeled walker DAMIEN LYNCH MD October 16, 2019 13:03
[2019-10-16 15:00] VITALS: BP 124/64
--- NOTE | 2019-10-16 17:30 | NUR ---
PATIENT DID NOT CONSUME DINNER, INSULIN HELD AT THIS TIME.
[2019-10-16 19:00] VITALS: BP 108/70
[2019-10-16] MEDS ORDERED: ZOLPIDEM 5 MG TABLET. PO PRN (20:30)
[2019-10-16] MEDS: AMOXICILLIN/K CLAV 500/125MG TABLET. PO SCH (21:39)
[2019-10-16] MEDS: LIDOCAINE (700MG/PATCH) PATCH. TP SCH (21:41)
[2019-10-16] MEDS: INSULIN GLARGINE SYRINGE. SQ SCH (21:44)
[2019-10-16 23:00] VITALS: BP 119/76
[2019-10-17 03:00] VITALS: BP 120/82
[2019-10-17 07:00] VITALS: BP 104/74
[2019-10-17] MEDS: INSULIN LISPRO 300 UNITS/3 ML VIAL. SQ SCH ×4 (07:30→21:56)
[2019-10-17] MEDS: LEVOTHYROXINE 75 MCG TABLET PO SCH (07:39)
[2019-10-17] MEDS: PANTOPRAZOLE 40 MG TABLET.DR. PO SCH (07:39)
[2019-10-17] MEDS: IPRATRPIUM/ALBUTEROL 0.5/2.5MG 3 ML NEBU. NEB SCH ×4 (07:41→20:56)
--- NOTE | 2019-10-17 08:44 | PDOC ---
PROGRESS NOTES Chief Complaint Chief Complaint DISCHARGE DX Acute toxic encephalopathy - hepatic encephalopathy given his confusion, lack of BM and elevated ammonia level. TID lactulose. . 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 confused, edema. on lasix, aldactone, aggressive lactulose Hyponatremia - likely related to liver disease vs nutrition. Given fluid challenge in ED, became more edematous Lactic acidosis - likely related to fluid overload. Will diurese, may need albumin DM2 - basal bolus plus insulin Moderate-severe protein calorie malnutrition - related to his cirrhosis HTN - cont meds uti on rocephin COPD - prn nebs Nephrolithiasis - asymptomatic Severe protein calorie malnutrition - based on nutritional status, likely nutr itional deficit and liver disease. 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 Patient is alert and oriented to person only. Reports chronic shortness of breath and abdominal discomfort related to ascites. Patient states that he quit drinking heavily about 6 months ago. He denies fever chills sweats nausea vomiting. He denies any melena or hematemesis. No recent travel or sick contacts. Notes he had not had a BM in at least 4 days prior to admit. Seen in 02/2018 for ascites - underwent paracentesis at that time and was on spironolactone and furosemide. Labs significant for WBC 8.8, Hb 13.8, platelets 199, NA 132, K4.2, creatinine 1.2, glucose 231, magnesium 1.6, bilirubin 1.6, AST 56, ALT 54, alkaline phosphatase 131, albumin 2.7, lactic acid 3.7, ammonia 111, INR 1.1 ABG on room air was pH 7.47 PCO2 31 PO2 73. He was tested for COVID 19 in ED. Admitted for further care. 10/14, consult [facility] PT and OT, he is weak mayneed rehab * 2 weeks Discharge Recommendations 10/14 * Acute Rehab facility cont other meds, encourage PO intake his hepatic labs look good, INR 1.1, bili 1.3, will try rocephin to clear him up, urine may have UTI, was a dirty catch 2 days ago, hopefully it might improve his status Vitals Vitals Vital Signs Date Time Temp Pulse Resp B/P (MAP) Pulse Ox O2 Delivery O2 Flow Rate FiO2 10/17/19 07:43 94 Room Air 10/17/19 03:00 98.3 84 18 120/82 (95) 98.3 Physical Exam Physical Exam feels better, , NAD/// NH4 =66 still confused to details General: Alert, Oriented X3, Cooperative, No acute distress Heart: Regular rate, Normal S1 Lungs: Clear Abdomen: Normal bowel sounds, Soft, No tenderness, No hepatosplenomegaly, No masses Extremities: No clubbing, No cyanosis, No edema, Normal pulses, No tenderness/swelling Skin: No rashes, No breakdown, No significant lesion Labs LABS KUB INDICATION: Constipation COMPARISON: None. TECHNIQUE: Supine view of the abdomen was obtained. FINDINGS: Scattered abdominal gas throughout the large and small bowel. Moderate colonic stool burden. No free air on this limited supine image. Limited view of the lower chest demonstrates no acute abnormality. Incompletely characterized lumbar spondylosis. IMPRESSION: Scattered abdominal gas throughout the large and small bowel. Moderate colonic stool burden. . Electronically signed by: John Ricardo MD (10/16/2019 10:37 AM) [id number] DICTATED and SIGNED BY: JOHN RICARDO MD DATE: 10/16/19 1037 Exam: CT of chest, abdomen and pelvis with contrast INDICATION: Hepatomegaly, cough TECHNIQUE: Sequential axial images through the chest, abdomen and pelvis obtained following the administration of 75 mL of Omni 300 IV contrast. Sagittal and coronal reformatted images were reconstructed from the axial data and reviewed. Comparisons: None FINDINGS: Visualized portions of the thyroid are unremarkable. No enlarged mediastinal lymph nodes. Heart size is normal. No pericardial effusion. Thoracic aorta has a normal course and caliber. Pulmonary artery is not enlarged. Airways are patent. No consolidation or pneumothorax. No suspicious lung nodules are identified. No pleural effusion or thickening. Liver, spleen, pancreas and adrenals are unremarkable. Gallbladder is distended. No gallstones are identified. Kidneys demonstrate symmetric enhancement. No perinephric inflammation or hydronephrosis. No renal or ureteral calculi are identified. Bladder is decompressed not well evaluated. Prostate is not enlarged. Large and small bowel are unremarkable. Appendix is normal. No free abdominal air or fluid. No obstruction. Abdominal aorta has a normal course and caliber. Abdominal vasculature is patent. No enlarged abdominal lymph nodes are identified. No suspicious osseous lesions or acute fractures. IMPRESSION: 1. No acute process identified in the chest. 2. Gallbladder is mildly distended. Correlate with symptomatology to determine the need for further evaluation with ultrasound. Exposure: One or more of the following in the visualized dose reduction techniques were utilized for this examination: 1. Automated exposure control 2. Adjustment of the MA and/or KV according to patient size 3. Use of iterative of reconstructive technique Electronically signed by: Tanisha Muir MD (10/11/2019 7:17 PM) [id number] Laboratory Tests Test 10/16/19 11:20 10/16/19 11:31 10/16/19 16:46 10/17/19 02:57 Sodium Level 132 mmol/L (136-145) Potassium Level 5.0 mmol/L (3.5-5.1) Chloride Level 99 mmol/L (98-107) Carbon Dioxide Level 26 mmol/L (21-32) Anion Gap 7 (6-14) Blood Urea Nitrogen 16 mg/dL (8-26) Creatinine 0.9 mg/dL (0.7-1.3) Estimated GFR (Cockcroft-Gault) 85.0 BUN/Creatinine Ratio 18 (6-20) Glucose Level 195 mg/dL (70-99) Calcium Level 8.5 mg/dL (8.5-10.1) Total Bilirubin 1.4 mg/dL (0.2-1.0) Aspartate Amino Transf (AST/SGOT) 51 U/L (15-37) Alanine Aminotransferase (ALT/SGPT) 46 U/L (16-63) Alkaline Phosphatase 117 U/L (46-116) Ammonia 53 mcmol/L (11-34) 66 mcmol/L (11-34) Total Protein 6.9 g/dL (6.4-8.2) Albumin 2.4 g/dL (3.4-5.0) Albumin/Globulin Ratio 0.5 (1.0-1.7) Glucose (Fingerstick) 175 mg/dL (70-99) 214 mg/dL (70-99) Test 10/17/19 07:45 Glucose (Fingerstick) 139 mg/dL (70-99) Assessment and Plan Assessmemt and Plan Problems Medical Problems: (1) Generalized weakness Status: Acute (2) Hepatic encephalopathy Status: Acute (3) Hypomagnesemia Status: Acute * Yes Patient condition at conclusion of therapy * Pt in chair * Personal alarm on * Call light in reach * Phone in reach * PtIn no apparent distress * Pt denies further needs Communicated Patient Care With (Name, Title) * Alyssa WORRELL Goal 1 - Bed Mobility Assistance Required * Independent Goal 1 Assessment * Appropriate - Continue Goal 2 - Transfers Assistance Required * Independent Goal 2 - Transfer Type * Sit to Stand Goal 2 Assessment * Appropriate - Continue Goal 3 - Ambulation Assistance Required * Independent Goal 3 - Ambulation Distance * 100' Goal 3 - Ambulation Device * Roller Walker Goal 4 - Stairs Assistance Required * Independent Goal 4 - Number of Stairs * 2-4 Goal 4 - Device on Stairs * Rail on Right Goal 4 Assessment * Appropriate - Continue Treatment Plan * Therapeutic Exercise * Bed Mobility Training * Transfer training * Gait Training * Dynamic Balance Training Frequency of Treatment Expected * 7 visits/week Duration of Treatment Expected * 2 weeks Discharge Recommendations * Acute Rehab facility Discharge Recommendation - DME * Raised Toilet/Commode * Rolling Walker needed * in order to complete ADLs * and ambulation safely Comment Review of Relevant I have reviewed the following items gordon (where applicable) has been applied. Labs Laboratory Tests Test 10/15/19 11:00 10/15/19 15:15 10/15/19 16:40 10/15/19 21:26 Glucose (Fingerstick) 220 mg/dL (70-99) 246 mg/dL (70-99) 132 mg/dL (70-99) Ammonia 61 mcmol/L (11-34) Test 10/16/19 07:20 10/16/19 11:20 10/16/19 11:31 10/16/19 16:46 Glucose (Fingerstick) 124 mg/dL (70-99) 175 mg/dL (70-99) 214 mg/dL (70-99) Sodium Level 132 mmol/L (136-145) Potassium Level 5.0 mmol/L (3.5-5.1) Chloride Level 99 mmol/L (98-107) Carbon Dioxide Level 26 mmol/L (21-32) Anion Gap 7 (6-14) Blood Urea Nitrogen 16 mg/dL (8-26) Creatinine 0.9 mg/dL (0.7-1.3) Estimated GFR (Cockcroft-Gault) 85.0 BUN/Creatinine Ratio 18 (6-20) Glucose Level 195 mg/dL (70-99) Calcium Level 8.5 mg/dL (8.5-10.1) Total Bilirubin 1.4 mg/dL (0.2-1.0) Aspartate Amino Transf (AST/SGOT) 51 U/L (15-37) Alanine Aminotransferase (ALT/SGPT) 46 U/L (16-63) Alkaline Phosphatase 117 U/L (46-116) Ammonia 53 mcmol/L (11-34) Total Protein 6.9 g/dL (6.4-8.2) Albumin 2.4 g/dL (3.4-5.0) Albumin/Globulin Ratio 0.5 (1.0-1.7) Test 10/17/19 02:57 10/17/19 07:45 Ammonia 66 mcmol/L (11-34) Glucose (Fingerstick) 139 mg/dL (70-99) Laboratory Tests Test 10/16/19 11:20 10/16/19 11:31 10/16/19 16:46 10/17/19 02:57 Sodium Level 132 mmol/L (136-145) Potassium Level 5.0 mmol/L (3.5-5.1) Chloride Level 99 mmol/L (98-107) Carbon Dioxide Level 26 mmol/L (21-32) Anion Gap 7 (6-14) Blood Urea Nitrogen 16 mg/dL (8-26) Creatinine 0.9 mg/dL (0.7-1.3) Estimated GFR (Cockcroft-Gault) 85.0 BUN/Creatinine Ratio 18 (6-20) Glucose Level 195 mg/dL (70-99) Calcium Level 8.5 mg/dL (8.5-10.1) Total Bilirubin 1.4 mg/dL (0.2-1.0) Aspartate Amino Transf (AST/SGOT) 51 U/L (15-37) Alanine Aminotransferase (ALT/SGPT) 46 U/L (16-63) Alkaline Phosphatase 117 U/L (46-116) Ammonia 53 mcmol/L (11-34) 66 mcmol/L (11-34) Total Protein 6.9 g/dL (6.4-8.2) Albumin 2.4 g/dL (3.4-5.0) Albumin/Globulin Ratio 0.5 (1.0-1.7) Glucose (Fingerstick) 175 mg/dL (70-99) 214 mg/dL (70-99) Test 10/17/19 07:45 Glucose (Fingerstick) 139 mg/dL (70-99) Microbiology 10/11/19 Urine Culture - Final, Complete 10/11/19 Urine Culture Result 1 (TYLER) - Final, Complete 10/11/19 Urine Culture Result 2 (TYLER) - Final, Complete 10/11/19 Antimicrobic Susceptibility - Final, Complete 10/11/19 Blood Culture - Final, Complete NO GROWTH AFTER 5 DAYS Medications Current Medications Multivitamins 10 ml/Thiamine HCl 100 mg/Folic Acid 1 mg/Sodium Chloride 1,011.2 ml @ 1,000.088 mls/hr 1X ONCE IV Last administered on 10/11/19at 17:37; Start 10/11/19 at 17:30; Stop 10/11/19 at 18:30; Status DC Albuterol/ Ipratropium (Duoneb) 6 ml 1X ONCE NEB Last administered on 10/11/19at 18:00; Start 10/11/19 at 18:00; Stop 10/11/19 at 18:01; Status DC Iohexol (Omnipaque 300 Mg/ml) 75 ml 1X ONCE IV Last administered on 10/11/19at 18:32; Start 10/11/19 at 18:15; Stop 10/11/19 at 18:16; Status DC Info (CONTRAST GIVEN -- Rx MONITORING) 1 each PRN DAILY PRN MC SEE COMMENTS; Start 10/11/19 at 18:15; Stop 10/13/19 at 18:14; Status DC Lactulose (Lactulose) 20 gm 1X ONCE PO Last administered on 10/11/19 19:01; Start 10/11/19 at 19:00; Stop 10/11/19 at 19:01; Status DC Magnesium Sulfate/ Dextrose 100 ml @ 100 mls/hr 1X ONCE IV Last administered on 10/11/19at 19:01; Start 10/11/19 at 19:00; Stop 10/11/19 at 19:59; Status DC Ondansetron HCl (Zofran) 4 mg PRN Q8HRS PRN IV NAUSEA/VOMITING; Start 10/11/19 at 20:00; Stop 10/12/19 at 12:37; Status DC Ondansetron HCl (Zofran) 4 mg PRN Q4HRS PRN IV NAUSEA/VOMITING; Start 10/12/19 at 12:45 Bisacodyl (Dulcolax Supp) 10 mg PRN DAILY PRN RC CONSTIPATION, 1ST CHOICE; Start 10/12/19 at 12:45 Diclofenac Sodium (Voltaren) 100 chela TID TP Last administered on 10/13/19at 14:00; Start 10/12/19 at 14:00; Stop 10/13/19 at 20:40; Status DC Docusate Sodium (Enemeez) 283 mg PRN DAILY PRN RC CONSTIPATION, 2ND CHOICE; Start 10/12/19 at 12:45 Furosemide (Lasix) 20 mg DAILY PO Last administered on 10/16/19 08:23; Start 10/12/19 at 13:00 Insulin Glargine (Lantus Syringe) 20 unit QHS SQ Last administered on 10/16/19 21:44; Start 10/12/19 at 21:00 Albuterol/ Ipratropium (Duoneb) 3 ml RTQID NEB ; Start 10/12/19 at 13:00; Stop 10/12/19 at 13:02; Status DC Lactulose (Lactulose) 20 gm TID PO Last administered on 10/16/19 15:07; Start 10/12/19 at 14:00 Levothyroxine Sodium (Synthroid) 75 mcg DAILYAC PO Last administered on 10/17/19 07:39; Start 10/12/19 at 13:00 Lidocaine (Lidoderm) 1 patch QHS TP Last administered on 10/16/19at 21:41; Start 10/12/19 at 21:00 Nicotine (Nicoderm Cq 21mg) 1 patch DAILY TD Last administered on 10/16/19 08:24; Start 10/12/19 at 13:00 Pantoprazole Sodium (Protonix) 40 mg DAILYAC PO Last administered on 10/17/19 07:39; Start 10/12/19 at 13:00 Senna/Docusate Sodium (Senna Plus) 2 tab PRN QHS PRN PO CONSTIPATION; Start 10/12/19 at 12:45 Tramadol HCl (Ultram) 50 mg PRN Q6HRS PRN PO PAIN Last administered on 10/15/19 20:47; Start 10/12/19 at 12:45 Lactulose (Lactulose) 20 gm TID PO ; Start 10/12/19 at 14:00; Status UNV Insulin Human Lispro (HumaLOG) 0-7 UNITS TIDACHC SQ Last administered on 10/16/19 21:50; Start 10/12/19 at 16:30 Dextrose (Dextrose 50%-Water Syringe) 12.5 gm PRN Q15MIN PRN IV SEE COMMENTS; Start 10/12/19 at 12:45 Miscellaneous (Lidoderm Patch Removal) 1 ea DAILY MC Last administered on 10/16/19 08:23; Start 10/13/19 at 09:00 Albuterol Sulfate (Ventolin Neb Soln) 2.5 mg PRN Q6HRS PRN NEB WHEEZING; Start 10/12/19 at 13:15 Albuterol/ Ipratropium (Duoneb) 3 ml RTQID NEB Last administered on 10/17/19 07:41; Start 10/13/19 at 20:00 Diclofenac Sodium (Voltaren) 1 chela TID TP Last administered on 10/16/19 15:08; Start 10/13/19 at 21:00 Ceftriaxone Sodium (Rocephin) 1 gm Q24H IVP Last administered on 10/16/19 11:34; Start 10/14/19 at 11:00; Stop 10/16/19 at 12:55; Status DC Lactulose (Lactulose) 20 gm BID PRN PO hepatic encephalopathy; Start 10/14/19 at 11:45 Rifaximin (Xifaxan) 550 mg Q12HR PO Last administered on 5/6/20at 08:22; Start 10/14/19 at 21:00 Lactobacillus Rhamnosus (Culturelle) 1 cap BID PO Last administered on 10/16/19at 21:39; Start 10/15/19 at 21:00 Bisacodyl (Dulcolax Tab) 5 mg 1X ONCE PO Last administered on 10/16/19at 11:34; Start 10/16/19 at 10:45; Stop 10/16/19 at 10:47; Status DC Amoxicillin/ Clavulanate Potassium (Augmentin 500/ 125mg) 1 tab BID PO Last administered on 10/16/19at 21:39; Start 10/16/19 at 21:00 Zolpidem Tartrate (Ambien) 5 mg PRN QHS PRN PO INSOMNIA; Start 10/16/19 at 20:30 Active Scripts Active Culturelle (Lactobacillus Rhamnosus Gg) 1 Each Cap.sprink 1 Cap PO BID 30 Days Xifaxan (Rifaximin) 550 Mg Tablet 550 Mg PO Q12HR 30 Days Amox Tr-K Clv 500-125 Mg Tab (Amoxicillin/Potassium Clav) 1 Each Tablet 1 Tab PO BID 7 Days Humalog (Insulin Lispro) 100 Unit/1 Ml Insuln.pen 0 Units SQ QIDACHS 14 Days Lantus (Insulin Glargine,Hum.rec.anlog) 100 Unit/1 Ml Vial 20 Unit SQ QHS 30 Days Pantoprazole Sodium (Pantoprazole Sodium) 40 Mg Tablet.dr 40 Mg PO DAILYAC 30 Days Reported Furosemide 20 Mg Tablet 20 Mg PO DAILY Levothyroxine Sodium 75 Mcg Tablet 75 Mcg PO DAILYAC Lactulose 20 Gm/30 Ml Solution 20 Gm PO TID Duoneb 0.5-3(2.5) Mg/3 Ml (Albuterol/Ipratropium) 3 Ml Ampul.neb 3 Ml NEB QID NICODERM CQ 21mg (Nicotine) 1 Each Patch.td24 1 Patch TD DAILY Lidocaine PATCH (Lidocaine) 1 Each Adh..patch 1 Each TP QHS REMOVE AFTER 12 HOURS Voltaren (Diclofenac Sodium) 100 Gm Gel..gram. 100 Gm TP TID Ergocalciferol (Ergocalciferol (Vitamin D2)) 8,000 Unit/1 Ml Drops 50,000 Unit PO QM Senna Plus Tablet (Sennosides/Docusate Sodium) 1 Each Tablet 2 Each PO PRN QHS PRN Enemeez (Docusate Sodium) 283 Mg/5 Ml Enema 5 Ml RC DAILY PRN 30 Days Dulcolax (Bisacodyl) 10 Mg Supp.rect 10 Mg RC PRN DAILY PRN Milk Of Magnesia (Magnesium Hydroxide) 2,400 Mg/10 Ml Oral.susp 2,400 Mg PO PRN QID PRN Mintox Plus Tablet Chewable (Mag Hydrox/Al Hydrox/Simeth) 1 Each Tab.chew 2 Each PO PRN Q3HRS PRN Amlodipine Besylate 10 Mg Tablet 5 Mg PO DAILY Vitals/I & O Vital Sign - Last 24 Hours 10/16/19 10/16/19 10/16/19 10/16/19 11:00 12:33 15:00 15:50 Temp 97.8 97.8 97.8 97.8 Pulse 75 72 Resp 18 18 B/P (MAP) 119/70 (86) 124/64 (84) Pulse Ox 97 95 98 O2 Delivery Room Air Room Air Room Air Room Air 10/16/19 10/16/19 10/16/19 10/16/19 19:00 19:42 20:00 23:00 Temp 98.4 98.3 98.4 98.3 Pulse 92 85 Resp 20 16 B/P (MAP) 108/70 (83) 119/76 (90) Pulse Ox 97 94 95 O2 Delivery Room Air Room Air 10/17/19 10/17/19 03:00 07:43 Temp 98.3 98.3 Pulse 84 Resp 18 B/P (MAP) 120/82 (95) Pulse Ox 97 94 O2 Delivery Room Air Intake and Output 10/16/19 10/16/19 10/17/19 15:00 23:00 07:00 Intake Total 600 ml 200 ml Balance 600 ml 200 ml Nutrition Consultation Dietary Evaluation: Recommendations by RD: Dietary education by RD, Increase Calorie Intake, Protein supplementation Comments: ADA/Cardiac diet with Glucerna supplements Expected Outcomes/Goals: to meet >75% est nutr needs Interpretation of weight loss: >7.5% in 3 months Malnutrition Findings: Body Fat Depletion (Non Severe: Mild Depletion Weight Status: Appropriate Fluid Accumulation (Non-Severe: Mild depletion Hemodynamically unstable?: No Is patient in severe pain?: No Is NPO status required?: No DAMIEN LYNCH MD October 17, 2019 08:44
[2019-10-17] MEDS: NICOTINE 21MG PATCH. TD SCH (08:48)
[2019-10-17] MEDS: FUROSEMIDE 20 MG TABLET PO SCH (08:49)
[2019-10-17] MEDS: LACTOBACILLUS RHAMNOSUS GG 1 CAPSULE. PO SCH ×2 (08:49→21:53)
[2019-10-17] MEDS: rifAXIMin 550 MG TABLET PO SCH ×2 (08:49→21:53)
[2019-10-17] MEDS: AMOXICILLIN/K CLAV 500/125MG TABLET. PO SCH ×2 (08:49→21:53)
[2019-10-17] MEDS: DICLOFENAC SODIUM 1% TOPICAL GEL 100GM TUBE. TP SCH ×3 (08:51→21:54)
[2019-10-17] MEDS: PATCH REMOVAL. MC SCH (08:56)
[2019-10-17] MEDS: LACTULOSE 20 GM/30 ML SOLUTION. PO SCH ×3 (09:00→21:53)
--- NOTE | 2019-10-17 10:23 | PDOC ---
Subjective: Subjective: Says he feels fine and that he's taking his meds but hasn't stooled. Knows year is 2019. Cannot subtract 7 from 100 because "I don't get that shit." Objective: Objective: D/w staff yesterday - seems DC held because ammonia is not normal. Was charted earlier that pt refused lactulose and Xifaxan last night but appears he took this morning. Vital Signs: Vital Signs Date Time Temp Pulse Resp B/P (MAP) Pulse Ox O2 Delivery O2 Flow Rate FiO2 10/17/19 07:43 94 Room Air 10/17/19 07:00 97.9 88 20 104/74 (84) 97.9 Labs: Laboratory Tests Test 10/16/19 11:20 10/16/19 11:31 10/16/19 16:46 10/17/19 02:57 Sodium Level 132 mmol/L Potassium Level 5.0 mmol/L Chloride Level 99 mmol/L Carbon Dioxide Level 26 mmol/L Anion Gap 7 Blood Urea Nitrogen 16 mg/dL Creatinine 0.9 mg/dL Estimated GFR (Cockcroft-Gault) 85.0 BUN/Creatinine Ratio 18 Glucose Level 195 mg/dL Calcium Level 8.5 mg/dL Total Bilirubin 1.4 mg/dL Aspartate Amino Transf (AST/SGOT) 51 U/L Alanine Aminotransferase (ALT/SGPT) 46 U/L Alkaline Phosphatase 117 U/L Ammonia 53 mcmol/L 66 mcmol/L Total Protein 6.9 g/dL Albumin 2.4 g/dL Albumin/Globulin Ratio 0.5 Glucose (Fingerstick) 175 mg/dL 214 mg/dL Test 10/17/19 07:45 Glucose (Fingerstick) 139 mg/dL Imaging: KUB 10/15 IMPRESSION: Scattered abdominal gas throughout the large and small bowel. Moderate colonic stool burden. . PE: GEN: NAD LUNGS: clear HEART: RRR ABD: more distended NEURO/PSYCH: less confused - might be his baseline A/P: Hepatic encephalopathy UTI -- DC apparently held per for elevated ammonia (though improved since admission) on lactulose and Xifaxan. Not sure what else to offer as inpt w/ chronic liver disease and occasional non-compliance. Will review w/ Dr. Covarrubias. Looks like ammonia ordered again for tomorrow - assuming will not DC today, so will ask for US for ascites check. Hemodynamically unstable?: No Is patient in severe pain?: No Is NPO status required?: No DANNA PRIETO October 17, 2019 10:23
[2019-10-17] MEDS ORDERED: BISACODYL 5 MG TABLET.DR. PO ONE (10:30)
[2019-10-17 11:00] VITALS: BP 94/62
--- NOTE | 2019-10-17 11:26 | NUR ---
SW following. Discussed with RN and Dr. Espana. Dr. Espana wanting pt's ammonia level to be 35 before he will discharge him. Increasing lactulose today, abdominal ultrasound ordered, low protein diet. SW will continue to follow. Plan for pt to discharge home with [facility] when medically stable.
[2019-10-17] MEDS ORDERED: BISACODYL 10 MG SUPP.RECT. PR PRN (12:30)
[2019-10-17] MEDS ORDERED: BISACODYL 10 MG SUPP.RECT. PR ONE (12:30)
[2019-10-17 15:00] VITALS: BP 100/70
--- NOTE | 2019-10-17 18:03 | RAD ---
CLINICAL HISTORY: Ascites, abdominal pain, gallstones COMPARISON: None available. TECHNIQUE: Ultrasound of the upper abdomen was performed. FINDINGS: The liver measures 16.7 cm in length in the right mid clavicular line. . There are no focal liver lesions. Flow seen within the portal veins. Gallstones are seen within the gallbladder. There is no wall thickening or pericholecystic fluid. There is no pain with direct transducer pressure over the gallbladder. The common bile duct measures 0.4 cm. The spleen is borderline enlarged in size, measuring 12.1 cm. A few echogenic foci likely calcified granuloma. The majority of the pancreas is obscured by intestinal gas.. The right kidney measures 10 cm in bipolar length. No focal renal lesion. No hydronephrosis. The right kidney is mostly obscured by overlying bowel gas structures. The left kidney measures 11.3 cm in bipolar length. Normal renal cortical echotexture. No hydronephrosis. Visualized portions of the abdominal aorta and inferior vena cava are unremarkable. Small volume ascites is seen in the right lower quadrant and right upper quadrant. IMPRESSION: 1. Small volume ascites is seen, largest pocket measures approximately 7 cm. 2. Cholelithiasis without sonographic evidence for acute cholecystitis. Electronically signed by: Marck Hagen MD (10/17/2019 6:00 PM) PHYLICIA
[2019-10-17 19:00] VITALS: BP 106/64
[2019-10-17] MEDS: LIDOCAINE (700MG/PATCH) PATCH. TP SCH (21:53)
[2019-10-17] MEDS: INSULIN GLARGINE SYRINGE. SQ SCH (21:57)
[2019-10-17 23:00] VITALS: BP 113/70
[2019-10-18 03:00] VITALS: BP 106/71
[2019-10-18 04:37] LABS: BASO # 0.1 x10^3/uL (0.0-0.2); BASO % 1 % (0-3); EOS # 0.3 x10^3/uL (0.0-0.7); EOS % 4 % (0-3); HEMATOCRIT 35.8 % (39.0-53.0); LYMPH # 1.4 x10^3/uL (1.0-4.8); LYMPH % 20 % (24-48); MEAN CORPUSCULAR HEMOGLOBIN 32 pg (25-35); MEAN CORPUSCULAR HGB CONC 34 g/dL (31-37); MEAN CORPUSCULAR VOLUME 94 fL (79-100); MONO # 1.1 x10^3/uL (0.0-1.1); MONO % 15 % (0-9); NEUT # 4.3 x10^3/uL (1.8-7.7); NEUT % 61 % (31-73); PLATELET COUNT 148 x10^3/uL (140-400); RED BLOOD COUNT 3.81 x10^6/uL (4.30-5.70); RED CELL DISTRIBUTION WIDTH 19.5 % (11.5-14.5); WHITE BLOOD COUNT 7.1 x10^3/uL (4.0-11.0)
[2019-10-18 05:02] LABS: ALBUMIN 2.3 g/dL (3.4-5.0); ALBUMIN/GLOBULIN RATIO 0.5 (1.0-1.7); CALCIUM 8.4 mg/dL (8.5-10.1); GFR 75.2; POTASSIUM 3.7 mmol/L (3.5-5.1)
[2019-10-18] MEDS: LEVOTHYROXINE 75 MCG TABLET PO SCH (05:20)
[2019-10-18] MEDS: PANTOPRAZOLE 40 MG TABLET.DR. PO SCH (05:20)
[2019-10-18 07:00] VITALS: BP 111/74
[2019-10-18] MEDS: IPRATRPIUM/ALBUTEROL 0.5/2.5MG 3 ML NEBU. NEB SCH (07:15)
[2019-10-18] MEDS: LACTULOSE 20 GM/30 ML SOLUTION. PO SCH (08:06)
[2019-10-18] MEDS: AMOXICILLIN/K CLAV 500/125MG TABLET. PO SCH (08:06)
[2019-10-18] MEDS: LACTOBACILLUS RHAMNOSUS GG 1 CAPSULE. PO SCH (08:07)
[2019-10-18] MEDS: FUROSEMIDE 20 MG TABLET PO SCH (08:07)
[2019-10-18] MEDS: NICOTINE 21MG PATCH. TD SCH (08:07)
[2019-10-18] MEDS: rifAXIMin 550 MG TABLET PO SCH (08:07)
[2019-10-18] MEDS: DICLOFENAC SODIUM 1% TOPICAL GEL 100GM TUBE. TP SCH (08:08)
[2019-10-18] MEDS: PATCH REMOVAL. MC SCH (08:08)
[2019-10-18] MEDS: INSULIN LISPRO 300 UNITS/3 ML VIAL. SQ SCH ×2 (08:12→12:34)
--- NOTE | 2019-10-18 09:16 | PDOC ---
Subjective: Subjective: No complaints, wants to go home. Objective: Objective: Stool charted. No GI concerns per nurse. Vital Signs: Vital Signs Date Time Temp Pulse Resp B/P (MAP) Pulse Ox O2 Delivery O2 Flow Rate FiO2 10/18/19 07:15 96 Room Air 10/18/19 07:00 97.9 84 18 111/74 (86) 97.9 Labs: Laboratory Tests Test 10/17/19 11:46 10/17/19 16:57 10/17/19 20:38 10/18/19 04:21 Glucose (Fingerstick) 214 mg/dL 109 mg/dL 262 mg/dL White Blood Count 7.1 x10^3/uL Red Blood Count 3.81 x10^6/uL Hemoglobin 12.0 g/dL Hematocrit 35.8 % Mean Corpuscular Volume 94 fL Mean Corpuscular Hemoglobin 32 pg Mean Corpuscular Hemoglobin Concent 34 g/dL Red Cell Distribution Width 19.5 % Platelet Count 148 x10^3/uL Neutrophils (%) (Auto) 61 % Lymphocytes (%) (Auto) 20 % Monocytes (%) (Auto) 15 % Eosinophils (%) (Auto) 4 % Basophils (%) (Auto) 1 % Neutrophils # (Auto) 4.3 x10^3/uL Lymphocytes # (Auto) 1.4 x10^3/uL Monocytes # (Auto) 1.1 x10^3/uL Eosinophils # (Auto) 0.3 x10^3/uL Basophils # (Auto) 0.1 x10^3/uL Sodium Level 134 mmol/L Potassium Level 3.7 mmol/L Chloride Level 102 mmol/L Carbon Dioxide Level 24 mmol/L Anion Gap 8 Blood Urea Nitrogen 17 mg/dL Creatinine 1.0 mg/dL Estimated GFR (Cockcroft-Gault) 75.2 BUN/Creatinine Ratio 17 Glucose Level 188 mg/dL Calcium Level 8.4 mg/dL Total Bilirubin 1.0 mg/dL Aspartate Amino Transf (AST/SGOT) 63 U/L Alanine Aminotransferase (ALT/SGPT) 48 U/L Alkaline Phosphatase 126 U/L Ammonia 81 mcmol/L Total Protein 7.0 g/dL Albumin 2.3 g/dL Albumin/Globulin Ratio 0.5 Test 10/18/19 08:05 Glucose (Fingerstick) 172 mg/dL Imaging: Abd US IMPRESSION: 1. Small volume ascites is seen, largest pocket measures approximately 7 cm. 2. Cholelithiasis without sonographic evidence for acute cholecystitis. PE: GEN: NAD - sitting on edge of bed eating chocolate pudding, breakfast tray empty LUNGS: clear HEART: RRR ABD: round/stable NEURO/PSYCH: seems at baseline A/P: Hepatic encephalopathy UTI -- Continue lactulose and Xifaxan, DC per primary. Hemodynamically unstable?: No Is patient in severe pain?: No Is NPO status required?: No DANNA PRIETO October 18, 2019 09:16
--- NOTE | 2019-10-18 09:19 | NUR ---
SW following. Discussed with RN, pt's ammonia level higher today. Per GI, very unlikely for pt's ammonia level to be in the 30's. Plan for pt to discharge home with and [facility] when stable.
--- NOTE | 2019-10-18 10:56 | SNU/HH DC ---
DISCHARGE WITH HOME HEALTH DISCHARGE INFORMATION: Discharge Date: October 18, 2019 Final Diagnosis: hepatic encephalopathy Problems Medical Problems: (1) Generalized weakness Status: Acute (2) Hepatic encephalopathy Status: Acute (3) Hypomagnesemia Status: Acute Condition on Discharge: Stable CODE STATUS: Code Status: Full HOME HEALTH: Face to Face: I certify this patient is under my care and that I, or a nurse practitioner or physician's automobile mechanic assistant working with me, had a face to face encounter that meets the physician face to face encounter requirements with this patient on 10/17 Medical Complications: Other (end stage liver) Shelter For: Assess & Educate Safety RN For Eval/Treatment: Yes Physical Therapy For: Evalulation/Treatment Occupational Therapy For: Evaluation/Treatment Pt Meets Homebound Status: Poor coordination w/ amb., Unsteady balance w/ amb, POST DISCHARGE ORDERS: Activity Instructions for Disc: Avoid exertion, Progressive ambulation Weight Bearing Status after Di: Partial weight bearing DIET AFTER DISCHARGE: ADA CHECKS AFTER DISCHARGE: Checks after discharge: Check blood press - daily, Check blood sugar, ac/hs FOLLOW-UP: Follow up with: primary care 1-2 weeks TREATMENT/EQUIPMENT ORDERS: Adaptive Equipment Issued: Front wheeled walker CERTIFICATION STATEMENT: Certification Statement: Certification Statement: Based on the above finding, I certify that this patient is confined to the home and needs intermittent care home care, physical therapy and/or speech therapy, or continues to need occupational therapy.~ This patient is under my care, and I have initiated the establishment of the plan of care.~ This patient will be followed by myself or a community physician who will periodically review the plan of care. Home Meds Active Scripts Lactobacillus Rhamnosus Gg (CULTURELLE) 1 Each Cap.sprink, 1 CAP PO BID for SUPPLEMENT for 30 Days, #60 CAP Prov:DAMIEN LYNCH MD 10/16/19 Rifaximin (XIFAXAN) 550 Mg Tablet, 550 MG PO Q12HR for LIVER for 30 Days, #60 TAB Prov:DAMIEN LYNCH MD 10/16/19 Amoxicillin/Potassium Clav (AMOX TR-K CLV 500-125 MG TAB) 1 Each Tablet, 1 TAB PO BID for UTI for 7 Days, #14 TAB Prov:DAMIEN LYNCH MD 10/16/19 Insulin Lispro (HUMALOG) 100 Unit/1 Ml Insuln.pen, 0 UNITS SQ QIDACHS for GLUCOSE for 14 Days, #1 EACH Prov:DAMIEN LYNCH MD 05/31/19 Insulin Glargine,Hum.rec.anlog (LANTUS) 100 Unit/1 Ml Vial, 20 UNIT SQ QHS for dm for 30 Days, EACH Prov:PATTI PUCKETT MD 05/29/19 Pantoprazole Sodium (PANTOPRAZOLE SODIUM ) 40 Mg Tablet.dr, 40 MG PO DAILYAC for gi bleed for 30 Days, #30 TAB.SR Prov:PATTI PUCKETT MD 05/29/19 Reported Medications Furosemide (FUROSEMIDE) 20 Mg Tablet, 20 MG PO DAILY for DIURETIC, TAB 08/30/19 Levothyroxine Sodium (LEVOTHYROXINE SODIUM) 75 Mcg Tablet, 75 MCG PO DAILYAC for THYROID SUPPLEMENT, #30 TAB 0 Refills 08/30/19 Lactulose (LACTULOSE) 20 Gm/30 Ml Solution, 20 GM PO TID for ammonia, MISC 06/07/19 Ipratropium/Albuterol Sulfate (DUONEB 0.5-3(2.5) MG/3 ML) 3 Ml Ampul.neb, 3 ML NEB QID for sob, EACH 06/07/19 Nicotine (NICODERM CQ 21mg) 1 Each Patch.td24, 1 PATCH TD DAILY for stop smoking aid, PATCH 06/07/19 Lidocaine (Lidocaine PATCH ) 1 Each Adh..patch, 1 EACH TP QHS for FOR LOCAL PAIN, PATCH REMOVE AFTER 12 HOURS 06/07/19 Diclofenac Sodium (VOLTAREN) 100 Gm Gel..gram., 100 GM TP TID for pain, EACH 06/07/19 Ergocalciferol (Vitamin D2) (ERGOCALCIFEROL) 8,000 Unit/1 Ml Drops, 70289 UNIT PO QM for supplement, DROP 06/07/19 Sennosides/Docusate Sodium (SENNA PLUS TABLET) 1 Each Tablet, 2 EACH PO PRN QHS PRN for CONSTIPATION, TAB 06/07/19 Docusate Sodium (ENEMEEZ) 283 Mg/5 Ml Enema, 5 ML RC DAILY PRN for CONSTIPATION for 30 Days, #150 ML 0 Refills 06/07/19 Bisacodyl (DULCOLAX) 10 Mg Supp.rect, 10 MG RC PRN DAILY PRN for CONSTIPATION, SUPP.RECT 0 Refills 06/07/19 Magnesium Hydroxide (MILK OF MAGNESIA) 2,400 Mg/10 Ml Oral.susp, 2400 MG PO PRN QID PRN for CONSTIPATION, MISC 06/07/19 Mag Hydrox/Al Hydrox/Simeth (MINTOX PLUS TABLET CHEWABLE) 1 Each Tab.chew, 2 EACH PO PRN Q3HRS PRN for GI SYMPTOMS, TAB.CHEW 06/07/19 Amlodipine Besylate (AMLODIPINE BESYLATE) 10 Mg Tablet, 5 MG PO DAILY for HTN, TAB 07/15/15 Discontinued Reported Medications Pantoprazole Sodium (PROTONIX ) 40 Mg Tablet.dr, 40 MG PO DAILYAC for GERD, TAB 08/30/19 Glimepiride (GLIMEPIRIDE) 1 Mg Tablet, 1 TAB PO DAILY for DM, #30 TAB 5 Refills 08/30/19 Metformin Hcl (METFORMIN HCL) 500 Mg Tablet, 500 MG PO BIDWMEALS for ANTI- DIABETIC, TAB 0 Refills 08/30/19 [sodium chloride tab] No Conflict Check, 1 GM PO TID for supplement 06/07/19 Zolpidem Tartrate (AMBIEN) 5 Mg Tablet, 5 MG PO HS for insomnia, TAB 0 Refills 06/07/19 Discontinued Scripts Tramadol Hcl (TRAMADOL HCL) 50 Mg Tablet, 50 MG PO PRN Q6HRS PRN for PAIN for 28 Days, #30 TAB Prov:DAMIEN LYNCH MD 05/31/19 MARIEL DOMINGUEZ MD October 18, 2019 10:56
--- NOTE | 2019-10-18 10:59 | PDOC3 ---
Discharge Summary Visit Information Date of Admission: October 12, 2019 Date of Discharge: October 18, 2019 Final Diagnosis Acute toxic encephalopathy - hepatic encephalopathy given his confusion, lack of BM and elevated ammonia level. TID lactulose. . 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 confused, edema. on lasix, aldactone, aggressive lactulose Hyponatremia - likely related to liver disease vs nutrition. Given fluid challenge in ED, became more edematous Lactic acidosis - likely related to fluid overload. Will diurese, may need albumin DM2 - basal bolus plus insulin Moderate-severe protein calorie malnutrition - related to his cirrhosis HTN - cont meds uti on rocephin COPD - prn nebs Nephrolithiasis - asymptomatic Severe protein calorie malnutrition - based on nutritional status, likely nutritional deficit and liver disease. patient access specialist to see, supplements Problems Medical Problems: (1) Generalized weakness Status: Acute (2) Hepatic encephalopathy Status: Acute (3) Hypomagnesemia Status: Acute Brief Hospital Course Allergies Allergies Coded Allergies Type Severity Reaction Last Updated Verified No Known Drug Allergies 08/30/19 No Vital Signs Vital Signs Date Time Temp Pulse Resp B/P (MAP) Pulse Ox O2 Delivery O2 Flow Rate FiO2 10/18/19 10:50 98 Room Air 10/18/19 07:00 97.9 84 18 111/74 (86) 97.9 Lab Results Laboratory Tests Test 10/16/19 11:20 10/16/19 11:31 10/16/19 16:46 10/17/19 02:57 Sodium Level 132 mmol/L (136-145) Potassium Level 5.0 mmol/L (3.5-5.1) Chloride Level 99 mmol/L (98-107) Carbon Dioxide Level 26 mmol/L (21-32) Anion Gap 7 (6-14) Blood Urea Nitrogen 16 mg/dL (8-26) Creatinine 0.9 mg/dL (0.7-1.3) Estimated GFR (Cockcroft-Gault) 85.0 BUN/Creatinine Ratio 18 (6-20) Glucose Level 195 mg/dL (70-99) Calcium Level 8.5 mg/dL (8.5-10.1) Total Bilirubin 1.4 mg/dL (0.2-1.0) Aspartate Amino Transf (AST/SGOT) 51 U/L (15-37) Alanine Aminotransferase (ALT/SGPT) 46 U/L (16-63) Alkaline Phosphatase 117 U/L (46-116) Ammonia 53 mcmol/L (11-34) 66 mcmol/L (11-34) Total Protein 6.9 g/dL (6.4-8.2) Albumin 2.4 g/dL (3.4-5.0) Albumin/Globulin Ratio 0.5 (1.0-1.7) Glucose (Fingerstick) 175 mg/dL (70-99) 214 mg/dL (70-99) Test 10/17/19 07:45 10/17/19 11:46 10/17/19 16:57 10/17/19 20:38 Glucose (Fingerstick) 139 mg/dL (70-99) 214 mg/dL (70-99) 109 mg/dL (70-99) 262 mg/dL (70-99) Test 10/18/19 04:21 10/18/19 08:05 White Blood Count 7.1 x10^3/uL (4.0-11.0) Red Blood Count 3.81 x10^6/uL (4.30-5.70) Hemoglobin 12.0 g/dL (13.0-17.5) Hematocrit 35.8 % (39.0-53.0) Mean Corpuscular Volume 94 fL (79-100) Mean Corpuscular Hemoglobin 32 pg (25-35) Mean Corpuscular Hemoglobin Concent 34 g/dL (31-37) Red Cell Distribution Width 19.5 % (11.5-14.5) Platelet Count 148 x10^3/uL (140-400) Neutrophils (%) (Auto) 61 % (31-73) Lymphocytes (%) (Auto) 20 % (24-48) Monocytes (%) (Auto) 15 % (0-9) Eosinophils (%) (Auto) 4 % (0-3) Basophils (%) (Auto) 1 % (0-3) Neutrophils # (Auto) 4.3 x10^3/uL (1.8-7.7) Lymphocytes # (Auto) 1.4 x10^3/uL (1.0-4.8) Monocytes # (Auto) 1.1 x10^3/uL (0.0-1.1) Eosinophils # (Auto) 0.3 x10^3/uL (0.0-0.7) Basophils # (Auto) 0.1 x10^3/uL (0.0-0.2) Sodium Level 134 mmol/L (136-145) Potassium Level 3.7 mmol/L (3.5-5.1) Chloride Level 102 mmol/L (98-107) Carbon Dioxide Level 24 mmol/L (21-32) Anion Gap 8 (6-14) Blood Urea Nitrogen 17 mg/dL (8-26) Creatinine 1.0 mg/dL (0.7-1.3) Estimated GFR (Cockcroft-Gault) 75.2 BUN/Creatinine Ratio 17 (6-20) Glucose Level 188 mg/dL (70-99) Calcium Level 8.4 mg/dL (8.5-10.1) Total Bilirubin 1.0 mg/dL (0.2-1.0) Aspartate Amino Transf (AST/SGOT) 63 U/L (15-37) Alanine Aminotransferase (ALT/SGPT) 48 U/L (16-63) Alkaline Phosphatase 126 U/L (46-116) Ammonia 81 mcmol/L (11-34) Total Protein 7.0 g/dL (6.4-8.2) Albumin 2.3 g/dL (3.4-5.0) Albumin/Globulin Ratio 0.5 (1.0-1.7) Glucose (Fingerstick) 172 mg/dL (70-99) Laboratory Tests Test 10/17/19 11:46 10/17/19 16:57 10/17/19 20:38 10/18/19 04:21 Glucose (Fingerstick) 214 mg/dL (70-99) 109 mg/dL (70-99) 262 mg/dL (70-99) White Blood Count 7.1 x10^3/uL (4.0-11.0) Red Blood Count 3.81 x10^6/uL (4.30-5.70) Hemoglobin 12.0 g/dL (13.0-17.5) Hematocrit 35.8 % (39.0-53.0) Mean Corpuscular Volume 94 fL (79-100) Mean Corpuscular Hemoglobin 32 pg (25-35) Mean Corpuscular Hemoglobin Concent 34 g/dL (31-37) Red Cell Distribution Width 19.5 % (11.5-14.5) Platelet Count 148 x10^3/uL (140-400) Neutrophils (%) (Auto) 61 % (31-73) Lymphocytes (%) (Auto) 20 % (24-48) Monocytes (%) (Auto) 15 % (0-9) Eosinophils (%) (Auto) 4 % (0-3) Basophils (%) (Auto) 1 % (0-3) Neutrophils # (Auto) 4.3 x10^3/uL (1.8-7.7) Lymphocytes # (Auto) 1.4 x10^3/uL (1.0-4.8) Monocytes # (Auto) 1.1 x10^3/uL (0.0-1.1) Eosinophils # (Auto) 0.3 x10^3/uL (0.0-0.7) Basophils # (Auto) 0.1 x10^3/uL (0.0-0.2) Sodium Level 134 mmol/L (136-145) Potassium Level 3.7 mmol/L (3.5-5.1) Chloride Level 102 mmol/L (98-107) Carbon Dioxide Level 24 mmol/L (21-32) Anion Gap 8 (6-14) Blood Urea Nitrogen 17 mg/dL (8-26) Creatinine 1.0 mg/dL (0.7-1.3) Estimated GFR (Cockcroft-Gault) 75.2 BUN/Creatinine Ratio 17 (6-20) Glucose Level 188 mg/dL (70-99) Calcium Level 8.4 mg/dL (8.5-10.1) Total Bilirubin 1.0 mg/dL (0.2-1.0) Aspartate Amino Transf (AST/SGOT) 63 U/L (15-37) Alanine Aminotransferase (ALT/SGPT) 48 U/L (16-63) Alkaline Phosphatase 126 U/L (46-116) Ammonia 81 mcmol/L (11-34) Total Protein 7.0 g/dL (6.4-8.2) Albumin 2.3 g/dL (3.4-5.0) Albumin/Globulin Ratio 0.5 (1.0-1.7) Test 10/18/19 08:05 Glucose (Fingerstick) 172 mg/dL (70-99) Brief Hospital Course Mr. Ruiz is a 64 old w/ history of alcoholic cirrhosis w/ Hep C (failed treatment at [facility]), h/o ascites ,HTN, COPD, nephrolithiasis presents with weakness. confused and weak . Reports chronic shortness of breath and abdominal discomfort related to asc ites. He quit drinking heavily about 6 months ago. Seen in 02/2018 for ascites - underwent paracentesis at that time and was on spironolactone and furosemide. Labs significant for WBC 8.8, Hb 13.8, platelets 199, NA 132, K4.2, creatinine 1.2, glucose 231, magnesium 1.6, bilirubin 1.6, AST 56, ALT 54, alkaline phosphatase 131, albumin 2.7, lactic acid 3.7, ammonia 111, INR 1.1 ABG on room air was pH 7.47 PCO2 31 PO2 73. He was tested for COVID 19 in ED. he took days to improve, the confusion worsened for a time, but better at DC Discharge Information Condition at Discharge: Improved Follow Up: Weeks Disposition/Orders: D/C to Home w/ HH Scheduled Amlodipine Besylate (Amlodipine Besylate) 10 Mg Tablet, 5 MG PO DAILY for HTN, (Reported) Entered as Reported by: SHONA MONTAGUE on 07/15/15 1101 Amoxicillin/Potassium Clav (Amox Tr-K Clv 500-125 Mg Tab) 1 Each Tablet, 1 TAB P O BID for UTI for 7 Days, #14 Prescribed by: DAMIEN LYNCH MD on 10/16/19 1302 Diclofenac Sodium (Voltaren) 100 Gm Gel..gram., 100 GM TP TID for pain, (Reported) Entered as Reported by: ANSHU RECINOS on 06/07/192237 Last Action: Continued on 10/12/191237 by HERBIE PIPER MD Ergocalciferol (Vitamin D2) (Ergocalciferol) 8,000 Unit/1 Ml Drops, 50,000 UNIT PO QM for supplement, (Reported) Entered as Reported by: ANSHU RECINOS on 06/07/192237 Furosemide (Furosemide) 20 Mg Tablet, 20 MG PO DAILY for DIURETIC, (Reported) Entered as Reported by: CLARISA HOGAN on 08/30/19 0820 Last Action: Continued on 10/12/191237 by HERBIE PIPER MD Insulin Glargine,Hum.rec.anlog (Lantus) 100 Unit/1 Ml Vial, 20 UNIT SQ QHS for dm for 30 Days Prescribed by: PATTI PUCKETT on 05/29/19 0806 Last Action: Continued on 10/12/191237 by HERBIE PIPER MD Insulin Lispro (Humalog) 100 Unit/1 Ml Insuln.pen, 0 UNITS SQ QIDACHS for GLUCOSE for 14 Days, #1 Prescribed by: DAMIEN LYNCH MD on 05/31/19 1510 Ipratropium/Albuterol Sulfate (Duoneb 0.5-3(2.5) Mg/3 Ml) 3 Ml Ampul.neb, 3 ML NEB QID for sob, (Reported) Entered as Reported by: ANSHU RECINOS on 06/07/192237 Last Action: Continued on 10/12/191237 by HERBIE PIPER MD Lactobacillus Rhamnosus Gg (Culturelle) 1 Each Cap.sprink, 1 CAP PO BID for SUPPLEMENT for 30 Days, #60 Prescribed by: DAMIEN LYNCH MD on 10/16/19 1302 Lactulose (Lactulose) 20 Gm/30 Ml Solution, 20 GM PO TID for ammonia, (Reported) Entered as Reported by: ANSHU RECINOS on 06/07/192237 Last Action: Continued on 10/12/191237 by HERBIE PIPER MD Levothyroxine Sodium (Levothyroxine Sodium) 75 Mcg Tablet, 75 MCG PO DAILYAC for THYROID SUPPLEMENT, #30 Ref 0 (Reported) Entered as Reported by: CLARISA HOGAN on 08/30/19819 Last Action: Continued on 10/12/191237 by HERBIE PIPER MD Lidocaine (Lidocaine PATCH ) 1 Each Adh..patch, 1 EACH TP QHS for FOR LOCAL PAIN, (Reported) REMOVE AFTER 12 HOURS Entered as Reported by: ANSHU RECINOS on 06/07/192237 Last Action: Continued on 10/12/191237 by HERBIE PIPER MD Nicotine (NICODERM CQ 21mg) 1 Each Patch.td24, 1 PATCH TD DAILY for stop smoking aid, (Reported) Entered as Reported by: ANSHU RECINOS on 06/07/192237 Last Action: Continued on 10/12/191237 by HERBIE PIPER MD Pantoprazole Sodium (Pantoprazole Sodium ) 40 Mg Tablet.dr, 40 MG PO DAILYAC for gi bleed for 30 Days, #30 Prescribed by: PATTI PUCKETT on 05/29/19 0806 Last Action: Continued on 10/12/191237 by HERBIE PIPER MD Rifaximin (Xifaxan) 550 Mg Tablet, 550 MG PO Q12HR for LIVER for 30 Days, #60 Prescribed by: DAMIEN LYNCH MD on 10/16/19 1302 Scheduled PRN Bisacodyl (Dulcolax) 10 Mg Supp.rect, 10 MG RC PRN DAILY PRN for CONSTIPATION, Ref 0 (Reported) Entered as Reported by: ANSHU RECINOS on 06/07/192237 Last Action: Continued on 10/12/191237 by HERBIE PIPER MD Docusate Sodium (Enemeez) 283 Mg/5 Ml Enema, 5 ML RC DAILY PRN for CONSTIPATION for 30 Days, #150 Ref 0 (Reported) Entered as Reported by: ANSHU RECINOS on 06/07/192237 Last Action: Continued on 10/12/191237 by HERBIE PIPER MD Mag Hydrox/Al Hydrox/Simeth (Mintox Plus Tablet Chewable) 1 Each Tab.chew, 2 EACH PO PRN Q3HRS PRN for GI SYMPTOMS, (Reported) Entered as Reported by: ANSHU RECINOS on 06/07/192237 Magnesium Hydroxide (Milk Of Magnesia) 2,400 Mg/10 Ml Oral.susp, 2,400 MG PO PRN QID PRN for CONSTIPATION, (Reported) Entered as Reported by: ANSHU RECINOS on 06/07/192237 Sennosides/Docusate Sodium (Senna Plus Tablet) 1 Each Tablet, 2 EACH PO PRN QHS PRN for CONSTIPATION, (Reported) Entered as Reported by: ANSHU RECINOS on 06/07/192237 Last Action: Continued on 10/12/191237 by HERBIE PIPER MD Discontinued Medications Glimepiride (Glimepiride) 1 Mg Tablet, 1 TAB PO DAILY for DM, #30 Ref 5 (Reported) Entered as Reported by: CLARISA HOGAN on 08/30/19 0820 Metformin Hcl (Metformin Hcl) 500 Mg Tablet, 500 MG PO BIDWMEALS for ANTI- DIABETIC, Ref 0 (Reported) Entered as Reported by: CLARISA HOGAN on 08/30/19 0820 Pantoprazole Sodium (Protonix ) 40 Mg Tablet.dr, 40 MG PO DAILYAC for GERD, (Reported) Entered as Reported by: CLARISA HOGAN on 08/30/19 0820 Tramadol Hcl (Tramadol Hcl) 50 Mg Tablet, 50 MG PO PRN Q6HRS PRN for PAIN for 28 Days, #30 Prescribed by: DAMIEN LYNCH MD on 05/31/19 1510 Last Action: Continued on 10/12/19 1238 by HERBIE PIPER MD Zolpidem Tartrate (Ambien) 5 Mg Tablet, 5 MG PO HS for insomnia, Ref 0 (Reported) Entered as Reported by: ANSHU RECINOS on 06/07/192237 [sodium chloride tab] , 1 GM PO TID for supplement, (Reported) Entered as Reported by: ANSHU RECINOS on 06/07/192237 Patient Instructions Patient Instructions > 30 min face to face cont meds confusion may recur, Hemodynamically unstable?: No Is patient in severe pain?: No Is NPO status required?: No MARIEL DOMINGUEZ MD October 18, 2019 10:59
[2019-10-18 11:49] VITALS: BP 108/68
--- NOTE | 2019-10-18 12:06 | NUR ---
SW following. Discussed with RN, pt discharging home with [facility]. KONSTANTIN faxed referral and orders to [facility]. KONSTANTIN notified pt's , Violeta of discharge, Violeta is not very happy about pt being discharged with high ammonia level. KONSTANTIN advised she can speak with the RN if she wants more information about pt's liver and ammonia level likely not able to get to the 30's, Violeta declined. RN setting up transportation with [facility] transport. Pt is a high risk readmission, especially with pt's being concerned about the ammonia level. Addendum: 10/18/19 at 1253 by FREDIS PRYOR Transportation set up with [employer] for [phone]. RN notified. Pt choice of vendor form completed by pt's , Violeta.
--- NOTE | 2019-10-18 13:19 | NUR ---
Discharge Note: JESI DE SOUZA Discharge instructions and discharge home medications reviewed with Patient and a copy given. All questions have been answered and understanding verbalized. The following instructions and handouts were given: Liver DX diet, hepatic DX Discontinued lines and drains: Peripheral IV intact. Patient discharged to Home w/services with Self via Wheelchair
== END 2019-10-18 13:22 | disposition home health service (06) | DRG 91 ==
LOC: ER 17:05 → 6 SOUTH 20:52 → 4 NORTH 10-13 18:45
PROVIDERS: ADMIT Family Medicine; ATTEND Family Medicine
DX: G92 Toxic encephalopathy (principal); E43 Unspecified severe protein-calorie malnutrition; E87.1 Hypo-osmolality and hyponatremia; I85.10 Secondary esophageal varices without bleeding; J98.11 Atelectasis; K76.6 Portal hypertension; N39.0 Urinary tract infection, site not specified; E87.2 Acidosis; E83.42 Hypomagnesemia; K72.90 Hepatic failure, unspecified without coma; B19.20 Unspecified viral hepatitis C without hepatic coma; Z68.27 Body mass index [BMI] 27.0-27.9, adult; D64.9 Anemia, unspecified; E11.9 Type 2 diabetes mellitus without complications; E87.70 Fluid overload, unspecified; F17.210 Nicotine dependence, cigarettes, uncomplicated; I10 Essential (primary) hypertension; J44.9 Chronic obstructive pulmonary disease, unspecified; K70.31 Alcoholic cirrhosis of liver with ascites; K80.20 Calculus of gallbladder without cholecystitis without obstruction; N20.0 Calculus of kidney; M19.90 Unspecified osteoarthritis, unspecified site; B96.20 Unspecified Escherichia coli [E. coli] as the cause of diseases classified elsewhere; B96.1 Klebsiella pneumoniae [K. pneumoniae] as the cause of diseases classified elsewhere; B96.4 Proteus (mirabilis) (morganii) as the cause of diseases classified elsewhere; Z87.442 Personal history of urinary calculi; Z91.19 Patient's noncompliance with other medical treatment and regimen; Z79.4 Long term (current) use of insulin; Z79.84 Long term (current) use of oral hypoglycemic drugs; Z79.899 Other long term (current) drug therapy; Z20.828 Contact with and (suspected) exposure to other viral communicable diseases
CPT/HCPCS: 36415; 36600; 71260; 74018; 74177; 76700; 80053; 80307; 81001; 82140; 82805; 82962; 83605; 83735; 83880; 84443; 84484; 85025; 85610; 87040; 87086; 87186; 87635; 93005; 94640; 94760; 96365; 96366; 96368; G0480; J0696; J1815; J3411; J3475; J3490; J7030; Q9967; 97116-GP; 97530-GO; 97530-GP; 97535-GO; 99285-25; G0378

== ENCOUNTER → 2019-10-25 | Outpatient (CLI) | payer OTHER ==
[2019-10-18 11:49] VITALS: BP 108/68
[~2019-10-25] MED LIST changes: +AMOX1TAB10 PO; +LACT1CAP19 PO; +PANT20TA2 PO; +RIFA550T4 PO
== END | disposition home or self-care (01) ==
LOC: LAB 12:55
PROVIDERS: ATTEND Internal Medicine Gastroenterology
DX: Z11.59 Encounter for screening for other viral diseases (principal); Z87.19 Personal history of other diseases of the digestive system
CPT/HCPCS: 36415; 87635

== ENCOUNTER → 2019-10-30 | Day surgery (SDC) | payer OTHER ==
[~2019-10-30] MED LIST changes: +IV RINGERS,LACTATED 1000ML 1,000 ML IV SCH; +PROPOFOL 10 MG/ML (20ML) VIAL. IV ONE
[2019-10-30 08:25] VITALS: BP 111/75
--- NOTE | 2019-10-30 10:24 | CONS ---
DATE OF CONSULTATION: 10/30/2019 REFERRING PHYSICIAN: Khoi Bermudez MD REASON FOR CONSULTATION: Esophageal varices surveillance. HISTORY OF PRESENT ILLNESS: A 64-year-old male with past medical history significant for hypertension, COPD, alcoholic and hepatitis C cirrhosis with varices, status post hernia repair, sinus surgery, variceal banding, is seen for interval banding. The patient has not had any bleeding since the banding process has begun. Was recently in the hospital for sepsis and has recovered with antibiotics. He is here today for interval exam. PAST MEDICAL HISTORY: Hypothyroidism, diabetes, hepatitis C, cirrhosis, COPD, hypertension. ALLERGIES: None. MEDICATIONS: Include albuterol, amlodipine, amoxicillin, Voltaren, vitamin D, furosemide, insulin, lactulose, levothyroxine, Xifaxan. SOCIAL HISTORY: Smoker and drinker. FAMILY HISTORY: Significant for organic heart disease. REVIEW OF SYSTEMS: Per records. PHYSICAL EXAMINATION: GENERAL: Reveals a well-nourished, disheveled white male. VITAL SIGNS: Temperature is 97, pulse 85, respirations 20, blood pressure is 130/70, sat is 95%. LUNGS: Clear. CARDIOVASCULAR: Reveals an S1, S2 without S3, S4 or appreciable murmur. ABDOMEN: Reveals a soft and rotund abdomen with mild distention without appreciable hepatosplenomegaly. IMPRESSION: Cirrhosis with varices, multifactorial in etiology. Recommend EGD with possible band ligation. Risks and benefits have been discussed. The patient is willing to proceed at this time. IRISH VILLALOBOS MD DR: STEFAN/rosenda JOB#: [id number] / [id number]
== END ==
LOC: ENDOS 06:34
PROVIDERS: ATTEND Internal Medicine Gastroenterology
DX: I85.01 Esophageal varices with bleeding (principal); K29.21 Alcoholic gastritis with bleeding; E03.9 Hypothyroidism, unspecified; J44.9 Chronic obstructive pulmonary disease, unspecified; I10 Essential (primary) hypertension; F17.210 Nicotine dependence, cigarettes, uncomplicated; E11.9 Type 2 diabetes mellitus without complications; Z86.19 Personal history of other infectious and parasitic diseases; Z79.84 Long term (current) use of oral hypoglycemic drugs
CPT/HCPCS: 43244; J2704